=== PATIENT | female | born 2000 | race Caucasian/White ===

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

== ENCOUNTER 2019-02-17 23:39 | Emergency (ER) | payer OTHER, SELFPAY ==
[2019-02-18 01:06] LABS: Absolute Lymphocytes (CBC) 4.5 K/uL (0.7-4.9); Absolute Monocytes 0.7 K/uL (0.1-1.3); Absolute Neutrophil 7.5 K/uL (1.8-8.0); Basophils % 0.6 % (0-1.3); Eosinophils % 1.5 % (0-4.4); Hematocrit 45.8 % (36.0-45.0); Lymphocytes % 34.7 % (15.3-44.8); MPV 8.6 fL (7.6-11.3); Monocytes % 5.6 % (3.3-12.3); RBC Red Blood Cell Count 5.41 M/uL (3.86-4.86)
[2019-02-18 01:15] LABS: ALT/SGPT 23 U/L (12-78); AST/SGOT 13 U/L (15-37); Albumin 3.7 g/dL (3.4-5.0); Alkaline Phosphatase 92 U/L (45-117); BUN Blood Urea Nitrogen 9 mg/dL (7-18); Bicarbonate 25 mmol/L (21-32); Bilirubin Direct < 0.1 mg/dL (0-0.2); Bilirubin Total 0.4 mg/dL (0.2-1.0); Glucose Level 265 mg/dL (74-106); Lipase 89 U/L (73-393); Potassium 3.5 mmol/L (3.5-5.1); Protein, Total 7.8 g/dL (6.4-8.2); Sodium Level 136 mmol/L (136-145)
[2019-02-18 01:16] LABS: Urine Blood TRACE (NEG); Urine Glucose 2+ (NEG); Urine Protein 1+ (NEG); Urine Specific Gravity >1.030 (1.005-1.030)
--- NOTE | 2019-02-18 01:55 | ER ---
Nurse's Notes [facility] Name: Monique Mendez Age: 18 yrs Sex: Female : 2000 Arrival Date: 02/17/2019 Time: 23:44 Bed 16 Private MD: CHRISTINE GARCÍA Diagnosis: Weakness;Bipolar disorder;Type 1 diabetes mellitus;Nausea Presentation: 02/17 23:45 Presenting complaint: Patient states: I have been getting dizzy, feeling like I am jb4 going to pass out, having nausea, and a stabbing stomach pain for the past month. I have not had a period for 2 months. 23:45 Transition of care: patient was not received from another setting of care. Onset of jb4 symptoms was January 19, 2019. Risk Assessment: Do you want to hurt yourself or someone else? Patient reports no desire to harm self or others. Initial Sepsis Screen: Does the patient meet any 2 criteria? HR > 90 bpm. Yes Does the patient have a suspected source of infection? No. Patient's initial sepsis screen is negative. Care prior to arrival: None. 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 - Social history:: Smoking status: Patient uses tobacco products, smokes one pack cigarettes per day. Patient uses alcohol, but reports only rare drinking. - Ebola Screening: : No symptoms or risks identified at this time. - Family history:: not pertinent. Screenin/11 00:00 Abuse screen: Denies threats or abuse. Nutritional screening: No deficits noted. jb4 Tuberculosis screening: No symptoms or risk factors identified. Fall Risk None identified. Assessment: 00:00 General: Appears in no apparent distress. uncomfortable, Behavior is calm, cooperative, jb4 appropriate for age. Pain: Complains of pain in suprapubic area Pain does not radiate. Pain currently is 8 out of 10 on a pain scale. Quality of pain is described as stabbing. Neuro: Level of Consciousness is awake, alert, obeys commands, Oriented to person, place, time, situation. Cardiovascular: Patient's skin is warm and dry. Respiratory: Airway is patent Respiratory effort is even, unlabored, Respiratory pattern is regular, symmetrical. GI: Abdomen is non-distended, obese, Bowel sounds present X 4 quads. Abd is soft X 4 quads Abd is non tender in right upper quadrant, left upper quadrant and left lower quadrant Abdomen is tender to palpation in suprapubic area and right lower quadrant. : No signs and/or symptoms were reported regarding the genitourinary system. EENT: No signs and/or symptoms were reported regarding the EENT system. Derm: Skin is intact, Skin is pink, warm \T\ dry. Musculoskeletal: Circulation, motion, and sensation intact. 01:00 Reassessment: Patient appears in no apparent distress at this time. Patient and/or jb4 family updated on plan of care and expected duration. Pain level reassessed. Patient is alert, oriented x 3, equal unlabored respirations, skin warm/dry/pink. PT IV blew. Pt refused further IV attempts unless absolutely necessary. Refused fluids. 02:09 Reassessment: Patient appears in no apparent distress at this time. Patient and/or ed1 family updated on plan of care and expected duration. Pain level reassessed. Patient is alert, oriented x 3, equal unlabored respirations, skin warm/dry/pink. Vital Signs: 02/17 23:45 BP 142 / 102; Pulse 109; Resp 16; Temp 98.4(O); Pulse Ox 93% on R/A; Weight 113.4 kg jb4 (R); Height 5 ft. 4 in. (162.56 cm) (R); Pain 03/20; 02/18 01:05 BP 150 / 99; Pulse 91; Resp 16; Pulse Ox 98% on R/A; ag4 02:09 BP 127 / 75; Pulse 76; Resp 18; Temp 97.5(O); Pulse Ox 99% on R/A; Pain 6/10; ed1 02/17 23:45 Body Mass Index 42.91 (113.40 kg, 162.56 cm) jb4 ED Course: 02/17 23:44 Patient arrived in ED. am2 23:44 CHRISTINE GARCÍA is Private Physician. am2 23:45 Arm band placed on left wrist. jb4 02/18 00:00 Patient has correct armband on for positive identification. Placed in gown. Bed in low jb4 position. Call light in reach. Side rails up X 1. Pulse ox on. NIBP on. 00:07 Fermin Gunn, RN is Primary Nurse. jb4 00:09 Km Mcdonald MD is Attending Physician. [facility] 00:09 Triage completed. jb4 00:56 Inserted saline lock: 22 gauge in right antecubital area, using aseptic technique. jb4 Blood collected. Missed attempt(s): 20 gauge in right antecubital area. 00:56 Initial lab(s) drawn, by mo, sent to lab. jb4 01:12 IV discontinued, intact, bleeding controlled, No redness/swelling at site. jb4 01:24 Primary Nurse role handed off by Fermin Gunn, SLOAN ed1 01:24 Magaly Arnold, SLOAN is Primary Nurse. ed1 02:09 No provider procedures requiring assistance completed. ed1 Administered Medications: 01:06 Not Given (Patient Refused): NS 0.9% 1000 ml IV at 1 bolus Per protocol; 1000 mL bolus ed1 Point of Care Testing: Blood Glucose: 02/17 23:45 Blood Glucose: 230 mg/dL; jb4 Ranges: Outcome: 02/18 01:54 Discharge ordered by . [facility] 02:09 Discharged to home ambulatory. ed1 02:09 Condition: good 02:09 Discharge instructions given to patient, Instructed on discharge instructions, follow up and referral plans. medication usage, Demonstrated understanding of instructions, follow-up care, medications, Prescriptions given X 1. 02:11 Patient left the ED. ed1 Signatures: Km Mcdonald MD MD cha Riggs, Erika, RN RN ed1 Fermin Gunn RN RN jb4 Arelis Palafox 2 Meyer, Ed ag4
--- NOTE | 2019-02-18 01:55 | EDPHYS ---
Physician Documentation [facility] Name: Monique Mendez Age: 18 yrs Sex: Female : 2000 Arrival Date: 02/17/2019 Time: 23:44 Bed 16 Private MD: CHRISTINE GARCÍA ED Physician Km Mcdonald HPI: 02/18 00:41 This 18 yrs old Female presents to ER via Ambulatory with complaints of Near carol Syncope, Nausea, Abdominal Pain. 00:41 The patient has experienced near-syncope. Onset: The symptoms/episode began/occurred 2 carol day(s) ago. Duration: This was a single episode, that lasted 20 second(s). Context: the episode(s) was witnessed, by family. Associated injury: The patient did not suffer any apparent associated injury. Associated signs and symptoms: The patient has no apparent associated signs or symptoms. Current symptoms: Currently, the patient is not experiencing any symptoms. The patient has not experienced similar symptoms in the past. 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 - Social history:: Smoking status: Patient uses tobacco products, smokes one pack cigarettes per day. Patient uses alcohol, but reports only rare drinking. - Ebola Screening: : No symptoms or risks identified at this time. - Family history:: not pertinent. ROS: 02/18 00:41 Constitutional: Negative for fever, chills, and weight loss, Eyes: Negative for injury, carol pain, redness, and discharge, ENT: Negative for injury, pain, and discharge, Neck: Negative for injury, pain, and swelling, Cardiovascular: Negative for chest pain, palpitations, and edema, Respiratory: Negative for shortness of breath, cough, wheezing, and pleuritic chest pain, Back: Negative for injury and pain, : Negative for injury, bleeding, discharge, and swelling, MS/Extremity: Negative for injury and deformity, Skin: Negative for injury, rash, and discoloration, Neuro: Negative for headache, weakness, numbness, tingling, and seizure, Psych: Negative for depression, anxiety, suicide ideation, homicidal ideation, and hallucinations, Allergy/Immunology: Negative for hives, rash, and allergies, Endocrine: Negative for neck swelling, polydipsia, polyuria, polyphagia, and marked weight changes, Hematologic/Lymphatic: Negative for swollen nodes, abnormal bleeding, and unusual bruising. Abdomen/GI: Positive for abdominal pain, nausea. Exam: 00:41 Constitutional: This is a well developed, well nourished patient who is awake, alert, carol and in no acute distress. Head/Face: Normocephalic, atraumatic. Eyes: Pupils equal round and reactive to light, extra-ocular motions intact. Lids and lashes normal. Conjunctiva and sclera are non-icteric and not injected. Cornea within normal limits. Periorbital areas with no swelling, redness, or edema. ENT: Nares patent. No nasal discharge, no septal abnormalities noted. Tympanic membranes are normal and external auditory canals are clear. Oropharynx with no redness, swelling, or masses, exudates, or evidence of obstruction, uvula midline. Mucous membranes moist. Neck: Trachea midline, no thyromegaly or masses palpated, and no cervical lymphadenopathy. Supple, full range of motion without nuchal rigidity, or vertebral point tenderness. No Meningismus. Chest/axilla: Normal chest wall appearance and motion. Nontender with no deformity. No lesions are appreciated. Cardiovascular: Regular rate and rhythm with a normal S1 and S2. No gallops, murmurs, or rubs. Normal PMI, no JVD. No pulse deficits. Respiratory: Lungs have equal breath sounds bilaterally, clear to auscultation and percussion. No rales, rhonchi or wheezes noted. No increased work of breathing, no retractions or nasal flaring. Abdomen/GI: Soft, non-tender, with normal bowel sounds. No distension or tympany. No guarding or rebound. No evidence of tenderness throughout. Back: No spinal tenderness. No costovertebral tenderness. Full range of motion. Skin: Warm, dry with normal turgor. Normal color with no rashes, no lesions, and no evidence of cellulitis. MS/ Extremity: Pulses equal, no cyanosis. Neurovascular intact. Full, normal range of motion. Neuro: Awake and alert, GCS 15, oriented to person, place, time, and situation. Cranial nerves II-XII grossly intact. Motor strength 5/5 in all extremities. Sensory grossly intact. Cerebellar exam normal. Normal gait. Psych: Awake, alert, with orientation to person, place and time. Behavior, mood, and affect are within normal limits. 00:41 Musculoskeletal/extremity: DVT Exam: No signs of deep vein thrombosis. no pain, no swelling, no tenderness, negative Homans' sign noted on exam, no appreciated bluish discoloration, no erythema, no increased warmth. Vital Signs: 02/17 23:45 BP 142 / 102; Pulse 109; Resp 16; Temp 98.4(O); Pulse Ox 93% on R/A; Weight 113.4 kg [facility] (R); Height 5 ft. 4 in. (162.56 cm) (R); Pain 6/10; 02/18 01:05 BP 150 / 99; Pulse 91; Resp 16; Pulse Ox 98% on R/A; ag4 02:09 BP 127 / 75; Pulse 76; Resp 18; Temp 97.5(O); Pulse Ox 99% on R/A; Pain 6/10; ed1 02/17 23:45 Body Mass Index 42.91 (113.40 kg, 162.56 cm) [facility] MDM: 00:09 Patient medically screened. [facility] 00:44 Data reviewed: vital signs, nurses notes, lab test result(s), EKG. [facility] 02/18 00:18 Order name: Basic Metabolic Panel [facility] 02/18 00:18 Order name: CBC with Diff [facility] 02/18 00:18 Order name: Creatinine for Radiology; Complete Time: : [facility] 02/18 00:18 Order name: Hepatic Function; Complete Time: : [facility] 02/18 00:18 Order name: Lipase; Complete Time: [facility] 02/18 00:18 Order name: [place]; Complete Time: 01:53 4 02/18 00:18 Order name: IV Saline Lock; Complete Time: 00:52 [facility] 02/18 00:18 Order name: Labs collected and sent; Complete Time: 00:52 4 02/18 00:18 Order name: EKG; Complete Time: 00:20 [facility] 02/18 00:19 Order name: Basic Metabolic Panel; Complete Time: 01: EDAK 02/18 00:19 Order name: CBC with Automated Diff; Complete Time: : EDAK 02/18 01:13 Order name: Urine Dipstick--Ancillary (enter results); Complete Time: : cm6 02/18 01:13 Order name: Urine --Ancillary (enter results); Complete Time: [facility] 02/18 00:18 Order name: EKG - Nurse/Tech; Complete Time: 00:52 [facility] 02/18 00:41 Order name: Urine Dipstick-Ancillary (obtain specimen); Complete Time: 01: carol 02/18 00:41 Order name: Urine Test (obtain specimen); Complete Time: 01:04 [facility] Administered Medications: 01:06 Not Given (Patient Refused): NS 0.9% 1000 ml IV at 1 bolus Per protocol; 1000 mL bolus ed1 Point of Care Testing: Blood Glucose: 02/17 23:45 Blood Glucose: 230 mg/dL; jb4 Ranges: Critical Glucose Levels:Adult <50 mg/dl or >400 mg/dl <40 mg/dl or >180 mg/dl Disposition: 02/18/19 01:54 Discharged to Home. Impression: Weakness, Bipolar disorder, Type 1 diabetes mellitus, Nausea. - Condition is Stable. - Discharge Instructions: Type 1 Diabetes Mellitus, Diagnosis, Adult, Bipolar Disorder, Near-Syncope, Weakness, Near-Syncope, [id number]-[id number], Weakness, Ubyj-xv-Vvzc, Type 1 Diabetes Mellitus, Self Care, Adult, Type 1 Diabetes Mellitus, Diagnosis, Adult, Zice-oz-Trzj, Type 1 Diabetes Mellitus, Self Care, Adult, Vqkt-lo-Sakr. - Prescriptions for Zofran 4 mg Oral Tablet - take 1 tablet by ORAL route every 12 hours As needed; 20 tablet. - Medication Reconciliation Form, Thank You Letter, Antibiotic Education, Prescription Opioid Use form. - Follow up: Private Physician; When: 2 - 3 days; Reason: Recheck today's complaints, Continuance of care, Re-evaluation by your physician. - Problem is new. - Symptoms have improved. Signatures: Dispatcher [employer] EDKm Ko MD MD cha Riggs, Erika, RN RN ed1 Fermin Gunn RN RN jb4 Corrections: (The following items were deleted from the chart) 02/18 02:11 01:54 02/18/2019 01:54 Discharged to Home. Impression: Weakness; Bipolar disorder; Type ed1 1 diabetes mellitus; Nausea. Condition is Stable. Discharge Instructions: Type 1 Diabetes Mellitus, Diagnosis, Adult, Bipolar Disorder, Near-Syncope, Weakness, Near-Syncope, Fywn-xf-Olhs, Weakness, Tcru-rb-Zwyd, Type 1 Diabetes Mellitus, Self Care, Adult, Type 1 Diabetes Mellitus, Diagnosis, Adult, Xakq-wr-Tijr, Type 1 Diabetes Mellitus, Self Care, Adult, Ajss-oz-Dfxi. Prescriptions for Zofran 4 mg Oral Tablet - take 1 tablet by ORAL route every 12 hours As needed; 20 tablet. and Forms are Medication Reconciliation Form, Thank You Letter, Antibiotic Education, Prescription Opioid Use. Follow up: Private Physician; When: 2 - 3 days; Reason: Recheck today's complaints, Continuance of care, Re-evaluation by your physician. Problem is new. Symptoms have improved. carol
[2019-02-18 02:26] VITALS: BP 127/75; TEMP 97.5; O2SAT 99
--- NOTE | 2019-02-18 09:21 | EKG ---
Test Date: 2019-02-18 Test Time: 00:26:04 Layout Artist: [email or web address] MEASUREMENT RESULTS: Intervals: Rate: 96 WA: 148 QRSD: 88 QT: 370 QTc: 467 [place]: P: 37 WA: 148 QRS: 71 T: 20 INTERPRETIVE STATEMENTS: Normal sinus rhythm Normal ECG Compared to ECG 04/19/2018 14:42:52 Sinus tachycardia no longer present Electronically Signed On 02-18-19 09:20:48 CDT by Dylon Reyes
== END 2019-02-18 02:11 | disposition home or self-care (01) ==
LOC: ER 23:39
DX: R53.1 Weakness (principal); R11.0 Nausea; F31.9 Bipolar disorder, unspecified; E10.9 Type 1 diabetes mellitus without complications; F32.9 Major depressive disorder, single episode, unspecified; F17.210 Nicotine dependence, cigarettes, uncomplicated; Z79.4 Long term (current) use of insulin
CPT/HCPCS: 36415; 80048; 80076; 80178; 81003; 81025; 82962; 83690; 85025; 93005; 99284

== ENCOUNTER 2019-03-01 02:15 | Emergency (ER) | payer OTHER ==
[2019-03-01] MEDS ORDERED: LIDOCAINE 1% 20 ML MDV ONE (02:47)
--- NOTE | 2019-03-01 03:16 | ER ---
Nurse's Notes [facility] Name: Monique Mendez Age: 19 yrs Sex: Female : 2000 Arrival Date: 03/01/2019 Time: 02:20 Bed 17 Private MD: CHRISTINE GARCÍA Diagnosis: Cutaneous abscess of right hand-right middle finger;Type 1 diabetes mellitus-poorly controlled Presentation: 03/01 02:36 Presenting complaint: Patient states: right middle finger with swelling, redness and ak1 green discharge X1 week. Transition of care: patient was not received from another setting of care. Onset of symptoms is unknown. Risk Assessment: Do you want to hurt yourself or someone else? Patient reports no desire to harm self or others. Care prior to arrival: None. 02:36 Method Of Arrival: Ambulatory ak1 02:36 Acuity: ROXANNE 4 ak1 03:00 Initial Sepsis Screen: Does the patient meet any 2 criteria? No. Patient's initial tl2 sepsis screen is negative. Does the patient have a suspected source of infection? No. Patient's initial sepsis screen is negative. Triage Assessment: 02:38 General: Appears uncomfortable, Behavior is cooperative. Pain: Complains of pain in ak1 dorsal aspect of distal phalanx of right middle finger. 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 ak1 02:35 irregular ak1 Historical: - Allergies: 02:38 No Known Allergies; ak1 - Home Meds: 02:38 control pills [Active]; gabapentin Oral [Active]; Hydroxyzine Oral [Active]; ak1 Lantus 100 unit/mL Sub-Q soln [Active]; Latuda 120 mg Oral tab 1 tab once daily [Active]; lithium carbonate 300 mg Oral cap 1 cap nightly [Active]; Victoza 2-Collin subcutaneous [Active]; - PMHx: 02:38 Anxiety; Bipolar disorder; Diabetes - IDDM; Depression; multiple personality disorder; ak1 polycystic ovarian disease; Schizophrenia; Suicide Attempts; - PSHx: 02:38 Abcess removal; ak1 - Immunization history:: Adult Immunizations unknown, Last tetanus immunization: unknown. - Social history:: Smoking status: Patient uses tobacco products, smokes one pack cigarettes per day. - Ebola Screening: : No symptoms or risks identified at this time. - Family history:: not pertinent. Screenin:59 Abuse screen: Denies threats or abuse. Nutritional screening: No deficits noted. tl2 Tuberculosis screening: No symptoms or risk factors identified. Fall Risk None identified. Assessment: 02:36 General: Appears. tl2 02:40 General: Appears in no apparent distress. uncomfortable, Behavior is calm, cooperative, tl2 appropriate for age. Pain: Complains of pain in dorsal aspect of distal phalanx of right middle finger. Neuro: Level of Consciousness is awake, alert, obeys commands, Oriented to person, place, time, situation. Respiratory: Airway is patent Respiratory effort is even, unlabored, Respiratory pattern is regular, symmetrical. Derm: Skin is pink, warm \T\ dry. Abscess located on dorsal aspect of distal phalanx of right middle finger is on tip of right 3rd finger has purulent drainage, is red, is raised. 03:25 Reassessment: pt BGL >500, MD notified, new orders see MAR. Reassessment: Pt is tl2 refusing IV or blood draw. Explained to pt importance of receiving blood work and medication, pt continues to refuse and states she will go to her PCP. 04:03 Reassessment: Pt refused IV and blood draw. ea 04:52 Reassessment: Patient appears in no apparent distress at this time. pt verbalized tl2 understanding of risk of leaving AMA. Discussed prescription usage and wound care. Vital Signs: 02:35 BP 148 / 92; Pulse 97; Resp 18; Temp 97.8; Pulse Ox 99% on R/A; Weight 113.4 kg (R); ak1 Height 5 ft. 4 in. (162.56 cm) (R); Pain 10/10; 04:52 BP 139 / 90; Pulse 95; Resp 18; Pulse Ox 99% on R/A; tl2 02:35 Body Mass Index 42.91 (113.40 kg, 162.56 cm) ak1 ED Course: 02:20 Patient arrived in ED. es 02:21 CHRISTINE GARCÍA is Private Physician. es 02:35 Arm band placed on Patient placed in an exam room, on a stretcher, on pulse oximetry. ak1 02:37 Triage completed. ak1 02:45 Km Mcdonald MD is Attending Physician. carol 02:49 Jurado, Lynn, RN is Primary Nurse. tl2 03:00 Patient has correct armband on for positive identification. Bed in low position. Call tl2 light in reach. Side rails up X 1. 03:13 Supa Low MD is Referral Physician. [facility] 04:52 No provider procedures requiring assistance completed. Patient did not have IV access tl2 during this emergency room visit. Administered Medications: 03:31 Drug: Bactrim (160 mg-800 mg (DS) 1 tablet Route: PO; tl2 04:54 Follow up: Response: No adverse reaction tl2 03:31 Drug: Doxycycline 200 mg Route: PO; tl2 04:55 Follow up: Response: No adverse reaction tl2 03:31 Drug: [place] 10 mg-325 mg 1 tabs Route: PO; tl2 04:30 Follow up: Response: No adverse reaction tl2 03:33 Not Given (unavailable): Bactroban Ointment 2 % 1 application Topical once tl2 04:05 Drug: Insulin Regular Human 10 units {Co-Signature: sydney (Milagros Tovar RN).} Route: tl2 Sub-Q; Site: left lower abdomen; 04:54 Follow up: Response: No adverse reaction tl2 04:08 Not Given (Patient Refused): Insulin Regular Human 10 units IVP once tl2 04:08 Not Given (Patient Refused): NS 0.9% 1000 ml IV at 1 bolus Per protocol; 1000 mL bolus tl2 04:38 Not Given (unavailable): Bactroban Ointment 2 % 1 application Topical once tl2 Point of Care Testing: Blood Glucose: 03:33 Blood Glucose: High (>450 mg/dL); tl2 Ranges: Outcome: 03:16 Discharge ordered by . [facility] 04:52 AMA AMA form signed tl2 04:52 Condition: stable 04:52 Discharge instructions given to patient, Instructed on follow up and referral plans. medication usage, wound care, Prescriptions given X 4. 04:55 Patient left the ED. tl2 Signatures: Km Mcdonald MD MD cha Salyer, Edna es Krenek, Amber RN RN Lynn Espinal RN RN [email or web address] Milagros Tovar RN RN ea Elena Antunez RN ea
--- NOTE | 2019-03-01 03:16 | EDPHYS ---
Physician Documentation [facility] Name: Monique Mendez Age: 19 yrs Sex: Female : 2000 Arrival Date: 03/01/2019 Time: 02:20 Bed 17 Private MD: CHRISTINE GARCÍA ED Physician Km Mcdonald HPI: 03/01 03:08 This 19 yrs old Female presents to ER via Ambulatory with complaints of carol INFECTED FINGER. 03:08 The patient or guardian reports decreased range of motion, injury, pain, swelling, carol tenderness. The complaints affect the DIP of right middle finger. Context: The problem was sustained at an unknown location. Onset: The symptoms/episode began/occurred 2 day(s) ago. Modifying factors: The symptoms are alleviated by nothing, the symptoms are aggravated by movement, dependent position. Associated signs and symptoms: The patient has no apparent associated signs or symptoms. Severity of symptoms: At their worst the symptoms were moderate, in the emergency department the symptoms are unchanged. The patient has not experienced similar symptoms in the past. 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 ak1 02:35 irregular ak1 Historical: - Allergies: 02:38 No Known Allergies; ak1 - Home Meds: 02:38 control pills [Active]; gabapentin Oral [Active]; Hydroxyzine Oral [Active]; ak1 Lantus 100 unit/mL Sub-Q soln [Active]; Latuda 120 mg Oral tab 1 tab once daily [Active]; lithium carbonate 300 mg Oral cap 1 cap nightly [Active]; Victoza 2-Collin subcutaneous [Active]; - PMHx: 02:38 Anxiety; Bipolar disorder; Diabetes - IDDM; Depression; multiple personality disorder; ak1 polycystic ovarian disease; Schizophrenia; Suicide Attempts; - PSHx: 02:38 Abcess removal; ak1 - Immunization history:: Adult Immunizations unknown, Last tetanus immunization: unknown. - Social history:: Smoking status: Patient uses tobacco products, smokes one pack cigarettes per day. - Ebola Screening: : No symptoms or risks identified at this time. - Family history:: not pertinent. ROS: 03:08 Constitutional: Negative for fever, chills, and weight loss, Eyes: Negative for injury, carol pain, redness, and discharge, ENT: Negative for injury, pain, and discharge, Neck: Negative for injury, pain, and swelling, Cardiovascular: Negative for chest pain, palpitations, and edema, Respiratory: Negative for shortness of breath, cough, wheezing, and pleuritic chest pain, Abdomen/GI: Negative for abdominal pain, nausea, vomiting, diarrhea, and constipation, Back: Negative for injury and pain, : Negative for injury, bleeding, discharge, and swelling, Skin: Negative for injury, rash, and discoloration, Neuro: Negative for headache, weakness, numbness, tingling, and seizure, Psych: Negative for depression, anxiety, suicide ideation, homicidal ideation, and hallucinations, Allergy/Immunology: Negative for hives, rash, and allergies, Endocrine: Negative for neck swelling, polydipsia, polyuria, polyphagia, and marked weight changes, Hematologic/Lymphatic: Negative for swollen nodes, abnormal bleeding, and unusual bruising. 03:08 MS/extremity: Positive for decreased range of motion, pain, swelling, tenderness, of the right middle fingernail and dorsal aspect of distal phalanx of right middle finger. Exam: 03:08 Constitutional: This is a well developed, well nourished patient who is awake, alert, carol and in no acute distress. Head/Face: Normocephalic, atraumatic. Eyes: Pupils equal round and reactive to light, extra-ocular motions intact. Lids and lashes normal. Conjunctiva and sclera are non-icteric and not injected. Cornea within normal limits. Periorbital areas with no swelling, redness, or edema. ENT: Nares patent. No nasal discharge, no septal abnormalities noted. Tympanic membranes are normal and external auditory canals are clear. Oropharynx with no redness, swelling, or masses, exudates, or evidence of obstruction, uvula midline. Mucous membranes moist. Neck: Trachea midline, no thyromegaly or masses palpated, and no cervical lymphadenopathy. Supple, full range of motion without nuchal rigidity, or vertebral point tenderness. No Meningismus. Chest/axilla: Normal chest wall appearance and motion. Nontender with no deformity. No lesions are appreciated. Cardiovascular: Regular rate and rhythm with a normal S1 and S2. No gallops, murmurs, or rubs. Normal PMI, no JVD. No pulse deficits. Respiratory: Lungs have equal breath sounds bilaterally, clear to auscultation and percussion. No rales, rhonchi or wheezes noted. No increased work of breathing, no retractions or nasal flaring. Abdomen/GI: Soft, non-tender, with normal bowel sounds. No distension or tympany. No guarding or rebound. No evidence of tenderness throughout. Back: No spinal tenderness. No costovertebral tenderness. Full range of motion. Skin: Warm, dry with normal turgor. Normal color with no rashes, no lesions, and no evidence of cellulitis. Neuro: Awake and alert, GCS 15, oriented to person, place, time, and situation. Cranial nerves II-XII grossly intact. Motor strength 5/5 in all extremities. Sensory grossly intact. Cerebellar exam normal. Normal gait. 03:08 Musculoskeletal/extremity: ROM: limited active range of motion, limited passive range of motion, Pulses: noted to be 4+ in the bilateral radial, brachial, femoral, popliteal, posterior tibial and and dorsalis pedis arteries., Sensation intact. Severe pain noted. Compartment Syndrome exam of affected extremity: is normal. DVT Exam: negative Homans' sign noted on exam, no appreciated bluish discoloration, pain, swelling, tenderness, erythema, increased warmth, that is moderate, of the palmar aspect of distal phalanx of right middle finger and right middle fingernail. Vital Signs: 02:35 BP 148 / 92; Pulse 97; Resp 18; Temp 97.8; Pulse Ox 99% on R/A; Weight 113.4 kg (R); ak1 Height 5 ft. 4 in. (162.56 cm) (R); Pain 10/10; 04:52 BP 139 / 90; Pulse 95; Resp 18; Pulse Ox 99% on R/A; tl2 02:35 Body Mass Index 42.91 (113.40 kg, 162.56 cm) ak1 MDM: 02:45 Patient medically screened. [facility] 03:12 Data reviewed: vital signs, nurses notes, lab test result(s), urinalysis. [facility] 03/01 03:08 Order name: Urine Dipstick--Ancillary (enter results); Complete Time: 04:44 [facility] 03/01 03:08 Order name: Urine --Ancillary (enter results); Complete Time: 04:44 [facility] 03/01 03:07 Order name: Urine Dipstick-Ancillary (obtain specimen); Complete Time: 03:16 [facility] 03/01 03:07 Order name: Urine Test (obtain specimen); Complete Time: 03:16 [facility] 03/01 03:11 Order name: Blood Glucose Level; Complete Time: 03:31 [facility] 03/01 03:34 Order name: Wound Care; Complete Time: 03:58 [facility] 03/01 03:34 Order name: Wound dressing; Complete Time: 03:58 [facility] Administered Medications: 03:31 Drug: Bactrim (160 mg-800 mg (DS) 1 tablet Route: PO; tl2 04:54 Follow up: Response: No adverse reaction tl2 03:31 Drug: Doxycycline 200 mg Route: PO; tl2 04:55 Follow up: Response: No adverse reaction tl2 03:31 Drug: [place] 10 mg-325 mg 1 tabs Route: PO; tl2 04:30 Follow up: Response: No adverse reaction tl2 03:33 Not Given (unavailable): Bactroban Ointment 2 % 1 application Topical once tl2 04:05 Drug: Insulin Regular Human 10 units {Co-Signature: sydney (Milagros Tovar RN).} Route: tl2 Sub-Q; Site: left lower abdomen; 04:54 Follow up: Response: No adverse reaction tl2 04:08 Not Given (Patient Refused): Insulin Regular Human 10 units IVP once tl2 04:08 Not Given (Patient Refused): NS 0.9% 1000 ml IV at 1 bolus Per protocol; 1000 mL bolus tl2 04:38 Not Given (unavailable): Bactroban Ointment 2 % 1 application Topical once tl2 Point of Care Testing: Blood Glucose: 03:33 Blood Glucose: High (>450 mg/dL); tl2 Ranges: Critical Glucose Levels:Adult <50 mg/dl or >400 mg/dl <40 mg/dl or >180 mg/dl Disposition: 03/01/19 04:49 Patient has left against medical advice. Impression: Cutaneous abscess of right hand - right middle finger, Type 1 diabetes mellitus - poorly controlled. - Patients states they are going to Home. - Condition is Stable. - Discharge Instructions: Skin Abscess, Type 1 Diabetes Mellitus, Diagnosis, Adult, Incision and Drainage, Skin Abscess, [id number], Type 1 Diabetes Mellitus, Self Care, Adult, Type 1 Diabetes Mellitus, Diagnosis, Adult, [id number], Type 1 Diabetes Mellitus, Self Care, Adult, [id number]. - Prescriptions for Bactroban 2 % Topical Ointment - Apply to affected area 1 application by TOPICAL route every 12 hours; 15 gram. Doxycycline Hyclate 100 mg Oral Tablet - take 1 tablet by ORAL route every 12 hours; 20 tablet. Bactrim DS 800- 160 mg Oral Tablet - take 1 tablet by ORAL route every 12 hours for 10 days; 20 tablet. Follow up: Private Physician; When: Upon discharge from the Emergency Department; Reason: Recheck today's complaints, Continuance of care, Re-evaluation by your physician. - Problem is new. - Symptoms have improved. Signatures: Dispatcher [employer] EDMS Km Mcdonald MD MD cha Krenek, Amber RN RN Lynn Espinal RN RN tl2 Milagros Tovar RN, ea Corrections: (The following items were deleted from the chart) 03:35 03:16 03/01/2019 03:16 Discharged to Home. Impression: Cutaneous abscess of right hand carol - felon/ paronychia; Type 1 diabetes mellitus. Condition is Stable. Forms are Medication Reconciliation Form, Thank You Letter, Antibiotic Education, Prescription Opioid Use. Follow up: Private Physician; When: 2 - 3 days; Reason: Recheck today's complaints, Continuance of care, Re-evaluation by your physician. Follow up: Supa Low; When: 2 - 3 days; Reason: Recheck today's complaints, Continuance of care, Re-evaluation by your physician. Problem is new. Symptoms have improved. carol 03:58 03:33 IV Saline Lock ordered. tl2 tl2 04:47 03:35 03/01/2019 03:16 Discharged to Home. Impression: Cutaneous abscess of right hand carol - felon/ paronychia; Type 1 diabetes mellitus - poorly compliant. Condition is Stable. Discharge Instructions: Skin Abscess, Type 1 Diabetes Mellitus, Diagnosis, Adult, Incision and Drainage, Paronychia, Skin Abscess, [id number], Paronychia, [id number], Incision and Drainage, Care After, Type 1 Diabetes Mellitus, Self Care, Adult, Type 1 Diabetes Mellitus, Diagnosis, Adult, [id number], Type 1 Diabetes Mellitus, Self Care, Adult, [id number]. Prescriptions for Bactroban 2 % Topical Ointment - Apply to affected area 1 application by TOPICAL route every 12 hours; 15 gram, Tylenol-Codeine #3 300-30 mg Oral Tablet - take 2 tablet by ORAL route every 6 hours As needed; 30 tablet, Doxycycline Hyclate 100 mg Oral Tablet - take 1 tablet by ORAL route every 12 hours; 20 tablet, Bactrim DS 800-160 mg Oral Tablet - take 1 tablet by ORAL route every 12 hours for 10 days; 20 tablet. and Forms are Medication Reconciliation Form, Thank You Letter, Antibiotic Education, Prescription Opioid Use. Follow up: Private Physician; When: 2 - 3 days; Reason: Recheck today's complaints, Continuance of care, Re-evaluation by your physician. Follow up: Supa Low; When: 2 - 3 days; Reason: Recheck today's complaints, Continuance of care, Re-evaluation by your physician. Problem is new. Symptoms have improved. [facility] 04:55 04:49 03/01/2019 04:49 Patients has left against medical advice. Impression: Cutaneous tl2 abscess of right hand - right middle finger; Type 1 diabetes mellitus - poorly controlled. Patient states they are going to Home. Condition is Stable. Prescriptions for Bactroban 2 % Topical Ointment - Apply to affected area 1 application by TOPICAL route every 12 hours; 15 gram, Tylenol-Codeine #3 300-30 mg Oral Tablet - take 2 tablet by ORAL route every 6 hours As needed; 30 tablet, Doxycycline Hyclate 100 mg Oral Tablet - take 1 tablet by ORAL route every 12 hours; 20 tablet, Bactrim DS 800-160 mg Oral Tablet - take 1 tablet by ORAL route every 12 hours for 10 days; 20 tabletFollow up: Private Physician; When: Upon discharge from the Emergency Department; Reason: Recheck today's complaints, Continuance of care, Re-evaluation by your physician. Problem is new. Symptoms have improved. carol
[2019-03-01 03:20] LABS: Urine Blood 1+ (NEG); Urine Glucose 2+ (NEG); Urine Protein NEGATIVE (NEG)
[2019-03-01] MEDS ORDERED: HYDROCODONE/APAP 10/325 TAB ONE (03:38)
[2019-03-01] MEDS ORDERED: SMZ./TMP. 800/160 MG TABLET ONE (03:38)
[2019-03-01] MEDS ORDERED: DOXYCYCLINE 100 MG CAP PO ONE (03:38)
[2019-03-01] MEDS ORDERED: INSULIN -REGULAR HUMAN 50 UNIT/0.5 ML ML ONE (04:17)
[2019-03-01 06:04] VITALS: TEMP 97.8; O2SAT 99
[2019-03-01 06:05] VITALS: BP 139/90
== END 2019-03-01 04:55 | disposition left against medical advice (07) ==
LOC: ER 02:15
DX: L02.511 Cutaneous abscess of right hand (principal); E10.65 Type 1 diabetes mellitus with hyperglycemia; F17.210 Nicotine dependence, cigarettes, uncomplicated
CPT/HCPCS: 81003; 81025; 82962; 96372; 99283

== ENCOUNTER 2019-05-27 11:44 | Emergency (ER) | payer OTHER ==
[2019-05-27] MEDS ORDERED: NA CHLORIDE 0.9% 1,000 ML ONE (12:22)
[2019-05-27 13:03] LABS: Urine Blood NEGATIVE (NEG); Urine Glucose 2+ (NEG); Urine Protein NEGATIVE (NEG); Urine Specific Gravity 1.015 (1.005-1.030)
[2019-05-27 13:40] LABS: Absolute Lymphocytes (CBC) 2.5 K/uL (0.7-4.9); Basophils % 0.2 % (0-1.3); Hematocrit 45.3 % (36.0-45.0); Lymphocytes % 23.7 % (15.3-44.8); MPV 9.7 fL (7.6-11.3); RBC Red Blood Cell Count 5.36 M/uL (3.86-4.86)
[2019-05-27 13:59] LABS: ALT/SGPT 21 U/L (12-78); AST/SGOT 15 U/L (15-37); Albumin 3.7 g/dL (3.4-5.0); Alkaline Phosphatase 107 U/L (45-117); BUN Blood Urea Nitrogen 7 mg/dL (7-18); Bicarbonate 22 mmol/L (21-32); Bilirubin Direct < 0.1 mg/dL (0-0.2); Bilirubin Total 0.2 mg/dL (0.2-1.0); Lipase 109 U/L (73-393); Potassium 3.6 mmol/L (3.5-5.1); Protein, Total 7.7 g/dL (6.4-8.2); Sodium Level 136 mmol/L (136-145)
[2019-05-27 14:06] LABS: Glucose Level 433 mg/dL (74-106)
[2019-05-27] MEDS ORDERED: INSULIN -REGULAR HUMAN 50 UNIT/0.5 ML ML ONE (14:49)
--- NOTE | 2019-05-27 15:01 | ER ---
Nurse's Notes [facility] Name: Monique Mendez Age: 19 yrs Sex: Female : 2000 Arrival Date: 05/27/2019 Time: 11:47 Bed 8 Private MD: CHRISTINE GARCÍA Diagnosis: Diabetes mellitus due to underlying condition with hyperglycemia Presentation: 05/27 11:58 Presenting complaint: Patient states: "My blood sugar was over 500 this morning." ss Denies fever, cough. Pt reports nausea. Transition of care: patient was not received from another setting of care. Onset of symptoms is unknown. Risk Assessment: Do you want to hurt yourself or someone else? Patient reports no desire to harm self or others. Initial Sepsis Screen: Does the patient meet any 2 criteria? HR > 90 bpm. Does the patient have a suspected source of infection? No. Patient's initial sepsis screen is negative. Care prior to arrival: None. 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 ss Historical: - Allergies: 12:02 No Known Allergies; ss - Home Meds: 12:02 Lantus 100 unit/mL Sub-Q soln [Active]; Victoza [Active]; gabapentin 300 mg oral cap 1 ss cap twice a day [Active]; hydroxyzine HCl 25 mg Oral tab 1 tab 3 times per day [Active]; lithium carbonate 300 mg Oral cap 1 cap twice a day [Active]; quetiapine 100 mg oral tab 1 tab nightly [Active]; - PMHx: 12:02 Anxiety; Bipolar disorder; Depression; Diabetes - IDDM; Suicide Attempts; ss Schizophrenia; polycystic ovarian disease; multiple personality disorder; - PSHx: 12:02 I\\T\\D; ss - Immunization history:: Adult Immunizations up to date. - Social history:: Smoking status: Patient uses tobacco products, smokes one pack cigarettes per day. - Ebola Screening: : Patient denies exposure to infectious person Patient denies travel to an Ebola-affected area in the 21 days before illness onset. Screenin:55 Abuse screen: Denies threats or abuse. Denies injuries from another. Nutritional ph screening: No deficits noted. Tuberculosis screening: No symptoms or risk factors identified. Fall Risk None identified. Assessment: 12:30 General: Appears in no apparent distress. comfortable, obese, well groomed, Behavior is ph calm, cooperative, appropriate for age, Denies fever, feeling ill. Pain: Denies pain. Neuro: Level of Consciousness is awake, alert, obeys commands, Oriented to person, place, time, situation. Cardiovascular: Capillary refill < 3 seconds in bilateral fingers Patient's skin is warm and dry. Respiratory: Airway is patent Respiratory effort is even, unlabored, Respiratory pattern is regular, symmetrical, Denies cough, shortness of breath. GI: Reports nausea, Patient currently denies abdominal pain, diarrhea, vomiting. Derm: Skin is intact, is healthy with good turgor, Skin is pink, warm \\T\\ dry. Musculoskeletal: Circulation, motion, and sensation intact. Range of motion: intact in all extremities. 13:30 Reassessment: No changes from previously documented assessment. Patient and/or family ph updated on plan of care and expected duration. Pain level reassessed. Patient is alert, oriented x 3, equal unlabored respirations, skin warm/dry/pink. 14:58 Reassessment: Patient appears in no apparent distress at this time. Patient and/or ph family updated on plan of care and expected duration. Pain level reassessed. Patient is alert, oriented x 3, equal unlabored respirations, skin warm/dry/pink. Pt resting quietly, SO at bedside, VSS, will continue to ,onitor. Vital Signs: 12:02 BP 147 / 85; Pulse 96; Resp 16; Temp 98.4(TE); Pulse Ox 96% on R/A; Weight 108.86 kg; ss Height 5 ft. 4 in. (162.56 cm); Pain 0/10; 13:00 BP 134 / 74; Pulse 87; Resp 18; Pulse Ox 99% on R/A; ph 14:40 BP 126 / 77; Pulse 75; Resp 16; Pulse Ox 97% on R/A; rv 16:03 BP 124 / 76; Pulse 74; Resp 15; Temp 98; Pulse Ox 99% ; rv 12:02 Body Mass Index 41.20 (108.86 kg, 162.56 cm) ED Course: 11:47 Patient arrived in ED. mr 11:47 CHRISTINE GARCÍA is Private Physician. mr 11:51 Gracie Aguayo FNP-C is PHCP. snw 11:51 Mathew Barrera MD is Attending Physician. snw 11:59 Triage completed. ss 12:02 Arm band placed on right wrist. ss 12:13 Alina Shen, RN is Primary Nurse. ph 12:45 Initial lab(s) drawn, by nh, sent to lab. Inserted saline lock: 22 gauge in right ph antecubital area, using aseptic technique. Blood collected. 14:56 Patient has correct armband on for positive identification. Bed in low position. Call light in reach. Side rails up X 1. Pulse ox on. NIBP on. Door closed. Noise minimized. Warm blanket given. Head of bed elevated. 15:00 CHRISTINE GARCÍA is Referral Physician. snw 16:04 No provider procedures requiring assistance completed. IV discontinued, intact, rv bleeding controlled, No redness/swelling at site. Pressure dressing applied. Administered Medications: 12:45 Drug: NS 0.9% 1000 ml Route: IV; Rate: 1000 ml; Site: right antecubital; ph 16:03 Follow up: IV Status: Completed infusion; IV Intake: 1000ml rv 14:56 Drug: Insulin Regular Human 10 units {Co-Signature: rv (Jj Dominguez RN).} Route: IVP; Site: right antecubital; 16:03 Follow up: Response: Blood sugar is lowered rv Point of Care Testing: Blood Glucose: 12:12 Blood Glucose: 399 mg/dL; ss 15:40 Blood Glucose: 267 mg/dL; dh3 Ranges: Intake: 16:03 IV: 1000ml; Total: 1000ml. rv Outcome: 15:00 Discharge ordered by . snw 16:04 Discharged to home ambulatory, with family. rv 16:04 Condition: good 16:04 Discharge instructions given to patient, Instructed on discharge instructions, follow up and referral plans. Demonstrated understanding of instructions, follow-up care. 16:04 Patient left the ED. rv Signatures: Gracie Aguayo FNP-C FNP-Robbie Jessica LucasMelly, RN RN Alina Shen RN RN Yolie Gomez formerly [facility] Jj Dominguez RN RN rv Jj Dominguez RN rv
--- NOTE | 2019-05-27 15:02 | EDPHYS ---
Physician Documentation [facility] Name: Monique Mendez Age: 19 yrs Sex: Female : 2000 Arrival Date: 05/27/2019 Time: 11:47 Bed 8 Private MD: CHRISTINE GARCÍA ED Physician Mathew Barrera HPI: 05/27 12:22 This 19 yrs old Female presents to ER via Ambulatory with complaints of High snw Blood Sugar. 12:22 The patient or guardian reports hyperglycemia, that was potentially precipitated by no snw particular event. Onset: The symptoms/episode began/occurred at an unknown time. Associated signs and symptoms: Pertinent positives: nausea and fatigue. Current symptoms: In the emergency department the patient's symptoms are unchanged from the initial presentation. It is unknown whether or not the patient has had similar symptoms in the past. It is unknown whether or not the patient has recently seen a physician. Sees Dr. De Leon. 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 ss Historical: - Allergies: 12:02 No Known Allergies; ss - Home Meds: 12:02 Lantus 100 unit/mL Sub-Q soln [Active]; Victoza [Active]; gabapentin 300 mg oral cap 1 ss cap twice a day [Active]; hydroxyzine HCl 25 mg Oral tab 1 tab 3 times per day [Active]; lithium carbonate 300 mg Oral cap 1 cap twice a day [Active]; quetiapine 100 mg oral tab 1 tab nightly [Active]; - PMHx: 12:02 Anxiety; Bipolar disorder; Depression; Diabetes - IDDM; Suicide Attempts; ss Schizophrenia; polycystic ovarian disease; multiple personality disorder; - PSHx: 12:02 I\T\D; ss - Immunization history:: Adult Immunizations up to date. - Social history:: Smoking status: Patient uses tobacco products, smokes one pack cigarettes per day. - Ebola Screening: : Patient denies exposure to infectious person Patient denies travel to an Ebola-affected area in the 21 days before illness onset. ROS: 12:22 Constitutional: Negative for fever, chills, and weight loss, + high blood sugar Eyes: snw Negative for injury, pain, redness, and discharge, ENT: Negative for injury, pain, and discharge, Neck: Negative for injury, pain, and swelling, Cardiovascular: Negative for chest pain, palpitations, and edema, Respiratory: Negative for shortness of breath, cough, wheezing, and pleuritic chest pain. 12:22 Back: Negative for injury and pain, : Negative for injury, bleeding, discharge, and swelling, MS/Extremity: Negative for injury and deformity, Skin: Negative for injury, rash, and discoloration, Neuro: Negative for headache, weakness, numbness, tingling, and seizure, Psych: Negative for depression, anxiety, suicide ideation, homicidal ideation, and hallucinations. 12:22 Abdomen/GI: Positive for nausea. Exam: 12:20 Constitutional: This is a well developed, well nourished patient who is awake, alert, snw and in no acute distress. Head/Face: Normocephalic, atraumatic. Eyes: Pupils equal round and reactive to light, extra-ocular motions intact. Lids and lashes normal. Conjunctiva and sclera are non-icteric and not injected. Cornea within normal limits. Periorbital areas with no swelling, redness, or edema. ENT: Nares patent. No nasal discharge, no septal abnormalities noted. Tympanic membranes are normal and external auditory canals are clear. Oropharynx with no redness, swelling, or masses, exudates, or evidence of obstruction, uvula midline. Mucous membranes moist. Neck: Trachea midline, no thyromegaly or masses palpated, and no cervical lymphadenopathy. Supple, full range of motion without nuchal rigidity, or vertebral point tenderness. No Meningismus. Chest/axilla: Normal chest wall appearance and motion. Nontender with no deformity. No lesions are appreciated. Cardiovascular: Regular rate and rhythm with a normal S1 and S2. No gallops, murmurs, or rubs. Normal PMI, no JVD. No pulse deficits. Respiratory: Lungs have equal breath sounds bilaterally, clear to auscultation and percussion. No rales, rhonchi or wheezes noted. No increased work of breathing, no retractions or nasal flaring. 12:20 Back: No spinal tenderness. No costovertebral tenderness. Full range of motion. Skin: Warm, dry with normal turgor. Normal color with no rashes, no lesions, and no evidence of cellulitis. MS/ Extremity: Pulses equal, no cyanosis. Neurovascular intact. Full, normal range of motion. Neuro: Awake and alert, GCS 15, oriented to person, place, time, and situation. Cranial nerves II-XII grossly intact. Motor strength 5/5 in all extremities. Sensory grossly intact. Cerebellar exam normal. Normal gait. 12:20 Abdomen/GI: Inspection: obese Bowel sounds: diminished, Palpation: abdomen is soft and non-tender. 12:20 Psych: indifferent, unable to say when she checked blood sugar last before two days ago, unable to say if is possible or not. Vital Signs: 12:02 BP 147 / 85; Pulse 96; Resp 16; Temp 98.4(TE); Pulse Ox 96% on R/A; Weight 108.86 kg; ss Height 5 ft. 4 in. (162.56 cm); Pain 0/10; 13:00 BP 134 / 74; Pulse 87; Resp 18; Pulse Ox 99% on R/A; ph 14:40 BP 126 / 77; Pulse 75; Resp 16; Pulse Ox 97% on R/A; rv 16:03 BP 124 / 76; Pulse 74; Resp 15; Temp 98; Pulse Ox 99% ; rv 12:02 Body Mass Index 41.20 (108.86 kg, 162.56 cm) ss MDM: 12:07 Patient medically screened. snw 15:01 Data reviewed: vital signs, nurses notes. Data interpreted: Pulse oximetry: on room air snw is 97 %. Interpretation: normal. Counseling: I had a detailed discussion with the patient and/or guardian regarding: the historical points, exam findings, and any diagnostic results supporting the discharge/admit diagnosis, lab results, the need for outpatient follow up, to return to the emergency department if symptoms worsen or persist or if there are any questions or concerns that arise at home. Response to treatment: the patient's symptoms have mildly improved after treatment. 05/27 12:50 Order name: Urine Dipstick--Ancillary (enter results); Complete Time: 13:34 eb 05/27 12:50 Order name: Urine --Ancillary (enter results); Complete Time: 13:34 eb 05/27 13:19 Order name: Basic Metabolic Panel; Complete Time: 14:15 snw 05/27 13:19 Order name: CBC with Diff; Complete Time: 13:46 snw 05/27 13:19 Order name: Creatinine for Radiology; Complete Time: 14:00 snw 05/27 13:19 Order name: Hepatic Function; Complete Time: 14:15 snw 05/27 13:19 Order name: Lipase; Complete Time: 14:15 snw 05/27 13:19 Order name: Acetone, Serum; Complete Time: 14:15 snw 05/27 14:04 Order name: Hemoglobin A1c snw 05/27 14:11 Order name: Hemoglobin A1c; Complete Time: 15:01 EDNJ 05/27 15:53 Order name: Glucose, Ancillary Testing; Complete Time: 16:53 EDNJ 05/27 13:19 Order name: IV Saline Lock; Complete Time: 13:31 snw 05/27 13:19 Order name: Labs collected and sent; Complete Time: 13:31 snw Administered Medications: 12:45 Drug: NS 0.9% 1000 ml Route: IV; Rate: 1000 ml; Site: right antecubital; 16:03 Follow up: IV Status: Completed infusion; IV Intake: 1000ml rv 14:56 Drug: Insulin Regular Human 10 units {Co-Signature: rv (Jj Dominguez RN).} Route: ph IVP; Site: right antecubital; 16:03 Follow up: Response: Blood sugar is lowered rv Point of Care Testing: Blood Glucose: 12:12 Blood Glucose: 399 mg/dL; ss 15:40 Blood Glucose: 267 mg/dL; dh3 Ranges: Critical Glucose Levels:Adult <50 mg/dl or >400 mg/dl <40 mg/dl or >180 mg/dl Disposition: 05/27/19 15:00 Discharged to Home. Impression: Diabetes mellitus due to underlying condition with hyperglycemia. - Condition is Stable. - Discharge Instructions: Dehydration, Adult, Diabetes and Sick Day Management, Hyperglycemic Hyperosmolar State, Form - Daily Diabetes Record, Blood Glucose Monitoring, Adult, Rehydration, Adult. - Medication Reconciliation Form, Thank You Letter, Antibiotic Education, Prescription Opioid Use form. - Follow up: CHRISTINE GARCÍA; When: 1 - 2 days; Reason: Recheck today's complaints, Continuance of care, Re-evaluation by your physician. Follow up: Emergency Department; When: As needed; Reason: Worsening of condition. Signatures: Dispatcher [employer] EDGracie French, RONY CHIEF EXECUTIVE-[place] Melly Morillo RN RN Alina Shen RN RN ph Jj Dominguez RN RN rv Jj Dominguez RN rv Corrections: (The following items were deleted from the chart) 13:21 13:20 HEMOGLOBIN A1C+CHEM A1C.LAB.BRZ ordered. EDNJ EDMS 16:04 15:00 05/27/2019 15:00 Discharged to Home. Impression: Diabetes mellitus due to rv underlying condition with hyperglycemia. Condition is Stable. Discharge Instructions: Dehydration, Adult, Diabetes and Sick Day Management, Hyperglycemic Hyperosmolar State, Form - Daily Diabetes Record, Blood Glucose Monitoring, Adult, Rehydration, Adult. Forms are Medication Reconciliation Form, Thank You Letter, Antibiotic Education, Prescription Opioid Use. Follow up: CHRISTINE GARCÍA; When: 1 - 2 days; Reason: Recheck today's complaints, Continuance of care, Re-evaluation by your physician. Follow up: Emergency Department; When: As needed; Reason: Worsening of condition. snw
[2019-05-27 16:55] VITALS: BP 124/76; TEMP 98; O2SAT 99
== END 2019-05-27 16:04 | disposition home or self-care (01) ==
LOC: ER 11:44
DX: E11.65 Type 2 diabetes mellitus with hyperglycemia (principal); F41.8 Other specified anxiety disorders
CPT/HCPCS: 96361; 85025; 80048; 36415; 82010; 81025; 82962 ×2; 80076; 81003; 83036; 83690; 96374; 99284; J7030

== ENCOUNTER 2019-07-13 23:17 | Emergency (ER) | payer OTHER ==
[2019-07-14] MEDS ORDERED: PEN G BENZ LA 2.4 MU/4 ML SYRINGE IM ONE (02:15)
[2019-07-14 02:26] LABS: Urine Bacteria 20-50 /HPF (<20); Urine Culture Reflex Order REFLEXED; Urine RBC <5 /HPF (NONE SEEN)
[2019-07-14 02:26] LABS: Urine Blood NEGATIVE (NEG); Urine Glucose 2+ (NEG); Urine Protein NEGATIVE (NEG); Urine Specific Gravity 1.015 (1.005-1.030)
--- NOTE | 2019-07-14 02:34 | ER ---
Nurse's Notes [facility] Name: Monique Mendez Age: 19 yrs Sex: Female : 2000 Arrival Date: 07/13/2019 Time: 23:22 Bed 9 Private MD: CHRISTINE GARCÍA Diagnosis: Streptococcal pharyngitis;Urinary tract infection, site not specified;Malaise and fatigue Presentation: 07/14 00:32 Presenting complaint: Patient states: that she is just not feeling well, period is fc late, having nausea and has swollen lymph nodes to right neck. Denies any sore throat or ear pain. Transition of care: patient was not received from another setting of care. Onset of symptoms was July 08, 2019. Risk Assessment: Do you want to hurt yourself or someone else? Patient reports no desire to harm self or others. Initial Sepsis Screen: Does the patient meet any 2 criteria? HR > 90 bpm. Yes Does the patient have a suspected source of infection? No. Patient's initial sepsis screen is negative. Care prior to arrival: None. 00:32 Method Of Arrival: Ambulatory fc 00:32 Acuity: ROXANNE 3 fc Triage Assessment: 00:37 General: Appears comfortable, obese, Behavior is calm, cooperative, appropriate for age. Pain: Complains of pain in neck Pain currently is 7 out of 10 on a pain scale. Quality of pain is described as aching, throbbing, Pain began 1 week ago. EENT: Throat is reddened Cervical nodes enlarged on right Reports pain to swollen lymph nodes on right. Neuro: Level of Consciousness is awake, alert, obeys commands, Oriented to person, place, time, situation, Appropriate for age. Cardiovascular: No deficits noted. Respiratory: No deficits noted. GI: Abdomen is round Bowel sounds present X 4 quads. Abd is soft and non tender X 4 quads. Reports constipation, nausea. : No deficits noted. Derm: Skin is pink, warm \T\ dry. Musculoskeletal: Circulation, motion, and sensation intact. Capillary refill < 3 seconds, Range of motion: intact in all extremities. 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 fc Historical: - Allergies: 00:36 No Known Allergies; fc - Home Meds: 00:36 lithium carbonate 300 mg Oral cap 1 cap twice a day [Active]; gabapentin 100 mg oral fc cap 3 times per day [Active]; hydroxyzine HCl 25 mg oral tab 1 tab 3 times per day [Active]; quetiapine 100 mg Oral tab 1 tab nightly [Active]; Victoza 2-Collin subcutaneous once daily [Active]; Tresiba FlexTouch U-100 100 unit/mL (3 mL) subcutaneous inpn 14 unit daily [Active]; - PMHx: 00:36 Anxiety; Depression; Diabetes - IDDM; polycystic ovarian disease; Schizophrenia; fc multiple personality disorder; Suicide Attempts; Bipolar disorder; - PSHx: 00:37 abscess removal; fc - Immunization history:: Last tetanus immunization: up to date Flu vaccine is not up to date. - Social history:: Smoking status: Patient uses tobacco products, smokes one pack cigarettes per day. Patient uses alcohol, occasionally. street drugs, marijuana. - Ebola Screening: : Patient negative for fever greater than or equal to 101.5 degrees Fahrenheit, and additional compatible Ebola Virus Disease symptoms Patient denies exposure to infectious person Patient denies travel to an Ebola-affected area in the 21 days before illness onset. Screenin:57 Abuse screen: Denies threats or abuse. Denies injuries from another. Nutritional lp1 screening: No deficits noted. Tuberculosis screening: No symptoms or risk factors identified. Fall Risk None identified. Assessment: 01:15 General: Appears in no apparent distress. Behavior is appropriate for age. Pain: lp1 Complains of pain in neck Pain currently is 8 out of 10 on a pain scale. Quality of pain is described as tender. Neuro: No deficits noted. Cardiovascular: No deficits noted. Respiratory: Airway is patent Respiratory effort is even, unlabored, Breath sounds are clear bilaterally. GI: No deficits noted. : No deficits noted. EENT: No deficits noted. Derm: Skin is pink, warm \T\ dry. Musculoskeletal: No deficits noted. 02:05 Reassessment: Patient appears in no apparent distress at this time. Patient and/or rr5 family updated on plan of care and expected duration. Pain level reassessed. Patient is alert, oriented x 3, equal unlabored respirations, skin warm/dry/pink. 02:51 Reassessment: Patient appears in no apparent distress at this time. Patient is alert, rr5 oriented x 3, equal unlabored respirations, skin warm/dry/pink. discharge instruction given and explained without complaints made, verbalized understanding. Vital Signs: 00:37 BP 133 / 83; Pulse 105; Resp 18; Temp 98.2(O); Pulse Ox 96% on R/A; Weight 105.69 kg fc (R); Height 5 ft. 4 in. (162.56 cm) (R); Pain 7/10; 02:50 BP 136 / 89; Pulse 93; Resp 19; Temp 98.2; Pulse Ox 98% ; rr5 00:37 Body Mass Index 39.99 (105.69 kg, 162.56 cm) ED Course: 07/13 23:22 Patient arrived in ED. mr 23:23 RAQUEL CHRISTINE is Private Physician. mr 07/14 00:33 Triage completed. fc 00:37 Arm band placed on Patient placed in waiting room, Patient notified of wait time. fc 00:51 Tamara Jimenez, SLOAN is Primary Nurse. lp1 00:54 Gracie Aguayo FNP-C [facility]. snw 00:54 Bladimir Galicia MD is Attending Physician. snw 01:30 Initial lab(s) drawn, by mt, sent to lab. Strep swab sent to lab. lp1 01:56 Patient did not have IV access during this emergency room visit. lp1 01:58 Patient has correct armband on for positive identification. lp1 02:32 CHRISTINE GARCÍA is Referral Physician. snw 02:52 No provider procedures requiring assistance completed. rr5 Administered Medications: 02:28 Drug: Bicillin L-A 2.4 million units Route: IM; Site: right gluteus; rr5 02:55 Follow up: Response: No adverse reaction rr5 Point of Care Testing: Blood Glucose: 01:54 Blood Glucose: 283 mg/dL; lp1 Ranges: Outcome: 02:33 Discharge ordered by . snw 02:52 Discharged to home ambulatory, with family. rr5 02:52 Condition: stable 02:52 Discharge instructions given to patient, Instructed on discharge instructions, follow up and referral plans. medication usage, Demonstrated understanding of instructions, follow-up care, medications, Prescriptions given X 2. 02:56 Patient left the ED. rr5 Addendum: 07/19/2019 13:36 Addendum: Culture Results: Positive urine culture. Phone call Attempt #1 spoke with s s patient who reports she does not have any s/s of UTI at this time and plans to follow up with pcp in the near future. Signatures: Gracie Aguayo, HERLINDA-C FLIGHT TOWER DISPATCHER-[employer] Jessica Lucas mr Mitramary, Pat, RN RN fc [facility] Center[facility] RN RN ss Tamara Jimenez RN RN lp1 Chadd Stover RN RN rr5
--- NOTE | 2019-07-14 02:34 | EDPHYS ---
Physician Documentation [facility] Name: Monique Mendez Age: 19 yrs Sex: Female : 2000 Arrival Date: 07/13/2019 Time: 23:22 Bed 9 Private MD: CHRISTINE GARCÍA ED Physician Bladimir Galicia HPI: 07/14 01:26 This 19 yrs old Female presents to ER via Ambulatory with complaints of DONT snw FEEL GOOD,SWOLLEN LYMPH NODES,NAUSEA. 01:26 Pt states she just hasn't felt well x 2 weeks, fatigue, malaise, bodyaches, swollen snw right posterior lymph nodes, menses irregularity. Onset: The symptoms/episode began/occurred gradually, 2 week(s) ago, and became persistent. Severity of symptoms: At their worst the symptoms were moderate. It is unknown whether or not the patient has had similar symptoms in the past. It is unknown whether or not the patient has recently seen a physician. 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 fc Historical: - Allergies: 00:36 No Known Allergies; fc - Home Meds: 00:36 lithium carbonate 300 mg Oral cap 1 cap twice a day [Active]; gabapentin 100 mg oral fc cap 3 times per day [Active]; hydroxyzine HCl 25 mg oral tab 1 tab 3 times per day [Active]; quetiapine 100 mg Oral tab 1 tab nightly [Active]; Victoza 2-Collin subcutaneous once daily [Active]; Tresiba FlexTouch U-100 100 unit/mL (3 mL) subcutaneous inpn 14 unit daily [Active]; - PMHx: 00:36 Anxiety; Depression; Diabetes - IDDM; polycystic ovarian disease; Schizophrenia; fc multiple personality disorder; Suicide Attempts; Bipolar disorder; - PSHx: 00:37 abscess removal; fc - Immunization history:: Last tetanus immunization: up to date Flu vaccine is not up to date. - Social history:: Smoking status: Patient uses tobacco products, smokes one pack cigarettes per day. Patient uses alcohol, occasionally. street drugs, marijuana. - Ebola Screening: : Patient negative for fever greater than or equal to 101.5 degrees Fahrenheit, and additional compatible Ebola Virus Disease symptoms Patient denies exposure to infectious person Patient denies travel to an Ebola-affected area in the 21 days before illness onset. ROS: 01:02 Constitutional: Negative for fever, chills, and weight loss. snw 01:02 Eyes: Negative for injury, pain, redness, and discharge, ENT: Negative for injury, pain, and discharge, + tender lymph nodes Neck: Negative for injury, pain, and swelling, Cardiovascular: Negative for chest pain, palpitations, and edema, Respiratory: Negative for shortness of breath, cough, wheezing, and pleuritic chest pain, Abdomen/GI: Negative for abdominal pain, nausea, vomiting, diarrhea, and constipation, Back: Negative for injury and pain, : Negative for injury, bleeding, discharge, and swelling, + menses late MS/Extremity: Negative for injury and deformity, Skin: Negative for injury, rash, and discoloration, Neuro: Negative for headache, weakness, numbness, tingling, and seizure, Psych: Negative for depression, anxiety, suicide ideation, homicidal ideation, and hallucinations. 01:02 Constitutional: Positive for fatigue, malaise. Exam: 01:01 Constitutional: This is a well developed, well nourished patient who is awake, alert, snw and in no acute distress. Head/Face: Normocephalic, atraumatic. Eyes: Pupils equal round and reactive to light, extra-ocular motions intact. Lids and lashes normal. Conjunctiva and sclera are non-icteric and not injected. Cornea within normal limits. Periorbital areas with no swelling, redness, or edema. ENT: Nares patent. No nasal discharge, no septal abnormalities noted. Tympanic membranes are normal and external auditory canals are clear. Oropharynx with no redness, swelling, or masses, exudates, or evidence of obstruction, uvula midline. Mucous membranes moist. Neck: Trachea midline, no thyromegaly or masses palpated, and no cervical lymphadenopathy. Supple, full range of motion without nuchal rigidity, or vertebral point tenderness. No Meningismus. Chest/axilla: Normal chest wall appearance and motion. Nontender with no deformity. No lesions are appreciated. Cardiovascular: Regular rate and rhythm with a normal S1 and S2. No gallops, murmurs, or rubs. Normal PMI, no JVD. No pulse deficits. Respiratory: Lungs have equal breath sounds bilaterally, clear to auscultation and percussion. No rales, rhonchi or wheezes noted. No increased work of breathing, no retractions or nasal flaring. Back: No spinal tenderness. No costovertebral tenderness. Full range of motion. 01:01 ENT: Nares patent. No nasal discharge, no septal abnormalities noted. Tympanic membranes are normal and external auditory canals are clear. Oropharynx with no redness, swelling, or masses, exudates, or evidence of obstruction, uvula midline. Mucous membranes moist. tender right postauricular lymph nodes Skin: Warm, dry with normal turgor. Normal color with no rashes, no lesions, and no evidence of cellulitis. MS/ Extremity: Pulses equal, no cyanosis. Neurovascular intact. Full, normal range of motion. Neuro: Awake and alert, GCS 15, oriented to person, place, time, and situation. Cranial nerves II-XII grossly intact. Motor strength 5/5 in all extremities. Sensory grossly intact. Cerebellar exam normal. Normal gait. 01:01 Abdomen/GI: Inspection: obese Bowel sounds: normal, Palpation: abdomen is soft and non-tender. Vital Signs: 00:37 BP 133 / 83; Pulse 105; Resp 18; Temp 98.2(O); Pulse Ox 96% on R/A; Weight 105.69 kg fc (R); Height 5 ft. 4 in. (162.56 cm) (R); Pain 7/10; 02:50 BP 136 / 89; Pulse 93; Resp 19; Temp 98.2; Pulse Ox 98% ; rr5 00:37 Body Mass Index 39.99 (105.69 kg, 162.56 cm) MDM: 00:54 Patient medically screened. snw 02:34 Data reviewed: vital signs, nurses notes. Data interpreted: Pulse oximetry: on room air snw is 96 %. Interpretation: acceptable. Counseling: I had a detailed discussion with the patient and/or guardian regarding: the historical points, exam findings, and any diagnostic results supporting the discharge/admit diagnosis, the presence of at least one elevated blood pressure reading (>120/80) during this emergency department visit, lab results, the need for outpatient follow up, for definitive care, to return to the emergency department if symptoms worsen or persist or if there are any questions or concerns that arise at home. Special discussion: Based on the history and exam findings, there is no indication for further emergent testing or inpatient evaluation. I discussed with the patient/guardian the need to see the primary care provider for further evaluation of the symptoms. 07/13 23:42 Order name: Strep; Complete Time: 02:04 snw 07/14 00:53 Order name: Urine Microscopic Only; Complete Time: 02: snw 07/14 01:04 Order name: [place] Screen Profile snw 07/14 01:04 Order name: TSH; Complete Time: 02: snw 07/14 01:57 Order name: Urine Dipstick--Ancillary (enter results); Complete Time: 02: ar5 07/14 01:57 Order name: Urine --Ancillary (enter results); Complete Time: 02: ar5 07/14 00:53 Order name: Urine Test (obtain specimen); Complete Time: :42 snw 07/14 00:53 Order name: Urine Dipstick-Ancillary (obtain specimen); Complete Time: 01:42 snw 07/14 01:04 Order name: FSBS; Complete Time: 01:56 snw 07/14 02:27 Order name: Urine Culture EDMS Administered Medications: 02:28 Drug: Bicillin L-A 2.4 million units Route: IM; Site: right gluteus; rr5 02:55 Follow up: Response: No adverse reaction rr5 Point of Care Testing: Blood Glucose: 01:54 Blood Glucose: 283 mg/dL; lp1 Ranges: Critical Glucose Levels:Adult <50 mg/dl or >400 mg/dl <40 mg/dl or >180 mg/dl Disposition: 07/14/19 02:33 Discharged to Home. Impression: Streptococcal pharyngitis, Urinary tract infection, site not specified, Malaise and fatigue. - Condition is Stable. - Discharge Instructions: Strep Throat, Urinary Tract Infection, Adult, Fatigue, Rehydration, Adult. - Prescriptions for Macrobid 100 mg Oral Capsule - take 1 capsule by ORAL route every 12 hours for 10 days; 20 capsule. promethazine 25 mg Oral Tablet - take 1 tablet by ORAL route every 6 hours As needed; 20 tablet. - Medication Reconciliation Form, Thank You Letter, Antibiotic Education, Prescription Opioid Use form. - Follow up: CHRISTINE GARCÍA; When: 2 - 3 days; Reason: Recheck today's complaints, Continuance of care, Re-evaluation by your physician. Follow up: Emergency Department; When: As needed; Reason: Worsening of condition. Addendum: 07/19/2019 06:56 Co-signature as Attending Physician, Bladimir Galicia MD Available for consultation at p s1 all times . Signatures: Dispatcher [employer] EDMS Gracie Aguayo, RN INTAKE-C RN INTAKE-Csnw Pta Sampson RN RN Bladimir Galicia MD MD [facility] Chadd Stover RN RN rr5 Corrections: (The following items were deleted from the chart) 07/14 02:56 02:33 07/14/2019 02:33 Discharged to Home. Impression: Streptococcal pharyngitis; rr5 Urinary tract infection, site not specified; Malaise and fatigue. Condition is Stable. Forms are Medication Reconciliation Form, Thank You Letter, Antibiotic Education, Prescription Opioid Use. Follow up: CHRISTINE GARCÍA; When: 2 - 3 days; Reason: Recheck today's complaints, Continuance of care, Re-evaluation by your physician. Follow up: Emergency Department; When: As needed; Reason: Worsening of condition. snw
[2019-07-14 03:09] VITALS: TEMP 98.2
[2019-07-14 03:10] VITALS: BP 136/89; O2SAT 98
== END 2019-07-14 02:56 | disposition home or self-care (01) ==
LOC: ER 23:17
DX: J02.0 Streptococcal pharyngitis (principal); N39.0 Urinary tract infection, site not specified; R53.81 Other malaise; R53.83 Other fatigue; E11.9 Type 2 diabetes mellitus without complications; F41.8 Other specified anxiety disorders; F31.9 Bipolar disorder, unspecified; F20.9 Schizophrenia, unspecified; F44.81 Dissociative identity disorder; F17.210 Nicotine dependence, cigarettes, uncomplicated
CPT/HCPCS: 87088; 87086; 36415; 86308; 81025; 82962; 87081; 84443; 87077; 87186; 96372; 99283; J0561; 81003; 81015

== ENCOUNTER 2019-08-16 19:34 | Emergency (ER) | payer OTHER ==
[2019-08-16] MEDS ORDERED: NA CHLORIDE 0.9% 1,000 ML ONE (21:29)
[2019-08-16] MEDS ORDERED: ONDANSETRON 4 MG/2 ML VIAL ONE (21:29)
[2019-08-16 21:55] LABS: Absolute Lymphocytes (CBC) 4.1 K/uL (0.7-4.9); Basophils % 0.2 % (0-1.3); Hematocrit 46.6 % (36.0-45.0); Lymphocytes % 30.6 % (15.3-44.8); MPV 8.9 fL (7.6-11.3); RBC Red Blood Cell Count 5.41 M/uL (3.86-4.86)
[2019-08-16 22:00] LABS: Urine Bacteria <20 /HPF (<20); Urine Culture Reflex Order NOT NEEDED; Urine RBC <5 /HPF (NONE SEEN)
[2019-08-16 22:29] LABS: ALT/SGPT 19 U/L (12-78); AST/SGOT 9 U/L (15-37); Albumin 3.5 g/dL (3.4-5.0); Alkaline Phosphatase 87 U/L (45-117); BUN Blood Urea Nitrogen 12 mg/dL (7-18); Bicarbonate 26 mmol/L (21-32); Bilirubin Direct < 0.1 mg/dL (0-0.2); Bilirubin Total 0.2 mg/dL (0.2-1.0); Lipase 106 U/L (73-393); Protein, Total 7.4 g/dL (6.4-8.2); Sodium Level 134 mmol/L (136-145)
[2019-08-16 22:31] LABS: Urine Blood NEGATIVE (NEG); Urine Glucose 2+ (NEG); Urine Protein NEGATIVE (NEG)
[2019-08-16 22:31] LABS: Glucose Level 409 mg/dL (74-106)
[2019-08-16] MEDS ORDERED: INSULIN -REGULAR HUMAN 50 UNIT/0.5 ML ML ONE (22:58)
--- NOTE | 2019-08-16 23:43 | ER ---
Nurse's Notes [facility] Name: Monique Mendez Age: 19 yrs Sex: Female : 2000 Arrival Date: 08/16/2019 Time: 19:38 Bed 18 Private MD: Diagnosis: Upper abdominal pain, unspecified;Dehydration;Unspecified ovarian cysts;Diarrhea, unspecified Presentation: 08/16 19:42 Presenting complaint: Patient states: "For the past 2 weeks I've been really nauseous, aj1 puking, stomach pain, I feel like I'm going to pass out" Denies fever. Reports generalized abdominal pain. Transition of care: patient was not received from another setting of care. Onset of symptoms was 2018. Risk Assessment: Do you want to hurt yourself or someone else? Patient reports no desire to harm self or others. Initial Sepsis Screen: Does the patient meet any 2 criteria? No. Patient's initial sepsis screen is negative. Does the patient have a suspected source of infection? No. Patient's initial sepsis screen is negative. Care prior to arrival: None. 19:42 Method Of Arrival: Ambulatory aj1 19:42 Acuity: ROXANNE 3 aj1 Triage Assessment: 19:45 General: Appears in no apparent distress. uncomfortable, Behavior is calm, cooperative, aj1 appropriate for age. Pain: Complains of pain in abdomen diffusely Pain currently is 8 out of 10 on a pain scale. Neuro: Level of Consciousness is awake, alert, obeys commands. Cardiovascular: Patient's skin is warm and dry. Respiratory: Airway is patent Respiratory effort is even, unlabored, Respiratory pattern is regular, symmetrical. GI: Reports lower abdominal pain, upper abdominal pain. 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 aj1 Historical: - Allergies: 19:45 No Known Allergies; aj1 - Home Meds: 19:45 gabapentin 100 mg Oral cap 3 times per day [Active]; hydroxyzine HCl 50 mg oral tab 4 aj1 times per day [Active]; lithium carbonate 300 mg Oral cap 1 cap twice a day [Active]; quetiapine 300 mg oral tab once daily [Active]; Tresiba FlexTouch U-100 100 unit/mL (3 mL) subcutaneous inpn 14 unit daily [Active]; Victoza 2-Collin subcutaneous once daily [Active]; - PMHx: 19:45 Anxiety; Bipolar disorder; Depression; Diabetes - IDDM; multiple personality disorder; aj1 polycystic ovarian disease; Schizophrenia; Suicide Attempts; - Immunization history:: Flu vaccine is not up to date. - Social history:: Smoking status: Patient uses tobacco products, smokes one pack cigarettes per day. - Ebola Screening: : Patient denies travel to an Ebola-affected area in the 21 days before illness onset. - Family history:: not pertinent. - Hospitalizations: : No recent hospitalization is reported. Screenin:15 Abuse screen: Denies threats or abuse. Denies injuries from another. Nutritional wh screening: No deficits noted. Tuberculosis screening: No symptoms or risk factors identified. Fall Risk None identified. Assessment: 21:15 General: Appears in no apparent distress. Behavior is calm, cooperative, appropriate wh for age. Pain: Denies pain. Neuro: Level of Consciousness is awake, alert, obeys commands, Oriented to person, place, time, situation, Appropriate for age. Cardiovascular: Heart tones S1 S2. Respiratory: Airway is patent Respiratory effort is even, unlabored, Respiratory pattern is regular, symmetrical. GI: Abdomen is round non-distended, Bowel sounds present X 4 quads. Abd is soft and non tender X 4 quads. Reports nausea, vomiting. : No signs and/or symptoms were reported regarding the genitourinary system. EENT: No signs and/or symptoms were reported regarding the EENT system. Derm: Skin is intact, is healthy with good turgor, Skin is pink, warm \\T\\ dry. normal. Musculoskeletal: Circulation, motion, and sensation intact. 22:29 Reassessment: Patient appears in no apparent distress at this time. No changes from wh previously documented assessment. Patient and/or family updated on plan of care and expected duration. Pain level reassessed. Patient is alert, oriented x 3, equal unlabored respirations, skin warm/dry/pink. Patient states feeling better. Patient states symptoms have improved. 23:45 Reassessment: Patient appears in no apparent distress at this time. No changes from previously documented assessment. Patient and/or family updated on plan of care and expected duration. Pain level reassessed. Patient is alert, oriented x 3, equal unlabored respirations, skin warm/dry/pink. Patient denies pain at this time. Patient states feeling better. Patient states symptoms have improved. Vital Signs: 19:45 BP 111 / 92; Pulse 113; Resp 20; Temp 97.4; Pulse Ox 96% on R/A; Weight 105.23 kg (R); aj1 Height 5 ft. 4 in. (162.56 cm) (R); Pain 8/10; 21:30 BP 114 / 86; Pulse 94; Resp 18; Pulse Ox 99% on R/A; 23:01 BP 114 / 77; Pulse 95; Resp 18; Pulse Ox 97% on R/A; 08/17 00:00 BP 121 / 78; Pulse 93; Resp 18; Pulse Ox 97% on R/A; 08/16 19:45 Body Mass Index 39.82 (105.23 kg, 162.56 cm) [facility] ED Course: 08/16 19:38 Patient arrived in ED. cl3 19:44 Triage completed. [facility] 19:45 Arm band placed on Patient placed in waiting room, Patient notified of wait time. [facility] 20:50 Bonny Seymour is Primary Nurse. 20:51 Rory Oshea MD is Attending Physician. rn 21:15 Patient has correct armband on for positive identification. Bed in low position. Call light in reach. Side rails up X 1. Pulse ox on. NIBP on. 21:20 Inserted saline lock: 22 gauge in right antecubital area, using aseptic technique. Blood collected. 22:[address] va 22:30 Notified ED physician of a critical lab result(s). glucose of 409. 22:44 CT Abd/Pelvis - IV Contrast Only In Process Unspecified. EDMS 08/17 00:16 No provider procedures requiring assistance completed. IV discontinued, intact, bleeding controlled, No redness/swelling at site. Administered Medications: 08/16 21:30 Drug: Zofran 4 mg Route: IVP; Site: right antecubital; 08/17 00:17 Follow up: Response: No adverse reaction; Nausea is decreased 08/16 21:32 Drug: NS 0.9% 1000 ml Route: IV; Rate: 1000 ml; Site: right antecubital; 08/17 00:17 Follow up: Response: No adverse reaction; IV Status: Completed infusion 08/16 23:00 Drug: Insulin Regular Human 10 units {Co-Signature: [email or web address] (Fermin Gunn RN).} Route: Sub-Q; Site: right lower abdomen; 08/17 00:18 Follow up: Response: No adverse reaction; Blood sugar is lowered Outcome: 08/16 23:42 Discharge ordered by . rn 08/17 00:16 Discharged to home ambulatory, with family. Condition: stable Discharge instructions given to patient, family, Instructed on discharge instructions, follow up and referral plans. medication usage, POC Nausea and vomiting and abdominal pain Demonstrated understanding of instructions, follow-up care, medications, POC 00:18 Patient left the ED. Signatures: Dispatcher [employer] EDSabi Reynolds RN RN aj1 Pat Sampson RN RN fc Nieto, Roman, MD MD rn Jordan, Bonny Ingram Charde 3 Fermin Gunn RN [email or web address] Corrections: (The following items were deleted from the chart) 08/16 19:46 19:45 Arm band placed on Patient placed in an exam room, aj1 aj1
--- NOTE | 2019-08-16 23:43 | EDPHYS ---
Physician Documentation [facility] Name: Monique Mendez Age: 19 yrs Sex: Female : 2000 Arrival Date: 08/16/2019 Time: 19:38 Bed 18 Private MD: ED Physician Rory Oshea HPI: 08/16 21:20 This 19 yrs old Female presents to ER via Ambulatory with complaints of rn Abdominal Pain, Nausea/Vomiting. 21:20 The patient presents to the emergency department with nausea, vomiting, diarrhea. rn Onset: The symptoms/episode began/occurred 2 week(s) ago. Possible causes: unknown. The symptoms are aggravated by nothing. The symptoms are alleviated by nothing. Severity of symptoms: At their worst the symptoms were mild in the emergency department the symptoms are unchanged. The patient has not experienced similar symptoms in the past. The patient has not recently seen a physician. Reports 2 weeks of nausea, started with diarrhea but now taking diarrhea medication and has stopped, reports mild vague abd pain, unable to localize. No fever, no trauma. Denies . No vaginal discharge or bleeding. No blood in stool. Reports vomiting and feels generalized weakness and dehydrated. . 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 aj1 Historical: - Allergies: 19:45 No Known Allergies; aj1 - Home Meds: 19:45 gabapentin 100 mg Oral cap 3 times per day [Active]; hydroxyzine HCl 50 mg oral tab 4 aj1 times per day [Active]; lithium carbonate 300 mg Oral cap 1 cap twice a day [Active]; quetiapine 300 mg oral tab once daily [Active]; Tresiba FlexTouch U-100 100 unit/mL (3 mL) subcutaneous inpn 14 unit daily [Active]; Victoza 2-Collin subcutaneous once daily [Active]; - PMHx: 19:45 Anxiety; Bipolar disorder; Depression; Diabetes - IDDM; multiple personality disorder; aj1 polycystic ovarian disease; Schizophrenia; Suicide Attempts; - Immunization history:: Flu vaccine is not up to date. - Social history:: Smoking status: Patient uses tobacco products, smokes one pack cigarettes per day. - Ebola Screening: : Patient denies travel to an Ebola-affected area in the 21 days before illness onset. - Family history:: not pertinent. - Hospitalizations: : No recent hospitalization is reported. ROS: 21:20 Constitutional: Negative for fever, chills, and weight loss, Eyes: Negative for injury, rn pain, redness, and discharge, Neck: Negative for injury, pain, and swelling, Cardiovascular: Negative for chest pain, palpitations, and edema, Respiratory: Negative for shortness of breath, cough, wheezing, and pleuritic chest pain, Abdomen/GI: Negative for diarrhea, and constipation, MS/Extremity: Negative for injury and deformity, Skin: Negative for injury, rash, and discoloration, Neuro: Negative for headache, numbness, tingling, and seizure. Exam: 21:20 Constitutional: This is a well developed, well nourished patient who is awake, alert, rn and in no acute distress. Head/Face: Normocephalic, atraumatic. ENT: dry MM Cardiovascular: Tachycardic, regular, no mpulse deficit Respiratory: No increased work of breathing, no retractions or nasal flaring. Abdomen/GI: soft, non-tender, no focal guarding, no distension MS/ Extremity: Pulses equal, no cyanosis. Neurovascular intact. Full, normal range of motion. Equal circumference. Neuro: Awake and alert, GCS 15, oriented to person, place, time, and situation. Cranial nerves II-XII grossly intact. Motor strength 5/5 in all extremities. Sensory grossly intact. Cerebellar exam normal. Vital Signs: 19:45 BP 111 / 92; Pulse 113; Resp 20; Temp 97.4; Pulse Ox 96% on R/A; Weight 105.23 kg (R); aj1 Height 5 ft. 4 in. (162.56 cm) (R); Pain 8/10; 21:30 BP 114 / 86; Pulse 94; Resp 18; Pulse Ox 99% on R/A; wh 23:01 BP 114 / 77; Pulse 95; Resp 18; Pulse Ox 97% on R/A; wh 08/17 00:00 BP 121 / 78; Pulse 93; Resp 18; Pulse Ox 97% on R/A; wh 08/16 19:45 Body Mass Index 39.82 (105.23 kg, 162.56 cm) aj1 MDM: 08/16 20:51 Patient medically screened. rn 23:40 Differential diagnosis: Nonspecific abd pain, gastritis, cholecystitis, pancreatitis, rn viral gastroenteritis, gastroenteritis, ovarian cyst. Data reviewed: vital signs, nurses notes, lab test result(s), radiologic studies, CT scan, and as a result, I will discharge patient. Counseling: I had a detailed discussion with the patient and/or guardian regarding: the historical points, exam findings, and any diagnostic results supporting the discharge/admit diagnosis, lab results, radiology results, the need for outpatient follow up, to return to the emergency department if symptoms worsen or persist or if there are any questions or concerns that arise at home. Response to treatment: the patient's symptoms have mildly improved after treatment, and as a result, I will discharge patient. Special discussion: Based on the patient's Hx, exam, and Dx evaluation, there is no indication for emergent surgery or inpatient Tx. It is understood by the patient/guardian that if the Sx's persist or worsen they need to return immediately for re-evaluation. I discussed with the patient/guardian in detail that at this point there is no indication for admission to the hospital. It is understood, however, that if the symptoms persist or worsen the patient needs to return immediately for re-evaluation. ED course: Elevated glucose with dehydration, constipation, and ovarian cyst, no other acute findings, no longer nauseated, will dc home with prn zofran and pcp f/u. . 08/16 20:08 Order name: Urine Culture [facility] 08/16 20:08 Order name: Urine Microscopic Only; Complete Time: 22:04 w 08/16 20:59 Order name: Basic Metabolic Panel; Complete Time: 22:33 rn 08/16 20:59 Order name: CBC with Diff; Complete Time: 22:04 rn 08/16 20:59 Order name: Creatinine for Radiology; Complete Time: 22:04 rn 08/16 20:59 Order name: Hepatic Function; Complete Time: 22:33 rn 08/16 20:59 Order name: Lipase; Complete Time: 22:33 rn 08/16 22:04 Order name: CT Abd/Pelvis - IV Contrast Only 08/16 22:12 Order name: Urine Dipstick--Ancillary (enter results) 6 08/16 22:12 Order name: Urine --Ancillary (enter results); Complete Time: 22:33 cm6 08/16 22:13 Order name: Urine Dipstick-Ancillary; Complete Time: 22:33 EDMS 08/16 20:08 Order name: Urine Test (obtain specimen); Complete Time: 21:28 w 08/16 20:08 Order name: Urine Dipstick-Ancillary (obtain specimen); Complete Time: 21:28 snw 08/16 20:59 Order name: IV Saline Lock; Complete Time: 21:28 rn 08/16 20:59 Order name: Labs collected and sent; Complete Time: 21:28 rn Administered Medications: 21:30 Drug: Zofran 4 mg Route: IVP; Site: right antecubital; 08/17 00:17 Follow up: Response: No adverse reaction; Nausea is decreased 08/16 21:32 Drug: NS 0.9% 1000 ml Route: IV; Rate: 1000 ml; Site: right antecubital; 08/17 00:17 Follow up: Response: No adverse reaction; IV Status: Completed infusion 08/16 23:00 Drug: Insulin Regular Human 10 units {Co-Signature: jb4 (Fermin Gunn RN).} Route: Sub-Q; Site: right lower abdomen; 08/17 00:18 Follow up: Response: No adverse reaction; Blood sugar is lowered Disposition: 08/16/19 23:42 Discharged to Home. Impression: Upper abdominal pain, unspecified, Dehydration, Unspecified ovarian cysts, Diarrhea, unspecified. - Condition is Stable. - Discharge Instructions: Abdominal Pain, Adult, Dehydration, Adult, Diarrhea, Adult, Ovarian Cyst. - Prescriptions for Zofran ODT 4 mg Oral tablet,disintegrating - place 1 tablet by TRANSLINGUAL route every 8 hours As needed; 20 tablet. - Medication Reconciliation Form, Thank You Letter, Antibiotic Education, Prescription Opioid Use form. - Follow up: Private Physician; When: As needed; Reason: Recheck today's complaints, Re-evaluation by your physician. - Problem is new. - Symptoms have improved. Signatures: Dispatcher [employer] EDMS Sabi Lopez RN RN aj1 Gracie Aguayo, HERLINDA-Tree TRANSCRIPTION TYPIST-Cs[employer] Rory Oshea MD MD rn Habalo, Winsy Fermin Gunn RN jb4 Corrections: (The following items were deleted from the chart) 00:18 08/16 23:42 08/16/2019 23:42 Discharged to Home. Impression: Upper abdominal pain, wh unspecified; Dehydration; Unspecified ovarian cysts; Diarrhea, unspecified. Condition is Stable. Forms are Medication Reconciliation Form, Thank You Letter, Antibiotic Education, Prescription Opioid Use. Follow up: Private Physician; When: As needed; Reason: Recheck today's complaints, Re-evaluation by your physician. Problem is new. Symptoms have improved. rn
[2019-08-17 00:38] VITALS: O2SAT 97
[2019-08-17 00:39] VITALS: BP 121/78
[2019-08-17 00:49] VITALS: TEMP 98.3
--- NOTE | 2019-08-17 10:05 | RAD REPORT ---
EXAM DESCRIPTION: Abdominal pain with nausea and vomiting. TECHNIQUE: CT scan of the abdomen and pelvis was performed with intravenous contrast. 5 mm axial images were obtained along with coronal and sagittal reformatted images. DOSE OPTIMIZATION: This facility uses dose optimization techniques as appropriate to perform exams, including at least one of the following techniques: 1. Automated exposure control. 2. Adjustment of the mA and/or kV according to patient size (this includes techniques or standardized protocols for targeted exams where dose is matched to the indication/reason for exam, i.e. extremiti es or head). 3. Use of iterative reconstructive technique. INTRAVENOUS CONTRAST: Not documented. Please refer to medical record. COMPARISON: None. FINDINGS: Lung Bases: Normal. Liver: There is hepatomegaly with diffuse fatty liver infiltration. Spleen: Normal. Pancreas: Normal. Gallbladder: Normal. Adrenal Glands: Normal. Kidneys: Normal. Retroperitoneal Structures: Normal. Bowel Survey: There is increased stool within the ascending colon. The appendix is unremarkable. The distal ileum is unremarkable. Uterus and Adnexa: There is a small crenulated cyst in the left ovary measuring 1.8 x 1.2 cm. Urinary Bladder: Normal. Peritoneal Cavity: There is a very small amount of free fluid in the posterior pelvic cul-de-sac. Mesenteric Structures: Normal. Abdominal Wall: No hernia. Bony Structures: No suspicious lesions. IMPRESSION: 1. Increased stool within the ascending colon. 2. Small crenulated cyst left ovary. 3. Small amount of free fluid in the posterior pelvic cul-de-sac. 4. Hepatomegaly with diffuse fatty liver infiltration. Electronically signed by: Reuben Gipson MD 08/16/2019 10:51 PM UPSTAIRS MAID Due to temporary technical issues with the PACS/Fluency reporting system, reports are being signed by the in house radiologist as a courtesy to ensure prompt reporting. The interpreting radiologist is f ully responsible for the content of the report.
== END 2019-08-17 00:18 | disposition home or self-care (01) ==
LOC: ER 19:34
DX: E86.0 Dehydration (principal); N83.209 Unspecified ovarian cyst, unspecified side; R19.7 Diarrhea, unspecified; E11.9 Type 2 diabetes mellitus without complications; F31.9 Bipolar disorder, unspecified; F17.210 Nicotine dependence, cigarettes, uncomplicated
CPT/HCPCS: 96361; 87088; 85025; 87086; 80048; 36415; 81025; 82947; 80076; 83690; 74177; 96372; 96374; 99284; Q9967; J7030; J2405; 81003; 81015

== ENCOUNTER 2020-07-28 20:56 | Emergency (ER) | payer OTHER ==
--- OUTSIDE RECORDS SUMMARY | 2020-07-28 20:59 | XMS REPORT | Summary of Care ---
:2000 Author Organization [facility] [employer] Address [address] [place] [id number] Care Team Providers Name Role Phone Pcp, Patient Does Not Have A Primary Care Provider +[id number] 0-0000 Reason for Visit Reason Comments Rx Concern/Question Encounter Details Date Type Department Care Team Description 06/18/2020 Telephone [facility] Bandar Burton MD Rx Concern/Question Endocrinology, Clear [address] [place] [address] Floor [phone] [place] [address] 41 [phone] Allergies No Known Allergiesdocumented as of this encounter (statuses as of 06/19/2020) Medications Medication Sig Dispensed Refills Start End Status Date Date busPIRone (BUSPAR) 15 0 07/25/20 Active mg tablet 15 traZODONE 100 mg tablet Take 50 mg by 0 Active mouth at bedtime. ARIPiprazole (ABILIFY) Take 5 mg by 0 Active 5 mg tablet mouth daily. HYDROXYZINE PAMOATE Take by 0 Active ORAL mouth. lamoTRIgine 25 mg Take 25 mg by 0 Active tablet mouth daily. medroxyPROGESTERone inject 104 mg 0 Active (DEPO-SUBQ PROVERA 104) under the 104 mg/0.65 mL skin every 3 injection (three) months. ONETOUCH DELICA LANCETS 300 Each. 0 Active MISC pen needle, diabetic 31 200 Each 2 200 Each 2 06/14/20 Active gauge x 1/3" (two) times 20 NdleIndications: Type 2 daily. diabetes mellitus with hyperglycemia, with long-term current use of insulin blood sugar diagnostic 300 Strips 300 Strip 1 06/14/20 Active (ONETOUCH VERIO TEST before meals. 20 STRIPS) Use as stripIndications: Type directed 2 diabetes mellitus with hyperglycemia, with long-term current use of insulin metformin ER 500 mg 24 Take 2 180 tablet 1 06/14/20 Active hr tabletIndications: tablets by 20 Type 2 diabetes mouth at mellitus with bedtime. hyperglycemia, with long-term current use of insulin Insulin NPH-Regular inject 25 1 Box 1 06/19/20 Active Human Rec (NOVOLIN Units under 20 70-30 FLEXPEN U-100) the skin 2 100 unit/mL (70-30) (two) times injectionIndications: daily with Type 2 diabetes meals. mellitus with hyperglycemia, with long-term current use of insulin insulin lispro inject 20 1 Box 2 06/14/20 Disco ntinued protamine-insulin Units under 20 020 (Formulary lispro 100 unit/mL the skin 2 change) (50-50) (two) times injectionIndications: daily before Type 2 diabetes breakfast and mellitus with dinner. hyperglycemia, with long-term current use of insulin documented as of this encounter (statuses as of 06/19/2020) Active Problems Problem Noted Date Type 2 diabetes mellitus with hyperglycemia, with long -term current use of 06/14/2020 insulin Class 2 severe obesity due to excess calories with ser ious comorbidity and 06/14/2020 body mass index (BMI) of 38.0 to 38.9 in adult documented as of this encounter (statuses as of 06/19/2020) Social History Tobacco Use Types Packs/Day Years Used Date Never Smoker Alcohol Use Drinks/Week oz/Week Comments Not Asked 0 Standard drinks or equivalent 0.0 Sex Assigned at Date Recorded Not on file COVID-19 Exposure Response Date Recorded In the last month, have you been in contact with No / Unsure 06/14/2020 8:26 AM CDT someone who was confirmed or suspected to have Coronavirus / COVID-19? documented as of this encounter Last Filed Vital Signs Not on filedocumented in this encounter Miscellaneous Notes Telephone Encounter - Jessica Osorio RN - 06/18/2020 1:12 PM CDTHumalog 50/50 not covered. Insurance prefers Novolog. Okay to send Novolog 70/30? JULIEN: 06/14/20 (new patient) elephone Encounter - CanyonAngelia - 06/18/2020 8:14 AM CDTPt states that her pharmacy is unable to fill insulin lispro protamine-insulin lispro 100 unit/mL (50-50) injection. She's unsure if it's an insurance issue. Pls advise. [facility]/pharmacy #[id number] - [place], [place] - [facility] [place] [address] AT [place] [id number] documented in this encounter Plan of Treatment Date Type Specialty Care Team Description 08/16/2020 Office Visit Endocrinology Diabetes & Bandar Burton MD Metabolism [address] [place] [address] 77 [phone] Health Maintenance Due Date Last Done Comments HgA1C 02/19/2000 VARICELLA VACCINES (1 of 2 - 02/19/2000 2-dose childhood series) EYE EXAM 2009 LDL-C 2009 MENINGOCOCCAL B VACCINES (1 of 2 - 2009 Risk Bexsero 2-dose series) URINE MICROALBUMIN 2009 HPV VACCINES (1 - 2-dose series) 2010 WELL CARE VISIT: 12-21 YEARS 2011 (yearly) CHLAMYDIA SCREENING 2015 FOOT EXAM 2017 DTaP,Tdap,and Td Vaccines (1 - 2018 Tdap) CREATININE (SERUM) 04/18/2018 04/18/2017 PAP SMEAR 02/19/2020 INFLUENZA VACCINE (#1) 2020 Depression Screening 06/14/2021 06/14/2020 MENINGOCOCCAL VACCINE Aged Out No longer eligible based on patient's age to complete this topic PNEUMOCOCCAL 0-64 YEARS COMBINED Aged Out No longer eligible based on SERIES patient's age to complete this topic documented as of this encounter Results Not on filedocumented in this encounter Visit Diagnoses Diagnosis Type 2 diabetes mellitus with hyperglyce tasneem, with long-term current use of insulin - Primary documented in this encounter Insurance Payer Benefit Plan / Group Subscriber ID Effective Dates Phone Address Type [employer]IG[employer] CIGNA GENERIC [id number] 2020-Present HMO/PPO/POS documented as of this encounter
--- OUTSIDE RECORDS SUMMARY | 2020-07-28 20:59 | XMS REPORT | Continuity of Care Document ---
:2000 Author Organization [facility] t Address [address] [place] [address] Care Team Providers Name Role Phone Micheal BASILIO, A Attending Clinician Problems This patient has no known problems. Allergies, Adverse Reactions, Alerts This patient has no known allergies or adverse reactions. Medications This patient has no known medications. Procedures This patient has no known procedures. Encounters Start End Encounter Admission Attending Care Care Encounter Source Date/Time Date/Time Type Type Clinicians Facility Department ID 2020-06-18 2020-06-18 Telephone Micheal SAMANTA [id number] 00:00:00 00:00:00 [facility] [employer] [id number] Clear [id number] [place] [address] [phone] Medical [address] 2020-06-14 2020-06-14 Office Micheal [facility] [id number] 08:28:47 09:23:42 Visit Bandar [facility] [employer] [id number] Clear [id number] [place] [address] [phone] Medical [address] Results Test Description Test Time Test Comments Results Result Comments Source POC Glucose 2019-08-25 11:10:28 Test Item Value Reference Range Interpretation Comme nts Glucose POC (test code = 319 mg/dL 70-115 H Not anjum RN or MDIf you consider your Glucose POC) patient critica lly ill, the Samuel-Accu Chec k Infrom II meter should not be u sed for Glucose determination. Draw a venous Glucose and send to the main Lab for analysis. POC [id number] 06:09:00 Test Item Value Reference Range Interpretation Comments Glucose POC (test 232 mg/dL 70-115 H Notify RN or MDIf you code = Glucose POC) consider your patient critically ill, the Samuel-Accu Chec k Infrom II meter should not be used for Glucos e determination. Draw a venous Glucose and send to the main Lab for analysis. POC [id number] 19:18:31 Test Item Value Reference Range Interpretation Comments Glucose POC (test 320 mg/dL 70-115 H Notify RN or MDIf you code = Glucose POC) consider your patient critically ill, the Samuel-Accu Chec k Infrom II meter should not be used for Glucos e determination. Draw a venous Glucose and send to the main Lab for analysis. RPR [id number] 18:40:55 Test Item Value Reference Range Interpretation Comments RPR Qual (test code = RPR Qual) Non-Reactive Non-Reactive Reactive Control (test code = Reactive Reactive Control) Weak Reactive Control (test Weak Reactive code = Weak Reactive Control) Non-Reactive Control (test code Non-Reactive = Non-Reactive Control) Lot # (test code = Lot #) [id number] Expiration Dt (test code = 08-10-2020 N Expiration Dt) POC [id number] 15:20:26 Test Item Value Reference Range Interpretation Comments Glucose POC (test 240 mg/dL 70-115 H Notify RN or MDIf you code = Glucose POC) consider your patient critically ill, the Samuel-Accu Chec k Infrom II meter should not be used for Glucos e determination. Draw a venous Glucose and send to the main Lab for analysis. Thyroid Stimulating [id number] 11:14:05 Test Item Value Reference Range Interpretation Comments TSH (test code = TSH) 1.850 mIU/mL 0.270-4.200 [place] [id number] 11:08:52 Test Item Value Reference Range Interpretation Comments [place] Level (test code = 0.10 mmol/L 0.60-1.20 L [place] Level) Lipid [id number] 11:08:51 Test Item Value Reference Range Interpretation Comments Cholesterol Total 244 mg/dL 0-200 H RISK OF HE ART (test code = DISEASEPublishe d by Cholesterol Total) [employer] Kare[place] lyte Optimal Borderl ine Increased RiskC HOL <200 200-239 >2 40TRIG <150 150-199 >2 00HDL Male >60 <40H DL Female >60 <5 0LDL <100 130-159 >1 60LDL Near optimal is 100-129 Triglycerides (test 339 mg/dL 9-200 H code = Triglycerides) HDL (test code = HDL) 28 mg/dL 50-60 L LDL (test code = LDL) 148 mg/dL 0-130 H The eq uation being used in this calcula tion is LDL = (Chol - H DL) - (Trig / 5) VLDL (test code = 68 mg/dL 5-40 H The equati on being used VLDL) in this calcula tion is VLDL = Trig / 5 Chol/HDL (test code = 8.7 ratio 0.0-4.4 H Chol/HDL) LDL/HDL Ratio (test 5 N The equa tion being used code = LDL/HDL Ratio) in thi s calculation is LDL/HDL Ratio=L DL Calc/HDL Chol POC [id number] 10:58:53 Test Item Value Reference Range Interpretation Comments Glucose POC (test 335 mg/dL 70-115 H Notify RN or MDIf you code = Glucose POC) consider your patient critically ill, the Samuel-Accu Chec k Infrom II meter should not be used for Glucos e determination. Draw a venous Glucose and send to the main Lab for analysis. POC [id number] 06:47:23 Test Item Value Reference Range Interpretation Comments Glucose POC (test 192 mg/dL 70-115 H Notify RN or MDIf you code = Glucose POC) consider your patient critically ill, the Samuel-Accu Chec k Infrom II meter should not be used for Glucos e determination. Draw a venous Glucose and send to the main Lab for analysis. POC [id number] 02:48:53 Test Item Value Reference Range Interpretation Comments Glucose POC (test 331 mg/dL 70-115 H If you con recycle worker your code = Glucose POC) patient critically ill, the Samuel-Accu Check Infrom II meter should not be used for Glucose determination. Draw a venous Glucose and send to the main Lab for analysis. POC [id number] 23:39:23 Test Item Value Reference Range Interpretation Comments Glucose POC (test 287 mg/dL 70-115 H If you con recycle worker your code = Glucose POC) patient critically ill, the Samuel-Accu Check Infrom II meter should not be used for Glucose determination. Draw a venous Glucose and send to the main Lab for analysis. Comprehensive Metabolic [id number] 23:38:05 Test Item Value Reference Range Interpretation Comments Sodium Level (test code = Sodium 139.0 mmol/L 135.0-145.0 Level) Potassium Level (test code = 4.4 mmol/L 3.5-5.1 Potassium Level) Chloride Level (test code = 99 mmol/L 98-105 Chloride Level) CO2 (test code = CO2) 18 mmol/L 22-29 L Anion Gap (test code = Anion 22 mmol/L 7-16 H Gap) BUN (test code = BUN) 8.40 mg/dL 6.00-20.00 Creatinine Level (test code = 0.80 mg/dL 0.50-0.90 Creatinine Level) BUN/Creat Ratio (test code = 10 N BUN/Creat Ratio) Glucose Level (test code = 378 mg/dL 70-115 H Glucose Level) Calcium Level (test code = 9.9 mg/dL 8.3-10.5 Calcium Level) Alk Phos (test code = Alk Phos) 84 U/L 35-104 Bilirubin Total (test code = 0.2 mg/dL 0.1-0.9 Bilirubin Total) Albumin Level (test code = 4.3 g/dL 3.5-5.2 Albumin Level) Protein Total (test code = 7.1 g/dL 6.4-8.3 Protein Total) ALT (test code = ALT) 11 U/L 1-33 AST (test code = AST) 10 U/L 1-32 Globulin (test code = Globulin) 2.8 g/dL 2.9-3.1 L A/G Ratio (test code = A/G 1.5 ratio N Ratio) Comprehensive Metabolic [id number] 23:38:05 Test Item Value Reference Range Interpretation Comments Sodium Level (test 139.0 mmol/L 135.0-145.0 code = Sodium Level) Potassium Level 4.4 mmol/L 3.5-5.1 (test code = Potassium Level) Chloride Level (test 99 mmol/L 98-105 code = Chloride Level) CO2 (test code = 18 mmol/L 22-29 L CO2) Anion Gap (test code 22 mmol/L 7-16 H = Anion Gap) BUN (test code = 8.40 mg/dL 6.00-20.00 BUN) Creatinine Level 0.80 mg/dL 0.50-0.90 (test code = Creatinine Level) BUN/Creat Ratio 10 N (test code = BUN/Creat Ratio) Glucose Level (test 378 mg/dL 70-115 H code = Glucose Level) Calcium Level (test 9.9 mg/dL 8.3-10.5 code = Calcium Level) Alk Phos (test code 84 U/L 35-104 = Alk Phos) Bilirubin Total 0.2 mg/dL 0.1-0.9 (test code = Bilirubin Total) Albumin Level (test 4.3 g/dL 3.5-5.2 code = Albumin Level) Protein Total (test 7.1 g/dL 6.4-8.3 code = Protein Total) ALT (test code = 11 U/L 1-33 ALT) AST (test code = 10 U/L 1-32 AST) Globulin (test code 2.8 g/dL 2.9-3.1 L = Globulin) A/G Ratio (test code 1.5 ratio N = A/G Ratio) eGFR AA (test code = >60 N eGFR (e stimated eGFR AA) mL/min/1.73 m2 Glomerular Filtration Rate ) is an estimated va lue, calculated from the patient's serum creatinine usin g the MDRD equation. It is NOT the patient 's actual GFR. The eGFR provides a more clinically usef ul measure of kidn ey disease than se rum creatinine alone.This calculation clover es sex and race in to account, if the information is provided. If th e race is not provided, and t he patient is -Alexia n, multiply by 1.2 12. If sex is not provided, and t he patient is fema le, multiply by 0.7 42. Results for pat ients <18 years of ag e have not been validated by th e MDRD study and should be interpreted wit h caution. eGFR R esult Interpretation: eGFR > or = 60 is in the Normal RangeeGF R < 60 may mean kid maile diseaseeGFR < 1 5 may mean kidney failure Rang es recommended by the National Kidney Foundation, http://nkdep.ni h.gov Alcohol [id number] 23:38:05 Test Item Value Reference Range Interpretation Comments Ethanol Level (test <0.00 g/dL 0.00-0.01 Intoxica [place] 0.080 g/dL code = Ethanol or more Level) Ethanol Inst (test <0 N code = Ethanol Inst) Comprehensive Metabolic [id number] 23:38:05 Test Item Value Reference Range Interpretation Comments Sodium Level (test 139.0 mmol/L 135.0-145.0 code = Sodium Level) Potassium Level 4.4 mmol/L 3.5-5.1 (test code = Potassium Level) Chloride Level (test 99 mmol/L 98-105 code = Chloride Level) CO2 (test code = 18 mmol/L 22-29 L CO2) Anion Gap (test code 22 mmol/L 7-16 H = Anion Gap) BUN (test code = 8.40 mg/dL 6.00-20.00 BUN) Creatinine Level 0.80 mg/dL 0.50-0.90 (test code = Creatinine Level) BUN/Creat Ratio 10 N (test code = BUN/Creat Ratio) Glucose Level (test 378 mg/dL 70-115 H code = Glucose Level) Calcium Level (test 9.9 mg/dL 8.3-10.5 code = Calcium Level) Alk Phos (test code 84 U/L 35-104 = Alk Phos) Bilirubin Total 0.2 mg/dL 0.1-0.9 (test code = Bilirubin Total) Albumin Level (test 4.3 g/dL 3.5-5.2 code = Albumin Level) Protein Total (test 7.1 g/dL 6.4-8.3 code = Protein Total) ALT (test code = 11 U/L 1-33 ALT) AST (test code = 10 U/L 1-32 AST) Globulin (test code 2.8 g/dL 2.9-3.1 L = Globulin) A/G Ratio (test code 1.5 ratio N = A/G Ratio) eGFR AA (test code = >60 N eGFR (e stimated eGFR AA) mL/min/1.73 m2 Glomerular Filtration Rate ) is an estimated va lue, calculated from the patient's serum creatinine usin g the MDRD equation. It is NOT the patient 's actual GFR. The eGFR provides a more clinically usef ul measure of kidn ey disease than se rum creatinine alone.This calculation clover es sex and race in to account, if the information is provided. If th e race is not provided, and t he patient is -Alexia n, multiply by 1.2 12. If sex is not provided, and t he patient is fema le, multiply by 0.7 42. Results for pat ients <18 years of ag e have not been validated by [facility] MDRD study and should be interpreted wit h caution. eGFR R esult Interpretation: eGFR > or = 60 is in the Normal RangeeGF R < 60 may mean kid maile diseaseeGFR < 1 5 may mean kidney failure Rang es recommended by the National Kidney Foundation, http://nkdep.ni h.gov eGFR Non-AA (test >60.00 N eGFR (blanca mated code = eGFR Non-AA) mL/min/1.73 m2 Glomer ular Filtration Rate ) is an estimated va lue, calculated from the patient's serum creatinine usin g the MDRD equation. It is NOT the patient 's actual GFR. The eGFR provides a more clinically usef ul measure of kidn ey disease than se rum creatinine alone.This calculation clover es sex and race in to account, if the information is provided. If th e race is not provided, and t he patient is -Alexia n, multiply by 1.2 12. If sex is not provided, and t he patient is fema le, multiply by 0.7 42. Results for pat ients <18 years of ag e have not been validated by [facility] MDRD study and should be interpreted wit h caution. eGFR R esult Interpretation: eGFR > or = 60 is in the Normal RangeeGF R < 60 may mean kid maile diseaseeGFR < 1 5 may mean kidney failure Rang es recommended by the National Kidney Foundation, http://nkdep.ni h.gov Urinalysis [id number] 22:19:51 Test Item Value Reference Range Interpretation Comments UA WBC (test code = UA WBC) 0-5 0-5 UA RBC (test code = UA RBC) 0-5 0-5 UA Bacteria (test code = UA None Seen Bacteria) UA Squam Epithelial (test code = UA 11-19 A Squam Epithelial) Urinalysis with Microscopic if [id number] 22:08:25 Test Item Value Reference Range Interpretation Comments UA Color (test code = UA STRAW Yellow Color) UA Appear (test code = CLEAR Clear UA Appear) UA pH (test code = UA 5 N pH) UA Spec Grav (test code 1.035 1.001-1.035 = UA Spec Grav) UA Glucose (test code = 1000 mg/dL Negative A UA Glucose) UA Ketones (test code = 15 mg/dL Negative A UA Ketones) UA Blood (test code = UA NEG Negative Blood) UA Protein (test code = NEG Negative UA Protein) UA Bili (test code = UA NEG Negative Bili) UA Urobilinogen (test 0.2 mg/dL N code = UA Urobilinogen) UA Nitrite (test code = NEG Negative UA Nitrite) UA Leuk Est (test code = NEG Negative UA Leuk Est) UA Micro Ind? (test code Indicated Not Indicated A Re sult created by = UA Micro Ind?) rule [id number] _[id number] Urine Drug [id number] 21:54:51 Test Item Value Reference Range Interpretation Comments Amphetamine Screen Ur Negative Negative (test code = Amphetamine Screen Ur) Barbiturate Screen Ur Negative Negative (test code = Barbiturate Screen Ur) Benzodiazepines Ur (test POSITIVE Negative A code = Benzodiazepines Ur) Cocaine Screen Ur (test Negative Negative code = Cocaine Screen Ur) U Methadone Scr (test Negative Negative code = U Methadone Scr) Opiate Screen Ur (test Negative Negative code = Opiate Screen Ur) U PCP Scrn (test code = Negative Negative U PCP Scrn) Cannabinoid Screen Ur POSITIVE Negative A (test code = Cannabinoid Screen Ur) U TCA (test code = U POSITIVE Negative A The res ults of all TCA) drug screen quiana ts are only preliminar y. Clinical consideration a nd professional ju dgment should be appli ed to any drug of abu se test result, particularly wh en preliminary pos itive results are obt ained. Please order a separate confir matory test if desired . HCG Qualitative [id number] 21:53:40 Test Item Value Reference Range Interpretation Comments hCG Ur (test code = Negative If the r esult is hCG Ur) "Negative" in p atients suspected to be , recom mend retest with a s ample obtained 48 to 72 hours later, or by ordering a quantitative as say. If the result i s "Borderline" te sting should be repea louis in 48 to 72 hours. Lot # (test code = [id number] N Lot #) Expiration Dt (test 2020-10-10 N code = Expiration Dt) Neg Control (test Negative code = Neg Control) Pos Control (test Positive code = Pos Control) Internal QC (test Acceptable code = Internal QC) Automated [id number] 21:37:20 Test Item Value Reference Range Interpretation Comments Neutro Auto (test code = Neutro 68.2 % 36.0-70.0 Auto) Lymph Auto (test code = Lymph Auto) 25.3 % 12.0-44.0 Morrow Auto (test code = Morrow Auto) 5.2 % 0.0-11.0 Eos, Auto (test code = Eos, Auto) 0.8 % 0.0-7.0 Basophil Auto (test code = Basophil 0.2 % 0.0-2.0 Auto) Neutro Absolute (test code = Neutro 10.0 x10 1.6-7.4 H Absolute) Lymph Absolute (test code = Lymph 3.70 x10 .50-4.60 Absolute) Morrow Absolute (test code = Morrow .76 x10 .00-1.20 Absolute) Eos Absolute (test code = Eos 0.12 x10 0.00-0.74 Absolute) Baso Absolute (test code = Baso 0.03 x10 0.00-0.21 Absolute) IG [id number] 21:37:20 Test Item Value Reference Range Interpretation Comments IG (test code = IG) 0.3 % 0.0-5.0 IG Abs (test code = IG Abs) 0 x10 N Complete Blood Count with [id number] 21:37:19 Test Item Value Reference Range Interpretation Comments WBC (test code = WBC) 14.6 x10 4.4-10.5 H RBC (test code = RBC) 5.10 x10 3.75-5.20 Hgb (test code = Hgb) 14.8 g/dL 12.2-14.8 Hct (test code = Hct) 42.7 % 36.5-44.4 MCV (test code = MCV) 83.70 fL 80.00-100.00 MCHC (test code = 34.70 g/dL 32.00-37.50 MCHC) RDW CV (test code = 11.8 % 11.5-14.5 RDW CV) MCH (test code = MCH) 29.0 pg 27.0-32.5 Platelets (test code = 397.0 x10 140.0-440.0 Platelets) MPV (test code = MPV) 9.9 fL N Slide Review (test Auto Auto Result cr eated by code = Slide Review) GL_SJM_ SLIDE_REV_AUTO nRBC (test code = 0 N nRBC) NRBC Abs (test code = 0.00 x10 N NRBC Abs) IPF (test code = IPF) 0 % N
--- OUTSIDE RECORDS SUMMARY | 2020-07-28 20:59 | XMS REPORT | Summary of Care ---
:2000 Author Organization [facility] Address [address] [place] [address] Care Team Providers Name Role Phone Pcp, Patient Does Not Have A Primary Care Provider +[id number] 0-0000 Reason for Visit Reason Comments New Patient pt confirm all meds and phar tremayne, pt is with mom Diabetes Mellitus II pt been diagnosed for about 3 years, pt normaly checks blood sugars 3 times aday (given a new meter), pt blood sugars ranges from 202 - 428, pt is fasti ng, pt stated A1C 12.1 in hospital., FBS 376 Encounter Details Date Type Department Care Team Description 06/14/2020 Office Visit [facility] Micheal Portillo A, Type 2 di abetes mellitus with hyperglycemia, with long-term current use of insulin (Primary Dx); Endocrinology, Josemanuel BASILIO Class 2 severe obesity due to excess damien ories with serious comorbidity and body mass index (BMI) of 38.0 to 38[address] [place] [address] [place], [place] [phone] [phone] Allergies No Known Allergiesdocumented as of this encounter (statuses as of 06/14/2020) Medications Medication Sig Dispensed Refills Start End Status Date Date busPIRone (BUSPAR) 15 0 15/20 Active mg tablet 15 traZODONE 100 mg [...] DELICA LANCETS 300 Each. 0 Active MISC insulin lispro inject 20 1 Box 2 06/14/20 Activ e protamine-insulin Units under 20 lispro 100 unit/mL the skin 2 (50-50) (two) times injectionIndications: daily before Type 2 diabetes breakfast and mellitus with dinner. hyperglycemia, with long-term current use of insulin pen needle, diabetic 31 200 Each 2 [...] hyperglycemia, with long-term current use of insulin cloniDINE (CATAPRES) 0 07/17/20 Discontinued 0.1 mg tablet 15 020 (Disco ntinued by another clinician) lithium 600 mg capsule 0 07/15/20 Discontinued 15 020 (Discontin ued by another clinician) VYFEMLA, 28, 0.4-35 0 07/15/20 Discontinued mg-mcg per tablet 15 020 (D iscontinued by another clinician) lurasidone (LATUDA) 120 Take 1 tablet 0 Discontinued mg Tab by mouth 020 (Discontin ued daily. by another clinician) acetaminophen-codeine Take 1 tablet 20 tablet 0 04/18/20 09/0 4/2 Discontinued 300-30 mg tablet by mouth 17 020 (Di scontinued every 6 (six) by ano ther hours as clinician) needed for Pain (scale 4-6) for up to 20 doses. insulin degludec inject 14 0 Dis continued (TRESIBA FLEXTOUCH Units under 020 (Alternate U-100 SC) the skin. therapy) ONETOUCH VERIO TEST 300 Strips 0 Discontinued STRIPS strip before meals. 020 (Re order) Use as directed documented as of this encounter (statuses as of 06/14/2020) Active Problems Problem Noted Date Type 2 diabetes mellitus with hyperglycemia, with long -term current use of 06/14/2020 insulin Class 2 severe obesity due to excess calories with ser ious comorbidity and 06/14/2020 body mass index (BMI) of 38.0 to 38.9 in adult documented as of this encounter (statuses as of 06/14/2020) Social History Tobacco Use Types Packs/Day Years [...] of this encounter Last Filed Vital Signs Vital Sign Reading Time Taken Comments Blood Pressure 105/79 06/14/2020 8:46 AM CDT Pulse 84 06/14/2020 8:45 AM CDT Temperature - - Respiratory Rate - - Oxygen Saturation 93% 06/14/2020 8:45 AM CDT Inhaled Oxygen Concentration - - Weight 101.2 kg (223 lb) 06/14/2020 8:45 AM CDT Height 162.6 cm (5' 4") 06/14/2020 8:45 AM CDT Body Mass Index 38.28 06/14/2020 8:45 AM CDT documented in this encounter Progress Notes Bandar Burton MD - 06/14/2020 8:30 AM CDT Cc: Chief Complaint Patient presents with New Patient pt confirm all meds and pharmacy, pt is with mom Diabetes Mellitus II pt been diagnosed for about 3 years, pt normaly checks blood sugars 3 times aday (given a new meter), pt blood sugars ranges from 202 - 428, pt is fasting, pt stated A1C 12.1 in hospital., FBS 376 Monique Mendez is a 20 year old female. HPI Patient is obese not hypertensive, has diabetes running high glucose. Patient known for depression was recently hospitalized her medications were changed taken off lithium. Allergies Monique has No Known Allergies. Medications Outpatient Medications Prior to Visit Medication Sig Dispense Refill ARIPiprazole (ABILIFY) 5 mg tablet Take 5 mg by mouth daily. HYDROXYZINE PAMOATE ORAL Take by mouth. lamoTRIgine 25 mg tablet Take 25 mg by mouth daily. medroxyPROGESTERone (DEPO-SUBQ PROVERA 104) 104 mg/0.65 mL injection inject 104 mg under the skin every 3 (three) months. ONETOUCH DELICA LANCETS MISC 300 Each. busPIRone (BUSPAR) 15 mg tablet insulin degludec (TRESIBA FLEXTOUCH U-100 SC) inject 14 Units under the skin. ONETOUCH VERIO TEST STRIPS strip 300 Strips before meals. Use as directed traZODONE 100 mg tablet Take 50 mg by mouth at bedtime. acetaminophen-codeine 300-30 mg tablet Take 1 tablet by mouth every 6 (six) hours as needed for Pain (scale 4-6) for up to 20 doses. 20 tablet 0 lurasidone (LATUDA) 120 mg Tab Take 1 tablet by mouth daily. cloniDINE (CATAPRES) 0.1 mg tablet lithium 600 mg capsule VYFEMLA, 28, 0.4-35 mg-mcg per tablet No facility-administered medications prior to visit. Histories Past Medical History: Diagnosis Date Anxiety Bipolar 1 disorder Depression Diabetes mellitus Polycystic ovarian syndrome Thyroid disease History reviewed. No pertinent surgical history. Social History Socioeconomic History Marital status: Single Spouse name: Not on file Number of children: Not on file Years of education: Not on file Highest education level: Not on file Occupational History Not on file Social Needs Financial resource strain: Not on file Food insecurity Worry: Not on file Inability: Not on file Transportation needs Medical: Not on file Non-medical: Not on file Tobacco Use Smoking status: Never Smoker Substance and Sexual Activity Alcohol use: Not on file Drug use: Not on file Sexual activity: Not on file Lifestyle Physical activity Days per week: Not on file Minutes per session: Not on file Stress: Not on file Relationships Social connections Talks on phone: Not on file Gets together: Not on file Attends spiritism service: Not on file Active member of club or organization: Not on file Attends meetings of clubs or organizations: Not on file Relationship status: Not on file Intimate partner violence Fear of current or ex partner: Not on file Emotionally abused: Not on file Physically abused: Not on file Forced sexual activity: Not on file Other Topics Concern Not on file Social History Narrative Not on file Family History Problem Relation Age of Onset Hypertension Mother Heart Mother Thyroid Mother Depression Mother Anxiety Mother Diabetes Father High cholesterol Father Hypertension Father Gout Father Cancer Maternal Grandmother Cancer Paternal Grandfather Review of Systems Constitutional: Positive for weight gain. HENT: Negative. Eyes: Negative. Respiratory: Negative. Cardiovascular: Negative. Gastrointestinal: Negative. Genitourinary: Positive for menstrual problem. Musculoskeletal: Negative. Skin: Negative. Neurological: Negative. Psychiatric/Behavioral: Positive for dysphoric mood and sleep disturbance. Endocrine: Endocrine negativePositive for weight gain. Vital Signs BP 105/79 (BP Location: Left arm) | Pulse 84 | Ht 5' 4" (1.626 m) | Wt 223 lb (101.2 kg) | SpO2 93% | BMI 38.28 kg/m Physical Exam Constitutional: Appearance: She is well-developed. Eyes: General: No scleral icterus. Left eye: No discharge. Conjunctiva/sclera: Conjunctivae normal. Pupils: Pupils are equal, round, and reactive to light. Neck: Musculoskeletal: Normal range of motion and neck supple. Thyroid: No thyromegaly. Vascular: No JVD. Trachea: No tracheal deviation. Cardiovascular: Rate and Rhythm: Normal rate and regular rhythm. Heart sounds: Normal heart sounds. No murmur. No friction rub. No gallop. Pulmonary: Effort: Pulmonary effort is normal. No respiratory distress. Breath sounds: Normal breath sounds. No wheezing or rales. Chest: Chest wall: No tenderness. Abdominal: General: Bowel sounds are normal. There is no distension. Palpations: Abdomen is soft. There is no mass. Tenderness: There is no abdominal tenderness. There is no guarding or rebound. Hernia: No hernia is present. Musculoskeletal: Normal range of motion. General: No tenderness or deformity. Lymphadenopathy: Cervical: No cervical adenopathy. Skin: General: Skin is warm and dry. Capillary Refill: Capillary refill takes less than 2 seconds. Coloration: Skin is not pale. Findings: No erythema or rash. Neurological: Mental Status: She is alert and oriented to person, place, and time. Cranial Nerves: No cranial nerve deficit. Sensory: No sensory deficit. Motor: No abnormal muscle tone. Coordination: Coordination normal. Deep Tendon Reflexes: Reflexes normal. Psychiatric: Behavior: Behavior normal. Thought Content: Thought content normal. Judgment: Judgment normal. Assessment/Plan Monique was seen today for new patient and diabetes mellitus ii. Diagnoses and all orders for this visit: Type 2 diabetes mellitus with hyperglycemia, with long-term current use of insulin - insulin lispro protamine-insulin lispro 100 unit/mL (50-50) injection; inject 20 Units under the skin 2 (two) times daily before breakfast and dinner. - pen needle, diabetic 31 gauge x 1/3" Ndle; 200 Each 2 (two) times daily. - blood sugar diagnostic (Spine WaveUCH VERIO TEST STRIPS) strip; 300 Strips before meals. Use as directed - metformin ER 500 mg 24 hr tablet; Take 2 tablets by mouth at bedtime. - GLYCOSYLATED HEMOGLOBIN (A1C); Future - LIPID PANEL (93971)(TOTAL CHOLESTEROL, TRIGLYCERIDES, HDL); Future Class 2 severe obesity due to excess calories with serious comorbidity and body mass index (BMI) of 38.0 to 38.9 in adult - CORTISOL AM; Future - THYROID STIMULATING HORMONE; Future - FREE T4; Future - PROLACTIN; Future - COMP. METABOLIC PANEL (52970); Future Retry metformin, GLP1 next documented in this encounter Plan of Treatment Date Type Specialty Care Team Description 08/16/2020 Office Visit Endocrinology Diabetes & Bandar Burton MD Metabolism [address] [place] [address] 77 [phone] Name Type Priority Associated Diagnoses Order S chedule GLYCOSYLATED HEMOGLOBIN LAB Routine Type 2 diabetes E xpected: 07/14/2020, (A1C) mellitus with Expires: 06/14 hyperglycemia, with long-term current use of insulin CORTISOL AM LAB Routine Class 2 severe obesity Expec louis: 06/14/2020, due to excess calories Expir es: 06/14/2021 with serious comorbidity and body mass index (BMI) of 38.0 to 38.9 in adult THYROID STIMULATING LAB Routine Class 2 severe obesit y Expected: 06/14/2020, HORMONE due to excess calories Expir es: 06/14/2021 with serious comorbidity and body mass index (BMI) of 38.0 to 38.9 in adult FREE T4 LAB Routine Class 2 severe obesity 1 Occ urrences starting due to excess calories 06/14 until with serious 06/14/2021 comorbidity and body mass index (BMI) of 38.0 to 38.9 in adult PROLACTIN LAB Routine Class 2 severe obesity Expec louis: 06/14/2020, due to excess calories Expir es: 06/14/2021 with serious comorbidity and body mass index (BMI) of 38.0 to 38.9 in adult COMP. METABOLIC PANEL LAB Routine Class 2 severe obes ity Expected: 06/14/2020, (67994) due to excess calories Expir es: 06/14/2021 with serious comorbidity and body mass index (BMI) of 38.0 to 38.9 in adult LIPID PANEL (79714)(TOTAL LAB Routine Type 2 diabetes Expected: 07/14/2020, CHOLESTEROL, mellitus with Expires: 06/14 TRIGLYCERIDES, HDL) hyperglycemia, with long-term current use of insulin Health Maintenance Due Date Last Done Comments [...] long-term current use of insulin - Primary Class 2 severe obesity due to excess damien ories with serious comorbidity and body mass index (BMI) of 38.0 to 38.9 in adult documented in this encounter documented as of this encounter
--- OUTSIDE RECORDS SUMMARY | 2020-07-28 20:59 | XMS REPORT | Summary of Care ---
:2000 Author Organization [facility] Address [address] [place] [address] Care Team Providers Name Role Phone Pcp, Patient Does Not Have A Primary Care Provider +[id number] 0-0000 Encounter Details Date Type Department Care Team Description 06/14/2020 Orders Only [facility] Doctor Unassigned, No [address] [facility] [place] [address] [address] [place] [address] Allergies No Known Allergiesdocumented as of this encounter (statuses as of 06/14/2020) Medications Medication Sig Dispensed Refills Start Date End Date Status busPIRone (BUSPAR) 15 0 07/25/2015 Active mg tablet cloniDINE (CATAPRES) 0 07/17/2015 Active 0.1 mg tablet lithium 600 mg capsule 0 07/15/2015 Active VYFEMLA, 28, 0.4-35 0 07/15/2015 Active mg-mcg per tablet traZODONE 100 mg Take 100 mg by 0 Active tablet mouth at bedtime. lurasidone (LATUDA) Take 1 tablet by 0 Active 120 mg Tab mouth daily. acetaminophen-codeine Take 1 tablet by 20 tablet 0 04/18/2017 Active 300-30 mg tablet mouth every 6 (six) hours as needed for Pain (scale 4-6) for up to 20 doses. documented as of this encounter (statuses as of 06/14/2020) Active Problems Problem Noted Date Right hand pain 08/02/2015 documented as of this encounter (statuses as [...] Signs Not on filedocumented in this encounter Plan of Treatment Date Type Specialty Care Team Description 06/14/2020 Office Visit Endocrinology Diabetes & Bandar Burton MD Metabolism [address] [facility] [address] [place] [address] 8 [phone] Health Maintenance Due Date Last Done Comments VARICELLA VACCINES (1 of 2 - 2-dose 02/19/2000 childhood series) MENINGOCOCCAL B VACCINES (1 of 2 - 2009 Risk Bexsero 2-dose series) HPV VACCINES (1 - 2-dose series) 2010 Depression Screening 2011 WELL CARE VISIT: 12-21 YEARS 2011 (yearly) CHLAMYDIA SCREENING 2015 DTaP,Tdap,and Td Vaccines (1 - 2018 Tdap) PAP SMEAR 02/19/2020 INFLUENZA VACCINE (#1) 2020 MENINGOCOCCAL VACCINE Aged Out No longer eligible based on patient's age to complete this topic PNEUMOCOCCAL 0-64 YEARS COMBINED Aged Out No longer eligible based on SERIES patient's age to complete this topic documented as of this encounter Procedures Procedure Name Priority Date/Time Associated Diagnosis Comme nts CONSENT/REFUSAL FOR Routine 06/14/2020 8:28 AM DIAGNOSIS AND TREATMENT CDT ASSIGNMENT OF BENEFITS Routine 06/14/2020 8:28 AM CDT documented in this encounter Results Not on filedocumented in this encounter Insurance Payer Benefit Plan / Group Subscriber ID Effective Dates Phone Address Type [employer]IG[employer] CIGNA GENERIC [id number] 2020-Present HMO/PPO/POS documented as of this encounter
--- OUTSIDE RECORDS SUMMARY | 2020-07-28 20:59 | XMS REPORT | Summary of Care ---
:2000 Author Organization [facility] Address [address] [place] [address] Care Team Providers Name Role Phone Pcp, [...] Department Care Team Description 06/14/[address] Office [address] [facility] Micheal Portillo A, Type 2 di abetes mellitus with hyperglycemia, with long-term current use of insulin (Primary Dx); Endocrinology, Josemanuel BASILIO Class 2 severe obesity due to excess damien ories with serious comorbidity and body mass index (BMI) of 38.0 to 38.[address] [place] [address] [place], [place] [phone] [address] [phone] Allergies No Known Allergiesdocumented as of this [...] file Gets together: Not on file Attends protestant service: Not on file Active member of [...] (two) times daily. - blood sugar diagnostic (Wi3UCH VERIO TEST STRIPS) strip; 300 Strips before meals. Use as directed - metformin ER 500 mg 24 hr tablet; Take 2 tablets by mouth at bedtime. - GLYCOSYLATED HEMOGLOBIN (A1C); Future - LIPID PANEL (42551)(TOTAL CHOLESTEROL, TRIGLYCERIDES, HDL); Future Class 2 severe obesity due to excess calories with serious comorbidity and body mass index (BMI) of 38.0 to 38.9 in adult - CORTISOL AM; Future - THYROID STIMULATING HORMONE; Future - FREE T4; Future - PROLACTIN; Future - COMP. METABOLIC PANEL (40810); Future Retry metformin, GLP1 next documented in this encounter Plan of Treatment Date Type Specialty Care Team Description 08/16/2020 Office Visit Endocrinology Diabetes & Bandar Burton MD Metabolism [address] [place] [address] 77 8 [phone] Name Type Priority Associated Diagnoses Order S [...] Class 2 severe obes ity Expected: 06/14/2020, (24585) due to excess calories Expir es: 06/14/2021 with serious comorbidity and body mass index (BMI) of 38.0 to 38.9 in adult LIPID PANEL (77931)(TOTAL LAB Routine Type 2 diabetes Expected: 07/14/2020, [...]
[2020-07-28] MEDS ORDERED: ONDANSETRON 4 MG/2 ML VIAL ONE (21:55)
[2020-07-28 21:59] LABS: Absolute Lymphocytes (CBC) 4.9 K/uL (0.7-4.9); Hematocrit 44.5 % (36.0-45.0); Lymphocytes % 41.5 % (15.3-44.8); MPV 8.3 fL (7.6-11.3)
[2020-07-28 22:19] LABS: ALT/SGPT 17 U/L (12-78); AST/SGOT 5 U/L (15-37); Albumin 3.6 g/dL (3.4-5.0); Alkaline Phosphatase 70 U/L (45-117); BUN Blood Urea Nitrogen 10 mg/dL (7-18); Bicarbonate 22 mmol/L (21-32); Bilirubin Direct < 0.1 mg/dL (0-0.2); Bilirubin Total 0.2 mg/dL (0.2-1.0); Glucose Level 180 mg/dL (74-106); Lipase 134 U/L (73-393); Potassium 3.5 mmol/L (3.5-5.1); Protein, Total 7.4 g/dL (6.4-8.2); Sodium Level 141 mmol/L (136-145)
[2020-07-28] MEDS ORDERED: DICYCLOMINE HCL 10 MG CAP ONE (23:19)
--- NOTE | 2020-07-28 23:29 | ER ---
[facility] Age: 20 yrs Sex: Female : 2000 Arrival Date: 07/28/2020 Time: 21:06 Bed 8 Private MD: Diagnosis: Nausea and vomiting Presentation: 07/28 21:07 Chief complaint: Patient states: "I have been having really bad nausea, stomach pain jd3 and weakness for about a week now.". Coronavirus screen: nausea, Client presents with at least one sign or symptom that may indicate coronavirus-19. Standard/surgical mask placed on the client. Provider contacted for isolation considerations. Ebola Screen: Patient negative for fever greater than or equal to 101.5 degrees Fahrenheit, and additional compatible Ebola Virus Disease symptoms. Initial Sepsis Screen: Does the patient meet any 2 criteria? No. Patient's initial sepsis screen is negative. Does the patient have a suspected source of infection? No. Patient's initial sepsis screen is negative. Risk Assessment: Do you want to hurt yourself or someone else? Patient reports no desire to harm self or others. Onset of symptoms was July 21, 2020. 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 - Social history:: Smoking status: Patient reports the use of cigarette tobacco products, smokes one pack cigarettes per day. Screenin:39 Abuse screen: Denies threats or abuse. Nutritional screening: No deficits noted. ea Tuberculosis screening: No symptoms or risk factors identified. Fall Risk No IV (0 pts). Assessment: 21:39 General: Appears uncomfortable, Behavior is appropriate for age. Pain: Complains of ea pain in abdomen. Neuro: Level of Consciousness is awake, alert, obeys commands, Oriented to person, place, time, situation. Cardiovascular: Patient's skin is warm and dry. Respiratory: Airway is patent Respiratory effort is even, unlabored, Respiratory pattern is regular, symmetrical. GI: Abdomen is non-distended, Reports nausea, vomiting. Derm: Skin is pink, warm \\T\\ dry. Vital Signs: 21:11 BP 118 / 82; Pulse 94; Resp 17 S; Temp 97.3(TE); Pulse Ox 94% on R/A; Weight 99.79 kg jd3 (R); Height 5 ft. 4 in. (162.56 cm) (R); Pain 8/10; 22:38 BP 124 / 73; Pulse 65; Resp 16; Pulse Ox 95% on R/A; ea 21:11 Body Mass Index 37.76 (99.79 kg, 162.56 cm) jd3 ED Course: 21:06 Patient arrived in ED. mr 21:08 Triage completed. jd3 21:14 Arm band placed on. jd3 21:20 Jared Abernathy MD is Attending Physician. tw4 21:36 Jj Dominguez, SLOAN is Primary Nurse. rv 21:39 Patient has correct armband on for positive identification. Bed in low position. Call ea light in reach. Side rails up X 1. 21:50 Inserted saline lock: 20 gauge in right antecubital area, using aseptic technique. ea Blood collected. 21:59 Milagros Tovar, RN is Primary Nurse. ea 23:48 No provider procedures requiring assistance completed. IV discontinued, intact, ll2 bleeding controlled, No redness/swelling at site. Pressure dressing applied. Administered Medications: 21:54 Drug: Zofran (Ondansetron) 4 mg Route: IVP; Site: right antecubital; ea 22:45 Follow up: Response: No adverse reaction ea 23:08 Drug: Bentyl 20 mg Route: PO; rv Outcome: 23:28 Discharge ordered by . tw4 23:48 Discharged to home ambulatory. ll2 23:48 Condition: stable 23:48 Discharge instructions given to patient, Instructed on discharge instructions, follow up and referral plans. medication usage, Demonstrated understanding of instructions, follow-up care, medications, Prescriptions given X 1. 23:48 Patient left the ED. ll2 Signatures: Jessica Lucas mr LaMilagros, RN RN Ian Duenas RN RN jd3 Jared Abernathy MD MD tw4 Jj Dominguez RN RN rv [place], Lacie, RN RN ll2 Corrections: (The following items were deleted from the chart) 21:14 21:11 Pulse 94bpm; Resp 17bpm; Spontaneous; Pulse Ox 94% RA; Temp 97.3F Temporal; 99.79 jd3 kg Reported; Height 5 ft. 4 in. Reported; BMI: 37.7; Pain 8/10; jd3
--- NOTE | 2020-07-28 23:29 | EDPHYS ---
Physician Documentation [facility] Name: Monique Mendez Age: 20 yrs Sex: Female : 2000 Arrival Date: 07/28/2020 Time: 21:06 Bed 8 Private MD: ED Physician Jared Abernathy HPI: 07/29 06:58 This 20 yrs old Female presents to ER via Ambulatory with complaints of tw4 Nausea, Weakness. 06:58 The patient presents to the emergency department with nausea, vomiting. Onset: The tw4 symptoms/episode began/occurred today. Possible causes: unknown. The symptoms are aggravated by nothing. The symptoms are alleviated by. Associated signs and symptoms: The patient has no apparent associated signs or symptoms. The patient has not experienced similar symptoms in the past. 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 - Social history:: Smoking status: Patient reports the use of cigarette tobacco products, smokes one pack cigarettes per day. ROS: 07/29 06:58 Constitutional: Negative for fever, chills, and weight loss, Eyes: Negative for injury, tw4 pain, redness, and discharge, Cardiovascular: Negative for chest pain, palpitations, and edema, Respiratory: Negative for shortness of breath, cough, wheezing, and pleuritic chest pain, Back: Negative for injury and pain, MS/Extremity: Negative for injury and deformity, Skin: Negative for injury, rash, and discoloration, Neuro: Negative for headache, weakness, numbness, tingling, and seizure. Abdomen/GI: Positive for nausea and vomiting, nausea, vomiting, and diarrhea, nausea, vomiting, Negative for abdominal pain, constipation, abdominal cramps, abdominal distension, anorexia, black/tarry stool, rectal pain, rectal bleeding, bowel incontinence. Exam: 06:58 Constitutional: This is a well developed, well nourished patient who is awake, alert, tw4 and in no acute distress. Head/Face: Normocephalic, atraumatic. Chest/axilla: Normal chest wall appearance and motion. Nontender with no deformity. No lesions are appreciated. Cardiovascular: Regular rate and rhythm with a normal S1 and S2. No gallops, murmurs, or rubs. Normal PMI, no JVD. No pulse deficits. Respiratory: Lungs have equal breath sounds bilaterally, clear to auscultation and percussion. No rales, rhonchi or wheezes noted. No increased work of breathing, no retractions or nasal flaring. 06:58 MS/ Extremity: Pulses equal, no cyanosis. Neurovascular intact. Full, normal range of motion. Neuro: Awake and alert, GCS 15, oriented to person, place, time, and situation. Cranial nerves II-XII grossly intact. Motor strength 5/5 in all extremities. Sensory grossly intact. Cerebellar exam normal. Normal gait. 06:58 Abdomen/GI: Inspection: abdomen appears normal, Bowel sounds: normal, Palpation: abdomen is soft and non-tender, soft. Vital Signs: 07/28 21:11 BP 118 / 82; Pulse 94; Resp 17 S; Temp 97.3(TE); Pulse Ox 94% on R/A; Weight 99.79 kg jd3 (R); Height 5 ft. 4 in. (162.56 cm) (R); Pain 8/10; 22:38 BP 124 / 73; Pulse 65; Resp 16; Pulse Ox 95% on R/A; ea 21:11 Body Mass Index 37.76 (99.79 kg, 162.56 cm) jd3 MDM: 21:21 Patient medically screened. tw4 07/29 06:58 Differential diagnosis: Nonspecific abd pain, gastritis, pancreatitis, appendicitis. tw4 Data reviewed: vital signs, nurses notes. Data interpreted: Pulse oximetry: Interpretation: normal. Counseling: I had a detailed discussion with the patient and/or guardian regarding: the historical points, exam findings, and any diagnostic results supporting the discharge/admit diagnosis, lab results. Special discussion: I discussed with the patient/guardian in detail that at this point there is no indication for admission to the hospital. It is understood, however, that if the symptoms persist or worsen the patient needs to return immediately for re-evaluation. 07/28 21:36 Order name: Basic Metabolic Panel [facility] 07/28 21:36 Order name: CBC with Diff [facility] 07/28 21:36 Order name: Hepatic Function [facility] 07/28 21:36 Order name: Lipase [facility] 07/28 21:37 Order name: Basic Metabolic Panel; Complete Time: 22:52 EDMS 07/28 22:52 Interpretation: Normal except: CL 110; GLUC 180; GFR 75. tw 07/28 21:37 Order name: CBC with Automated Diff; Complete Time: 22:52 EDMS 07/28 22:52 Interpretation: Normal except: WBC 11.9; RBC 5.30; HGB 15.2. [facility] 07/28 21:36 Order name: IV Saline Lock; Complete Time: 21:56 [facility] 07/28 21:36 Order name: Labs collected and sent; Complete Time: 21:56 [facility] 07/28 21:37 Order name: Liver (Hepatic) Function; Complete Time: 22:52 EDMS 07/28 22:52 Interpretation: Normal except: AST 5; GLOB 3.8; A/G 0.9. [facility] 07/28 21:37 Order name: Lipase; Complete Time: 22:52 EDMS 07/28 22:52 Interpretation: Within normal limits: LIP 134. [facility] 07/28 22:52 Order name: Urine Dipstick--Ancillary (enter results) [facility] 07/28 22:52 Order name: Urine --Ancillary (enter results) [facility] 07/28 21:36 Order name: Urine Dipstick-Ancillary (obtain specimen); Complete Time: 22:44 [facility] 07/28 21:36 Order name: Urine Test (obtain specimen); Complete Time: 22:44 tw4 Administered Medications: 07/28 21:54 Drug: Zofran (Ondansetron) 4 mg Route: IVP; Site: right antecubital; ea 22:45 Follow up: Response: No adverse reaction ea 23:08 Drug: Bentyl 20 mg Route: PO; rv Disposition: 07/28/20 23:28 Discharged to Home. Impression: Nausea and vomiting. - Condition is Stable. - Discharge Instructions: Nausea and Vomiting, Adult. - Prescriptions for Zofran 4 mg Oral Tablet - take 1 tablet by ORAL route every 12 hours As needed; 20 tablet. - Medication Reconciliation Form, Thank You Letter, Antibiotic Education, Prescription Opioid Use form. - Follow up: Private Physician; When: Upon discharge from the Emergency Department; Reason: Recheck today's complaints, Continuance of care, Re-evaluation by your physician. - Problem is new. - Symptoms have improved. Signatures: Dispatcher [employer] EDMS Milagros Tovar RN RN Ian Duenas RN RN jJared Atkins MD MD tw4 Jj Dominguez, RN RN rv Bailey Wagner RN RN ll2 Corrections: (The following items were deleted from the chart) 23:48 23:28 07/28/2020 23:28 Discharged to Home. Impression: Nausea and vomiting. Condition ll2 is Stable. Forms are Medication Reconciliation Form, Thank You Letter, Antibiotic Education, Prescription Opioid Use. Follow up: Private Physician; When: Upon discharge from the Emergency Department; Reason: Recheck today's complaints, Continuance of care, Re-evaluation by your physician. Problem is new. Symptoms have improved. tw4
[2020-07-29 00:44] VITALS: TEMP 97.3
[2020-07-29 00:53] VITALS: BP 124/73; O2SAT 95
[2020-07-29 01:10] LABS: Urine Blood NEGATIVE (NEG); Urine Glucose NEGATIVE (NEG); Urine Protein TRACE (NEG); Urine Specific Gravity >1.030 (1.005-1.030)
== END 2020-07-28 23:48 | disposition home or self-care (01) ==
LOC: ER 20:56
DX: R11.2 Nausea with vomiting, unspecified (principal)
CPT/HCPCS: 85025; 80048; 36415; 81025; 80076; 81003; 83690; 96374; 99284; J2405

== ENCOUNTER 2020-10-26 15:13 | Emergency (ER) | payer SELFPAY ==
--- OUTSIDE RECORDS SUMMARY | 2020-10-26 15:15 | XMS REPORT | Continuity of Care Document ---
:2000 Author Organization [facility] t Address [address] [place] [address] Care Team Providers Name Role Phone Micheal BASILIO, Emelia Attending Clinician Problems This patient has no known problems. Allergies, Adverse Reactions, Alerts This patient has no known allergies or adverse reactions. Medications This patient has no known medications. Procedures This patient has no known procedures. Encounters Start End Encounter Admission Attending Care Care Encounter Source Date/Time Date/Time Type Type Clinicians Facility Department ID 2020-08-16 2020-08-16 Office Micheal [facility] [id number] 09:01:09 10:03:16 Visit [facility] [id number] Clear [id number] [place] [id number] [facility] [address] Results Test Description Test Time Test Comments Results Result Comments Source POC Glucose 2019-08-25 11:10:28 Test Item Value Reference Range Interpretation Comme nts Glucose POC (test code = 319 mg/dL 70-115 H Not anujm RN or MDIf you consider your Glucose POC) patient critica lly ill, the Samuel-Accu Chec k Infrom II meter should not be u sed for Glucose determination. Draw a venous Glucose and send to the main Lab for analysis. POC [id number] 06:09:00 Test Item Value Reference Range Interpretation Comments Glucose POC (test 232 mg/dL 70-115 H Notify RN or MDIf you code = Glucose POC) consider your patient critically ill, the Samuel-Accu Chec k Infrom II meter should not be used for Glucos e determination. Draw a venous Glucose and send to the main Lab for analysis. POC [id number] 19:18:31 Test Item Value Reference Range Interpretation Comments Glucose POC (test 320 mg/dL 70-115 H Notify RN or MDIf you code = Glucose POC) consider your patient critically ill, the Samuel-Accu Chec k Infrom II meter should not be used for Glucos e determination. Draw a venous Glucose and send to the main Lab for analysis. RPR [id number] 18:40:55 Test Item Value Reference Range Interpretation Comments RPR Qual (test code = RPR Qual) Non-Reactive Non-Reactive Reactive Control (test code = Reactive Reactive Control) Weak Reactive Control (test Weak Reactive code = Weak Reactive Control) Non-Reactive Control (test code Non-Reactive = Non-Reactive Control) Lot # (test code = Lot #) [id number] Expiration Dt (test code = 08-10-2020 N Expiration Dt) POC [id number] 15:20:26 Test Item Value Reference Range Interpretation Comments Glucose POC (test 240 mg/dL 70-115 H Notify RN or MDIf you code = Glucose POC) consider your patient critically ill, the Samuel-Accu Chec k Infrom II meter should not be used for Glucos e determination. Draw a venous Glucose and send to the main Lab for analysis. Thyroid Stimulating [id number] 11:14:05 Test Item Value Reference Range Interpretation Comments TSH (test code = TSH) 1.850 mIU/mL 0.270-4.200 [place] [id number] 11:08:52 Test Item Value Reference Range Interpretation Comments [place] Level (test code = 0.10 mmol/L 0.60-1.20 L [place] Level) Lipid [id number] 11:08:51 Test Item Value Reference Range Interpretation Comments Cholesterol Total 244 mg/dL 0-200 H RISK OF HE ART (test code = DISEASEPublishe d by Cholesterol Total) [place] [employer] Karely lyte Optimal Borderl ine [...] is LDL/HDL Ratio=L DL Calc/HDL Chol POC [id number] 10:58:53 Test Item Value Reference Range Interpretation Comments Glucose POC (test 335 mg/dL 70-115 H Notify RN or MDIf you code = Glucose POC) consider your patient critically ill, the Samuel-Accu Chec k Infrom II meter should not be used for Glucos e determination. Draw a venous Glucose and send to the main Lab for analysis. POC [id number] 06:47:23 Test Item Value Reference Range Interpretation Comments Glucose POC (test 192 mg/dL 70-115 H Notify RN or MDIf you code = Glucose POC) consider your patient critically ill, the Samuel-Accu Chec k Infrom II meter should not be used for Glucos e determination. Draw a venous Glucose and send to the main Lab for analysis. POC [id number] 02:48:53 Test Item Value Reference Range Interpretation Comments Glucose POC (test 331 mg/dL 70-115 H If you con director [employer] your code = Glucose POC) patient critically ill, the Samuel-Accu Check Infrom II meter should not be used for Glucose determination. Draw a venous Glucose and send to the main Lab for analysis. POC [id number] 23:39:23 Test Item Value Reference Range Interpretation Comments Glucose POC (test 287 mg/dL 70-115 H If you con director sanitation bureau your code = Glucose POC) patient critically ill, the Samuel-Accu Check Infrom II meter should not be used for Glucose determination. Draw a venous Glucose and send to the main Lab for analysis. Comprehensive Metabolic [id number] 23:38:05 Test Item Value Reference Range Interpretation [...] A/G 1.5 ratio N Ratio) Comprehensive Metabolic [id number] 23:38:05 Test Item Value Reference Range Interpretation [...] the National Kidney Foundation, http://nkdep.ni h.gov Alcohol [id number] 23:38:05 Test Item Value Reference Range Interpretation Comments Ethanol Level (test <0.00 g/dL 0.00-0.01 Intoxica [place]is 0.080 g/dL code = Ethanol or more Level) Ethanol Inst (test <0 N code = Ethanol Inst) Comprehensive Metabolic [id number] 23:38:05 Test Item Value Reference Range Interpretation [...] ag e have not been validated by [facility] MDRD study and should be interpreted wit [...] account, if the information is provided. If e race is not provided, and t he patient is -Alexia n, multiply by 1.2 12. If sex is not provided, and t he patient is fema le, multiply by 0.7 42. Results for pat ients <18 years of ag e have not been validated by [facility] MDRD study and should be interpreted wit h caution. eGFR R esult Interpretation: eGFR > or = 60 is in the Normal RangeeGF R < 60 may mean kid maile diseaseeGFR < 1 5 may mean kidney failure Rang es recommended by the National Kidney Foundation, http://nkdep.ni h.gov Urinalysis [id number] 22:19:51 Test Item Value Reference Range Interpretation Comments UA WBC (test code = UA WBC) 0-5 0-5 UA RBC (test code = UA RBC) 0-5 0-5 UA Bacteria (test code = UA None Seen Bacteria) UA Squam Epithelial (test code = UA 11-19 A Squam Epithelial) Urinalysis with Microscopic if [id number] 22:08:25 Test Item Value Reference Range Interpretation [...] Micro Ind?) rule [id number] _IND Urine Drug [id number] 21:54:51 Test Item Value Reference Range Interpretation [...] matory test if desired . HCG Qualitative [id number] 21:53:40 Test Item Value Reference Range Interpretation [...] 72 hours. Lot # (test code = [id number] N Lot #) Expiration Dt (test 2020-10-10 N code = Expiration Dt) Neg Control (test Negative code = Neg Control) Pos Control (test Positive code = Pos Control) Internal QC (test Acceptable code = Internal QC) Automated [id number] 21:37:20 Test Item Value Reference Range Interpretation Comments Neutro Auto (test code = Neutro 68.2 % 36.0-70.0 Auto) Lymph Auto (test code = Lymph Auto) 25.3 % 12.0-44.0 Yuba Auto (test code = Yuba Auto) 5.2 % 0.0-11.0 Eos, Auto (test code = Eos, Auto) 0.8 % 0.0-7.0 Basophil Auto (test code = Basophil 0.2 % 0.0-2.0 Auto) Neutro Absolute (test code = Neutro 10.0 x10 1.6-7.4 H Absolute) Lymph Absolute (test code = Lymph 3.70 x10 .50-4.60 Absolute) Yuba Absolute (test code = Yuba .76 x10 .00-1.20 Absolute) Eos Absolute (test code = Eos 0.12 x10 0.00-0.74 Absolute) Baso Absolute (test code = Baso 0.03 x10 0.00-0.21 Absolute) IG [id number] 21:37:20 Test Item Value Reference Range Interpretation Comments IG (test code = IG) 0.3 % 0.0-5.0 IG Abs (test code = IG Abs) 0 x10 N Complete Blood Count with [id number] 21:37:19 Test Item Value Reference Range Interpretation [...]
--- OUTSIDE RECORDS SUMMARY | 2020-10-26 15:15 | XMS REPORT | Summary of Care ---
:2000 Author Organization [facility] Address [address] [place] [address] Care Team Providers Name Role Phone Pcp, Patient Does Not Have A Primary Care Provider +[id number] 0-0000 Reason for Referral (BOGDAN) Status Reason Specialty Diagnoses / Referred By Referred To Procedures Contact Contact New Request Dietary and Diagnoses Type 2 diabetes mellitus with hyperglycemia, with long-term current use of insulin Bandar Burton Nutritional Service Procedures CONSULT/REFERRAL NUTRITION MD Emelia [address] [place] [id number] Reason for Visit Reason Comments Follow-up pt confirm all meds and phar tremayne Diabetes Mellitus II Encounter Details Date Type Department Care Team Description 08/16/2020 Office Visit [facility] Bandar Burton Type 2 di abetes mellitus with hyperglycemia, with long-term current use of insulin (Primary Dx); Endocrinology, Josemanuel BASILIO Class 2 severe obesity due to excess damien ories with serious comorbidity and body mass index (BMI) of 38.0 to [address], [address] [place] [address] [place], [place] [phone] Allergies No Known Allergiesdocumented as of this encounter (statuses as of 08/16/2020) Medications Medication Sig Dispensed Refills Start End Status Date Date busPIRone (BUSPAR) 15 10 mg. 0 Active mg tablet 5 ARIPiprazole (ABILIFY) Take 5 mg by 0 Active 5 mg tablet mouth daily. HYDROXYZINE PAMOATE Take by 0 Active ORAL mouth. lamoTRIgine 25 mg Take 25 mg 0 A ctive tablet by mouth daily. medroxyPROGESTERone inject 104 0 Active (DEPO-SUBQ PROVERA 104) mg under the 104 mg/0.65 mL skin every 3 injection (three) months. ONETOUCH DELICA LANCETS 300 Each. 0 Active MISC EASY COMFORT PEN 200 Each. 0 Act shankar NEEDLES 32 gauge x Use as " Ndle directed liraglutide (VICTOZA inject 1.8 3 Syringe 4 Active 2-ANASTASIA) 0.6 mg/0.1 mL mg under the 0 (18 mg/3 mL) injection skin daily. metformin ER 500 mg 24 Take 2 180 tablet 1 Active hr tablet tablets by 0 mouth at bedtime. pen needle, diabetic 31 200 Each 2 200 Each 2 Active gauge x 1/3" Ndle (two) times 0 daily. blood sugar diagnostic 300 Strips 300 Strip 1 Active (ONETOUCH VERIO TEST before 0 STRIPS) strip meals. Use as directed Insulin NPH-Regular inject 10 1 Box 1 Active Human Rec (NOVOLIN Units under 0 70-30 FLEXPEN U-100) the skin 100 unit/mL (70-30) before injectionIndications: evening Type 2 diabetes meal. mellitus with hyperglycemia, with long-term current use of insulin traZODONE 100 mg tablet Take 50 mg 0 08/16 Discontinued by mouth at 020 (Discont inued bedtime. by another clinician) pen needle, diabetic 31 200 Each 2 200 Each 2 08/16 Discontinued gauge x 1/3" (two) times 0 020 (Reor fito) NdleIndications: Type 2 daily. diabetes mellitus with hyperglycemia, with long-term current use of insulin blood sugar diagnostic 300 Strips 300 Strip 1 Discontinued (ONETOUCH VERIO TEST before 0 020 (Reorder) STRIPS) meals. Use stripIndications: Type as directed 2 diabetes mellitus with hyperglycemia, with long-term current use of insulin metformin ER 500 mg 24 Take 2 180 tablet 1 Discontinued hr tabletIndications: tablets by 0 020 (Reorder) Type 2 diabetes mouth at mellitus with bedtime. hyperglycemia, with long-term current use of insulin Insulin NPH-Regular inject 25 1 Box 1 Discontinued Human Rec (NOVOLIN Units under 0 020 (Alternate 70-30 FLEXPEN U-100) the skin 2 therapy) 100 unit/mL (70-30) (two) times injectionIndications: daily with Type 2 diabetes meals. mellitus with hyperglycemia, with long-term current use of insulin documented as of this encounter (statuses as of 08/16/2020) Active Problems Problem Noted Date Type 2 diabetes mellitus with hyperglycemia, with long -term current use of 06/14/2020 insulin Class 2 severe obesity due to excess calories with ser ious comorbidity and 06/14/2020 body mass index (BMI) of 38.0 to 38.9 in adult documented as of this encounter (statuses as of 08/16/2020) Social History Tobacco Use Types Packs/Day Years Used Date Current Every Day Smoker Smokeless Tobacco: Never Used Alcohol Use Drinks/Week oz/Week Comments Not Currently 0 Standard drinks or equivalent 0.0 Sex Assigned at Date Recorded Not on file COVID-19 Exposure Response Date Recorded In the last month, have you been in contact with No / Unsure 08/16/2020 8:58 AM RN SPINE someone who was confirmed or suspected to have Coronavirus / COVID-19? documented as of this encounter Last Filed Vital Signs Vital Sign Reading Time Taken Comments Blood Pressure 114/79 08/16/2020 9:14 AM RN SPINE Pulse 83 08/16/2020 9:14 AM RN SPINE Temperature 37.2 C (98.9 F) 08/16/2020 9:14 AM RN SPINE Respiratory Rate - - Oxygen Saturation 95% 08/16/2020 9:14 AM RN SPINE Inhaled Oxygen Concentration - - Weight 100.2 kg (221 lb) 08/16/2020 9:14 AM RN SPINE Height 162.6 cm (5' 4") 08/16/2020 9:14 AM RN SPINE Body Mass Index 37.93 08/16/2020 9:14 AM RN SPINE documented in this encounter Progress Notes Bandar Burton MD - 08/16/2020 9:30 AM CST Cc: Chief Complaint Patient presents with Follow-up pt confirm all meds and pharmacy Diabetes Mellitus II Monique Mendez is a 20 year old female. HPI Diabetes with obesity known with depression on medications. She start watching her carbohydrates glucose are getting better. Patient has needle phobia. Medications Outpatient Medications Prior to Visit Medication Sig Dispense Refill EASY COMFORT PEN NEEDLES 32 gauge x 5/32" Ndle 200 Each. Use as directed ARIPiprazole (ABILIFY) 5 mg tablet Take 5 mg by mouth daily. HYDROXYZINE PAMOATE ORAL Take by mouth. lamoTRIgine 25 mg tablet Take 25 mg by mouth daily. medroxyPROGESTERone (DEPO-SUBQ PROVERA 104) 104 mg/0.65 mL injection inject 104 mg under the skin every 3 (three) months. ONETOUCH DELICA LANCETS MISC 300 Each. Insulin NPH-Regular Human Rec (NOVOLIN 70-30 FLEXPEN U-100) 100 unit/mL (70- 30) injection [id number] Units under the skin 2 (two) times daily with meals. 1 Box 1 blood sugar diagnostic (ONETOUCH VERIO TEST STRIPS) strip 300 Strips before meals. Use as directed 300 Strip 1 metformin ER 500 mg 24 hr tablet Take 2 tablets by mouth at bedtime. 180 tablet 1 pen needle, diabetic 31 gauge x 1/3" Ndle 200 Each 2 (two) times daily. 200 Each 2 traZODONE 100 mg tablet Take 50 mg by mouth at bedtime. busPIRone (BUSPAR) 15 mg tablet 10 mg. No facility-administered medications prior to visit. Review of Systems Constitutional: Positive for weight gain. HENT: Negative. Respiratory: Negative. Cardiovascular: Negative. Gastrointestinal: Negative. Musculoskeletal: Negative. Neurological: Negative. Psychiatric/Behavioral: Negative. Endocrine: Endocrine negativePositive for weight gain. Vital Signs BP 114/79 (BP Location: Right arm, Patient Position: Sitting, BP CUFF SIZE: Adult Large) | Pulse 83 | Temp 37.2 C (98.9 F) | Ht 5' 4" (1.626 m) | Wt 221 lb (100.2 kg) | SpO2 95% | BMI 37.93 kg/m Physical Exam Constitutional: Appearance: She is [...] normal. Assessment/Plan Monique was seen today for follow-up and diabetes mellitus ii. Diagnoses and all orders for this visit: Type 2 diabetes mellitus with hyperglycemia, with long-term current use of insulin - Insulin NPH-Regular Human Rec (NOVOLIN 70-30 FLEXPEN U-100) 100 unit/mL (70-30) injection; inject 10 Units under the skin before evening meal. - CONSULT/REFERRAL NUTRITION - GLYCOSYLATED HEMOGLOBIN (A1C); Future - COMP. METABOLIC PANEL (13665); Future Class 2 severe obesity due to excess calories with serious comorbidity and body mass index (BMI) of 38.0 to 38.9 in adult - THYROID STIMULATING HORMONE; Future - CORTISOL AM; Future Other orders - liraglutide (VICTOZA 2-ANASTASIA) 0.6 mg/0.1 mL (18 mg/3 mL) injection; inject 1.8 mg under the skindaily. - metformin ER 500 mg 24 hr tablet; Take 2 tablets by mouth at bedtime. - pen needle, diabetic 31 gauge x 1/3" Ndle; 200 Each 2 (two) times daily. - blood sugar diagnostic (ONETOUCH VERIO TEST STRIPS) strip; 300 Strips before meals. Use as directed Started on GLP1. documented in this encounter Plan of Treatment Date Type Specialty Care Team Description 12/13/2020 Office Visit Endocrinology Diabetes & Bandar Burton MD Metabolism [address] [facility], [address] [place], [place] [address] [phone] Name Type Priority Associated Diagnoses Order S chedule THYROID STIMULATING LAB Routine Class 2 severe obesit y Expected: 11/16/2020, HORMONE due to excess calories Expir es: 08/16/2021 with serious comorbidity and body mass index (BMI) of 38.0 to 38.9 in adult GLYCOSYLATED HEMOGLOBIN LAB Routine Type 2 diabetes m jeanneitus Expected: 11/16/2020, (A1C) with hyperglycemia, with Exp ires: 08/16/2021 long-term current use of insulin COMP. METABOLIC PANEL LAB Routine Type 2 diabetes aamir litus Expected: 11/16/2020, (99580) with hyperglycemia, with Exp ires: 08/16/2021 long-term current use of insulin CORTISOL AM LAB Routine Class 2 severe obesity Expec louis: 11/16/2020, due to excess calories Expir es: 08/16/2021 with serious comorbidity and body mass index (BMI) of 38.0 to 38.9 in adult Health Maintenance Due Date Last Done Comments HgA1C 02/19/2000 VARICELLA VACCINES (1 of 2 - 02/19/2000 2-dose childhood series) PNEUMOCOCCAL 0-64 YEARS COMBINED 2005 SERIES (1 of 1 - PPSV23) EYE EXAM 2009 LDL-C 2009 MENINGOCOCCAL B [...] on patient's age to complete this topic documented as of this encounter Results Not on filedocumented in this encounter Visit Diagnoses Diagnosis Type 2 diabetes mellitus with hyperglyce tasneem, with long-term current use of insulin - Primary Class 2 severe obesity due to excess damien ories with serious comorbidity and body mass index (BMI) of 38.0 to 38.9 in adult documented in this encounter (Home) [place] [address] documented as of this encounter
--- OUTSIDE RECORDS SUMMARY | 2020-10-26 15:16 | XMS REPORT | Summary of Care ---
:2000 Author Organization [facility] Address [address] [place] [address] Care Team Providers Name Role Phone Pcp, Patient Does Not Have A Primary Care Provider +1-000-00 0-0000 Reason for Referral (BOGDAN) Status Reason Specialty Diagnoses / Referred By Referred To Procedures Contact Contact New Request Dietary and Diagnoses Type 2 diabetes mellitus with hyperglycemia, with long-term current use of insulin Bandar Burton Nutritional Service Procedures CONSULT/REFERRAL NUTRITION MD Emelia [address] [place] [address] Reason for Visit Reason Comments Follow-up pt confirm all meds and phar tremayne Diabetes Mellitus II Encounter Details Date Type Department Care Team Description 08/16/2020 Office Visit [facility] Bandar Burton Type 2 di abetes mellitus with hyperglycemia, with long-term current use of insulin (Primary Dx); Endocrinology, Josemanuel BASILIO Class 2 severe obesity due to excess damien ories with serious comorbidity and body mass index (BMI) of 38.0 to [address], [address] [place] [address] [place], [place] [phone] Allergies No Known Allergiesdocumented as of this [...] with No / Unsure 08/16/2020 8:58 AM MEDICAL STAFF MANAGER someone who was confirmed or suspected to have Coronavirus / COVID-19? documented as of this encounter Last Filed Vital Signs Vital Sign Reading Time Taken Comments Blood Pressure 114/79 08/16/2020 9:14 AM MEDICAL STAFF MANAGER Pulse 83 08/16/2020 9:14 AM MEDICAL STAFF MANAGER Temperature 37.2 C (98.9 F) 08/16/2020 9:14 AM MEDICAL STAFF MANAGER Respiratory Rate - - Oxygen Saturation 95% 08/16/2020 9:14 AM MEDICAL STAFF MANAGER Inhaled Oxygen Concentration - - Weight 100.2 kg (221 lb) 08/16/2020 9:14 AM MEDICAL STAFF MANAGER Height 162.6 cm (5' 4") 08/16/2020 9:14 AM MEDICAL STAFF MANAGER Body Mass Index 37.93 08/16/2020 9:14 AM MEDICAL STAFF MANAGER documented in this encounter Progress Notes Bandar [...] FLEXPEN U-100) 100 unit/mL (70- 30) injection [id number] Units under the skin 2 (two) times [...] HEMOGLOBIN (A1C); Future - COMP. METABOLIC PANEL (20672); Future Class 2 severe obesity due to [...] Diabetes & Bandar Burton MD Metabolism [address] [facility], [address] [place], [place] [address] [phone] Name Type Priority Associated Diagnoses Order S [...] Type 2 diabetes aamir litus Expected: 11/16/2020, (57073) with hyperglycemia, with Exp ires: 08/16/2021 long-term [...] in adult documented in this encounter (Home) [place] [address] documented as of this encounter
--- NOTE | 2020-10-26 18:13 | ER ---
Nurse's Notes [facility] Name: Monique Mendez Age: 20 yrs Sex: Female : 2000 Arrival Date: 10/26/2020 Time: 15:15 Bed Waiting Private MD: Diagnosis: Presentation: 10/26 15:20 Chief complaint: Patient states: 1. Cough, congestion, fatigue, weakness, sore throat ll1 for 1 week. 2. Reports vaginal bleeding for 4 days. Burning to vaginal area when urinating. On Depo shot, usually doesn't have periods. Would like to be checked for STD's. Coronavirus screen: Client denies travel out of the [place] in the last 14 days. congestion, cough unrelated to allergies, fatigue, Client presents with at least one sign or symptom that may indicate coronavirus-19. Standard/surgical mask placed on the client. Ebola Screen: Patient denies travel to an Ebola-affected area in the 21 days before illness onset. No acute neurological deficit is noted. Initial Sepsis Screen: Does the patient meet any 2 criteria? HR > 90 bpm. No. Patient's initial sepsis screen is negative. Does the patient have a suspected source of infection? Yes: Productive cough/pneumonia. Risk Assessment: Do you want to hurt yourself or someone else? Patient reports no desire to harm self or others. Onset of symptoms was October 19, 2020. 15:20 Method Of Arrival: Ambulatory [facility] 15:20 Acuity: ROXANNE 3 ll1 Triage Assessment: 15:24 The onset of the patients symptoms was more than six hours ago. The onset of the 1 patients symptoms was October 26, 2020 at 15:25. General: Appears in no apparent distress. Behavior is calm, cooperative, appropriate for age. Pain: Complains of pain in head/body aches Quality of pain is described as aching. Neuro: Level of Consciousness is awake, alert, obeys commands, Oriented to person, place, time, situation, Appropriate for age Greenhouse Staff are equal bilaterally Moves all extremities. Full function Gait is steady, Speech is normal, Reports headache. Cardiovascular: No deficits noted. Respiratory: Reports cough that is Airway is patent Trachea midline Respiratory effort is even, unlabored, Respiratory pattern is regular, symmetrical, the patient has mild shortness of breath. : Reports vaginal bleeding that is brown, moderate flow. Musculoskeletal: Circulation, motion, and sensation intact. Capillary refill < 3 seconds, Range of motion: intact in all extremities, Reports pain in body aches. Stroke Activation: Symptom onset > 6 hours Physician: Stroke Attending; Name: ; Notified At: ; Arrived At: Physician: Chief Stroke Resident; Name: ; Notified At: ; Arrived At: Physician: Stroke Resident; Name: ; Notified At: ; Arrived At: Physician: ED Attending; Name: ; Notified At: ; Arrived At: Physician: ED Resident; Name: ; Notified At: ; Arrived At: Historical: - Allergies: 15:23 No Known Allergies; ll1 - PMHx: 15:23 Anxiety; Bipolar disorder; Depression; Diabetes - IDDM; multiple personality disorder; ll1 polycystic ovarian disease; Schizophrenia; Suicide Attempts; - PSHx: 15:23 abcess removed; ll1 - Immunization history:: Flu vaccine is not up to date. - Social history:: Smoking status: Patient reports the use of cigarette tobacco products, smokes one pack cigarettes per day. Vital Signs: 15:20 BP 150 / 87; Pulse 100; Resp 17; Temp 98.3; Pulse Ox 98% ; Weight 104.33 kg; Height 5 ll1 ft. 3 in. (160.02 cm); Pain 5/10; 15:20 Body Mass Index 40.74 (104.33 kg, 160.02 cm) ll1 ED Course: 15:15 Patient arrived in ED. rg4 15:20 Arm band placed on. ll1 15:23 Triage completed. ll1 Administered Medications: No medications were administered Outcome: 18:12 Patient left the ED. 1 Signatures: Debbie Parkinson rg4 Coty Fields, RN RN ll1
[2020-10-26 18:30] VITALS: BP 150/87; TEMP 98.3; O2SAT 98
== END 2020-10-26 18:12 | disposition left against medical advice (07) ==
LOC: ER 15:13
DX: Z53.21 Procedure and treatment not carried out due to patient leaving prior to being seen by health care provider (principal)
CPT/HCPCS: 99281

== ENCOUNTER 2020-10-27 19:25 | Emergency (ER) | payer OTHER ==
--- OUTSIDE RECORDS SUMMARY | 2020-10-27 19:27 | XMS REPORT | Continuity of Care Document ---
:2000 Author Organization [facility] t Address [address] [place] [address] Care Team Providers Name Role Phone Micheal [...] Facility Department ID 2020-08-16 2020-08-16 Office Micheal [facility] [id number] 09:01:09 10:03:16 Visit [facility] [id number] [place] [id number] [place] [phone] Medical [address] Results Test Description [...] to the main Lab for analysis. POC [id number] 06:09:00 Test Item Value Reference Range Interpretation Comments Glucose POC (test 232 mg/dL 70-115 H Notify RN or MDIf you code = Glucose POC) consider your patient critically ill, the Samuel-Accu Chec k Infrom II meter should not be used for Glucos e determination. Draw a venous Glucose and send to the main Lab for analysis. POC [id number] 19:18:31 Test Item Value Reference Range Interpretation Comments Glucose POC (test 320 mg/dL 70-115 H Notify RN or MDIf you code = Glucose POC) consider your patient critically ill, the Samuel-Accu Chec k Infrom II meter should not be used for Glucos e determination. Draw a venous Glucose and send to the main Lab for analysis. RPR [id number] 18:40:55 Test Item Value Reference Range Interpretation Comments RPR Qual (test code = RPR Qual) Non-Reactive Non-Reactive Reactive Control (test code = Reactive Reactive Control) Weak Reactive Control (test Weak Reactive code = Weak Reactive Control) Non-Reactive Control (test code Non-Reactive = Non-Reactive Control) Lot # (test code = Lot #) [id number] Expiration Dt (test code = 08-10-2020 N Expiration Dt) POC [id number] 15:20:26 Test Item Value Reference Range Interpretation Comments Glucose POC (test 240 mg/dL 70-115 H Notify RN or MDIf you code = Glucose POC) consider your patient critically ill, the Samuel-Accu Chec k Infrom II meter should not be used for Glucos e determination. Draw a venous Glucose and send to the main Lab for analysis. Thyroid Stimulating [id number] 11:14:05 Test Item Value Reference Range Interpretation Comments TSH (test code = TSH) 1.850 mIU/mL 0.270-4.200 [place] [id number] 11:08:52 Test Item Value Reference Range Interpretation Comments [place] Level (test code = 0.10 mmol/L 0.60-1.20 L [place] Level) Lipid [id number] 11:08:51 Test Item Value Reference Range Interpretation Comments Cholesterol Total 244 mg/dL 0-200 H RISK OF HE ART (test code = DISEASEPublishe d by Cholesterol Total) Canadian Heart Association Karely lyte Optimal Borderl ine [...] is LDL/HDL Ratio=L DL Calc/HDL Chol POC [id number] 10:58:53 Test Item Value Reference Range Interpretation Comments Glucose POC (test 335 mg/dL 70-115 H Notify RN or MDIf you code = Glucose POC) consider your patient critically ill, the Samuel-Accu Chec k Infrom II meter should not be used for Glucos e determination. Draw a venous Glucose and send to the main Lab for analysis. POC [id number] 06:47:23 Test Item Value Reference Range Interpretation Comments Glucose POC (test 192 mg/dL 70-115 H Notify RN or MDIf you code = Glucose POC) consider your patient critically ill, the Samuel-Accu Chec k Infrom II meter should not be used for Glucos e determination. Draw a venous Glucose and send to the main Lab for analysis. POC [id number] 02:48:53 Test Item Value Reference Range Interpretation Comments Glucose POC (test 331 mg/dL 70-115 H If you con wheel press clerk your code = Glucose POC) patient critically ill, the Samuel-Accu Check Infrom II meter should not be used for Glucose determination. Draw a venous Glucose and send to the main Lab for analysis. POC [id number] 23:39:23 Test Item Value Reference Range Interpretation Comments Glucose POC (test 287 mg/dL 70-115 H If you con wheel press clerk your code = Glucose POC) patient critically ill, the Samuel-Accu Check Infrom II meter should not be used for Glucose determination. Draw a venous Glucose and send to the main Lab for analysis. Comprehensive Metabolic [id number] 23:38:05 Test Item Value Reference Range Interpretation [...] A/G 1.5 ratio N Ratio) Comprehensive Metabolic [id number] 23:38:05 Test Item Value Reference Range Interpretation [...] not provided, and t he patient is -Alexai n, multiply by 1.2 12. If sex [...] the National Kidney Foundation, http://nkdep.ni h.gov Alcohol [id number] 23:38:05 Test Item Value Reference Range Interpretation Comments Ethanol Level (test <0.00 g/dL 0.00-0.01 Intoxica louis 0.080 g/dL code = Ethanol or more Level) Ethanol Inst (test <0 N code = Ethanol Inst) Comprehensive Metabolic [id number] 23:38:05 Test Item Value Reference Range Interpretation [...] ag e have not been validated by [facility] MDRD study and should be interpreted [...] ag e have not been validated by [facility] MDRD study and should be interpreted wit h caution. eGFR R esult Interpretation: eGFR > or = 60 is in the Normal RangeeGF R < 60 may mean kid maile diseaseeGFR < 1 5 may mean kidney failure Rang es recommended by the National Kidney Foundation, http://nkdep.ni h.gov Urinalysis [id number] 22:19:51 Test Item Value Reference Range Interpretation Comments UA WBC (test code = UA WBC) 0-5 0-5 UA RBC (test code = UA RBC) 0-5 0-5 UA Bacteria (test code = UA None Seen Bacteria) UA Squam Epithelial (test code = UA 11-19 A Squam Epithelial) Urinalysis with Microscopic if [id number] 22:08:25 Test Item Value Reference Range Interpretation [...] Micro Ind?) rule [id number] _IND Urine Drug [id number] 21:54:51 Test Item Value Reference Range Interpretation [...] matory test if desired . HCG Qualitative [id number] 21:53:40 Test Item Value Reference Range Interpretation [...] 72 hours. Lot # (test code = [id number] N Lot #) Expiration Dt (test 2020-10-10 N code = Expiration Dt) Neg Control (test Negative code = Neg Control) Pos Control (test Positive code = Pos Control) Internal QC (test Acceptable code = Internal QC) Automated [id number] 21:37:20 Test Item Value Reference Range Interpretation Comments Neutro Auto (test code = Neutro 68.2 % 36.0-70.0 Auto) Lymph Auto (test code = Lymph Auto) 25.3 % 12.0-44.0 [place] Auto (test code = [place] Auto) 5.2 % 0.0-11.0 Eos, Auto (test code = Eos, Auto) 0.8 % 0.0-7.0 Basophil Auto (test code = Basophil 0.2 % 0.0-2.0 Auto) Neutro Absolute (test code = Neutro 10.0 x10 1.6-7.4 H Absolute) Lymph Absolute (test code = Lymph 3.70 x10 .50-4.60 Absolute) [place] Absolute (test code = [place] .76 x10 .00-1.20 Absolute) Eos Absolute (test code = Eos 0.12 x10 0.00-0.74 Absolute) Baso Absolute (test code = Baso 0.03 x10 0.00-0.21 Absolute) IG [id number] 21:37:20 Test Item Value Reference Range Interpretation Comments IG (test code = IG) 0.3 % 0.0-5.0 IG Abs (test code = IG Abs) 0 x10 N Complete Blood Count with [id number] 21:37:19 Test Item Value Reference Range Interpretation [...]
[2020-10-27 20:45] LABS: Urine Blood 2+ (NEG); Urine Glucose NEGATIVE (NEG); Urine Protein NEGATIVE (NEG)
[2020-10-27 21:30] LABS: SARS-COV-2 RT PCR NEGATIVE (NEGATIVE)
[2020-10-27 22:22] LABS: Absolute Lymphocytes (CBC) 3.7 K/uL (0.7-4.9); Basophils % 0.4 % (0-1.3); Hematocrit 42.7 % (36.0-45.0); Lymphocytes % 26.7 % (15.3-44.8); MPV 8.2 fL (7.6-11.3)
[2020-10-27 22:33] LABS: BUN Blood Urea Nitrogen 9 mg/dL (7-18); Bicarbonate 25 mmol/L (21-32); Glucose Level 191 mg/dL (74-106); Potassium 3.7 mmol/L (3.5-5.1); Sodium Level 141 mmol/L (136-145)
[2020-10-27 22:46] LABS: Urine Bacteria <20 /HPF (<20)
--- NOTE | 2020-10-27 22:48 | ER ---
Nurse's Notes [facility] Name: Monique Mendez Age: 20 yrs Sex: Female : 2000 Arrival Date: 10/27/2020 Time: 19:27 Bed 14 Private MD: Diagnosis: Bronchitis, not specified as acute or chronic Presentation: 10/27 19:36 Coronavirus screen: Client denies travel out of the [place] in the last 14 days. cough ll1 unrelated to allergies, fatigue, fever, headache, sore throat, Client presents with at least one sign or symptom that may indicate coronavirus-19. Standard/surgical mask placed on the client. Ebola Screen: Patient denies travel to an Ebola-affected area in the 21 days before illness onset. Initial Sepsis Screen: Does the patient meet any 2 criteria? HR > 90 bpm. No. Patient's initial sepsis screen is negative. Does the patient have a suspected source of infection? Yes: Other: sore throat/cough. Risk Assessment: Do you want to hurt yourself or someone else? Patient reports no desire to harm self or others. Onset of symptoms was October 20, 2020. 19:36 Method Of Arrival: Ambulatory ll1 19:36 Acuity: ROXANNE 3 ll1 19:38 Chief complaint: Patient states: Sore throat, cough, IRBY, fatigue for 1 week. Reports ll1 vaginal bleeding and discomfort for 1 week. On depo, shouldn't be . Wants to be checked for STD's. Historical: - Allergies: 19:36 No Known Allergies; ll1 - PMHx: 19:36 Depression; Suicide Attempts; Schizophrenia; multiple personality disorder; Diabetes - ll1 IDDM; Bipolar disorder; Anxiety; polycystic ovarian disease; - PSHx: 19:36 abcess removed; ll1 - Immunization history:: Flu vaccine is not up to date. - Social history:: Smoking status: Patient reports the use of cigarette tobacco products, smokes one pack cigarettes per day. Screenin:55 Abuse screen: Denies threats or abuse. Nutritional screening: No deficits noted. vg1 Tuberculosis screening: No symptoms or risk factors identified. Fall Risk None identified. Assessment: 19:50 General: Appears in no apparent distress. comfortable, Behavior is calm, cooperative. vg1 Pain: Complains of pain in left side of throat and vagina. Pain currently is 8 out of 10 on a pain scale. Pain began about a week ago. Neuro: Level of Consciousness is awake, alert, obeys commands, Oriented to person, place, time, situation. Cardiovascular: Patient's skin is warm and dry. Respiratory: Reports shortness of breath at rest on exertion cough that is productive, Airway is patent Respiratory effort is even, unlabored, Respiratory pattern is regular, symmetrical, Breath sounds with wheezes bilaterally. GI: No signs and/or symptoms were reported involving the gastrointestinal system. : No signs and/or symptoms were reported regarding the genitourinary system. : Reports vaginal bleeding that is inconsistent. Is currently on the Depo shot and has not had a period in 7 months. States while urinating, has a burning sensation in the vaginal area. EENT: Throat is reddened. Derm: Skin is intact, is healthy with good turgor. Musculoskeletal: Circulation, motion, and sensation intact. 22:00 Reassessment: Patient appears in no apparent distress at this time. Patient and/or vg1 family updated on plan of care and expected duration. Pain level reassessed. Patient is alert, oriented x 3, equal unlabored respirations, skin warm/dry/pink. Vital Signs: 19:36 BP 136 / 95; Pulse 103; Resp 17; Temp 98.6; Pulse Ox 96% ; Weight 104.33 kg; Height 5 ll1 ft. 3 in. (160.02 cm); Pain 8/10; 19:55 BP 131 / 74; Pulse 106; Resp 16; Pulse Ox 97% on R/A; vg1 20:00 BP 121 / 83; Pulse 102; Resp 16; Pulse Ox 98% on R/A; vg1 21:30 BP 121 / 83; Pulse 97; Resp 14; Pulse Ox 100% on R/A; vg1 22:30 BP 122 / 87; Pulse 100; Resp 16; Pulse Ox 100% on R/A; vg1 19:36 Body Mass Index 40.74 (104.33 kg, 160.02 cm) ll1 ED Course: 19:27 Patient arrived in ED. cf2 19:31 [facility] Rose [facility]-C [facility]. kb 19:31 Riley Power MD is Attending Physician. kb 19:36 Arm band placed on Patient placed in an exam room, on a stretcher. ll1 19:38 Triage completed. ll1 19:39 Felicia Parkinson, RN is Primary Nurse. vg1 19:56 Patient has correct armband on for positive identification. Bed in low position. Call vg1 light in reach. 21:55 Missed attempt(s): 22 gauge in right antecubital area. vg1 22:06 Initial lab(s) drawn, by me, sent to lab. Inserted saline lock: 20 gauge in left jp3 antecubital area, using aseptic technique. Blood collected. Administered Medications: 22:54 Drug: predniSONE 40 mg Route: PO; vg1 22:54 Follow up: Response: Medication administered at discharge. vg1 Outcome: 22:47 Discharge ordered by MD. kb 22:55 Patient left the ED. mw2 Signatures: Ruma Rose, AMBULETTE DRIVER-C AMBULETTE DRIVER-Kermit Titus mw2 Calderon Valdez jp3 Monica Mena cf2 Felicia Parkinson, RN RN 1 Coty Fields RN RN 1
--- NOTE | 2020-10-27 22:48 | EDPHYS ---
Physician Documentation [facility] Name: Monique Mendez Age: 20 yrs Sex: Female : 2000 Arrival Date: 10/27/2020 Time: 19:27 Bed 14 Private MD: ED Physician Riley Power HPI: 10/27 22:28 This 20 yrs old Female presents to ER via Ambulatory with complaints of Sore kb Throat, Cough, Vaginal Pain. 22:27 Pt reports sore throat, cough, fatigue, fever, chills, malaise, headache, dysuria and kb vaginal bleeding for a week. 22:28 The patient presents with sore throat. The patient describes throat pain as constant. kb Onset: The symptoms/episode began/occurred 1 week(s) ago. Severity of symptoms: At their worst the symptoms were moderate, in the emergency department the symptoms are unchanged. Modifying factors: The symptoms are alleviated by nothing, the symptoms are aggravated by swallowing, Patient's oral intake status: good Denies contact with similarly ill indivduals. Associated signs and symptoms: Pertinent positives: chills, cough, fever, flu-like symptoms, Sore throat. The patient has not experienced similar symptoms in the past. The patient has not recently seen a physician. Historical: - Allergies: 19:36 No Known Allergies; ll1 - PMHx: 19:36 Depression; Suicide Attempts; Schizophrenia; multiple personality disorder; Diabetes - ll1 IDDM; Bipolar disorder; Anxiety; polycystic ovarian disease; - PSHx: 19:36 abcess removed; ll1 - Immunization history:: Flu vaccine is not up to date. - Social history:: Smoking status: Patient reports the use of cigarette tobacco products, smokes one pack cigarettes per day. ROS: 22:28 Neck: Negative for injury, pain, and swelling, Cardiovascular: Negative for chest pain, kb palpitations, and edema, Abdomen/GI: Negative for abdominal pain, nausea, vomiting, diarrhea, and constipation, Back: Negative for injury and pain, MS/Extremity: Negative for injury and deformity, Skin: Negative for injury, rash, and discoloration. 22:28 Constitutional: Positive for chills, fatigue, fever, malaise. 22:28 ENT: Positive for sore throat. 22:28 Respiratory: Positive for cough, Negative for dyspnea on exertion, hemoptysis, orthopnea, pleurisy, shortness of breath, sputum production, wheezing. 22:28 : Positive for burning with urination, vaginal bleeding. 22:28 Neuro: Positive for headache. Exam: 22:28 Constitutional: This is a well developed, well nourished patient who is awake, alert, kb and in no acute distress. Head/Face: Normocephalic, atraumatic. ENT: Nares patent. No nasal discharge, no septal abnormalities noted. Tympanic membranes are normal and external auditory canals are clear. Oropharynx with no redness, swelling, or masses, exudates, or evidence of obstruction, uvula midline. Mucous membranes moist. Chest/axilla: Normal chest wall appearance and motion. Nontender with no deformity. No lesions are appreciated. Cardiovascular: Regular rate and rhythm with a normal S1 and S2. No gallops, murmurs, or rubs. Normal PMI, no JVD. No pulse deficits. Respiratory: Lungs have equal breath sounds bilaterally, clear to auscultation and percussion. No rales, rhonchi or wheezes noted. No increased work of breathing, no retractions or nasal flaring. Abdomen/GI: Soft, non-tender, with normal bowel sounds. No distension or tympany. No guarding or rebound. No evidence of tenderness throughout. Skin: Warm, dry with normal turgor. Normal color with no rashes, no lesions, and no evidence of cellulitis. MS/ Extremity: Pulses equal, no cyanosis. Neurovascular intact. Full, normal range of motion. Neuro: Awake and alert, GCS 15, oriented to person, place, time, and situation. Cranial nerves II-XII grossly intact. Motor strength 5/5 in all extremities. Sensory grossly intact. Cerebellar exam normal. Normal gait. Vital Signs: 19:36 BP 136 / 95; Pulse 103; Resp 17; Temp 98.6; Pulse Ox 96% ; Weight 104.33 kg; Height 5 ll1 ft. 3 in. (160.02 cm); Pain 8/10; 19:55 BP 131 / 74; Pulse 106; Resp 16; Pulse Ox 97% on R/A; vg1 20:00 BP 121 / 83; Pulse 102; Resp 16; Pulse Ox 98% on R/A; vg1 21:30 BP 121 / 83; Pulse 97; Resp 14; Pulse Ox 100% on R/A; vg1 22:30 BP 122 / 87; Pulse 100; Resp 16; Pulse Ox 100% on R/A; vg1 19:36 Body Mass Index 40.74 (104.33 kg, 160.02 cm) ll1 MDM: 19:46 Patient medically screened. kb 22:23 Data reviewed: vital signs, nurses notes. Data interpreted: Pulse oximetry: on room air kb is 100 %. Interpretation: normal. 22:44 Counseling: I had a detailed discussion with the patient and/or guardian regarding: the kb historical points, exam findings, and any diagnostic results supporting the discharge/admit diagnosis, lab results, the need for outpatient follow up, a family practitioner, to return to the emergency department if symptoms worsen or persist or if there are any questions or concerns that arise at home. 10/27 20:19 Order name: Strep; Complete Time: 21:06 kb 10/27 20:36 Order name: Urine Dipstick--Ancillary (enter results); Complete Time: 20:45 mw2 10/27 20:36 Order name: Urine --Ancillary (enter results); Complete Time: 20:45 mw2 10/27 20:46 Order name: Urine Microscopic Only; Complete Time: 22:46 kb 10/27 20:19 Order name: Urine Dipstick-Ancillary (obtain specimen); Complete Time: 20:36 kb 10/27 21:01 Order name: Throat Culture [facility] 10/27 21:30 Order name: COVID-19/FLU A+B; Complete Time: 21:32 [facility] 10/27 21:33 Order name: IV Start; Complete Time: 22:07 kb 10/27 21:33 Order name: CBC with Diff; Complete Time: 22:29 kb 10/27 21:33 Order name: Basic Metabolic Panel; Complete Time: 22:34 kb 10/27 21:33 Order name: [place] Screen Profile; Complete Time: 22:44 kb Administered Medications: 22:54 Drug: predniSONE 40 mg Route: PO; vg1 22:54 Follow up: Response: Medication administered at discharge. vg1 Disposition: 10/28 20:07 Co-signature as Attending Physician, Riley Power MD. ma2 Disposition: 10/27/20 22:47 Discharged to Home. Impression: Bronchitis, not specified as acute or chronic. - Condition is Stable. - Discharge Instructions: Acute Bronchitis, Iatp-xx-Wpxc, Viral Respiratory Infection, Eudw-Cf-Tbps. - Prescriptions for Prednisone 20 mg Oral Tablet - take 1 tablet by ORAL route once daily for 5 days; 5 tablet. - Medication Reconciliation Form, Thank You Letter, Antibiotic Education, Prescription Opioid Use form. - Follow up: Emergency Department; When: As needed; Reason: Worsening of condition. Follow up: Private Physician; When: 2 - 3 days; Reason: Recheck today's complaints, Continuance of care, Re-evaluation by your physician. Signatures: Dispatcher [employer] EDMS Ruma Rose, EMPLOYER RELATIONS REPRESENTATIVE-C EMPLOYER RELATIONS REPRESENTATIVE-Ckb Riley Power MD MD ma2 Kermit Syed 2 Felicia Parkinson, RN RN vg1 Coty Fields RN RN ll1 Corrections: (The following items were deleted from the chart) 10/27 20:35 20:19 Influenza Screen (A \T\ B)+BA.LAB.BRZ ordered. EDMS EDMS 20:35 20:19 CORONAVIRUS+MR.LAB.BRZ ordered. EDMS EDMS 22:28 22:27 Pt reports sore throat, cough, fatigue, fever, chills, malaise, dysuria and kb vaginal bleeding for a week. kb 22:55 22:47 10/27/2020 22:47 Discharged to Home. Impression: Bronchitis, not specified as mw2 acute or chronic. Condition is Stable. Forms are Medication Reconciliation Form, Thank You Letter, Antibiotic Education, Prescription Opioid Use. Follow up: Emergency Department; When: As needed; Reason: Worsening of condition. Follow up: Private Physician; When: 2 - 3 days; Reason: Recheck today's complaints, Continuance of care, Re-evaluation by your physician. kb
[2020-10-27] MEDS ORDERED: predniSONE 20 MG TAB ONE (23:03)
[2020-10-27 23:18] VITALS: TEMP 98.6
[2020-10-27 23:22] VITALS: O2SAT 100
[2020-10-27 23:24] VITALS: BP 122/87
== END 2020-10-27 22:55 | disposition home or self-care (01) ==
LOC: ER 19:25
DX: J40 Bronchitis, not specified as acute or chronic (principal); Z20.822 Contact with and (suspected) exposure to COVID-19; F20.9 Schizophrenia, unspecified; F17.210 Nicotine dependence, cigarettes, uncomplicated
CPT/HCPCS: 87070; 85025; 80048; 36415; 86308; 81025; 87081; 0240U; 99284; J7512; 81003; 81015

== ENCOUNTER 2021-04-19 18:51 | Emergency (ER) | payer OTHER ==
--- OUTSIDE RECORDS SUMMARY | 2021-04-19 19:20 | XMS REPORT | Continuity of Care Document ---
:2000 Author Organization [facility] t Address [address] [place] [address] Care Team Providers Name Role Phone Micheal BASILIO, A Attending Clinician Problems This patient has no known problems. Allergies, Adverse Reactions, Alerts This patient has no known allergies or adverse reactions. Medications This patient has no known medications. Procedures This patient has no known procedures. Encounters Start End Encounter Admission Attending Care Care Encounter Source Date/Time Date/Time Type Type Clinicians Facility Department ID 2021-04-08 2021-04-08 Office SAMANTA Burton [id number] 11:35:21 12:05:21 Visit [facility] [id number] Clear [id number] [place] [id number] [facility] [address] Results Test Description [...] to the main Lab for analysis. POC [id number] 06:09:00 Test Item Value Reference Range Interpretation Comments Glucose POC (test 232 mg/dL 70-115 H Notify RN or MDIf you code = Glucose POC) consider your patient critically ill, the Samuel-Accu Chec k Infrom II meter should not be used for Glucos e determination. Draw a venous Glucose and send to the main Lab for analysis. POC [id number] 19:18:31 Test Item Value Reference Range Interpretation Comments Glucose POC (test 320 mg/dL 70-115 H Notify RN or MDIf you code = Glucose POC) consider your patient critically ill, the Samuel-Accu Chec k Infrom II meter should not be used for Glucos e determination. Draw a venous Glucose and send to the main Lab for analysis. RPR [id number] 18:40:55 Test Item Value Reference Range Interpretation Comments RPR Qual (test code = RPR Qual) Non-Reactive Non-Reactive Reactive Control (test code = Reactive Reactive Control) Weak Reactive Control (test Weak Reactive code = Weak Reactive Control) Non-Reactive Control (test code Non-Reactive = Non-Reactive Control) Lot # (test code = Lot #) [id number] Expiration Dt (test code = 08-10-2020 N Expiration Dt) POC [id number] 15:20:26 Test Item Value Reference Range Interpretation Comments Glucose POC (test 240 mg/dL 70-115 H Notify RN or MDIf you code = Glucose POC) consider your patient critically ill, the Samuel-Accu Chec k Infrom II meter should not be used for Glucos e determination. Draw a venous Glucose and send to the main Lab for analysis. Thyroid Stimulating [id number] 11:14:05 Test Item Value Reference Range Interpretation Comments TSH (test code = TSH) 1.850 mIU/mL 0.270-4.200 [place] [id number] 11:08:52 Test Item Value Reference Range Interpretation Comments [place] Level (test code = 0.10 mmol/L 0.60-1.20 L [place] Level) Lipid [id number] 11:08:51 Test Item Value Reference Range Interpretation Comments Cholesterol Total 244 mg/dL 0-200 H RISK OF HE ART (test code = DISEASEPublishe d by Cholesterol Total) [employer] Karely lyte Optimal Borderl ine [...] is LDL/HDL Ratio=L DL Calc/HDL Chol POC [id number] 10:58:53 Test Item Value Reference Range Interpretation Comments Glucose POC (test 335 mg/dL 70-115 H Notify RN or MDIf you code = Glucose POC) consider your patient critically ill, the Samuel-Accu Chec k Infrom II meter should not be used for Glucos e determination. Draw a venous Glucose and send to the main Lab for analysis. POC [id number] 06:47:23 Test Item Value Reference Range Interpretation Comments Glucose POC (test 192 mg/dL 70-115 H Notify RN or MDIf you code = Glucose POC) consider your patient critically ill, the Samuel-Accu Chec k Infrom II meter should not be used for Glucos e determination. Draw a venous Glucose and send to the main Lab for analysis. POC [id number] 02:48:53 Test Item Value Reference Range Interpretation Comments Glucose POC (test 331 mg/dL 70-115 H If you con certified surgical assistant your code = Glucose POC) patient critically ill, the Samuel-Accu Check Infrom II meter should not be used for Glucose determination. Draw a venous Glucose and send to the main Lab for analysis. POC [id number] 23:39:23 Test Item Value Reference Range Interpretation Comments Glucose POC (test 287 mg/dL 70-115 H If you con certified surgical assistant your code = Glucose POC) patient critically ill, the Samuel-Accu Check Infrom II meter should not be used for Glucose determination. Draw a venous Glucose and send to the main Lab for analysis. Comprehensive Metabolic [id number] 23:38:05 Test Item Value Reference Range Interpretation [...] A/G 1.5 ratio N Ratio) Comprehensive Metabolic [id number] 23:38:05 Test Item Value Reference Range Interpretation [...] the National Kidney Foundation, http://nkdep.ni h.gov Alcohol [id number] 23:38:05 Test Item Value Reference Range Interpretation Comments Ethanol Level (test <0.00 g/dL 0.00-0.01 Intoxica louis 0.080 g/dL code = Ethanol or more Level) Ethanol Inst (test <0 N code = Ethanol Inst) Comprehensive Metabolic [id number] 23:38:05 Test Item Value Reference Range Interpretation [...] ag e have not been validated by [facility] MDRD study and should be interpreted [...] ag e have not been validated by [facility] MDRD study and should be interpreted wit h caution. eGFR R esult Interpretation: eGFR > or = 60 is in the Normal RangeeGF R < 60 may mean kid maile diseaseeGFR < 1 5 may mean kidney failure Rang es recommended by the National Kidney Foundation, http://nkdep.ni h.gov Urinalysis [id number] 22:19:51 Test Item Value Reference Range Interpretation Comments UA WBC (test code = UA WBC) 0-5 0-5 UA RBC (test code = UA RBC) 0-5 0-5 UA Bacteria (test code = UA None Seen Bacteria) UA Squam Epithelial (test code = UA 11-19 A Squam Epithelial) Urinalysis with Microscopic if [id number] 22:08:25 Test Item Value Reference Range Interpretation [...] Micro Ind?) rule GL_SJM_UA_MICRO _IND Urine Drug [id number] 21:54:51 Test Item Value Reference Range Interpretation [...] matory test if desired . HCG Qualitative [id number] 21:53:40 Test Item Value Reference Range Interpretation [...] 72 hours. Lot # (test code = [id number] N Lot #) Expiration Dt (test 2020-10-10 N code = Expiration Dt) Neg Control (test Negative code = Neg Control) Pos Control (test Positive code = Pos Control) Internal QC (test Acceptable code = Internal QC) Automated [id number] 21:37:20 Test Item Value Reference Range Interpretation Comments Neutro Auto (test code = Neutro 68.2 % 36.0-70.0 Auto) Lymph Auto (test code = Lymph Auto) 25.3 % 12.0-44.0 Baca Auto (test code = Baca Auto) 5.2 % 0.0-11.0 Eos, Auto (test code = Eos, Auto) 0.8 % 0.0-7.0 Basophil Auto (test code = Basophil 0.2 % 0.0-2.0 Auto) Neutro Absolute (test code = Neutro 10.0 x10 1.6-7.4 H Absolute) Lymph Absolute (test code = Lymph 3.70 x10 .50-4.60 Absolute) Baca Absolute (test code = Baca .76 x10 .00-1.20 Absolute) Eos Absolute (test code = Eos 0.12 x10 0.00-0.74 Absolute) Baso Absolute (test code = Baso 0.03 x10 0.00-0.21 Absolute) IG [id number] 21:37:20 Test Item Value Reference Range Interpretation Comments IG (test code = IG) 0.3 % 0.0-5.0 IG Abs (test code = IG Abs) 0 x10 N Complete Blood Count with [id number] 21:37:19 Test Item Value Reference Range Interpretation [...]
[2021-04-19 19:53] LABS: Urine Blood Trace-lysed (Negative); Urine Glucose 2+ (Negative); Urine Protein Negative (Negative); Urine pH 5.5 (5.0-7.0)
[2021-04-19] MEDS ORDERED: MORPHINE 4 MG/ML SYR ONE (21:11)
[2021-04-19] MEDS ORDERED: ONDANSETRON 4 MG/2 ML VIAL ONE (21:11)
[2021-04-19] MEDS ORDERED: NA CHLORIDE 0.9% 1,000 ML ONE (21:11)
[2021-04-19 21:22] LABS: Absolute Lymphocytes (CBC) 5.1 K/uL (0.7-4.9); Basophils % 0.6 % (0-1.3); Hematocrit 45.6 % (36.0-45.0); Lymphocytes % 34.6 % (15.3-44.8); MPV 8.5 fL (7.6-11.3); RBC Red Blood Cell Count 5.29 M/uL (3.86-4.86)
[2021-04-19 21:35] LABS: ALT/SGPT 22 U/L (12-78); AST/SGOT 10 U/L (15-37); Albumin 3.5 g/dL (3.4-5.0); Alkaline Phosphatase 82 U/L (45-117); BUN Blood Urea Nitrogen 15 mg/dL (7-18); Bicarbonate 25 mmol/L (21-32); Bilirubin Direct < 0.1 mg/dL (0-0.2); Bilirubin Total 0.1 mg/dL (0.2-1.0); Glucose Level 130 mg/dL (74-106); Lipase 136 U/L (73-393); Potassium 3.9 mmol/L (3.5-5.1); Protein, Total 7.2 g/dL (6.4-8.2); Sodium Level 140 mmol/L (136-145)
--- NOTE | 2021-04-19 22:05 | RAD REPORT ---
EXAM DESCRIPTION: CT - Abdomen Pelvis W Contrast - 04/19/2021 9:31 pm CLINICAL HISTORY: FLANK PAIN COMPARISON: Abdomen Pelvis W Contrast dated 08/16/2019 TECHNIQUE: Biphasic, helical CT imaging of the abdomen and pelvis was performed following 100 ml non -ionic IV contrast. No oral contrast administered. All CT scans are performed using dose optimization technique as appropriate and may include automated exposure control or mA/KV adjustment according to patient size. FINDINGS: No suspicious findings in the lung bases. The liver, spleen, and pancreas show no suspicious findings. Gallbladder and biliary tree are also wi thout suspicious finding. Symmetric renal function is seen with no hydronephrosis or suspicious renal mass. No pyelonephritis o r acute parenchymal process. Mostly contracted urinary bladder shows no gross abnormality. No adrenal abnormalities. Uterus and ovaries show no suspicious findings. No dilated bowel loops or bowel wall thickening. No free air, free fluid or inflammatory stranding. No hernia, mass or bulky lymphadenopathy. No acute bone finding. Treating disc material was evident at L4-5 and L5-S1. Central canal assessment is limited on CT imaging. IMPRESSION: Contrast enhanced CT abdomen and pelvis showing no acute or emergent finding. L4-5 and L5-S1 protruding disc material. Central canal detail is inherently limited. The patient has low back pain symptoms, follow-up outpatient MR imaging could be obtained as warranted.
[2021-04-19 22:18] LABS: Urine Bacteria <20 /HPF (<20); Urine RBC <5 /HPF (NONE SEEN)
--- NOTE | 2021-04-19 22:40 | ER ---
Nurse's Notes [facility] Name: Monique Mendez Age: 21 yrs Sex: Female : 2000 Arrival Date: 04/19/2021 Time: 18:54 Bed 24 Private MD: Diagnosis: UTI/ Urinary tract infection, site not specified Presentation: 04/19 19:28 Chief complaint: Patient states: low back pain radiating to the front, crampy pain x 1 ca1 week. Burning with urination, urinary urgency and frequency. Coronavirus screen: Client denies travel out of the [place] in the last 14 days. At this time, the client does not indicate any symptoms associated with coronavirus-19. Ebola Screen: Patient negative for fever greater than or equal to 101.5 degrees Fahrenheit, and additional compatible Ebola Virus Disease symptoms Patient denies exposure to infectious person. Patient denies travel to an Ebola-affected area in the 21 days before illness onset. No symptoms or risks identified at this time. Initial Sepsis Screen: Does the patient meet any 2 criteria? No. Patient's initial sepsis screen is negative. Does the patient have a suspected source of infection? No. Patient's initial sepsis screen is negative. Risk Assessment: Do you want to hurt yourself or someone else? Patient reports no desire to harm self or others. Onset of symptoms was April 19, 2021. 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 Flu vaccine is not up to date. - Social history:: Smoking status: Patient reports the use of cigarette tobacco products, smokes one pack cigarettes per day. Screenin:19 Abuse screen: Denies threats or abuse. Nutritional screening: No deficits noted. bb Tuberculosis screening: No symptoms or risk factors identified. Fall Risk None identified. Assessment: 20:19 General: Appears in no apparent distress. uncomfortable, obese, Behavior is calm, bb cooperative. Pain: Complains of pain in right lower quadrant and left lower quadrant. Neuro: Level of Consciousness is awake, alert, obeys commands, Oriented to person, place, time, situation. Cardiovascular: Capillary refill < 3 seconds Patient's skin is warm and dry. Respiratory: Airway is patent Respiratory effort is even, unlabored, Respiratory pattern is regular. GI: Abdomen is obese, Bowel sounds present X 4 quads. Abd is soft X 4 quads Abdomen is tender to palpation in right lower quadrant and left lower quadrant Reports vomiting. Derm: Skin is pink, warm \T\ dry. Musculoskeletal: Circulation, motion, and sensation intact. 21:00 Pain: Pain currently is 9 out of 10 on a pain scale. Neuro: Level of Consciousness is lp1 awake, alert, obeys commands. Respiratory: Respiratory effort is even, unlabored. GI: Abdomen is obese, Abdomen is tender to palpation in suprapubic area, right lower quadrant and left lower quadrant. : Reports pain in suprapubic area. Derm: Skin is pink, warm \T\ dry. 22:21 Reassessment: Patient appears in no apparent distress at this time. Patient is alert, lp1 oriented x 3, equal unlabored respirations, skin warm/dry/pink. Patient states feeling better. Vital Signs: 19:28 BP 129 / 96; Pulse 99; Resp 18 S; Temp 97.8; Pulse Ox 99% on R/A; Weight 102.06 kg (R); ca1 Height 5 ft. 3 in. (160.02 cm) (R); Pain 9/10; 22:21 BP 124 / 77; Pulse 74; Resp 18; Pulse Ox 94% on R/A; lp1 22:56 BP 122 / 65; Pulse 65; Resp 16; Pulse Ox 94% on R/A; lp1 19:28 Body Mass Index 39.86 (102.06 kg, 160.02 cm) ca1 ED Course: 18:54 Patient arrived in ED. bp1 19:30 Triage completed. ca1 19:30 Arm band placed on right wrist. ca1 20:17 Leonarda Monroe, RN is Primary Nurse. bb 20:19 Patient has correct armband on for positive identification. Bed in low position. Call bb light in reach. Side rails up X 1. 20:29 Merlin Vega NP is PHCP. pm1 20:29 Joseph Guzman MD is Attending Physician. pm1 21:00 Missed attempt(s): 20 gauge in right antecubital area. Inserted saline lock: 20 gauge lp1 in left antecubital area, using aseptic technique. Blood collected. 21:31 CT Abd/Pelvis - IV Contrast Only In Process Unspecified. EDMS 22:13 No provider procedures requiring assistance completed. lp1 23:12 IV discontinued, No redness/swelling at site. Pressure dressing applied. lp1 Administered Medications: 21:12 Drug: morphine 4 mg Route: IVP; Site: left antecubital; lp1 22:21 Follow up: Response: Pain is decreased lp1 21:12 Drug: Zofran (Ondansetron) 4 mg Route: IVP; Site: left antecubital; lp1 22:21 Follow up: Response: No adverse reaction lp1 21:12 Drug: NS 0.9% 1000 ml Route: IV; Rate: 1000 ml; Site: left antecubital; lp1 23:12 Follow up: IV Status: Completed infusion; IV Intake: 1000ml lp1 22:58 Drug: Rocephin (cefTRIAXone) 1 grams Route: IV; Rate: calculated rate; Site: left lp1 antecubital; 23:12 Follow up: IV Status: Completed infusion; IV Intake: 10ml lp1 Intake: 23:12 IV: 1000ml; Total: 1000ml. lp1 23:12 IV: 10ml; Total: 1010ml. lp1 Outcome: 22:39 Discharge ordered by . pm1 23:12 Discharged to home ambulatory. lp1 23:12 Condition: good 23:12 Discharge instructions given to patient, Instructed on discharge instructions, follow up and referral plans. medication usage, Demonstrated understanding of instructions, follow-up care, medications, Prescriptions given X 2. 23:13 Patient left the ED. lp1 Signatures: Dispatcher [employer] EDMS Leonarda Monroe, SLOAN RN bb Tamara Jimenez RN RN lp1 Merlin Vega NP PIGS FEET CLEANER pm1 Emilie Saeed, RN RN ca1 Yuliana, Raegan bp1
--- NOTE | 2021-04-19 22:40 | EDPHYS ---
Physician Documentation [facility] Name: Monique Mendez Age: 21 yrs Sex: Female : 2000 Arrival Date: 04/19/2021 Time: 18:54 Bed 24 Private MD: ED Physician Joseph Guzman HPI: 04/19 20:38 This 21 yrs old Female presents to ER via Ambulatory with complaints of Back pm1 Pain, Urinary Incontinence. 20:38 The patient presents with pain that is acute, with no known mechanism of injury. The pm1 symptoms are located in the low back. Onset: The symptoms/episode began/occurred 1 week(s) ago. The pain does not radiate. Associated signs and symptoms: Pertinent positives: burning with urination and frequency. The problem was sustained from unknown cause. Modifying factors: The patient symptoms are alleviated by nothing, the patient symptoms are aggravated by nothing. Severity of symptoms: in the emergency department the symptoms are unchanged. The patient has been recently seen by a physician: the patient's primary care provider, with similar presenting complaints, and apparently given a diagnosis of muscle strain and given a prescription for muscle relaxer. Patient was not given any abx by PCP. 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 Flu vaccine is not up to date. - Social history:: Smoking status: Patient reports the use of cigarette tobacco products, smokes one pack cigarettes per day. ROS: 20:38 Constitutional: Negative for fever, chills, and weight loss. pm1 20:38 Cardiovascular: Negative for chest pain, palpitations, and edema, Respiratory: Negative for shortness of breath, cough, wheezing, and pleuritic chest pain. 20:38 Abdomen/GI: Negative for abdominal pain, nausea, vomiting, diarrhea, and constipation. pm1 20:38 MS/Extremity: Negative for injury and deformity, Skin: Negative for injury, rash, and discoloration. 20:38 Neuro: Negative for headache, weakness, numbness, tingling, and seizure. 20:38 Back: Positive for flank pain, bilaterally. 20:38 : Positive for urinary frequency, small amounts, burning with urination. 20:38 All other systems are negative. Exam: 20:38 Constitutional: This is a well developed, well nourished patient who is awake, alert, pm1 and in no acute distress. Head/Face: Normocephalic, atraumatic. 20:38 Skin: Warm, dry with normal turgor. Normal color with no rashes, no lesions, and no evidence of cellulitis. MS/ Extremity: Pulses equal, no cyanosis. Neurovascular intact. Full, normal range of motion. 20:38 Eyes: Exam is negative for acute changes, Periorbital structures: appear normal, Extraocular movements: no acute changes. 20:38 ENT: Exam is negative for acute changes, Mouth: Lips: normal, Oral mucosa: normal, pink and intact, moist. 20:38 Chest/axilla: Exam negative for 20:38 Cardiovascular: Exam negative for acute changes, Rate: normal, Rhythm: regular, Pulses: no pulse deficits are appreciated. 20:38 Respiratory: Exam negative for acute changes, respiratory distress, shortness of breath. 20:38 Abdomen/GI: Inspection: obese Palpation: abdomen is soft and non-tender, in all quadrants. 20:38 Back: pain, that is mild, of the left low back and right low back. 20:38 Neuro: Exam negative for acute changes, Orientation: is normal, Mentation: is normal, Motor: is normal, moves all fours. Vital Signs: 19:28 BP 129 / 96; Pulse 99; Resp 18 S; Temp 97.8; Pulse Ox 99% on R/A; Weight 102.06 kg (R); ca1 Height 5 ft. 3 in. (160.02 cm) (R); Pain 9/10; 22:21 BP 124 / 77; Pulse 74; Resp 18; Pulse Ox 94% on R/A; lp1 22:56 BP 122 / 65; Pulse 65; Resp 16; Pulse Ox 94% on R/A; lp1 19:28 Body Mass Index 39.86 (102.06 kg, 160.02 cm) ca1 MDM: 20:42 Patient medically screened. pm1 22:38 Data reviewed: vital signs. Data interpreted: Pulse oximetry: on room air is 99 %. pm1 Interpretation: normal. Counseling: I had a detailed discussion with the patient and/or guardian regarding: the historical points, exam findings, and any diagnostic results supporting the discharge/admit diagnosis, lab results, radiology results, the need for outpatient follow up, to return to the emergency department if symptoms worsen or persist or if there are any questions or concerns that arise at home. 04/19 19:52 Order name: Urine Dipstick-Ancillary; Complete Time: 20:30 EDMS 04/19 19:56 Order name: Urine --Ancillary (enter results); Complete Time: 20:30 tt3 04/19 20:30 Order name: Urine Microscopic Only; Complete Time: 22:40 pm1 04/19 20:38 Order name: Basic Metabolic Panel; Complete Time: 21:42 pm1 04/19 20:38 Order name: CBC with Diff; Complete Time: 21:42 pm1 04/19 20:38 Order name: Hepatic Function; Complete Time: 21:42 pm1 04/19 20:38 Order name: Lipase; Complete Time: 21:42 pm1 04/19 20:38 Order name: IV Saline Lock; Complete Time: 21:12 pm1 04/19 20:38 Order name: Labs collected and sent; Complete Time: 21:12 pm1 04/19 20:38 Order name: CT Abd/Pelvis - IV Contrast Only; Complete Time: 22:17 pm1 Administered Medications: 21:12 Drug: morphine 4 mg Route: IVP; Site: left antecubital; lp1 22:21 Follow up: Response: Pain is decreased lp1 21:12 Drug: Zofran (Ondansetron) 4 mg Route: IVP; Site: left antecubital; lp1 22:21 Follow up: Response: No adverse reaction lp1 21:12 Drug: NS 0.9% 1000 ml Route: IV; Rate: 1000 ml; Site: left antecubital; lp1 23:12 Follow up: IV Status: Completed infusion; IV Intake: 1000ml lp1 22:58 Drug: Rocephin (cefTRIAXone) 1 grams Route: IV; Rate: calculated rate; Site: left lp1 antecubital; 23:12 Follow up: IV Status: Completed infusion; IV Intake: 10ml lp1 Disposition: 04/20 07:27 Co-signature as Attending Physician, Joseph Guzman MD. mh7 Disposition Summary: 04/19/21 22:39 Discharge Ordered Location: Home pm1 Problem: new pm1 Symptoms: have improved pm1 Condition: Stable pm1 Diagnosis - UTI/ Urinary tract infection, site not specified pm1 Followup: pm1 - With: Emergency Department - When: As needed - Reason: Worsening of condition Followup: pm1 - With: Private Physician - When: 2 - 3 days - Reason: Recheck today's complaints, Continuance of care, Re-evaluation by your physician Discharge Instructions: - Discharge Summary Sheet pm1 - Urinary Tract Infection, Adult pm1 Forms: - Medication Reconciliation Form pm1 - Thank You Letter pm1 - Antibiotic Education pm1 - Prescription Opioid Use pm1 Prescriptions: - Bactrim DS 800-160 mg Oral Tablet - take 1 tablet by ORAL route every 12 hours for 10 days; 20 tablet; Refills: 0, pm1 Product Selection Permitted - Pyridium 200 mg Oral Tablet - take 1 tablet by ORAL route every 8 hours for 3 days; 9 tablet; Refills: 0, pm1 Product Selection Permitted Signatures: Dispatcher [employer] Tamara Durham RN RN 1 Merlin Vega NP TRIP MOTOR OPERATOR pm1 Emilie Saeed RN RN ca1 Joseph Guzman MD MD mh7
[2021-04-19] MEDS ORDERED: CEFTRIAXONE/SWI 1gm 1 GM/10 ML SYR ONE (23:19)
[2021-04-19 23:21] VITALS: TEMP 97.8
[2021-04-19 23:22] VITALS: O2SAT 94
[2021-04-19 23:23] VITALS: BP 122/65
== END 2021-04-19 23:13 | disposition home or self-care (01) ==
LOC: ER 18:51
DX: N39.0 Urinary tract infection, site not specified (principal); F20.9 Schizophrenia, unspecified; E11.9 Type 2 diabetes mellitus without complications; F17.210 Nicotine dependence, cigarettes, uncomplicated
CPT/HCPCS: 96361; 85025; 80048; 36415; 81025; 82565; 80076; 83690; 74177; 96375; 96374; 99284; Q9967; J0696; J7030; J2405; 81003; 81015

== ENCOUNTER 2021-05-18 08:52 | Emergency (ER) | payer OTHER ==
--- OUTSIDE RECORDS SUMMARY | 2021-05-18 08:57 | XMS REPORT | Continuity of Care Document ---
:[address] [facility] t Address [address] [place] [address] Care Team Providers Name Role Phone Micheal BASILIO, A Attending Clinician Problems This patient has no known problems. Allergies, Adverse Reactions, Alerts This patient has no known allergies or adverse reactions. Medications This patient has no known medications. Procedures This patient has no known procedures. Encounters Start End Encounter Admission Attending Care Care Encounter Source Date/Time Date/Time Type Type Clinicians Facility Department ID 2021-04-18 2021-04-18 Telephone SAMANTA Burton [id number] 00:00:00 00:00:00 Bandar Kapoor [facility] [id number] Clear [id number] [place] [id number] [facility] [address] 2021-04-08 2021-04-08 Office SAMANTA Burton [id number] 08 11:35:21 12:05:21 Visit Bandar Kapoor [facility] [id number] Clear [id number] [place] [id number] [facility] [address] Results Test Description [...] to the main Lab for analysis. POC [id number] 06:09:00 Test Item Value Reference Range Interpretation Comments Glucose POC (test 232 mg/dL 70-115 H Notify RN or MDIf you code = Glucose POC) consider your patient critically ill, the Samuel-Accu Chec k Infrom II meter should not be used for Glucos e determination. Draw a venous Glucose and send to the main Lab for analysis. POC [id number] 19:18:31 Test Item Value Reference Range Interpretation Comments Glucose POC (test 320 mg/dL 70-115 H Notify RN or MDIf you code = Glucose POC) consider your patient critically ill, the Samuel-Accu Chec k Infrom II meter should not be used for Glucos e determination. Draw a venous Glucose and send to the main Lab for analysis. RPR [id number] 18:40:55 Test Item Value Reference Range Interpretation Comments RPR Qual (test code = RPR Qual) Non-Reactive Non-Reactive Reactive Control (test code = Reactive Reactive Control) Weak Reactive Control (test Weak Reactive code = Weak Reactive Control) Non-Reactive Control (test code Non-Reactive = Non-Reactive Control) Lot # (test code = Lot #) [id number] Expiration Dt (test code = 08-10-2020 N Expiration Dt) POC [id number] 15:20:26 Test Item Value Reference Range Interpretation Comments Glucose POC (test 240 mg/dL 70-115 H Notify RN or MDIf you code = Glucose POC) consider your patient critically ill, the Samuel-Accu Chec k Infrom II meter should not be used for Glucos e determination. Draw a venous Glucose and send to the main Lab for analysis. Thyroid Stimulating [id number] 11:14:05 Test Item Value Reference Range Interpretation Comments TSH (test code = TSH) 1.850 mIU/mL 0.270-4.200 Kerrick [id number] 11:08:52 Test Item Value Reference Range Interpretation Comments Kerrick Level (test code = 0.10 mmol/L 0.60-1.20 L Kerrick Level) Lipid [id number] 11:08:51 Test Item Value Reference Range Interpretation Comments Cholesterol Total 244 mg/dL 0-200 H RISK OF HE ART (test code = DISEASEPublishe d by Cholesterol Total) [place] [employer] Karely lyte Optimal Borderl ine [...] is LDL/HDL Ratio=L DL Calc/HDL Chol POC [id number] 10:58:53 Test Item Value Reference Range Interpretation Comments Glucose POC (test 335 mg/dL 70-115 H Notify RN or MDIf you code = Glucose POC) consider your patient critically ill, the Samuel-Accu Chec k Infrom II meter should not be used for Glucos e determination. Draw a venous Glucose and send to the main Lab for analysis. POC [id number] 06:47:23 Test Item Value Reference Range Interpretation Comments Glucose POC (test 192 mg/dL 70-115 H Notify RN or MDIf you code = Glucose POC) consider your patient critically ill, the Samuel-Accu Chec k Infrom II meter should not be used for Glucos e determination. Draw a venous Glucose and send to the main Lab for analysis. POC [id number] 02:48:53 Test Item Value Reference Range Interpretation Comments Glucose POC (test 331 mg/dL 70-115 H If you con investor relations analyst your code = Glucose POC) patient critically ill, the Samuel-Accu Check Infrom II meter should not be used for Glucose determination. Draw a venous Glucose and send to the main Lab for analysis. POC [id number] 23:39:23 Test Item Value Reference Range Interpretation Comments Glucose POC (test 287 mg/dL 70-115 H If you con investor relations analyst your code = Glucose POC) patient critically ill, the Samuel-Accu Check Infrom II meter should not be used for Glucose determination. Draw a venous Glucose and send to the main Lab for analysis. Comprehensive Metabolic [id number] 23:38:05 Test Item Value Reference Range Interpretation [...] A/G 1.5 ratio N Ratio) Comprehensive Metabolic [id number] 23:38:05 Test Item Value Reference Range Interpretation [...] the National Kidney Foundation, http://nkdep.ni h.gov Alcohol [id number] 23:38:05 Test Item Value Reference Range Interpretation Comments Ethanol Level (test <0.00 g/dL 0.00-0.01 Intoxica louis 0.080 g/dL code = Ethanol or more Level) Ethanol Inst (test <0 N code = Ethanol Inst) Comprehensive Metabolic [id number] 23:38:05 Test Item Value Reference Range Interpretation [...] ag e have not been validated by [facility] MDRD study and should be interpreted wit [...] ag e have not been validated by [facility] MDRD study and should be interpreted wit h caution. eGFR R esult Interpretation: eGFR > or = 60 is in the Normal RangeeGF R < 60 may mean kid maile diseaseeGFR < 1 5 may mean kidney failure Rang es recommended by the National Kidney Foundation, http://nkdep.ni h.gov Urinalysis [id number] 22:19:51 Test Item Value Reference Range Interpretation Comments UA WBC (test code = UA WBC) 0-5 0-5 UA RBC (test code = UA RBC) 0-5 0-5 UA Bacteria (test code = UA None Seen Bacteria) UA Squam Epithelial (test code = UA 11-19 A Squam Epithelial) Urinalysis with Microscopic if [id number] 22:08:25 Test Item Value Reference Range Interpretation [...] Micro Ind?) rule [id number] _IND Urine Drug [id number] 21:54:51 Test Item Value Reference Range Interpretation [...] matory test if desired . HCG Qualitative [id number] 21:53:40 Test Item Value Reference Range Interpretation [...] 72 hours. Lot # (test code = [id number] N Lot #) Expiration Dt (test 2020-10-10 N code = Expiration Dt) Neg Control (test Negative code = Neg Control) Pos Control (test Positive code = Pos Control) Internal QC (test Acceptable code = Internal QC) Automated [id number] 21:37:20 Test Item Value Reference Range Interpretation Comments Neutro Auto (test code = Neutro 68.2 % 36.0-70.0 Auto) Lymph Auto (test code = Lymph Auto) 25.3 % 12.0-44.0 [place] Auto (test code = [place] Auto) 5.2 % 0.0-11.0 Eos, Auto (test code = Eos, Auto) 0.8 % 0.0-7.0 Basophil Auto (test code = Basophil 0.2 % 0.0-2.0 Auto) Neutro Absolute (test code = Neutro 10.0 x10 1.6-7.4 H Absolute) Lymph Absolute (test code = Lymph 3.70 x10 .50-4.60 Absolute) [place] Absolute (test code = [place] .76 x10 .00-1.20 Absolute) Eos Absolute (test code = Eos 0.12 x10 0.00-0.74 Absolute) Baso Absolute (test code = Baso 0.03 x10 0.00-0.21 Absolute) IG [id number] 21:37:20 Test Item Value Reference Range Interpretation Comments IG (test code = IG) 0.3 % 0.0-5.0 IG Abs (test code = IG Abs) 0 x10 N Complete Blood Count with [id number] 21:37:19 Test Item Value Reference Range Interpretation [...]
[2021-05-18 09:33] LABS: Urine Blood 3+ (Negative); Urine Glucose 3+ (Negative); Urine Protein Negative (Negative); Urine Specific Gravity 1.025 (1.005-1.030); Urine pH 5.5 (5.0-7.0)
--- NOTE | 2021-05-18 09:46 | EDPHYS ---
Physician Documentation [facility] Name: Monique Mendez Age: 21 yrs Sex: Female : 2000 Arrival Date: 05/18/2021 Time: 08:54 Bed 13 Private MD: ED Physician Km Mcdonald HPI: 05/18 10:05 This 21 yrs old Female presents to ER via Ambulatory with complaints of kb Vaginal Pain. 10:05 The patient presents with a possible exposure to a sexually transmitted disease, kb herpes. Onset: The symptoms/episode began/occurred 4 day(s) ago. Modifying factors: The symptoms are alleviated by nothing, the symptoms are aggravated by pressure, urinating. Associated signs and symptoms: The patient has no apparent associated signs or symptoms. Severity of symptoms: At their worst the symptoms were moderate, in the emergency department the symptoms are unchanged. The patient has not experienced similar symptoms in the past. The patient has not recently seen a physician. Pt reports rash to vaginal area that is painful to touch. . Historical: - Allergies: 09:27 No Known Allergies; iw - PMHx: 09:27 Anxiety; Bipolar disorder; Depression; Diabetes - IDDM; multiple personality disorder; iw polycystic ovarian disease; Schizophrenia; Suicide Attempts; - Social history:: Smoking status: . ROS: 10:02 Constitutional: Negative for fever, chills, and weight loss. kb 10:02 : Positive for painful rash to vaginal area. 10:02 All other systems are negative. Exam: 10:03 Constitutional: This is a well developed, well nourished patient who is awake, alert, kb and in no acute distress. Head/Face: Normocephalic, atraumatic. ENT: Moist Mucous membranes Cardiovascular: Regular rate and rhythm with a normal S1 and S2. No gallops, murmurs, or rubs. No pulse deficits. Respiratory: Respirations even and unlabored. No increased work of breathing, no retractions or nasal flaring. Abdomen/GI: Soft, non-tender. No distention MS/ Extremity: Pulses equal, no cyanosis. Neurovascular intact. Full, normal range of motion. Neuro: Awake and alert, GCS 15, oriented to person, place, time, and situation. Moves all extremities. Normal gait. Psych: Awake, alert, with orientation to person, place and time. Behavior, mood, and affect are within normal limits. 10:03 Skin: rash a moderate rash is noted, rash can be described as ulcerative, on the right labia minora and left labia minora. 10:05 : Pelvic Exam: External exam: reveals ulcerations on external genitalia. kb Vital Signs: 09:26 BP 128 / 100; Pulse 105; Resp 16; Temp 96.5; Pulse Ox 98% on R/A; Weight 104.33 kg; iw Height 5 ft. 4 in. (162.56 cm); 09:26 Body Mass Index 39.48 (104.33 kg, 162.56 cm) iw MDM: 09:29 Patient medically screened. kb 09:45 Data reviewed: vital signs, nurses notes. Data interpreted: Pulse oximetry: on room air kb is 98 %. Interpretation: normal. Counseling: I had a detailed discussion with the patient and/or guardian regarding: the historical points, exam findings, and any diagnostic results supporting the discharge/admit diagnosis, the need for outpatient follow up, an OB/Gyne specialist, to return to the emergency department if symptoms worsen or persist or if there are any questions or concerns that arise at home. 05/18 09:33 Order name: Urine Dipstick-Ancillary EDMS 05/18 09:33 Order name: Urine --Ancillary (enter results) eb 05/18 09:34 Order name: Urine --Ancillary; Complete Time: 10:01 EDMS Administered Medications: 10:13 Drug: valACYclovir 1000 mg Route: PO; iw Disposition: 05/19 07:40 Co-signature as Attending Physician, Km Mcdonald MD I agree with the assessment and carol plan of care. Disposition Summary: 05/18/21 09:46 Discharge Ordered Location: Home kb Condition: Stable kb Diagnosis - Herpesviral vulvovaginitis kb Followup: kb - With: Emergency Department - When: As needed - Reason: Worsening of condition Followup: kb - With: Private Physician - When: 2 - 3 days - Reason: Recheck today's complaints, Continuance of care, Re-evaluation by your physician Discharge Instructions: - Discharge Summary Sheet kb - Genital Herpes kb Forms: - Medication Reconciliation Form kb - Thank You Letter kb - Antibiotic Education kb - Prescription Opioid Use kb Prescriptions: - Valtrex 1 gram Oral tablet - take 1 tablet by ORAL route every 12 hours; 20 tablet; Refills: 0, Product kb Selection Permitted Signatures: Dispatcher [employer] Ruma Montenegro, LAUNDRY FOLDER-C LAUNDRY FOLDER-Km Btuts MD MD cha Williams, Irene, SLOAN RN iw
--- NOTE | 2021-05-18 09:46 | ER ---
Nurse's Notes [facility] Name: Monique Mendez Age: 21 yrs Sex: Female : 2000 Arrival Date: 05/18/2021 Time: 08:54 Bed 13 Private MD: Diagnosis: Herpesviral vulvovaginitis Presentation: 05/18 09:26 Chief complaint: Patient states: vaginal pain X 4 days, there is a rash and tenderness. iw Coronavirus screen: At this time, the client does not indicate any symptoms associated with coronavirus-19. Ebola Screen: Patient negative for fever greater than or equal to 101.5 degrees Fahrenheit, and additional compatible Ebola Virus Disease symptoms Patient denies exposure to infectious person. Patient denies travel to an Ebola-affected area in the 21 days before illness onset. No symptoms or risks identified at this time. Initial Sepsis Screen: Does the patient meet any 2 criteria? No. Patient's initial sepsis screen is negative. Does the patient have a suspected source of infection? No. Patient's initial sepsis screen is negative. Risk Assessment: Do you want to hurt yourself or someone else? Patient reports no desire to harm self or others. 09:26 Method Of Arrival: Ambulatory iw 09:26 Acuity: ROXANNE 4 iw 09:34 Onset of symptoms was May 14, 2021. iw Triage Assessment: 09:30 General: Appears in no apparent distress. uncomfortable, Behavior is cooperative, bp appropriate for age, anxious. Pain: Complains of pain in pelvis. EENT: No deficits noted. Neuro: No deficits noted. Cardiovascular: No deficits noted. Respiratory: No deficits noted. GI: No signs and/or symptoms were reported involving the gastrointestinal system. : Reports vaginal itching, VAGINAL RASH. Derm: No deficits noted. Musculoskeletal: No deficits noted. Historical: - Allergies: 09:27 No Known Allergies; iw - PMHx: 09:27 Anxiety; Bipolar disorder; Depression; Diabetes - IDDM; multiple personality disorder; iw polycystic ovarian disease; Schizophrenia; Suicide Attempts; - Social history:: Smoking status: . Screenin:37 Abuse screen: Denies threats or abuse. Denies injuries from another. Nutritional iw screening: No deficits noted. Tuberculosis screening: No symptoms or risk factors identified. 09:45 Fall Risk None identified. bp Assessment: 09:36 General: Appears in no apparent distress. Behavior is calm, cooperative. Pain:. Neuro: iw Level of Consciousness is awake, alert, obeys commands, Oriented to person, place, time, situation, Moves all extremities. Weakness. Vital Signs: 09:26 BP 128 / 100; Pulse 105; Resp 16; Temp 96.5; Pulse Ox 98% on R/A; Weight 104.33 kg; iw Height 5 ft. 4 in. (162.56 cm); 09:26 Body Mass Index 39.48 (104.33 kg, 162.56 cm) iw ED Course: 08:54 Patient arrived in ED. as 09:12 Ruma Rose F[facility]-C is [facility]. kb 09:12 Km Mcdonald MD is Attending Physician. kb 09:27 Triage completed. iw 09:28 Ami Jacobs, RN is Primary Nurse. iw 09:34 Arm band placed on. iw 09:45 Patient has correct armband on for positive identification. Bed in low position. Call bp light in reach. Side rails up X2. Administered Medications: 10:13 Drug: valACYclovir 1000 mg Route: PO; iw Outcome: 09:46 Discharge ordered by . kb 10:13 Patient left the ED. iw Signatures: Ruma Rose FNP-C FNP-Alejandrina Gómez as Ami Jacobs, RN RN iw Milton Casanova RN RN bp
[2021-05-18 10:00] LABS: Urine Specific Gravity/Preg 1.025 (1.005-1.030)
[2021-05-18 10:19] VITALS: BP 128/100; TEMP 96.5; O2SAT 98
[2021-05-18] MEDS ORDERED: VALACYCLOVIR 500 MG TAB ONE (10:32)
== END 2021-05-18 10:13 | disposition home or self-care (01) ==
LOC: ER 08:52
DX: A60.04 Herpesviral vulvovaginitis (principal)
CPT/HCPCS: 81003; 81025; 99282

== ENCOUNTER 2021-12-28 08:35 | Emergency (ER) | payer OTHER ==
--- OUTSIDE RECORDS SUMMARY | 2021-12-28 08:38 | XMS REPORT | Continuity of Care Document ---
:2000 Author Organization [facility] t Address [address] [place] [address] Care Team Providers Name Role Phone JOSHUA, E Primary Care Physician Unavailable MICHEAL, Emelia Attending Clinician Unavailable Emelia Burton MD Attending Clinician Payers Payer Name Policy Type Policy Number Effective Date Expiration Date S mary [facility] STAR [id number] 2021 00:00:00 Problems Condition Condition Condition Status Onset Resolution Last Treating Co mments Source Name Details Category Date Date Treatment Clinician Date Class 2 Class 2 Disease Active Univers obesity obesity 6-29 ity of without without 00:00: [place] serious serious 00 Medical comorbidit comorbidit Br anch y with y with body mass body mass index index (BMI) of (BMI) of 38.0 to 38.0 to 38.9 in 38.9 in adult, adult, unspecifie unspecifie d obesity d obesity type type Type 2 Type 2 Disease Active Univers diabetes diabetes 3-05 ity of mellitus mellitus 00:00: [place] without without 00 Medical complicati complicati Br anch on, with on, with long-term long-term current current use of use of insulin insulin Allergies, Adverse Reactions, Alerts Allergy Allergy Status Severity Reaction(s) Onset Inactive Treating Comm ents Source Name Type Date Date Clinician NO KNOWN Drug Active Univers ALLERGIE Class ity of S [facility] Social History Social Habit Start Date Stop Date Quantity Comments Source Alcohol intake 2021-04-08 2021-04-08 0 /d [facility] 00:00:00 00:00:00 Medical Branch Tobacco use and 2020-08-16 2020-08-16 Never used [facility] exposure 00:00:00 00:00:00 Medical Branch Sex Ass[birth year] At [birth year] [facility] 00:00:00 00:00:00 Medical Branch Smoking Status Start Date Stop Date Source Current every day smoker 2020-08-16 00:00:00 [facility] [place] [facility] Medications Ordered Filled Start Stop Current Ordering Indication Dosage Frequency Signature Comments Components Source Medication Medication Date Date Medication? Clinician (SIG) Name Name KALANI 2020-10- No 300{eac 300 Each. Univers DELICA -03 11-03 h} ity of LANCETS 07:59: 00:00 [place] MISC 46 :00 Medical Branch blood sugar 2020-10 Yes Use to Univ ers diagnostic 03 check ity of (ACCU-CHEK 00:00: blood [place] GUIDE TEST 00 sugar Medical STRIPS) three Branch strip times daily Lancets 2020-10 Yes Use to Univers (ACCU-CHEK 03 check ity of FASTCLIX 00:00: blood [place] LANCET 00 sugar Medical DRUM) Misc three Branch times daily. Blood-Gluco 2020-10 Yes Use to [facility] ers se Meter -03 check ity of (ACCU-CHEK 00:00: blood [place] GUIDE 00 sugar Medical GLUCOSE three Branch METER) Misc times daily. ONETOUCH 2020-10 Yes 300{eac 300 Each. U nivers DELICA 0-29 h} ity of LANCETS 10:10: [place] [facility] Medical Branch blood sugar 2020-10 Yes [id number] 300{str 300 Strips Univers diagnostic 0-29 ip} before ity of (ONETOUCH 00:00: [place] VERIO TEST 00 as Medical STRIPS) directed Branch strip empaglifloz 2020-10 Yes [id number] 1{tbl} Take 1 Univers in-metformi 0-29 tablet by ity of n (SYNJARDY 00:00: mouth 2 D[place] as XR) 00 (two) Medical 12.5-1,000 times Branch mg TBph daily with meals. glipiZIDE 2020-10 Yes [id number] 5mg Take 1 U nivers XL 5 mg 24 0-29 tablet by ity of hr tablet 00:00: mouth [place] 00 daily with Medical breakfast. Branch dulaglutide 2020-10 Yes [id number] 1.5mg inject 1.5 Univers (TRULICITY) 0-29 mg under ity of 1.5 mg/0.5 00:00: the skin D[place] as mL PnIj 00 weekly. Medical Branch empaglifloz 2020-10 Yes [id number] 1{tbl} Take 1 Univers in-metformi 0-29 tablet by ity of n (SYNJARDY 00:00: mouth 2 Dandre as XR) 00 (two) Medical 12.5-1,000 times Branch mg TBph daily with meals. glipiZIDE 2020-10 Yes [id number] 5mg Take 1 U nivers XL 5 mg 24 0-29 tablet by ity of hr tablet 00:00: mouth [place] 00 daily with Medical breakfast. Branch dulaglutide 2020-10 Yes [id number] 1.5mg inject 1.5 Univers (TRULICITY) 0-29 mg under ity of 1.5 mg/0.5 00:00: the skin Dandre as mL PnIj 00 weekly. Medical Branch blood sugar 2020-10- No [id number] 300{str 300 Strips Univers diagnostic 0-08-13 ip} before ity of (ONETOUCH 00:00: 00:00 meals. [place] VERIO TEST 00 :00 as Medical STRIPS) directed Branch strip GLIPIZIDE 2020-10- No [id number] TAKE 1 Univers XL 10 mg 24 0-25 10-29 TABLET BY it y of hr tablet 00:00: 00:00 MOUTH [place] 00 :00 EVERY DAY Medical WITH Branch BREAKFAST HYDROXYZINE Yes Take by Un cesar PAMOATE 6-29 mouth. ity of ORAL 11:53: [place] 39 Medical Branch HYDROXYZINE 0 Yes Take by Un cesar PAMOATE 6-29 mouth. ity of ORAL 11:53: [place] 39 Medical Branch Lancing 0 Yes [id number] Use as Uni vers Device with 6-29 directed ity of Lancets 00:00: [place] (ONE TOUCH 00 [facility] Kit Branch Lancing Yes [id number] Use as Uni vers Device with 6-29 directed ity of Lancets 00:00: [place] (ONE TOUCH 00 Medical DELICA) Kit Branch blood sugar 2020- No [id number] 300{str 300 Strips Univers diagnostic 04-08 ip} before ity of (ONETOUCH 00:00: 00:00 meals. Use [place] VERIO TEST 00 :00 as Medical STRIPS) directed Branch strip empaglifloz 2020- No [id number] 1{tbl} Take 1 Univers in-metformi 04-08 tablet by it y of n (SYNJARDY 00:00: 00:00 mouth 2 [place] XR) 00 :00 (two) Medical 12.5-1,000 times Branch mg TBph daily with meals. zolpidem 10 Yes Univer s mg tablet 6-24 ity of 00:00: [place] [facility] zolpidem 10 Yes Univer s mg tablet 6-24 ity of 00:00: [place] [facility] mirtazapine 2020- No Unive rs 7.5 mg 04-03 ity of tablet 00:00: 00:00 [place] 00 :00 Medical Branch venlafaxine Yes 300mg 300 mg. Un cesar XR 150 mg 6-20 ity of 24 hr 00:00: [place] capsule Medical Branch venlafaxine Yes 300mg 300 mg. Un cesar XR 150 mg 6-20 ity of 24 hr 00:00: capsule Medical Branch venlafaxine Yes Univer s XR 37.5 mg 6-11 ity of 24 hr 00:00: [place] capsule Medical Branch ALPRAZolam Yes Univers 0.5 mg 6-11 ity of tablet 00:00: [place] [facility] venlafaxine Yes Univer s XR 37.5 mg 6-11 ity of 24 hr 00:00: capsule [facility] Branch ALPRAZolam 0 Yes Univers 0.5 mg 6-11 ity of tablet 00:00: [place] [facility] ARIPiprazol 2019- Yes 5mg Take 5 mg U nivers e (ABILIFY) 1-06 by mouth ity of 5 mg tablet 09:14: [place]. [place] lamoTRIgine 2019-10 Yes 25mg Take 25 mg Univers 25 mg 1-06 by mouth ity of tablet 09:14: daily. [address] ARIPiprazol 2019-10 Yes 5mg Take 5 mg U nivers e (ABILIFY) 1-06 by mouth ity of 5 mg tablet 09:14: daily. [address] lamoTRIgine 2019-10 Yes 25mg Take 25 mg Univers 25 mg 1-06 by mouth ity of tablet 09:14: daily. [address] Vital Signs Vital Name Observation Time Observation Value Comments Source Systolic blood 2021-08-08 15:10:00 107 mm[Hg] [facility] Diastolic blood 2021-08-08 15:10:00 76 mm[Hg] [facility] Heart rate 2021-08-08 15:10:00 95 /min [facility] Respiratory rate 2021-08-08 15:10:00 16 /min [facility] Body height 2021-08-08 15:10:00 160 cm [facility] Body weight 2021-08-08 15:10:00 95.312 kg [facility] BMI 2021-08-08 15:10:00 37.22 kg/m2 [facility] Oxygen saturation in 2021-08-08 15:10:00 92 /min [facility] Arterial blood by [facility] Pulse oximetry Branch Procedures Procedure Date / Time Performing Clinician Source Performed CORTISOL AM 2021-08-08 15:52:00 Bandar Burton [facility] THYROID STIMULATING 2021-08-08 15:52:00 Bandar Burton [facility] HORMONE [facility] COMP. METABOLIC PANEL 2021-08-08 15:52:00 Bandar Burton [facility] ([id number]) [facility] GLYCOSYLATED HEMOGLOBIN 2021-08-08 15:52:00 Bandar Burton [facility] (A1C) [facility] Encounters Start End Encounter Admission Attending Care Care Encounter Source Date/Time Date/Time Type Type Clinicians Facility Department ID 2022-06-19 2022-06-19 [id number] Univers 10:00:00 10:00:00 BANDAR [id number] ity o farhad [facility] 2021-12-12 2021-12-12 Outpatient [facility] [id number] Univers 10:30:00 10:30:00 BANDAR chen o [facility] 2021-08-12 2021-08-[address] [facility] [id number] Univers 00:00:00 00:00:00 Bandar Kapoor HEALTH [id number] ity of [place] [id number] [place] - [id number] [address] 2021-08-08 2021-08-[address] [facility] [id number] Univers 09:49:20 10:19:20 Visit Bandar Kapoor HEALTH [id number] ity of [id number] [place] [id number] [address] 2021-08-08 2021-08-08 [facility] [id number] Univers 10:00:00 10:00:00 BANDAR chen o [facility] 2021-04-18 2021-04-[address] [facility] [id number] 00:00:00 00:00:00 Bandar Kapoor Health [id number] Clear [id number] [place] [id number] Medical [facility] Office Building 2021-04-08 2021-04-[address] [facility] [id number] 11:35:21 12:05:21 Visit Bandar Kapoor Health [id number] Clear [id number] [place] [id number] Medical [facility] Office Building Results Test Description Test Time [...] to the main Lab for analysis. POC [id number] 06:09:00 Test Item Value Reference Range Interpretation Comments Glucose POC (test 232 mg/dL 70-115 H Notify RN or MDIf you code = Glucose POC) consider your patient critically ill, the Samuel-Accu Chec k Infrom II meter should not be used for Glucos e determination. Draw a venous Glucose and send to the main Lab for analysis. POC [id number] 19:18:31 Test Item Value Reference Range Interpretation Comments Glucose POC (test 320 mg/dL 70-115 H Notify RN or MDIf you code = Glucose POC) consider your patient critically ill, the Samuel-Accu Chec k Infrom II meter should not be used for Glucos e determination. Draw a venous Glucose and send to the main Lab for analysis. RPR [id number] 18:40:55 Test Item Value Reference Range Interpretation Comments RPR Qual (test code = RPR Qual) Non-Reactive Non-Reactive Reactive Control (test code = Reactive Reactive Control) Weak Reactive Control (test Weak Reactive code = Weak Reactive Control) Non-Reactive Control (test code Non-Reactive = Non-Reactive Control) Lot # (test code = Lot #) [id number] Expiration Dt (test code = 08-10-2020 N Expiration Dt) POC [id number] 15:20:26 Test Item Value Reference Range Interpretation Comments Glucose POC (test 240 mg/dL 70-115 H Notify RN or MDIf you code = Glucose POC) consider your patient critically ill, the Samuel-Accu Chec k Infrom II meter should not be used for Glucos e determination. Draw a venous Glucose and send to the main Lab for analysis. Thyroid Stimulating [id number] 11:14:05 Test Item Value Reference Range Interpretation Comments TSH (test code = TSH) 1.850 mIU/mL 0.270-4.200 [place] [id number] 11:08:52 Test Item Value Reference Range Interpretation Comments [place] Level (test code = 0.10 mmol/L 0.60-1.20 L [place] Level) Lipid [id number] 11:08:51 Test Item Value Reference Range Interpretation Comments Cholesterol Total 244 mg/dL 0-200 H RISK OF HE ART (test code = DISEASEPublishe d by Cholesterol Total) [place] [employer] Karely lyte Optimal Borderl ine [...] is LDL/HDL Ratio=L DL Calc/HDL Chol POC [id number] 10:58:53 Test Item Value Reference Range Interpretation Comments Glucose POC (test 335 mg/dL 70-115 H Notify RN or MDIf you code = Glucose POC) consider your patient critically ill, the Samuel-Accu Chec k Infrom II meter should not be used for Glucos e determination. Draw a venous Glucose and send to the main Lab for analysis. POC [id number] 06:47:23 Test Item Value Reference Range Interpretation Comments Glucose POC (test 192 mg/dL 70-115 H Notify RN or MDIf you code = Glucose POC) consider your patient critically ill, the Samuel-Accu Chec k Infrom II meter should not be used for Glucos e determination. Draw a venous Glucose and send to the main Lab for analysis. POC [id number] 02:48:53 Test Item Value Reference Range Interpretation Comments Glucose POC (test 331 mg/dL 70-115 H If you con instructional media services technician your code = Glucose POC) patient critically ill, the Samuel-Accu Check Infrom II meter should not be used for Glucose determination. Draw a venous Glucose and send to the main Lab for analysis. POC [id number] 23:39:23 Test Item Value Reference Range Interpretation Comments Glucose POC (test 287 mg/dL 70-115 H If you con instructional media services technician your code = Glucose POC) patient critically ill, the Samuel-Accu Check Infrom II meter should not be used for Glucose determination. Draw a venous Glucose and send to the main Lab for analysis. Comprehensive Metabolic [id number] 23:38:05 Test Item Value Reference Range Interpretation [...] A/G 1.5 ratio N Ratio) Comprehensive Metabolic [id number] 23:38:05 Test Item Value Reference Range Interpretation [...] the National Kidney Foundation, http://nkdep.ni h.gov Alcohol [id number] 23:38:05 Test Item Value Reference Range Interpretation Comments Ethanol Level (test <0.00 g/dL 0.00-0.01 Intoxica louis 0.080 g/dL code = Ethanol or more Level) Ethanol Inst (test <0 N code = Ethanol Inst) Comprehensive Metabolic [id number] 23:38:05 Test Item Value Reference Range Interpretation [...] ag e have not been validated by [facility] MDRD study and should be [...] ag e have not been validated by [facility] MDRD study and should be interpreted wit h caution. eGFR R esult Interpretation: eGFR > or = 60 is in the Normal RangeeGF R < 60 may mean kid maile diseaseeGFR < 1 5 may mean kidney failure Rang es recommended by the National Kidney Foundation, http://nkdep.ni h.gov Urinalysis [id number] 22:19:51 Test Item Value Reference Range Interpretation Comments UA WBC (test code = UA WBC) 0-5 0-5 UA RBC (test code = UA RBC) 0-5 0-5 UA Bacteria (test code = UA None Seen Bacteria) UA Squam Epithelial (test code = UA 11-19 A Squam Epithelial) Urinalysis with Microscopic if [id number] 22:08:25 Test Item Value Reference Range Interpretation [...] Micro Ind?) rule [id number] _IND Urine Drug [id number] 21:54:51 Test Item Value Reference Range Interpretation [...] matory test if desired . HCG Qualitative [id number] 21:53:40 Test Item Value Reference Range Interpretation [...] 72 hours. Lot # (test code = [id number] N Lot #) Expiration Dt (test 2020-10-10 N code = Expiration Dt) Neg Control (test Negative code = Neg Control) Pos Control (test Positive code = Pos Control) Internal QC (test Acceptable code = Internal QC) Automated [id number] 21:37:20 Test Item Value Reference Range Interpretation Comments Neutro Auto (test code = Neutro 68.2 % 36.0-70.0 Auto) Lymph Auto (test code = Lymph Auto) 25.3 % 12.0-44.0 [place] Auto (test code = [place] Auto) 5.2 % 0.0-11.0 Eos, Auto (test code = Eos, Auto) 0.8 % 0.0-7.0 Basophil Auto (test code = Basophil 0.2 % 0.0-2.0 Auto) Neutro Absolute (test code = Neutro 10.0 x10 1.6-7.4 H Absolute) Lymph Absolute (test code = Lymph 3.70 x10 .50-4.60 Absolute) [place]bon Absolute (test code = [place] .76 x10 .00-1.20 Absolute) Eos Absolute (test code = Eos 0.12 x10 0.00-0.74 Absolute) Baso Absolute (test code = Baso 0.03 x10 0.00-0.21 Absolute) IG [id number] 21:37:20 Test Item Value Reference Range Interpretation Comments IG (test code = IG) 0.3 % 0.0-5.0 IG Abs (test code = IG Abs) 0 x10 N Complete Blood Count with [id number] 21:37:19 Test Item Value Reference Range Interpretation [...]
--- NOTE | 2021-12-28 08:58 | ER ---
Nurse's Notes [facility] Name: Monique Mendez Age: 21 yrs Sex: Female : 2000 Arrival Date: 12/28/2021 Time: 08:39 Bed Waiting Private MD: Diagnosis: Displaced fracture of fifth metatarsal bone, left foot Presentation: 12/28 08:55 Chief complaint: Patient states: Slide off the top of her car and landed on her left ww foot and heard a pop. She admits to having a lot of pain to the left foot. Injury happened 2 days ago. Coronavirus screen: Vaccine status: Patient reports being unvaccinated. Client denies travel out of the [place] in the last 14 days. Ebola Screen: Patient denies travel to an Ebola-affected area in the 21 days before illness onset. Initial Sepsis Screen: Does the patient meet any 2 criteria? No. Patient's initial sepsis screen is negative. Does the patient have a suspected source of infection? No. Patient's initial sepsis screen is negative. Risk Assessment: Do you want to hurt yourself or someone else? Patient reports no desire to harm self or others. Onset of symptoms was December 26, 2021. 08:55 Method Of Arrival: Wheelchair 08:55 Acuity: ROXANNE 4 Triage Assessment: 08:57 General: Appears unkempt, Behavior is calm, cooperative. Pain: Complains of pain in left foot. EENT: No signs and/or symptoms were reported regarding the EENT system. Neuro: Level of Consciousness is awake, alert, obeys commands, Oriented to person, place, time, situation, Gait is steady, Speech is normal. Cardiovascular: Patient's skin is warm and dry. Respiratory: Airway is patent Respiratory effort is even, unlabored, Respiratory pattern is regular, symmetrical. GI: No signs and/or symptoms were reported involving the gastrointestinal system. : No signs and/or symptoms were reported regarding the genitourinary system. Derm: Skin is intact. Musculoskeletal: Swelling present in left foot Reports pain in left foot. Injury Description: Bruise. 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 - Social history:: Smoking status: Patient reports the use of cigarette tobacco products, smokes one pack cigarettes per day. Screenin:01 Abuse screen: Denies threats or abuse. Denies injuries from another. Nutritional ww screening: No deficits noted. Tuberculosis screening: No symptoms or risk factors identified. Fall Risk Fall in past 12 months (25 points). No secondary diagnosis (0 pts). No IV (0 pts). Ambulatory Aid- None/Bed Rest/Nurse Assist (0 pts). Gait- Normal/Bed Rest/Wheelchair (0 pts) Mental Status- Oriented to own ability (0 pts). Total Lam Fall Scale indicates No Risk (0-24 pts). Assessment: 09:22 Reassessment: No changes from previously documented assessment. Patient and/or family ll1 updated on plan of care and expected duration. Pain level reassessed. Patient is alert, oriented x 3, equal unlabored respirations, skin warm/dry/pink. Derm:. Derm: Bruising that is dark purple. Musculoskeletal: Circulation, motion, and sensation intact. Capillary refill < 3 seconds, Tenderness present in left foot. Vital Signs: 08:55 BP 123 / 76; Pulse 96; Resp 18; Temp 98.2; Pulse Ox 96% ; Weight 102.06 kg; Height 5 ww ft. 4 in. (162.56 cm); Pain 9/10; 09:11 BP 130 / 54; Pulse 94; Resp 18; Pulse Ox 98% ; mb7 08:55 Body Mass Index 38.62 (102.06 kg, 162.56 cm) ww ED Course: 08:39 Patient arrived in ED. as 08:40 Ruma Rose FNP-C is [facility]. kb 08:40 Theron Liriano MD is Attending Physician. kb 08:57 Triage completed. ww 08:57 Arm band placed on left wrist. ww 08:58 Milton Holland DPM is Referral Physician. kb 09:02 Foot Left 3 View XRAY In Process Unspecified. EDMS 09:12 Ortho shoe applied to right foot. mb7 09:22 No provider procedures requiring assistance completed. Patient did not have IV access ll1 during this emergency room visit. 09:23 Patient has correct armband on for positive identification. Bed in low position. Call ll1 light in reach. Cardiac monitoring not applicable on this patient. Administered Medications: 09:14 Drug: [place] (HYDROcodone-acetaminophen) 5 mg-325 mg 1 tabs Route: PO; 1 09:23 Follow up: Response: No adverse reaction ll1 Outcome: 08:58 Discharge ordered by . mandi 09:19 Patient left the ED. 1 09:22 Discharged to home ambulatory. 1 09:22 Condition: stable 09:22 Discharge instructions given to patient, Instructed on discharge instructions, follow up and referral plans. medication usage, Demonstrated understanding of instructions, follow-up care, medications, Prescriptions given X 1. Signatures: Dispatcher [employer] EDVT Ruma Rose, BRINE SUPERVISOR-C BRINE SUPERVISOR-Alejandrina Gómez Lynsay, RN RN 1 Jessica Buchanan mb7 Rosaline Wyatt, RN RN ww
--- NOTE | 2021-12-28 08:58 | EDPHYS ---
Physician Documentation [facility] Name: Monique Mendez Age: 21 yrs Sex: Female : 2000 Arrival Date: 12/28/2021 Time: 08:39 Bed Waiting Private MD: ED Physician Theron Liriano HPI: 12/28 08:55 This 21 yrs old Female presents to ER via Unassigned with complaints of Foot Injury. kb 08:55 The patient presents with an injury, pain, swelling, tenderness. The complaints affect kb the left foot. Context: The problem was sustained outdoors, resulted from twisted foot when sliding off [place] of car 2 days ago, the patient can fully bear weight, the patient is able to ambulate. Onset: The symptoms/episode began/occurred 2 day(s) ago. Modifying factors: The symptoms are alleviated by nothing, the symptoms are aggravated by weight bearing, movement. Associated signs and symptoms: Pertinent positives: swelling, Pertinent negatives: calf tenderness, fever, nausea, numbness, rash, tingling, vomiting, warmth, weakness. Severity of symptoms: At their worst the symptoms were moderate, in the emergency department the symptoms are unchanged. The patient has not experienced similar symptoms in the past. The patient has not recently seen a physician. 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 - Social history:: Smoking status: Patient reports the use of cigarette tobacco products, smokes one pack cigarettes per day. ROS: 08:55 Constitutional: Negative for fever, chills, and weight loss. kb 08:55 MS/extremity: Positive for ecchymosis, pain, swelling, tenderness, of the dorsum of left foot. 08:55 All other systems are negative. Exam: 08:54 Constitutional: This is a well developed, well nourished patient who is awake, alert, kb and in no acute distress. Head/Face: Normocephalic, atraumatic. ENT: Moist Mucous membranes Respiratory: Respirations even and unlabored. No increased work of breathing. Talking in full sentences Neuro: Awake and alert, GCS 15, oriented to person, place, time, and situation. Moves all extremities. Normal gait. Psych: Awake, alert, with orientation to person, place and time. Behavior, mood, and affect are within normal limits. 08:54 Musculoskeletal/extremity: Extremities: grossly normal except: noted in the dorsum of left foot: ecchymosis, pain, swelling, tenderness, ROM: intact in all extremities, Circulation is intact in all extremities. Sensation intact. Weight bearing: able to fully bear weight. 08:54 Skin: Appearance: normal except for affected area, ecchymosis, noted on the, dorsum of left foot. Vital Signs: 08:55 BP 123 / 76; Pulse 96; Resp 18; Temp 98.2; Pulse Ox 96% ; Weight 102.06 kg; Height 5 ww ft. 4 in. (162.56 cm); Pain 9/10; 09:11 BP 130 / 54; Pulse 94; Resp 18; Pulse Ox 98% ; mb7 08:55 Body Mass Index 38.62 (102.06 kg, 162.56 cm) ww MDM: 08:42 Patient medically screened. kb 08:54 Data reviewed: vital signs, nurses notes. Data interpreted: Pulse oximetry: on room air kb is 100 %. Interpretation: normal. 08:57 Counseling: I had a detailed discussion with the patient and/or guardian regarding: the kb historical points, exam findings, and any diagnostic results supporting the discharge/admit diagnosis, radiology results, the need for outpatient follow up, a orthopedic surgeon, to return to the emergency department if symptoms worsen or persist or if there are any questions or concerns that arise at home. 12/28 08:42 Order name: Foot Left 3 View XRAY kb 12/28 08:57 Order name: Post-op Orthopedic Shoe; Complete Time: 09:12 kb Administered Medications: 09:14 Drug: [place] (HYDROcodone-acetaminophen) 5 mg-325 mg 1 tabs Route: PO; ll1 09:23 Follow up: Response: No adverse reaction ll1 Disposition: 09:33 Co-signature as Attending Physician, Theron Liriano MD I agree with the assessment and kdr plan of care. Disposition Summary: 12/28/21 08:58 Discharge Ordered Location: Home Condition: Stable kb Diagnosis - Displaced fracture of fifth metatarsal bone, left foot kb Followup: kb - With: Emergency Department - When: As needed - Reason: Worsening of condition Followup: kb - With: Milton Holland, DPM - When: 2 - 3 days - Reason: Recheck today's complaints Discharge Instructions: - Discharge Summary Sheet kb - Metatarsal Fracture kb Forms: - Medication Reconciliation Form kb - Thank You Letter kb - Antibiotic Education kb - Prescription Opioid Use kb - Work release form sp - Family Work Release sp Prescriptions: - Diclofenac Sodium 75 mg Oral tablet,delayed release (DR/EC) - take 1 tablet by ORAL route 2 times per day As needed; 30 tablet; Refills: 0, kb Product Selection Permitted Signatures: Dispatcher [employer] EDMS Ruma Rose, RONY PATE-Theron Fields MD MD [facility] Ctoy Fields RN RN 1 Rosaline Wyatt RN RN ww Corrections: (The following items were deleted from the chart) 08:57 08:57 Counseling: I had a detailed discussion with the patient and/or guardian kb regarding: the historical points, exam findings, and any diagnostic results supporting the discharge/admit diagnosis, radiology results, the need for outpatient follow up, a family practitioner, to return to the emergency department if symptoms worsen or persist or if there are any questions or concerns that arise at home, kb
[2021-12-28] MEDS ORDERED: HYDROCODONE/APAP 5/325 MG TAB ONE (09:16)
--- NOTE | 2021-12-28 09:27 | RAD REPORT ---
EXAM DESCRIPTION: RAD - Foot Left 3 View - 12/28/2021 9:01 am CLINICAL HISTORY: PAIN COMPARISON: LEFT FOOT W COMPARISON dated 02/24/2010 FINDINGS: Oblique fracture is present through the distal shaft fifth metatarsal. Small fracture frag ments are seen along the course of the main fracture plane. No significant angulation deformity is se en. There is approximately 7 mm of medial displacement of the distal fracture fragment relative to th e main shaft. No other fracture change seen. No acute bone finding. No foreign body. IMPRESSION: Left fifth metatarsal fracture as detailed.
[2021-12-28 09:30] VITALS: TEMP 98.2
[2021-12-28 09:31] VITALS: BP 130/54; O2SAT 98
== END 2021-12-28 09:19 | disposition home or self-care (01) ==
LOC: ER 08:35
DX: S92.352A Displaced fracture of fifth metatarsal bone, left foot, initial encounter for closed fracture (principal); W17.89XA Other fall from one level to another, initial encounter; Y93.89 Activity, other specified; Y92.9 Unspecified place or not applicable; F41.9 Anxiety disorder, unspecified; E11.9 Type 2 diabetes mellitus without complications; F17.210 Nicotine dependence, cigarettes, uncomplicated
CPT/HCPCS: 99284

== ENCOUNTER 2022-10-05 15:57 | Emergency (ER) | payer OTHER ==
--- OUTSIDE RECORDS SUMMARY | 2022-10-05 16:20 | XMS REPORT | Continuity of Care Document ---
:2000 Author Organization [facility] t Address [address] [place] [address] Care Team Providers Name Role Phone LEWIS JUANIS Soriano Primary Care Physician Unavailable JL BOLTON Attending Clinician Unavailable LIBORIO OLIVEIRA Attending Clinician Unavailable PARISA RUBIO Attending Clinician Unavailable PARISA RUBIO Attending Clinician Unavailable ALEXEY GUZMÁN Attending Clinician Unavailable Alexey Guzmán MD Attending Clinician Doctor Unassigned, [place] Attending Clinician Unavailable Rosalba Licea Attending Clinician 2, [facility] Attending Clinician Unavailable Lab, Ang - Db Attending Clinician Unavailable ROSALBA PARHAM Attending Clinician Unavailable Jeri De Leon MD Attending Clinician Jl Bolton MD Attending Clinician THERON PETERSON Attending Clinician Unavailable Theron Peterson MD Attending Clinician JERI DE LEON Attending Clinician Unavailable Pob, [facility] Main Attending Clinician Unavailable Only, Ad[facility] Test Attending Clinician Unavailable Bandar Burton MD Attending Clinician LULU ANAND Attending Clinician Unavailable Lulu Cooley Attending Clinician BANDAR BURTON Attending Clinician Unavailable Chase Dill DO Attending Clinician JL BOLTON Admitting Clinician Unavailable Jl Bolton MD Admitting Clinician Payers Payer Name Policy Type Policy Number Effective Date Expiration Date Kathe [employer] [id number] 2020 00:00:00 [facility] [id number] 2022 00:00:00 PLUS Problems Condition Condition Condition Status Onset Resolution Last Treating Co mments Source Name Details Category Date Date Treatment Clinician Date High-risk High-risk Disease Active 2021-10 Uni vers 11-02 ity of in first in first 00:00: [place] trimester trimester 00 [facility] Branch Anxiety Anxiety Disease Active 2021-10 Univers disorder, disorder, 10-19 [place]spec[place] 00 [facility] [place] Other Other Disease Active 2021-10 Univers depression depression 10-19 it y of 00:00: [place] 00 Medical Branch Bipolar Bipolar Disease Active 2021-10 Univers disorder disorder 10-19 ity of without without 00:00: [place] psychotic psychotic 00 [facility] features features Branch Displaced Displaced Disease Active Overview: Univers fracture fracture 05-01 [place] ity of of fifth of fifth 00:00: g of this [place] as metatarsal metatarsal 00 note Me dical bone, left bone, left might be Branch foot, foot, different initial initial from the encounter encounter original. for closed for closed Added fracture fracture automatic ally from request for surgery [id number] Obesity, Obesity, Disease Active Unive rs Class III, Class III, 6-29 it y of BMI BMI 00:00: [place] 40-49.9 40-49.9 00 Medical (morbid (morbid Branch obesity) obesity) Class 2 Class 2 Disease Active Univers [...] Date Date Clinician NO KNOWN Drug Active [facility] ALLERGIE Class ity of S [facility] Social History Social Habit Start Date Stop Date Quantity Comments Source ASSERTION 2022-07-21 [facility] 00:00:00 [facility] History of Passive smoker [facility] tobacco use [facility] Exposure to 2022-09-06 2022-09-16 Not sure [facility] SARS-CoV-2 00:00:00 10:41:00 [facility] (event) [place] Alcohol intake 2022-09-16 2022-09-16 0 /d [facility] 00:00:00 00:00:00 [facility] Tobacco use and 2022-08-19 2022-08-19 Smokeless tobacco Un iversity of exposure 00:00:00 00:00:00 non-user [facility] Sex [facility]igned At 2000 [facility] Smoking Status Start Date Stop Date Source Ex-smoker 2022-08-19 00:00:00 2022-08-19 [facility]:00[facility] [facility] Smokes tobacco daily 2022-04-27 00:00:00 [facility] Medications Ordered Filled Start Stop Current Ordering Indication Dosage Frequency Signature Comments Components Source Medication Medication Date Date Medication? Clinician (SIG) Name Name lamoTRIgine 2021-10 Yes 400mg Take 400 U nivers 200 mg 1-23 mg by ity of tablet 11:24: mouth in [place] the Medical morning. Branch valGANciclo 2021-10 Yes 450mg Take 450 U nivers vir 450 mg 1-23 mg by ity of tablet 11:24: mouth in [place] 02 the Medical morning. Branch hydrOXYzine 2021-10 Yes 25mg Take 25 mg Univers 25 mg 1-23 by mouth ity of tablet 11:24: every 6 [place] [address] (six) Medical hours. Branch lamoTRIgine 2021-10 Yes 400mg Take 400 U nivers 200 mg 1-23 mg by ity of tablet 11:24: mouth in [place] 02 the Medical morning. Branch valGANciclo 2021-10 Yes 450mg Take 450 U nivers vir 450 mg 1-23 mg by ity of tablet 11:24: mouth in [place] 02 the Medical morning. Branch hydrOXYzine 2021-10 Yes 25mg Take 25 mg Univers 25 mg 1-23 by mouth ity of tablet 11:24: every 6 [place] [address] (six) Medical hours. Branch lamoTRIgine 2021-10 Yes 400mg Take 400 U nivers 200 mg 1-23 mg by ity of tablet 11:24: mouth in [place] 02 the Medical morning. Branch valGANciclo 2021-10 Yes 450mg Take 450 U nivers vir 450 mg 1-23 mg by ity of tablet 11:24: mouth in [place] [address] the Medical morning. Branch hydrOXYzine 2021-10 Yes 25mg Take 25 mg Univers 25 mg 1-23 by mouth ity of tablet 11:24: every 6 [place] [address] (six) Medical hours. Branch lamoTRIgine 2021-10 Yes 400mg Take 400 U nivers 200 mg 1-23 mg by ity of tablet 11:24: mouth in [place] the Medical morning. Branch valGANciclo 2021-10 Yes 450mg Take 450 U nivers vir 450 mg 1-23 mg by ity of tablet 11:24: mouth in [place] 02 the Medical morning. Branch hydrOXYzine 2021-10 Yes 25mg Take 25 mg Univers 25 mg 1-23 by mouth ity of tablet 11:24: every 6 [place] [address] (six) Medical hours. Branch lamoTRIgine 2021-10 Yes 400mg Take 400 U nivers 200 mg 1-23 mg by ity of tablet 11:24: mouth in [place] the Medical morning. Branch valGANciclo 2021-10 Yes 450mg Take 450 U nivers vir 450 mg 1-23 mg by ity of tablet 11:24: mouth in [place] 02 the Medical morning. Branch hydrOXYzine 2021-10 Yes 25mg Take 25 mg Univers 25 mg 1-23 by mouth ity of tablet 11:24: every 6 [place] [address] (six) Medical hours. Branch PNV 2021-10 Yes [id number] Take 1 Univers 102-iron-fo 1-23 TAB-CAP/M2 it y of late-dha 00:00: by mouth [place] (VITAFOL FE 00 daily. Medica l PLUS) 90 mg Branch iron- 1 mg-200 mg Cap PNV 2021-10 Yes [id number] Take 1 Univers 102-iron-fo -23 TAB-CAP/M2 it y of 00:00: by mouth [place] (VITAFOL FE 00 daily. Medica l PLUS) 90 mg Branch iron- 1 mg-200 mg Cap PNV 2021-10 Yes [id number] Take 1 Univers 102-iron-fo -23 TAB-CAP/M2 it y of 00:00: by mouth [place] (VITAFOL FE 00 daily. Medica l PLUS) 90 mg Branch iron- 1 mg-200 mg Cap cephALEXin 2021-10- Yes [id number] 500mg Take 1 Univers 500 mg 11-02 capsule by ity of capsule 00:00: 05:59 mouth 4 [place] 00 :00 (four) Medical times Branch daily for 10 days. cephALEXin 2021-10- Yes [id number] 500mg Take 1 Univers 500 mg 11-02 capsule by ity of capsule 00:00: 05:59 mouth 4 [place] 00 :00 (four) Medical times Branch daily for 10 days. insulin 2021-10 Yes [id number] Inject 6 U nivers lispro 1-15 units with ity of (HUMALOG 00:00: breakfast, [place] as KWIKPEN 00 8 units Medical INSULIN) with lunch Branc h 100 unit/mL ,8 units pen with injector dinner and 4 units with snacks, Max daily dose 36 units Insulin 2021-10 Yes [id number] 10U inject 10 Univers [place] 1-15 Units ity of ([place] skin in Medical U-100 the Branch INSULN) 100 morning. unit/mL (3 mL) injection insulin 2021-10 Yes [id number] Inject 6 U nivers lispro 1-15 units with ity of (HUMALOG 00:00: breakfast, [place] as KWIKPEN 00 8 units Medical INSULIN) with lunch Branc h 100 unit/mL ,8 units pen with injector dinner and 4 units with snacks, Max daily dose 36 units Insulin 2021-10 Yes [id number] 10U inject 10 Univers [place] 1-15 Units ity of (LEVEMIR 00:00: [place] skin in Medical U-100 the Branch INSU) 100 morning. unit/mL (3 mL) injection Insulin 2021-10 Yes [id number] Use 5 Univ ers [place], 1-15 times ity of Disposable, 00:00: daily with [place] (BD INSULIN 00 insulin. Medi damien PEN NEEDLE Dx E11.65 Bran ch UF) 31 gauge x 5/16" Ndle insulin 2021-10 Yes [id number] Inject 6 U nivers lispro 1-15 units with ity of (HUMALOG 00:00: breakfast, [place] as KWIKPEN 00 8 units Medical INSULIN) with lunch Branc h 100 unit/mL ,8 units pen with injector dinner and 4 units with snacks, Max daily dose 36 units Insulin 2021-10 Yes [id number] 10U inject 10 Univers [place] 1-15 Units ity of ([place]EM[place]:00: [place] skin [place] [facility] the [place] INSU) 100 morning. unit/mL (3 mL) injection Insulin 2021-10 Yes [id number] Use 5 Univ ers [place], 1-15 times ity of Disposable, 00:00: daily with [place] (BD INSULIN 00 insulin. Medi damien PEN NEEDLE Dx E11.65 Bran ch UF) 31 gauge x 5/16" Ndle insulin 2021-10 Yes [id number] Inject 6 U nivers lispro 1-15 units with ity of (HUMALOG 00:00: breakfast, [place] as KWIKPEN 00 8 units Medical INSULIN) with lunch Branc h 100 unit/mL ,8 units pen with injector dinner and 4 units with snacks, Max daily dose 36 units Insulin 2021-10 Yes [id number] 10U inject 10 Univers [place] 1-15 Units ity of ([place] 00:[place]: [place] skin [place] [facility] the Branch INSU) 100 morning. unit/mL (3 mL) injection Insulin 2021-10 Yes [id number] Use 5 Univ ers [place], 1-15 times ity of Disposable, 00:00: daily with [place] (BD INSULIN 00 insulin. Medi damien PEN NEEDLE Dx E11.65 Bran ch UF) 31 gauge x 5/16" Ndle insulin 2021-10 Yes [id number] Inject 6 U nivers lispro 1-15 units with ity of (HUMALOG 00:00: breakfast, [place] as KWIKPEN 00 8 units Medical INSULIN) with lunch Branc h 100 unit/mL ,8 units pen with injector dinner and 4 units with snacks, Max daily dose 36 units Insulin 2021-10 Yes [id number] 10U inject 10 Univers [place] 1-15 Units ity of ([place]EM[place] 00:00: [place] skin in Medical U-100 the Branch INSU) 100 morning. unit/mL (3 mL) injection Insulin 2021-10 Yes [id number] Use 5 Univ ers [place], 1-15 times ity of Disposable, 00:00: daily with [place] (BD INSULIN 00 insulin. Medi damien PEN NEEDLE Dx E11.65 Bran [facility]) 31 gauge x 5/16" Ndle insulin 2021-10 Yes [id number] Inject 6 U nivers lispro 1-15 units with ity of (HUMALOG 00:00: breakfast, [place] as KWIKPEN 00 8 units Medical INSULIN) with lunch Branc h 100 unit/mL ,8 units pen with injector dinner and 4 units with snacks, Max daily dose 36 units Insulin 2021-10 Yes [id number] 10U inject 10 Univers [place] 1-15 Units ity of (LEVEMIR 00:00: [place] skin in Medical [facility] the [place] INSU) 100 morning. unit/mL (3 mL) injection Insulin 2021-10 Yes [id number] Use 5 Univ ers [place], 1-15 times ity of Disposable, 00:00: daily with [place] (BD INSULIN 00 insulin. Medi damien PEN NEEDLE Dx E11.65 Bran UF) 31 gauge x 5/16" Ndle insulin 2021-10 Yes [id number] Inject 6 U nivers lispro 1-15 units with ity of (HUMALOG 00:00: breakfast, [place] as KWIKPEN 00 8 units Medical INSULIN) with lunch Branc h 100 unit/mL ,8 units pen with injector dinner and 4 units with snacks, Max daily dose 36 units Insulin 2021-10 Yes [id number] 10U inject 10 Univers [place] 1-15 Units ity of (LEVEM[place] 00:00[place] skin in Medical U-100 the Branch INSU) 100 morning. unit/mL (3 mL) injection Insulin 2021-10 Yes [id number] Use 5 Univ ers [place], 1-15 times ity of Disposable, 00:00: daily with [place] (BD INSULIN 00 insulin. Medi damien PEN NEEDLE Dx E11.65 Bran ch UF) 31 gauge x 5/16" Ndle insulin 2021-10 Yes [id number] Inject 6 U nivers lispro 1-15 units with ity of (HUMALOG 00:00: breakfast, [place] as KWIKPEN 00 8 units Medical INSULIN) with lunch Branc h 100 unit/mL ,8 units pen with injector dinner and 4 units with snacks, Max daily dose 36 units Insulin 2021-10 Yes [id number] 10U inject 10 Univers [place] 1-15 Units ity of (LEVEMIR 00:[place] skin [place] [facility] the [place] INSU) 100 morning. unit/mL (3 mL) injection Insulin 2021-10 Yes [id number] Use 5 Univ ers [place], 1-15 times ity of Disposable, 00:00: daily with [place] (BD INSULIN 00 insulin. Medi damien PEN NEEDLE Dx E11.65 Bran ch UF) 31 gauge x 5/16" Ndle insulin 2021-10 Yes [id number] Inject 6 U nivers lispro 1-15 units with ity of (HUMALOG 00:00: breakfast, [place] as KWIKPEN 00 8 units Medical INSULIN) with lunch Branc h 100 unit/mL ,8 units pen with injector dinner and 4 units with snacks, Max daily dose 36 units Insulin 2021-10 Yes [id number] 10U inject 10 Univers [place] 1-15 Units ity of (LEVEMIR 00:00[place] skin [place] [facility] the Branch INSU) 100 morning. unit/mL (3 mL) injection Insulin 2021-10 Yes [id number] Use 5 Univ ers [place], 1-15 times ity of Disposable, 00:00: daily with [place] (BD INSULIN 00 insulin. Medi damien PEN NEEDLE Dx E11.65 Bran ch UF) 31 gauge x 5/16" Ndle insulin 2021-10 Yes [id number] Inject 6 U nivers lispro 1-15 units with ity of (HUMALOG 00:00: breakfast, [place] as KWIKPEN 00 8 units Medical INSULIN) with lunch Branc h 100 unit/mL ,8 units pen with injector dinner and 4 units with snacks, Max daily dose 36 units Insulin 2021-10 Yes [id number] 10U inject 10 Univers [place] 1-15 Units ity of ([place]EM[place] 00:[place] skin in Medical U-100 the Branch INSU) 100 morning. unit/mL (3 mL) injection Insulin 2021-10 Yes [id number] Use 5 Univ ers [place], 1-15 times ity of Disposable, 00:00: daily with [place] (BD INSULIN 00 insulin. Medi damien PEN NEEDLE Dx E11.65 Bran ch UF) 31 gauge x 5/16" Ndle insulin 2021-10 Yes [id number] Inject 6 U nivers lispro 1-15 units with ity of (HUMALOG 00:00: breakfast, [place] as KWIKPEN 00 8 units Medical INSULIN) with lunch Branc h 100 unit/mL ,8 units pen with injector dinner and 4 units with snacks, Max daily dose 36 units Insulin 2021-10 Yes [id number] 10U inject 10 Univers [place] 1-15 Units ity of (LEVEMIR 00:00: [place] skin in [facility] the [place] INSU) 100 morning. unit/mL (3 mL) injection Insulin 2021-10 Yes [id number] Use 5 Univ ers [place], 1-15 times ity of Disposable, 00:00: daily with [place] (BD INSULIN 00 insulin. Medi damien PEN NEEDLE Dx E11.65 Bran ch UF) 31 gauge x 5/16" Ndle insulin 2021-10 Yes [id number] Inject 6 U nivers lispro 1-15 units with ity of (HUMALOG 00:00: breakfast, [place] as KWIKPEN 00 8 units Medical INSULIN) with lunch Branc h 100 unit/mL ,8 units pen with injector dinner and 4 units with snacks, Max daily dose 36 units Insulin 2021-10 Yes [id number] 10U inject 10 Univers [place] 1-15 Units ity of (LEVEMIR 00:00: [place] skin in Medical U-100 the Branch INSULN) 100 morning. unit/mL (3 mL) injection Insulin 2021-10 Yes [id number] Use 5 Univ ers [place], 1-15 times ity of Disposable, 00:00: daily with [place] (BD INSULIN 00 insulin. Medi damien PEN NEEDLE Dx E11.65 Bran ch UF) 31 gauge x 5/16" Ndle insulin 2021-10 Yes [id number] Inject 6 U nivers lispro 1-15 units with ity of (HUMALOG 00:00: breakfast, [place] as KWIKPEN 00 8 units Medical INSULIN) with lunch Branc h 100 unit/mL ,8 units pen with injector dinner and 4 units with snacks, Max daily dose 36 units Insulin 2021-10 Yes [id number] 10U inject 10 Univers [place] 1-15 Units ity of (LEVEMIR 00:00: [place] skin in Medical U-100 the Branch INSULN) 100 morning. unit/mL (3 mL) injection Insulin 2021-10 Yes [id number] Use 5 Univ ers [place], 1-15 times ity of Disposable, 00:00: daily with [place] (BD INSULIN 00 insulin. Medi damien PEN NEEDLE Dx E11.65 Bran ch UF) 31 gauge x 5/16" Ndle ARIPiprazol 2021-10- No 20mg Take 20 mg Univers e 20 mg 10-21 by mouth ity of tbsp 15:20: 00:00 daily. 11 : [facility] ARIPiprazol 2021-10- No 20mg Take 20 mg Univers e 20 mg 10-21 by mouth ity of tbsp 15:20: 00:00 daily. [place] : [facility] ARIPiprazol 2021-10- No 20mg Take 20 mg Univers e 20 mg 10-21 by mouth ity of tbsp 15:20: 00:00 daily. [place] : [facility] ARIPiprazol 2021-10- No 20mg Take 20 mg Univers e 20 mg 10-21 by mouth ity of tbsp 15:20: 00:00 daily. : [facility] Branch lamoTRIgine 2022-1 Yes 400mg Take 400 U nivers 200 mg 1-11 mg by ity of tablet 15:20: mouth in [place] 00 the Medical morning. Branch lamoTRIgine 2021-1 Yes 400mg Take 400 U nivers 200 mg 1-11 mg by ity of tablet 15:20: mouth in [place] 00 the Medical morning. Branch lamoTRIgine 2021-1 Yes 400mg Take 400 U nivers 200 mg 1-11 mg by ity of tablet 15:20: mouth in [place] 00 the Medical morning. Branch lamoTRIgine 2021-1 Yes 400mg Take 400 U nivers 200 mg 1-11 mg by ity of tablet 15:20: mouth in [place] 00 the Medical morning. Branch lamoTRIgine 2021-1 Yes 400mg Take 400 U nivers 200 mg 1-11 mg by ity of tablet 15:20: mouth in [place] 00 the Medical morning. Branch lamoTRIgine 2021-1 Yes 400mg Take 400 U nivers 200 mg 1-11 mg by ity of tablet 15:20: mouth in [place] 00 the Medical morning. Branch lamoTRIgine 2021-1 Yes 400mg Take 400 U nivers 200 mg 1-11 mg by ity of tablet 15:20: mouth in [place] 00 the Medical morning. Branch lamoTRIgine 2021-1 Yes 400mg Take 400 U nivers 200 mg 1-11 mg by ity of tablet 15:20: mouth in [place] 00 the Medical morning. Branch lamoTRIgine 2021-1 Yes 400mg Take 400 U nivers 200 mg 1-11 mg by ity of tablet 15:20: mouth in [place] 00 the Medical morning. Branch lamoTRIgine 2-1 Yes 400mg Take 400 U nivers 200 mg 1-11 mg by ity of tablet 15:20: mouth in [place] 00 the Medical morning. Branch lamoTRIgine 2-1 Yes 400mg Take 400 U nivers 200 mg 1-11 mg by ity of tablet 15:20: mouth in [place] 00 the Medical morning. Branch lamoTRIgine 2-1 Yes 400mg Take 400 U nivers 200 mg 1-11 mg by ity of tablet 15:20: mouth in [place] 00 the Medical morning. Branch lamoTRIgine 2-1 Yes 400mg Take 400 U nivers 200 mg 1-11 mg by ity of tablet 15:20: mouth in [place] 00 the Medical morning. Branch lamoTRIgine 2021- Yes 400mg Take 400 U nivers 200 mg 1-11 mg by ity of tablet 15:20: mouth in [place] 00 the Medical morning. Branch lamoTRIgine 2021- Yes 400mg Take 400 U nivers 200 mg 1-11 mg by ity of tablet 15:20: mouth in [place] 00 the Medical morning. Branch lamoTRIgine 2021- Yes 400mg Take 400 U nivers 200 mg 1-11 mg by ity of tablet 15:20: mouth in [place] 00 the Medical morning. Branch lamoTRIgine 2021- Yes 400mg Take 400 U nivers 200 mg 1-11 mg by ity of tablet 15:20: mouth in [place] 00 the Medical morning. Branch valGANciclo 2021- Yes 450mg Take 450 U nivers vir 450 mg 1-11 mg by ity of tablet 15:18: mouth in [place] [address] the Medical morning. Branch valGANciclo 2021- Yes 450mg Take 450 U nivers vir 450 mg 1-11 mg by ity of tablet 15:18: mouth in [place] [address] the Medical morning. Branch valGANciclo 2021- Yes 450mg Take 450 U nivers vir 450 mg 1-11 mg by ity of tablet 15:18: mouth in [place] [address] the Medical morning. Branch valGANciclo 2021- Yes 450mg Take 450 U nivers vir 450 mg 1-11 mg by ity of tablet 15:18: mouth in [place] [address] the Medical morning. Branch valGANciclo 2021- Yes 450mg Take 450 U nivers vir 450 mg 1-11 mg by ity of tablet 15:18: mouth in [place] [address] the Medical morning. Branch valGANciclo 2021- Yes 450mg Take 450 U nivers vir 450 mg 1-11 mg by ity of tablet 15:18: mouth in [place] [address] the Medical morning. Branch valGANciclo 2021- Yes 450mg Take 450 U nivers vir 450 mg 1-11 mg by ity of tablet 15:18: mouth in [place] [address] the Medical morning. Branch valGANciclo 2021- Yes 450mg Take 450 U nivers vir 450 mg 1-11 mg by ity of tablet 15:18: mouth in [place] [address] the Medical morning. Branch valGANciclo 2021-10 Yes 450mg Take 450 U nivers vir 450 mg 1-11 mg by ity of tablet 15:18: mouth in [place] [address] the Medical morning. Branch valGANciclo 2021-10 Yes 450mg Take 450 U nivers vir 450 mg 1-11 mg by ity of tablet 15:18: mouth in [place] [address] the Medical morning. Branch valGANciclo 2021-10 Yes 450mg Take 450 U nivers vir 450 mg 1-11 mg by ity of tablet 15:18: mouth in [place] [address] the Medical morning. Branch valGANciclo 2021-10 Yes 450mg Take 450 U nivers vir 450 mg 1-11 mg by ity of tablet 15:18: mouth in [place] [address] the Medical morning. Branch valGANciclo 2021-10 Yes 450mg Take 450 U nivers vir 450 mg 1-11 mg by ity of tablet 15:18: mouth in [place] [address] the Medical morning. Branch valGANciclo 2021-10 Yes 450mg Take 450 U nivers vir 450 mg 1-11 mg by ity of tablet 15:18: mouth in [place] [address] the Medical morning. Branch valGANciclo 2021-10 Yes 450mg Take 450 U nivers vir 450 mg 1-11 mg by ity of tablet 15:18: mouth in [place] [address] the Medical morning. Branch valGANciclo 2021-10 Yes 450mg Take 450 U nivers vir 450 mg 1-11 mg by ity of tablet 15:18: mouth in [place] [address] the Medical morning. Branch valGANciclo 2021-10 Yes 450mg Take 450 U nivers vir 450 mg 1-11 mg by ity of tablet 15:18: mouth in [place] [address] the Medical morning. Branch lithium 2021-10- No 300mg Take 300 Univ ers carbonate 1-11 11-11 mg by ity of 300 mg 15:18: 00:00 mouth [place] tablet 16 :00 every Medical evening. Branch lithium 2021-10- No 300mg Take 300 Univ ers carbonate 1-11 11-11 mg by ity of 300 mg 15:18: 00:00 mouth [place] tablet 16 :00 every Medical evening. Branch lithium 2021-10- No 300mg Take 300 Univ ers carbonate 1-11 11-11 mg by ity of 300 mg 15:18: 00:00 mouth [place] tablet 16 :00 every Medical evening. [place] lithium 2021-10- No 300mg Take 300 Univ ers carbonate 1-11 11-11 mg by ity of 300 mg 15:18: 00:00 mouth [place] tablet 16 :00 every Medical evening. Branch hydrOXYzine 2021-10 Yes 25mg Take 25 mg Univers 25 mg 1-11 by mouth ity of tablet 15:17: every 6 [place] 02 (six) Medical hours. Branch hydrOXYzine 2021-10 Yes 25mg Take 25 mg Univers 25 mg 1-11 by mouth ity of tablet 15:17: every 6 [place] 02 (six) Medical hours. Branch hydrOXYzine 2021-10 Yes 25mg Take 25 mg Univers 25 mg 1-11 by mouth ity of tablet 15:17: every 6 [place] 02 (six) Medical hours. Branch hydrOXYzine 2021-10 Yes 25mg Take 25 mg Univers 25 mg 1-11 by mouth ity of tablet 15:17: every 6 [place] 02 (six) Medical hours. Branch hydrOXYzine 2021-10 Yes 25mg Take 25 mg Univers 25 mg 1-11 by mouth ity of tablet 15:17: every 6 [place] 02 (six) Medical hours. Branch hydrOXYzine 2021-10 Yes 25mg Take 25 mg Univers 25 mg 1-11 by mouth ity of tablet 15:17: every 6 [place] 02 (six) Medical hours. Branch hydrOXYzine 2021-10 Yes 25mg Take 25 mg Univers 25 mg 1-11 by mouth ity of tablet 15:17: every 6 [place] 02 (six) Medical hours. Branch hydrOXYzine 2021-10 Yes 25mg Take 25 mg Univers 25 mg 1-11 by mouth ity of tablet 15:17: every 6 [place] 02 (six) Medical hours. Branch hydrOXYzine 2021-10 Yes 25mg Take 25 mg Univers 25 mg 1-11 by mouth ity of tablet 15:17: every 6 [place] 02 (six) Medical hours. Branch hydrOXYzine 2021-10 Yes 25mg Take 25 mg Univers 25 mg 1-11 by mouth ity of tablet 15:17: every 6 [place] 02 (six) Medical hours. Branch hydrOXYzine 2021-10 Yes 25mg Take 25 mg Univers 25 mg 1-11 by mouth ity of tablet 15:17: every 6 [place] 02 (six) Medical hours. Branch hydrOXYzine 2021-10 Yes 25mg Take 25 mg Univers 25 mg 1-11 by mouth ity of tablet 15:17: every 6 [place] 02 (six) Medical hours. Branch hydrOXYzine 2021-10 Yes 25mg Take 25 mg Univers 25 mg 1-11 by mouth ity of tablet 15:17: every 6 [place] 02 (six) Medical hours. Branch hydrOXYzine 2021-10 Yes 25mg Take 25 mg Univers 25 mg 1-11 by mouth ity of tablet 15:17: every 6 [place] 02 (six) Medical hours. Branch hydrOXYzine 2021-10 Yes 25mg Take 25 mg Univers 25 mg 1-11 by mouth ity of tablet 15:17: every 6 [place] 02 (six) Medical hours. Branch hydrOXYzine 2021-10 Yes 25mg Take 25 mg [facility] 25 mg 1-11 by mouth ity of tablet 15:17: every 6 [place] 02 (six) Medical hours. Branch hydrOXYzine 2021-10 Yes 25mg Take 25 mg [facility] 25 mg 1-11 by mouth ity of tablet 15:17: every 6 [place] 02 (six) Medical hours. Branch ARIPiprazol 2021-10 Yes 20mg Take 20 mg [facility] e 20 mg 1-09 by mouth ity of tbsp 14:39: daily. [place] [address] Medical Branch lamoTRIgine 2021-10 Yes 400mg Take 400 U nivers 200 mg 1-09 mg by ity of tablet 14:39: mouth in [place] [address] the Medical morning. Branch lithium 2021-10 Yes 300mg Take 300 Unive rs carbonate 1-09 mg by ity of 300 mg 14:39: mouth [place] tablet 59 every Medical evening. Branch valGANciclo 2021-10 Yes 450mg Take 450 U nivers vir 450 mg 1-09 mg by ity of tablet 14:39: mouth in [place] [address] the Medical morning. Branch hydrOXYzine 2021-10 Yes 25mg Take 25 mg [facility] 25 mg 1-09 by mouth ity of tablet 14:39: every 6 [place] [address] (six) Medical hours. Branch ARIPiprazol 2021-10 Yes 20mg Take 20 mg [facility] e 20 mg 1-09 by mouth ity of tbsp 14:39: daily. [place] [address] Medical Branch lamoTRIgine 2022-1 Yes 400mg Take 400 U nivers 200 mg 1-09 mg by ity of tablet 14:39: mouth in [place] [address] the Medical morning. Branch lithium 2021-10 Yes 300mg Take 300 Unive rs carbonate 1-09 mg by ity of 300 mg 14:39: mouth [place] tablet 59 every Medical evening. Branch valGANciclo 2021-10 Yes 450mg Take 450 U nivers vir 450 mg 1-09 mg by ity of tablet 14:39: mouth in [place] [address] the Medical morning. Branch hydrOXYzine 2021-10 Yes 25mg Take 25 mg [facility] 25 mg 1-09 by mouth ity of tablet 14:39: every 6 [place] [address] (six) Medical hours. Branch ARIPiprazol 2021-10 Yes 20mg Take 20 mg [facility] e 20 mg 1-09 by mouth ity of tbsp 14:39: daily. [place] [address] Medical Branch lamoTRIgine 2021-10 Yes 400mg Take 400 U nivers 200 mg 1-09 mg by ity of tablet 14:39: mouth in [place] [address] the Medical morning. Branch lithium 2021-10 Yes 300mg Take 300 Unive rs carbonate 1-09 mg by ity of 300 mg 14:39: mouth [place] tablet 59 every Medical evening. Branch valGANciclo 2021-10 Yes 450mg Take 450 U nivers vir 450 mg 1-09 mg by ity of tablet 14:39: mouth in [place] [address] the Medical morning. Branch hydrOXYzine 2021-10 Yes 25mg Take 25 mg [facility] 25 mg 1-09 by mouth ity of tablet 14:39: every 6 [place] [address] (six) Medical hours. Branch pyridoxine, 2021-10 Yes [id number] 25mg Take 1 [facility] VITAMIN 1-09 tablet by ity of B-6, 00:00: mouth [place] (VITAMIN 00 every 6 Medical B-6) 25 mg (six) Branch tablet hours as needed for Nausea and Vomiting (N/V). doxylamine 2021-10 Yes [id number] 25mg Take 1 U nivers (UNISOM, 1-09 tablet by ity of DOXYLAMINE, 00:00: mouth [place] 25 mg 00 bedtime as Medica l tablet needed for Branch Nausea and Vomiting (N/V). pyridoxine, 2021-10 Yes [id number] 25mg Take 1 [facility] VITAMIN 1-09 tablet by ity of B-6, 00:00: mouth [place] (VITAMIN 00 every 6 Medical B-6) 25 mg (six) Branch tablet hours as needed for Nausea and Vomiting (N/V). doxylamine 2021-10 Yes [id number] 25mg Take 1 U nivers (UNISOM, 1-09 tablet by ity of DOXYLAMINE, 00:00: mouth [place] ) 25 mg 00 bedtime as Medica l tablet needed for Branch Nausea and Vomiting (N/V). pyridoxine, 2021-10 Yes [id number] 25mg Take 1 [facility] VITAMIN 1-09 tablet by ity of B-6, 00:00: mouth [place] (VITAMIN 00 every 6 Medical B-6) 25 mg (six) Branch tablet hours as needed for Nausea and Vomiting (N/V). doxylamine 2021-10 Yes [id number] 25mg Take 1 [facility] n[facility] (UNISOM, 1-09 tablet by ity of DOXYLAMINE, 00:00: mouth [place] ) 25 mg 00 bedtime as Medica l tablet needed for Branch Nausea and Vomiting (N/V). pyridoxine, 2021-10 Yes [id number] 25mg Take 1 [facility] VITAMIN 1-09 tablet by ity of B-6, 00:00: mouth [place] (VITAMIN 00 every 6 Medical B-6) 25 mg (six) Branch tablet hours as needed for Nausea and Vomiting (N/V). doxylamine 2021-10 Yes [id number] 25mg Take 1 [facility] (UNISOM, 1-09 tablet by ity of DOXYLAMINE, 00:00: mouth [place] ) 25 mg 00 bedtime as Medica l tablet needed for Branch Nausea and Vomiting (N/V). pyridoxine, 2021-10 Yes [id number] 25mg Take 1 [facility] VITAMIN 1-09 tablet by ity of B-6, 00:00: mouth [place] (VITAMIN 00 every 6 Medical B-6) 25 mg (six) Branch tablet hours as needed for Nausea and Vomiting (N/V). doxylamine 2021-10 Yes [id number] 25mg Take 1 [facility] (UNISOM, 1-09 tablet by ity of DOXYLAMINE, 00:00: mouth [place] ) 25 mg 00 bedtime as Medica l tablet needed for Branch Nausea and Vomiting (N/V). pyridoxine, 2021-10 Yes [id number] 25mg Take 1 [facility] VITAMIN 1-09 tablet by ity of B-6, 00:00: mouth [place] (VITAMIN 00 every 6 Medical B-6) 25 mg (six) Branch tablet hours as needed for Nausea and Vomiting (N/V). doxylamine 2021-10 Yes [id number] 25mg Take 1 [facility] n[facility] (UNISOM, 1-09 tablet by ity of DOXYLAMINE, 00:00: mouth [place] ) 25 mg 00 bedtime as Medica l tablet needed for Branch Nausea and Vomiting (N/V). pyridoxine, 2021-10 Yes [id number] 25mg Take 1 [facility] VITAMIN 1-09 tablet by ity of B-6, 00:00: mouth [place] (VITAMIN 00 every 6 Medical B-6) 25 mg (six) Branch tablet hours as needed for Nausea and Vomiting (N/V). doxylamine 2021-10 Yes [id number] 25mg Take 1 [facility] (UNISOM, 1-09 tablet by ity of DOXYLAMINE, 00:00: mouth [place] ) 25 mg 00 bedtime as Medica l tablet needed for Branch Nausea and Vomiting (N/V). pyridoxine, 2021-10 Yes [id number] 25mg Take 1 [facility] VITAMIN 1-09 tablet by ity of B-6, 00:00: mouth [place] (VITAMIN 00 every 6 Medical B-6) 25 mg (six) Branch tablet hours as needed for Nausea and Vomiting (N/V). doxylamine 2021-10 Yes [id number] 25mg Take 1 [facility] (UNISOM, 1-09 tablet by ity of DOXYLAMINE, 00:00: mouth [place] ) 25 mg 00 bedtime as Medica l tablet needed for Branch Nausea and Vomiting (N/V). pyridoxine, 2021-10 Yes [id number] 25mg Take 1 [facility] VITAMIN 1-09 tablet by ity of B-6, 00:00: mouth [place] (VITAMIN 00 every 6 Medical B-6) 25 mg (six) Branch tablet hours as needed for Nausea and Vomiting (N/V). doxylamine 2021-10 Yes [id number] 25mg Take 1 [facility] (UNISOM, 1-09 tablet by ity of DOXYLAMINE, 00:00: mouth [place] ) 25 mg 00 bedtime as Medica l tablet needed for Branch Nausea and Vomiting (N/V). pyridoxine, 2021-10 Yes [id number] 25mg Take 1 [facility] VITAMIN 1-09 tablet by ity of B-6, 00:00: mouth [place] (VITAMIN 00 every 6 Medical B-6) 25 mg (six) Branch tablet hours as needed for Nausea and Vomiting (N/V). doxylamine 2021-10 Yes [id number] 25mg Take 1 [facility] (UNISOM, 1-09 tablet by ity of DOXYLAMINE, 00:00: mouth [place] ) 25 mg 00 bedtime as Medica l tablet needed for Branch Nausea and Vomiting (N/V). pyridoxine, 2021-10 Yes [id number] 25mg Take 1 [facility] VITAMIN 1-09 tablet by ity of B-6, 00:00: mouth [place] (VITAMIN 00 every 6 Medical B-6) 25 mg (six) Branch tablet hours as needed for Nausea and Vomiting (N/V). doxylamine 2021-10 Yes [id number] 25mg Take 1 [facility] (UNISOM, 1-09 tablet by ity of DOXYLAMINE, 00:00: mouth [place] ) 25 mg 00 bedtime as Medica l tablet needed for Branch Nausea and Vomiting (N/V). pyridoxine, 2021-10 Yes [id number] 25mg Take 1 [facility] VITAMIN 1-09 tablet by ity of B-6, 00:00: mouth [place] (VITAMIN 00 every 6 Medical B-6) 25 mg (six) Branch tablet hours as needed for Nausea and Vomiting (N/V). doxylamine 2021-10 Yes [id number] 25mg Take 1 [facility] (UNISOM, 1-09 tablet by ity of DOXYLAMINE, 00:00: mouth [place] ) 25 mg 00 bedtime as Medica l tablet needed for Branch Nausea and Vomiting (N/V). pyridoxine, 2021-10 Yes [id number] 25mg Take 1 [facility] VITAMIN 1-09 tablet by ity of B-6, 00:00: mouth [place] (VITAMIN 00 every 6 Medical B-6) 25 mg (six) Branch tablet hours as needed for Nausea and Vomiting (N/V). doxylamine 2021-10 Yes [id number] 25mg Take 1 [facility] (UNISOM, 1-09 tablet by ity of DOXYLAMINE, 00:00: mouth [place] ) 25 mg 00 bedtime as Medica l tablet needed for Branch Nausea and Vomiting (N/V). pyridoxine, 2021-10 Yes [id number] 25mg Take 1 [facility] VITAMIN 1-09 tablet by ity of B-6, 00:00: mouth [place] (VITAMIN 00 every 6 Medical B-6) 25 mg (six) Branch tablet hours as needed for Nausea and Vomiting (N/V). doxylamine 2021-10 Yes [id number] 25mg Take 1 [facility] (UNISOM, 1-09 tablet by ity of DOXYLAMINE, 00:00: mouth [place] ) 25 mg 00 bedtime as Medica l tablet needed for Branch Nausea and Vomiting (N/V). pyridoxine, 2021-10 Yes [id number] 25mg Take 1 [facility] VITAMIN 1-09 tablet by ity of B-6, 00:00: mouth [place] (VITAMIN 00 every 6 Medical B-6) 25 mg (six) Branch tablet hours as needed for Nausea and Vomiting (N/V). doxylamine 2021-10 Yes [id number] 25mg Take 1 [facility] n[facility] (UNISOM, 1-09 tablet by ity of DOXYLAMINE, 00:00: mouth [place] ) 25 mg 00 bedtime as Medica l tablet needed for Branch Nausea and Vomiting (N/V). pyridoxine, 2021-10 Yes [id number] 25mg Take 1 [facility] VITAMIN 1-09 tablet by ity of B-6, 00:00: mouth [place] (VITAMIN 00 every 6 Medical B-6) 25 mg (six) Branch tablet hours as needed for Nausea and Vomiting (N/V). doxylamine 2021-10 Yes [id number] 25mg Take 1 [facility] (UNISOM, 1-09 tablet by ity of DOXYLAMINE, 00:00: mouth [place] ) 25 mg 00 bedtime as Medica l tablet needed for Branch Nausea and Vomiting (N/V). pyridoxine, 2021-10 Yes [id number] 25mg Take 1 [facility] VITAMIN 1-09 tablet by ity of B-6, 00:00: mouth [place] (VITAMIN 00 every 6 Medical B-6) 25 mg (six) Branch tablet hours as needed for Nausea and Vomiting (N/V). doxylamine 2021-10 Yes [id number] 25mg Take 1 [facility] (UNISOM, 1-09 tablet by ity of DOXYLAMINE, 00:00: mouth [place] ) 25 mg 00 bedtime as Medica l tablet needed for Branch Nausea and Vomiting (N/V). pyridoxine, 2021-10 Yes [id number] 25mg Take 1 [facility] VITAMIN 1-09 tablet by ity of B-6, 00:00: mouth [place] (VITAMIN 00 every 6 Medical B-6) 25 mg (six) Branch tablet hours as needed for Nausea and Vomiting (N/V). doxylamine 2021-10 Yes [id number] 25mg Take 1 [facility] (UNISOM, 1-09 tablet by ity of DOXYLAMINE, 00:00: mouth [place] ) 25 mg 00 bedtime as Medica l tablet needed for Branch Nausea and Vomiting (N/V). pyridoxine, 2021-10 Yes [id number] 25mg Take 1 [facility] VITAMIN 1-09 tablet by ity of B-6, 00:00: mouth [place] (VITAMIN 00 every 6 Medical B-6) 25 mg (six) Branch tablet hours as needed for Nausea and Vomiting (N/V). doxylamine 2021-10 Yes [id number] 25mg Take 1 U n[facility] (UNISOM, 1-09 tablet by ity of DOXYLAMINE, 00:00: mouth [place] ) 25 mg 00 bedtime as Medica l tablet needed for Branch Nausea and Vomiting (N/V). pyridoxine, 2021-10 Yes [id number] 25mg Take 1 [facility] VITAMIN 1-09 tablet by ity of B-6, 00:00: mouth [place] (VITAMIN 00 every 6 Medical B-6) 25 mg (six) Branch tablet hours as needed for Nausea and Vomiting (N/V). doxylamine 2021-10 Yes [id number] 25mg Take 1 U n[facility] (UNISOM, 1-09 tablet by ity of DOXYLAMINE, 00:00: mouth [place] ) 25 mg 00 bedtime as Medica l tablet needed for Branch Nausea and Vomiting (N/V). pyridoxine, 2021-10 Yes [id number] 25mg Take 1 [facility] VITAMIN 1-09 tablet by ity of B-6, 00:00: mouth [place] (VITAMIN 00 every 6 Medical B-6) 25 mg (six) Branch tablet hours as needed for Nausea and Vomiting (N/V). doxylamine 2021-10 Yes [id number] 25mg Take 1 U n[facility] (UNISOM, 1-09 tablet by ity of DOXYLAMINE, 00:00: mouth [place] ) 25 mg 00 bedtime as Medica l tablet needed for Branch Nausea and Vomiting (N/V). pyridoxine, 2021-10 Yes [id number] 25mg Take 1 [facility] VITAMIN 1-09 tablet by ity of B-6, 00:00: mouth [place] (VITAMIN 00 every 6 Medical B-6) 25 mg (six) Branch tablet hours as needed for Nausea and Vomiting (N/V). doxylamine 2021-10 Yes [id number] 25mg Take 1 U n[facility] (UNISOM, 1-09 tablet by ity of DOXYLAMINE, 00:00: mouth [place] ) 25 mg 00 bedtime as Medica l tablet needed for Branch Nausea and Vomiting (N/V). pyridoxine, 2021-10 Yes [id number] 25mg Take 1 [facility] VITAMIN 1-09 tablet by ity of B-6, 00:00: mouth [place] (VITAMIN 00 every 6 Medical B-6) 25 mg (six) Branch tablet hours as needed for Nausea and Vomiting (N/V). doxylamine 2021-10 Yes [id number] 25mg Take 1 U nivers (UNISOM, 1-09 tablet by ity of DOXYLAMINE, 00:00: mouth [place] ) 25 mg 00 bedtime as Medica l tablet needed for Branch Nausea and Vomiting (N/V). pyridoxine, 2021-10 Yes [id number] 25mg Take 1 [facility] VITAMIN 1-09 tablet by ity of B-6, 00:00: mouth [place] (VITAMIN 00 every 6 Medical B-6) 25 mg (six) Branch tablet hours as needed for Nausea and Vomiting (N/V). doxylamine 2021-10 Yes [id number] 25mg Take 1 U nivers (UNISOM, 1-09 tablet by ity of DOXYLAMINE, 00:00: mouth [place] ) 25 mg 00 bedtime as Medica l tablet needed for Branch Nausea and Vomiting (N/V). pyridoxine, 2021-10 Yes [id number] 25mg Take 1 [facility] VITAMIN 1-09 tablet by ity of B-6, 00:00: mouth [place] (VITAMIN 00 every 6 Medical B-6) 25 mg (six) Branch tablet hours as needed for Nausea and Vomiting (N/V). doxylamine 2021-10 Yes [id number] 25mg Take 1 U nivers (UNISOM, 1-09 tablet by ity of DOXYLAMINE, 00:00: mouth [place] ) 25 mg 00 bedtime as Medica l tablet needed for Branch Nausea and Vomiting (N/V). blood sugar Yes [id number] Use to [facility] diagnostic 06-29 check ity of (ACCU-CHEK 00:00: blood [place] GUIDE TEST 00 sugar Medical STRIPS) three Branch strip times daily blood sugar 0 Yes [id number] Use to [facility] diagnostic 06-29 check ity of (ACCU-CHEK 00:00: blood [place] GUIDE TEST 00 sugar Medical STRIPS) three Branch strip times daily blood sugar 0 Yes [id number] Use to [facility] diagnostic 06-29 check ity of (ACCU-CHEK 00:00: blood [place] GUIDE TEST 00 sugar Medical STRIPS) three Branch strip times daily blood sugar 2021-0 Yes [id number] Use to [facility] diagnostic 06-29 check ity of (ACCU-CHEK 00:00: blood [place] GUIDE TEST 00 sugar Medical STRIPS) three Branch strip times daily blood sugar 2021-0 Yes [id number] Use to [facility] diagnostic 06-29 check ity of (ACCU-CHEK 00:00: blood [place] GUIDE TEST 00 sugar Medical STRIPS) three Branch strip times daily blood sugar 2021-0 Yes [id number] Use to [facility] diagnostic 06-29 check ity of (ACCU-CHEK 00:00: blood [place] GUIDE TEST 00 sugar Medical STRIPS) three Branch strip times daily blood sugar 2021-0 Yes [id number] Use to [facility] diagnostic 9-19 check ity of (ACCU-CHEK 00:00: blood [place] GUIDE TEST 00 sugar Medical STRIPS) three Branch strip times daily blood sugar 2021-0 Yes [id number] Use to [facility] diagnostic 9-19 check ity of (ACCU-CHEK 00:00: blood [place] GUIDE TEST 00 sugar Medical STRIPS) three Branch strip times daily blood sugar 0 Yes [id number] Use to [facility] diagnostic 9-19 check ity of (ACCU-CHEK 00:00: blood [place] GUIDE TEST 00 sugar Medical STRIPS) three Branch strip times daily blood sugar 0 Yes [id number] Use to [facility] diagnostic 9-19 check ity of (ACCU-CHEK 00:00: blood [place] GUIDE TEST 00 sugar Medical STRIPS) three Branch strip times daily blood sugar 0 Yes [id number] Use to [facility] diagnostic 919 check ity of (ACCU-CHEK 00:00: blood [place] GUIDE TEST 00 sugar Medical STRIPS) three Branch strip times daily blood sugar 0 Yes [id number] Use to [facility] diagnostic 9-19 check ity of (ACCU-CHEK 00:00: blood [place] GUIDE TEST 00 sugar Medical STRIPS) three Branch strip times daily blood sugar 2021-0 Yes [id number] Use to [facility] diagnostic 9-19 check ity of (ACCU-CHEK 00:00: blood [place] GUIDE TEST 00 sugar Medical STRIPS) three Branch strip times daily blood sugar 2021-0 Yes [id number] Use to [facility] diagnostic 9-19 check ity of (ACCU-CHEK 00:00: blood [place] GUIDE TEST 00 sugar Medical STRIPS) three Branch strip times daily blood sugar 2021-0 Yes [id number] Use to [facility] diagnostic 9-19 check ity of (ACCU-CHEK 00:00: blood [place] GUIDE TEST 00 sugar Medical STRIPS) three Branch strip times daily blood sugar 2021-0 Yes [id number] Use to [facility] diagnostic 9-19 check ity of (ACCU-CHEK 00:00: blood [place] GUIDE TEST 00 sugar Medical STRIPS) three Branch strip times daily blood sugar 2021-0 Yes [id number] Use to [facility] diagnostic 9-19 check ity of (ACCU-CHEK 00:00: blood [place] GUIDE TEST 00 sugar Medical STRIPS) three Branch strip times daily blood sugar 2022-0 Yes [id number] Use to [facility] diagnostic 06-29 check ity of (ACCU-CHEK 00:00: blood [place] GUIDE TEST 00 sugar Medical STRIPS) three Branch strip times daily blood sugar Yes [id number] Use to [facility] diagnostic 06-29 check ity of (ACCU-CHEK 00:00: blood [place] GUIDE TEST 00 sugar Medical STRIPS) three Branch strip times daily blood sugar Yes [id number] Use to [facility] diagnostic 06-29 check ity of (ACCU-CHEK 00:00: blood [place] GUIDE TEST 00 sugar Medical STRIPS) three Branch strip times daily blood sugar Yes [id number] Use to [facility] diagnostic 06-29 check ity of (ACCU-CHEK 00:00: blood [place] GUIDE TEST 00 sugar Medical STRIPS) three Branch strip times daily blood sugar Yes [id number] Use to [facility] diagnostic 06-29 check ity of (ACCU-CHEK 00:00: blood [place] GUIDE TEST 00 sugar Medical STRIPS) three Branch strip times daily blood sugar Yes [id number] Use to [facility] diagnostic 06-29 check ity of (ACCU-CHEK 00:00: blood [place] GUIDE TEST 00 sugar Medical STRIPS) three Branch strip times daily blood sugar Yes [id number] Use to [facility] diagnostic 06-29 check ity of (ACCU-CHEK 00:00: blood [place] GUIDE TEST 00 sugar Medical STRIPS) three Branch strip times daily blood sugar Yes [id number] Use to [facility] diagnostic 06-29 check ity of (ACCU-CHEK 00:00: blood [place] GUIDE TEST 00 sugar Medical STRIPS) three Branch strip times daily blood sugar Yes [id number] Use to [facility] diagnostic 06-29 check ity of (ACCU-CHEK 00:00: blood [place] GUIDE TEST 00 sugar Medical STRIPS) three Branch strip times daily blood sugar Yes [id number] Use to [facility] diagnostic 06-29 check ity of (ACCU-CHEK 00:00: blood [place] GUIDE TEST 00 sugar Medical STRIPS) three Branch strip times daily lithium Yes 300mg Take 300 Unive rs carbonate 8-26 mg by ity of 300 mg 16:57: mouth [place] tablet 53 every Medical evening. Branch lithium 0 Yes 300mg Take 300 Unive rs carbonate 8-26 mg by ity of 300 mg 16:57: mouth [place] tablet 53 every Medical evening. Branch lithium 2021-0 Yes 300mg Take 300 Unive rs carbonate 8-26 mg by ity of 300 mg 16:57: mouth [place] tablet 53 every Medical evening. Branch lithium 0 Yes 300mg Take 300 Unive rs carbonate 8-26 mg by ity of 300 mg 16:57: mouth [place] tablet 53 every Medical evening. [place] ARIPiprazol 0 Yes 20mg Take 20 mg [facility] e 20 mg 8-26 by mouth ity of tbsp 16:57: daily. [address] ARIPiprazol 0 Yes 20mg Take 20 mg [facility] e 20 mg 8-26 by mouth ity of tbsp 16:57: daily. [address] ARIPiprazol 0 Yes 20mg Take 20 mg [facility] e 20 mg 8-26 by mouth ity of tbsp 16:57: daily. [address] ARIPiprazol 0 Yes 20mg Take 20 mg [facility] e 20 mg 8-26 by mouth ity of tbsp 16:57: daily. [address] HYDROXYZINE 2021-0 2021- No Take by Un [facility] PAMOATE 8-26 08-26 mouth. ity of ORAL 16:56: 00:00 [place] 59 :00 [facility] HYDROXYZINE 2021-0 2021- No Take by Un cesar PAMOATE 8-26 08-26 mouth. ity of ORAL 16:56: 00:00 [place] 59 :00 [facility] lamoTRIgine 2021-0 Yes 400mg Take 400 U nivers 200 mg 8-26 mg by ity of tablet 16:56: mouth in [place] [address] the Medical morning. Branch lamoTRIgine 2021-0 Yes 400mg Take 400 U nivers 200 mg 8-26 mg by ity of tablet 16:56: mouth in [place] [address] the Medical morning. Branch lamoTRIgine 2021-0 Yes 400mg Take 400 U nivers 200 mg 8-26 mg by ity of tablet 16:56: mouth in [place] [address] the Medical morning. Branch lamoTRIgine 2021-0 Yes 400mg Take 400 U nivers 200 mg 8-26 mg by ity of tablet 16:56: mouth in [place] 52 the Medical morning. Branch valGANciclo 2-0 Yes 450mg Take 450 U nivers vir 8-26 mg by ity of (VALCYTE) 16:55: mouth [place] mg 53 the Medical tablet morning. Branch valGANciclo 2021-0 Yes 450mg Take 450 U [facility]ivers vir 8-26 mg by ity of (VALCYTE) 16:55: mouth [place] mg 53 the Medical tablet morning. Branch valGANciclo 2-0 Yes 450mg Take 450 U [facility] vir 8-26 mg by ity of (VALCYTE) 16:55: mouth [place] mg 53 the Medical tablet morning. Branch valGANciclo 2021-0 Yes 450mg Take 450 U nivers vir 8-26 mg by ity of (VALCYTE) 16:55: mouth [place] mg 53 the Medical tablet morning. Branch metformin 2021-0 Yes [id number] 1000mg Take 2 [facility] ER 500 mg 8-26 tablets by ity of 24 hr 00:00: mouth 2 [place] tablet 00 (two) Medical times Branch daily before breakfast and dinner. glipiZIDE 2021-0 Yes [id number] 5mg Take 1 U nivers XL 5 mg 24 8-26 tablet by ity of hr tablet 00:00: mouth [place] 00 daily with Medical breakfast. Branch semaglutide 2021-0 Yes [id number] .5mg inject 0.5 [facility] (OZEMPIC) 8-26 mg under ity of 0.25 mg or 00:00: the skin [place] as 0.5 mg(2 00 weekly. Medical mg/1.5 mL) Takes on PnIj Wednesday metformin 2021-0 Yes [id number] 1000mg Take 2 [facility] ER 500 mg 8-26 tablets by ity of 24 hr 00:00: mouth 2 [place] tablet 00 (two) Medical times Branch daily before breakfast and dinner. glipiZIDE 2021-0 Yes [id number] 5mg Take 1 U nivers XL 5 mg 24 8-26 tablet by ity of hr tablet 00:00: mouth [place] 00 daily with Medical breakfast. Branch semaglutide 2021-0 Yes [id number] .5mg inject 0.5 [facility] (OZEMPIC) 8-26 mg under ity of 0.25 mg or 00:00: the [place] 0.5 mg(2 00 weekly. Medical mg/1.5 mL) Takes on Branc h PnIj Wednesday metformin 2021-0 Yes [id number] 1000mg Take 2 [facility] ER 500 mg 8-26 tablets by ity of 24 hr 00:00: mouth 2 [place] tablet 00 (two) Medical times Branch daily before breakfast and dinner. glipiZIDE 2021-0 Yes [id number] 5mg Take 1 U nivers XL 5 mg 24 8-26 tablet by ity of hr tablet 00:00: mouth [place] 00 daily with Medical breakfast. Branch semaglutide 2021-0 Yes [id number] .5mg inject 0.5 [facility] (OZEMPIC) 8-26 mg under ity of 0.25 mg or 00:00: the [place] 0.5 mg(2 00 weekly. Medical mg/1.5 mL) Takes on Branc h PnIj Wednesday metformin 2021-0 Yes [id number] 1000mg Take 2 [facility] ER 500 mg 8-26 tablets by ity of 24 hr 00:00: mouth 2 [place] tablet 00 (two) Medical times Branch daily before breakfast and dinner. glipiZIDE 2021-0 Yes [id number] 5mg Take 1 U nivers XL 5 mg 24 8-26 tablet by ity of hr tablet 00:00: mouth [place] 00 daily with Medical breakfast. Branch semaglutide 2021-0 Yes [id number] .5mg inject 0.5 [facility] (OZEMPIC) 8-26 mg under ity of 0.25 mg or 00:00: the [place] 0.5 mg(2 00 weekly. Medical mg/1.5 mL) Takes on Branc h PnIj Wednesday metformin 2021-0 Yes [id number] 1000mg Take 2 [facility] ER 500 mg 8-26 tablets by ity of 24 hr 00:00: mouth 2 [place] tablet 00 (two) Medical times Branch daily before breakfast and dinner. glipiZIDE 2021-0 Yes [id number] 5mg Take 1 U nivers XL 5 mg 24 8-26 tablet by ity of hr tablet 00:00: mouth [place] 00 daily with Medical breakfast. Branch semaglutide 2021-0 Yes [id number] .5mg inject 0.5 [facility] (OZEMPIC) 8-26 mg under ity of 0.25 mg or 00:00: the [place] 0.5 mg(2 00 weekly. Medical mg/1.5 mL) Takes on Branc h PnIj Wednesday metformin 2021-0 Yes [id number] 1000mg Take 2 [facility] ER 500 mg 8-26 tablets by ity of 24 hr 00:00: mouth 2 [place] tablet 00 (two) Medical times Branch daily before breakfast and dinner. glipiZIDE 2021-0 Yes [id number] 5mg Take 1 U nivers XL 5 mg 24 8-26 tablet by ity of hr tablet 00:00: mouth [place] 00 daily with Medical breakfast. Branch semaglutide Yes [id number] .5mg inject 0.5 [facility] (OZEMPIC) 8-26 mg under ity of 0.25 mg or 00:00: the skin [place] 0.5 mg(2 00 weekly. Medical mg/1.5 mL) Takes on Bran h PnIj Wednesday metformin 2021-0 Yes [id number] 1000mg Take 2 [facility] ER 500 mg 8-26 tablets by ity of 24 hr 00:00: mouth 2 [place] tablet 00 (two) Medical times Branch daily before breakfast and dinner. glipiZIDE 2021-0 Yes [id number] 5mg Take 1 U nivers XL 5 mg 24 8-26 tablet by ity of hr tablet 00:00: mouth [place] 00 daily with Medical breakfast. Branch semaglutide 0 Yes [id number] .5mg inject 0.5 [facility] (OZEMPIC) 8-26 mg under ity of 0.25 mg or 00:00: the skin [place] 0.5 mg(2 00 weekly. Medical mg/1.5 mL) Takes on Branc h PnIj Wednesday metformin 2021-0 Yes [id number] 1000mg Take 2 [facility] ER 500 mg 8-26 tablets by ity of 24 hr 00:00: mouth 2 [place] tablet 00 (two) Medical times Branch daily before breakfast and dinner. metformin 2021-0 Yes [id number] 1000mg Take 2 [facility] ER 500 mg 8-26 tablets by ity of 24 hr 00:00: mouth 2 [place] tablet 00 (two) Medical times Branch daily before breakfast and dinner. metformin 2021-0 Yes [id number] 1000mg Take 2 [facility] 500 mg 8-26 tablets by ity of 24 hr 00:00: mouth 2 [place] tablet 00 (two) Medical times Branch daily before breakfast and dinner. metformin 2021-0 Yes [id number] 1000mg Take 2 [facility] 500 mg 8-26 tablets by ity of 24 hr 00:00: mouth 2 [place] tablet 00 (two) Medical times Branch daily before breakfast and dinner. metformin 2021-0 Yes [id number] 1000mg Take 2 [facility] 500 mg 8-26 tablets by ity of 24 hr 00:00: mouth 2 [place] tablet 00 (two) Medical times Branch daily before breakfast and dinner. metformin 2021-0 Yes [id number] 1000mg Take 2 [facility] 500 mg 8-26 tablets by ity of 24 hr 00:00: mouth 2 [place] tablet 00 (two) Medical times Branch daily before breakfast and dinner. metformin 2021-0 Yes [id number] 1000mg Take 2 [facility] 500 mg 8-26 tablets by ity of 24 hr 00:00: mouth 2 [place] tablet 00 (two) Medical times Branch daily before breakfast and dinner. metformin 2021-0 Yes [id number] 1000mg Take 2 [facility] 500 mg 8-26 tablets by ity of 24 hr 00:00: mouth 2 [place] tablet 00 (two) Medical times Branch daily before breakfast and dinner. metformin 2021-0 Yes [id number] 1000mg Take 2 [facility] 500 mg 8-26 tablets by ity of 24 hr 00:00: mouth 2 [place] tablet 00 (two) Medical times Branch daily before breakfast and dinner. metformin 2021-0 Yes [id number] 1000mg Take 2 [facility] 500 mg 8-26 tablets by ity of 24 hr 00:00: mouth 2 [place] tablet 00 (two) Medical times Branch daily before breakfast and dinner. metformin 2021-0 Yes [id number] 1000mg Take 2 [facility] 500 mg 8-26 tablets by ity of 24 hr 00:00: mouth 2 [place] tablet 00 (two) Medical times Branch daily before breakfast and dinner. metformin 2021-0 Yes [id number] 1000mg Take 2 [facility] 500 mg 8-26 tablets by ity of 24 hr 00:00: mouth 2 [place] tablet 00 (two) Medical times Branch daily before breakfast and dinner. metformin 2-0 Yes [id number] 1000mg Take 2 [facility] 500 mg 8-26 tablets by ity of 24 hr 00:00: mouth 2 [place] tablet 00 (two) Medical times Branch daily before breakfast and dinner. metformin 2021-0 Yes [id number] 1000mg Take 2 [facility] 500 mg 8-26 tablets by ity of 24 hr 00:00: mouth 2 [place] tablet 00 (two) Medical times Branch daily before breakfast and dinner. metformin 2021-0 Yes [id number] 1000mg Take 2 [facility] 500 mg 8-26 tablets by ity of 24 hr 00:00: mouth 2 [place] tablet 00 (two) Medical times Branch daily before breakfast and dinner. metformin 2021-0 Yes [id number] 1000mg Take 2 [facility] 500 mg 8-26 tablets by ity of 24 hr 00:00: mouth 2 [place] tablet 00 (two) Medical times Branch daily before breakfast and dinner. metformin 2021-0 Yes [id number] 1000mg Take 2 [facility] 500 mg 8-26 tablets by ity of 24 hr 00:00: mouth 2 [place] tablet 00 (two) Medical times Branch daily before breakfast and dinner. metformin 2021-0 Yes [id number] 1000mg Take 2 [facility] 500 mg 8-26 tablets by ity of 24 hr 00:00: mouth 2 [place] tablet 00 (two) Medical times Branch daily before breakfast and dinner. metformin 2021-0 Yes [id number] 1000mg Take 2 [facility] 500 mg 8-26 tablets by ity of 24 hr 00:00: mouth 2 [place] tablet 00 (two) Medical times Branch daily before breakfast and dinner. metformin 2021-0 Yes [id number] 1000mg Take 2 [facility] 500 mg 8-26 tablets by ity of 24 hr 00:00: mouth 2 [place] tablet 00 (two) Medical times Branch daily before breakfast and dinner. metformin 2021-0 Yes [id number] 1000mg Take 2 [facility] 500 mg 8-26 tablets by ity of 24 hr 00:00: mouth 2 [place] tablet 00 (two) Medical times Branch daily before breakfast and dinner. metformin 2021-0 Yes [id number] 1000mg Take 2 [facility] ER 500 mg 8-26 tablets by ity of 24 hr 00:00: mouth 2 [place] tablet 00 (two) Medical times Branch daily before breakfast and dinner. glipiZIDE 2021- No [id number] 5mg Take 1 [facility] XL 5 mg 24 06-05-11 tablet by ity of hr tablet 00:00: 00:00 mouth [place] 00 :00 daily with Medical breakfast. Branch semaglutide 2021- No [id number] .[id number] inject 0.5 [facility] (OZEMPIC) 8- 11-11 mg under ity o f 0.25 mg or 00:00: 00:00 the skin [place] 0.5 mg(2 00 :00 weekly. Medical mg/1.5 mL) Takes on Branc h PnIj Wednesday glipiZIDE 2021- No [id number] 5mg Take 1 [facility] XL 5 mg 24 06-05- tablet by ity of hr tablet 00:00: 00:00 mouth [place] 00 :00 daily with Medical breakfast. Branch semaglutide No [id number] .5mg inject 0.5 [facility] (OZEMPIC) 06-05 11-11 mg under ity o f 0.25 mg or 00:00: 00:00 the skin [place] 0.5 mg(2 00 :00 weekly. Medical mg/1.5 mL) Takes on Bran h PnIj Wednesday glipiZIDE 2021- No [id number] 5mg Take 1 [facility] XL 5 mg 24 06-05- tablet by ity of hr tablet 00:00: 00:00 mouth [place] 00 :00 daily with Medical breakfast. Branch semaglutide No [id number] .5mg inject 0.5 [facility] (OZEMPIC) - 11-11 mg under ity o f 0.25 mg or 00:00: 00:00 the skin [place] 0.5 mg(2 00 :00 weekly. Medical mg/1.5 mL) Takes on Branc h PnIj Wednesday glipiZIDE 2021- No [id number] 5mg Take 1 [facility] XL 5 mg 24 06-05-11 tablet by ity of hr tablet 00:00: 00:00 mouth [place] 00 :00 daily with Medical breakfast. Branch semaglutide 2021- No [id number] .[id number] inject 0.5 [facility] (OZEMPIC) 8-26 11-11 mg under ity o f 0.25 mg or 00:00: 00:00 the skin [place] 0.5 mg(2 00 :00 weekly. Medical mg/1.5 mL) Takes on Wednesday ARIPiprazol 2021-0 Yes 20mg Take 20 mg [facility] e 20 mg 7-25 by mouth ity of tbsp 14:09: daily. [address] HYDROXYZINE 0 Yes Take by Uni vers PAMOATE 7-25 mouth. ity of ORAL 14:09: [place] [address] Medical Branch lamoTRIgine 2021-0 Yes 400mg Take 400 U nivers 200 mg 7-25 mg by ity of tablet 14:09: mouth in [place] [address] the Medical morning. Branch lithium 2021-0 Yes 300mg Take 300 Unive rs carbonate 7-25 mg by ity of 300 mg 14:09: mouth [place] tablet 54 every Medical evening. Branch valGANciclo 2021-0 Yes 450mg Take 450 U nivers vir 7-25 mg by ity of (VALCYTE) 14:09: mouth in [facility] 450 mg 54 the Medical tablet morning. Branch ARIPiprazol 2021-0 Yes 20mg Take 20 mg [facility] e 20 mg 7-25 by mouth ity of tbsp 14:09: daily. [address] HYDROXYZINE 0 Yes Take by Uni vers PAMOATE 7-25 mouth. ity of ORAL 14:09: [place] [address] Medical Branch lamoTRIgine 2021-0 Yes 400mg Take 400 U nivers 200 mg 7-25 mg by ity of tablet 14:09: mouth in [place] [address] the Medical morning. Branch lithium 2021-0 Yes 300mg Take 300 Unive rs carbonate 7-25 mg by ity of 300 mg 14:09: mouth [place] tablet 54 every Medical evening. Branch valGANciclo 2021-0 Yes 450mg Take 450 U nivers vir 7-25 mg by ity of (VALCYTE) 14:09: mouth in [facility] 450 mg 54 the Medical tablet morning. Branch doxepin 150 2021-0 Yes 150mg Take 150 U nivers mg capsule 7-19 mg by ity of 00:00: mouth in [place] [address] the Medical morning. Branch doxepin 150 2021-0 Yes 150mg Take 150 U nivers mg capsule 7-19 mg by ity of 00:00: mouth in [place] 00 the Medical morning. Branch doxepin 150 2-0 Yes 150mg Take 150 U nivers mg capsule 7-19 mg by ity of 00:00: mouth in [place] 00 the Medical morning. Branch doxepin 150 2-0 Yes 150mg Take 150 U nivers mg capsule 7-19 mg by ity of 00:00: mouth in [place] 00 the Medical morning. Branch doxepin 150 2-0 Yes 150mg Take 150 U nivers mg capsule 7-19 mg by ity of 00:00: mouth in [place] 00 the Medical morning. Branch doxepin 150 2-0 Yes 150mg Take 150 U nivers mg capsule 7-19 mg by ity of 00:00: mouth in [place] 00 the Medical morning. Branch doxepin 150 2-0 Yes 150mg Take 150 U nivers mg capsule 7-19 mg by ity of 00:00: mouth in [place] 00 the Medical morning. Branch doxepin 150 2-0 Yes 150mg Take 150 U nivers mg capsule 7-19 mg by ity of 00:00: mouth in [place] 00 the Medical morning. Branch doxepin 150 2-0 Yes 150mg Take 150 U nivers mg capsule 7-19 mg by ity of 00:00: mouth in [place] 00 the Medical morning. Branch doxepin 150 2-0 2- No 150mg Take 150 [facility] mg capsule 7-19 11-11 mg by ity of 00:00: 00:00 mouth in [place] 00 :00 the Medical morning. Branch doxepin 150 2-0 2- No 150mg Take 150 [facility] mg capsule 7-19 11-11 mg by ity of 00:00: 00:00 mouth in [place] 00 :00 the Medical morning. Branch doxepin 150 2-0 2- No 150mg Take 150 [facility] mg capsule 7-19 11-11 mg by ity of 00:00: 00:00 mouth in [place] 00 :00 the Medical morning. Branch doxepin 150 2-0 2- No 150mg Take 150 [facility] mg capsule 7-19 11-11 mg by ity of 00:00: 00:00 mouth in [place] 00 :00 the Medical morning. Branch lithium 2022-0 Yes 600mg Take 600 Unive rs carbonate 7-16 mg by ity of 300 mg 00:00: mouth [place] tablet 00 every Medical morning. Branch QUEtiapine 2022-0 Yes 200mg Take 200 Un cesar 200 mg 7-16 mg by ity of tablet 00:00: mouth in [place] 00 the Medical morning. Branch lithium 2022-0 Yes 600mg Take 600 Unive rs carbonate 7-16 mg by ity of 300 mg 00:00: mouth [place] tablet 00 every Medical morning. Branch QUEtiapine 2022-0 Yes 200mg Take 200 Un cesar 200 mg 7-16 mg by ity of tablet 00:00: mouth in [place] 00 the Medical morning. Branch lithium 2022-0 Yes 600mg Take 600 Unive rs carbonate 7-16 mg by ity of 300 mg 00:00: mouth [place] tablet 00 every Medical morning. Branch QUEtiapine 2022-0 Yes 200mg Take 200 Un cesar 200 mg 7-16 mg by ity of tablet 00:00: mouth in [place] 00 the Medical morning. Branch lithium 2022-0 Yes 600mg Take 600 Unive rs carbonate 7-16 mg by ity of 300 mg 00:00: mouth [place] tablet 00 every Medical morning. Branch QUEtiapine 2022-0 Yes 200mg Take 200 Un cesar 200 mg 7-16 mg by ity of tablet 00:00: mouth in [place] 00 the Medical morning. Branch lithium 2022-0 Yes 600mg Take 600 Unive rs carbonate 7-16 mg by ity of 300 mg 00:00: mouth [place] tablet 00 every Medical morning. Branch QUEtiapine 2022-0 Yes 200mg Take 200 Un cesar 200 mg 7-16 mg by ity of tablet 00:00: mouth in [place] 00 the Medical morning. Branch lithium 2022-0 Yes 600mg Take 600 Unive rs carbonate 7-16 mg by ity of 300 mg 00:00: mouth [place] tablet 00 every Medical morning. Branch QUEtiapine 2022-0 Yes 200mg Take 200 Un cesar 200 mg 7-16 mg by ity of tablet 00:00: mouth in [place] 00 the Medical morning. Branch lithium 2022-0 Yes 600mg Take 600 Unive rs carbonate 7-16 mg by ity of 300 mg 00:00: mouth [place] tablet 00 every Medical morning. Branch QUEtiapine 2022-0 Yes 200mg Take 200 Un [place] 200 mg 7-16 mg by ity of tablet 00:00: mouth in [place] 00 the Medical morning. Branch lithium 2022-0 Yes 600mg Take 600 Unive rs carbonate 7-16 mg by ity of 300 mg 00:00: mouth [place] tablet 00 every Medical morning. Branch QUEtiapine 2022-0 Yes 200mg Take 200 Un [place] 200 mg 7-16 mg by ity of tablet 00:00: mouth in [place] 00 the Medical morning. Branch lithium 2022-0 Yes 600mg Take 600 Unive rs carbonate 7-16 mg by ity of 300 mg 00:00: mouth [place] tablet 00 every Medical morning. Branch QUEtiapine 2022-0 Yes 200mg Take 200 Un [place] 200 mg 7-16 mg by ity of tablet 00:00: mouth in [place] 00 the Medical morning. Branch lithium 2022-0 2022- No 600mg Take 600 Univ ers carbonate 7-16 11-11 mg by ity of 300 mg 00:00: 00:00 mouth [place] tablet 00 :00 every Medical morning. Branch QUEtiapine 2022-0 2022- No 200mg Take 200 U nivers 200 mg 7-16 11-11 mg by ity of tablet 00:00: 00:00 mouth in [place] 00 :00 the Medical morning. Branch lithium 2022-0 2022- No 600mg Take 600 Univ ers carbonate 7-16 11-11 mg by ity of 300 mg 00:00: 00:00 mouth [place] tablet 00 :00 every Medical morning. Branch QUEtiapine 2022-0 2022- No 200mg Take 200 U nivers 200 mg 7-16 11-11 mg by ity of tablet 00:00: 00:00 mouth in [place] 00 :00 the Medical morning. Branch lithium 2022-0 2022- No 600mg Take 600 Univ ers carbonate 7-16 11-11 mg by ity of 300 mg 00:00: 00:00 mouth [place] tablet 00 :00 every Medical morning. Branch QUEtiapine 2022-0 2022- No 200mg Take 200 U nivers 200 mg 7-16 11-11 mg by ity of tablet 00:00: 00:00 mouth in [place] 00 :00 the Medical morning. Branch lithium 2022-0 2022- No 600mg Take 600 Univ ers carbonate 7-16 11-11 mg by ity of 300 mg 00:00: 00:00 mouth [place] tablet 00 :00 every Medical morning. Branch QUEtiapine 2022-0 2022- No 200mg Take 200 U nivers 200 mg 7-16 11-11 mg by ity of tablet 00:00: 00:00 mouth in [place] 00 :00 the Medical morning. Branch omeprazole 2022-0 Yes 40mg Take 40 mg U nivers 40 mg 7-13 by mouth ity of capsule 00:00: in the [place] 00 morning. Medical Branch omeprazole 2022-0 Yes 40mg Take 40 mg U nivers 40 mg 7-13 by mouth ity of capsule 00:00: in the [place] 00 morning. Medical Branch omeprazole 2022-0 Yes 40mg Take 40 mg U nivers 40 mg 7-13 by mouth ity of capsule 00:00: in the [place] 00 morning. Medical Branch omeprazole 2022-0 Yes 40mg Take 40 mg U nivers 40 mg 7-13 by mouth ity of capsule 00:00: in the [place] 00 morning. Medical Branch omeprazole 2022-0 Yes 40mg Take 40 mg U nivers 40 mg 7-13 by mouth ity of capsule 00:00: in the [place] 00 morning. Medical Branch omeprazole 2022-0 Yes 40mg Take 40 mg U nivers 40 mg 7-13 by mouth ity of capsule 00:00: in the [place] 00 morning. Medical Branch omeprazole 2022-0 Yes 40mg Take 40 mg U nivers 40 mg 7-13 by mouth ity of capsule 00:00: in the [place] 00 morning. Medical Branch omeprazole 2022-0 Yes 40mg Take 40 mg U nivers 40 mg 7-13 by mouth ity of capsule 00:00: in the [place] 00 morning. Medical Branch omeprazole 2022-0 Yes 40mg Take 40 mg U nivers 40 mg 7-13 by mouth ity of capsule 00:00: in the [place] 00 morning. Medical Branch omeprazole 2022-0 Yes 40mg Take 40 mg U nivers 40 mg 7-13 by mouth ity of capsule 00:00: in the [place] 00 morning. Medical Branch omeprazole 2022-0 Yes 40mg Take 40 mg U nivers 40 mg 7-13 by mouth ity of capsule 00:00: in the [place] 00 morning. Medical Branch omeprazole 2022-0 Yes 40mg Take 40 mg U nivers 40 mg 7-13 by mouth ity of capsule 00:00: in the [place] 00 morning. Medical Branch omeprazole 2022-0 Yes 40mg Take 40 mg U nivers 40 mg 7-13 by mouth ity of capsule 00:00: in the [place] 00 morning. Medical Branch omeprazole 2022-0 Yes 40mg Take 40 mg U nivers 40 mg 7-13 by mouth ity of capsule 00:00: in the [place] morning. Medical Branch omeprazole 2022-0 Yes 40mg Take 40 mg U nivers 40 mg 7-13 by mouth ity of capsule 00:00: in the [place] morning. Medical Branch omeprazole 2022-0 Yes 40mg Take 40 mg U nivers 40 mg 7-13 by mouth ity of capsule 00:00: in the [place] morning. Medical Branch omeprazole 2022-0 Yes 40mg Take 40 mg U nivers 40 mg 7-13 by mouth ity of capsule 00:00: in the [place] morning. Medical Branch omeprazole 2022-0 Yes 40mg Take 40 mg U nivers 40 mg 7-13 by mouth ity of capsule 00:00: in the [place] morning. Medical Branch omeprazole 2022-0 Yes 40mg Take 40 mg U nivers 40 mg 7-13 by mouth ity of capsule 00:00: in the [place] morning. Medical Branch omeprazole 2022-0 Yes 40mg Take 40 mg U nivers 40 mg 7-13 by mouth ity of capsule 00:00: in the [place] 00 morning. Medical Branch omeprazole 2022-0 Yes 40mg Take 40 mg U nivers 40 mg 7-13 by mouth ity of capsule 00:00: in the [place] morning. Medical Branch omeprazole 2022-0 Yes 40mg Take 40 mg U nivers 40 mg 7-13 by mouth ity of capsule 00:00: in the [place] 00 morning. Medical Branch omeprazole 2022-0 Yes 40mg Take 40 mg U nivers 40 mg 7-13 by mouth ity of capsule 00:00: in the [place] 00 morning. Medical Branch omeprazole 2022-0 Yes 40mg Take 40 mg U nivers 40 mg 7-13 by mouth ity of capsule 00:00: in the [place] 00 morning. Medical Branch omeprazole 2022-0 Yes 40mg Take 40 mg U nivers 40 mg 7-13 by mouth ity of capsule 00:00: in the [place] morning. Medical Branch omeprazole 2022-0 Yes 40mg Take 40 mg U nivers 40 mg 7-13 by mouth ity of capsule 00:00: in the [place] morning. Medical Branch omeprazole 2022-0 Yes 40mg Take 40 mg U nivers 40 mg 7-13 by mouth ity of capsule 00:00: in the [place] morning. Medical Branch omeprazole 2022-0 Yes 40mg Take 40 mg U nivers 40 mg 7-13 by mouth ity of capsule 00:00: in the [place] morning. Medical Branch omeprazole 2022-0 Yes 40mg Take 40 mg U nivers 40 mg 7-13 by mouth ity of capsule 00:00: in the [place] morning. Medical Branch omeprazole 2022-0 Yes 40mg Take 40 mg U nivers 40 mg 7-13 by mouth ity of capsule 00:00: in the [place] morning. Medical Branch omeprazole 2022-0 Yes 40mg Take 40 mg U nivers 40 mg 7-13 by mouth ity of capsule 00:00: in the [place] morning. Medical Branch metformin 2022-0 Yes 1000mg Take 2 [facility] ers ER 500 mg 6-08 tablets by ity of 24 hr 00:00: mouth 2 [place] tablet 00 (two) Medical times Branch daily before breakfast and dinner. metformin 2022-0 Yes 1000mg Take 2 [facility] ers ER 500 mg 6-08 tablets by ity of 24 hr 00:00: mouth 2 [place] tablet 00 (two) Medical times Branch daily before breakfast and dinner. metformin 2022-0 2022- No 1000mg Take 2 [facility] vers ER 500 mg 6-08 08-26 tablets by ity of 24 hr 00:00: 00:00 mouth 2 [place] tablet 00 :00 (two) Medical times Branch daily before breakfast and dinner. metformin 2022-0 2022- No 1000mg Take 2 [facility] vers ER 500 mg 6-08 08-26 tablets by ity of 24 hr 00:00: 00:00 mouth 2 [place] tablet 00 :00 (two) Medical times Branch daily before breakfast and dinner. semaglutide 2022-0 Yes [id number] .25mg inject [facility] (OZEMPIC) 6-01 0.25 mg ity of 0.25 mg or 00:00: under the [place] 0.5 mg( [facility] mg/1.5 mL) weekly. Branch PnIj glipiZIDE Yes [id number] 5mg Take 1 U nivers XL 5 mg 24 03-11 tablet by ity of hr tablet 00:00: mouth [place] 00 daily with Medical breakfast. Branch semaglutide Yes [id number] .25mg inject [facility] (OZEMPIC) 03-11 0.25 mg ity of 0.25 mg or 00:00: under the [place] 0.5 mg(2 00 skin Medical mg/1.5 mL) weekly. Branch PnIj glipiZIDE Yes [id number] 5mg Take 1 U nivers XL 5 mg 24 03-11 tablet by ity of hr tablet 00:00: mouth [place] 00 daily with Medical breakfast. Branch semaglutide 2021- No [id number] .25mg inject [facility] (OZEMPIC) 03-11 0.25 mg ity of 0.25 mg or 00:00: 00:00 under the [place] 0.5 mg(2 00 :00 skin Medical mg/1.5 mL) weekly. Branch PnIj glipiZIDE 2021- No [id number] 5mg Take 1 [facility] XL 5 mg 24 03-11 tablet by ity of hr tablet 00:00: 00:00 mouth [place] 00 :00 daily with Medical breakfast. Branch semaglutide 2021- No [id number] .25mg inject [facility] (OZEMPIC) 03-11 0.25 mg ity of 0.25 mg or 00:00: 00:00 under the [place] 0.5 mg(2 00 :00 skin Medical mg/1.5 mL) weekly. Branch PnIj glipiZIDE 2021- No [id number] 5mg Take 1 [facility] XL 5 mg 24 03-11 tablet by ity of hr tablet 00:00: 00:00 mouth [place] 00 :00 daily with Medical breakfast. Branch blood sugar Yes [id number] Use to [facility] diagnostic 3-04 check ity of (ACCU-CHEK 00:00: blood [place] GUIDE TEST 00 sugar Medical STRIPS) three Branch strip times daily [place] 2022-0 Yes [id number] Use as [facility] vers Device with 3-04 directed ity of Lancets 00:00: [place] (ONE TOUCH 00 Medical DELICA) Kit Branch Lancets Yes [id number] Use to Uni vers (ACCU-CHEK 3-04 check ity of FASTCLIX 00:00: blood [place] LANCET 00 sugar Medical DRUM) Misc three Branch times daily. blood sugar Yes [id number] Use to [facility] diagnostic 3-04 check ity of (ACCU-CHEK 00:00: blood [place] GUIDE TEST 00 sugar Medical STRIPS) three Branch strip times daily [place] Yes [id number] Use as [facility] vers Device with 3-04 directed ity of Lancets 00:00: [place] (ONE TOUCH 00 Medical DELICA) Kit Branch Lancets Yes [id number] Use to Uni vers (ACCU-CHEK 3-04 check ity of FASTCLIX 00:00: blood [place] LANCET 00 sugar Medical DRUM) Misc three Branch times daily. [place] Yes [id number] Use as [facility] vers Device with 3-04 directed ity of Lancets 00:00: [place] (ONE TOUCH 00 Medical DELICA) Kit Branch Lancets Yes [id number] Use to Uni vers (ACCU-CHEK 3-04 check ity of FASTCLIX 00:00: blood [place] LANCET 00 sugar Medical DRUM) Misc three Branch times daily. [place] Yes [id number] Use as [facility] vers Device with 3-04 directed ity of Lancets 00:00: [place] (ONE TOUCH 00 Medical DELICA) Kit Branch Lancets Yes [id number] Use to [facility] vers (ACCU-CHEK 3-04 check ity of FASTCLIX 00:00: blood [place] LANCET 00 sugar Medical DRUM) Misc three Branch times daily. [place] Yes [id number] Use as [facility] vers Device with 3-04 directed ity of Lancets 00:00: [place] (ONE TOUCH 00 Medical DELICA) Kit Branch Lancets Yes [id number] Use to [facility] vers (ACCU-CHEK 3-04 check ity of FASTCLIX 00:00: blood [place] LANCET 00 sugar Medical DRUM) Misc three Branch times daily. [place] Yes [id number] Use as [facility] vers Device with 3-04 directed ity of Lancets 00:00: [place] (ONE TOUCH 00 Medical DELICA) Kit Branch Lancets Yes [id number] Use to [facility] vers (ACCU-CHEK 3-04 check ity of FASTCLIX 00:00: blood [place] LANCET 00 sugar Medical DRUM) Misc three Branch times daily. [place] Yes [id number] Use as [facility] vers Device with 3-04 directed ity of Lancets 00:00: [place] (ONE TOUCH 00 Medical DELICA) Kit Branch Lancets Yes [id number] Use to Uni vers (ACCU-CHEK 3-04 check ity of FASTCLIX 00:00: blood [place] LANCET 00 sugar Medical DRUM) Misc three Branch times daily. [place] Yes [id number] Use as Uni vers Device with 3-04 directed ity of Lancets 00:00: [place] (ONE TOUCH 00 Medical DELICA) Kit Branch Lancets Yes [id number] Use to Uni vers (ACCU-CHEK 3-04 check ity of FASTCLIX 00:00: blood [place] LANCET 00 sugar Medical DRUM) Misc three Branch times daily. [place] Yes [id number] Use as Uni vers Device with 3-04 directed ity of Lancets 00:00: [place] (ONE TOUCH 00 Medical DELICA) Kit Branch Lancets Yes [id number] Use to Uni vers (ACCU-CHEK 3-04 check ity of FASTCLIX 00:00: blood [place] LANCET 00 sugar Medical DRUM) Misc three Branch times daily. Lancets Yes [id number] Use to Uni vers (ACCU-CHEK 3-04 check ity of FASTCLIX 00:00: blood [place] LANCET 00 sugar Medical DRUM) Misc three Branch times daily. Lancets Yes [id number] Use to Uni vers (ACCU-CHEK 3-04 check ity of FASTCLIX 00:00: blood [place] LANCET 00 sugar Medical DRUM) Misc three Branch times daily. Lancets 0 Yes [id number] Use to Uni vers (ACCU-CHEK 3-04 check ity of FASTCLIX 00:00: blood [place] LANCET 00 sugar Medical DRUM) Misc three Branch times daily. Lancets 2021-0 Yes [id number] Use to Uni vers (ACCU-CHEK 3-04 check ity of FASTCLIX 00:00: blood [place] LANCET 00 sugar Medical DRUM) Misc three Branch times daily. Lancets 2021-0 Yes [id number] Use to Uni vers (ACCU-CHEK 3-04 check ity of FASTCLIX 00:00: blood [place] LANCET 00 sugar Medical DRUM) Misc three Branch times daily. Lancets 2021-0 Yes [id number] Use to Uni vers (ACCU-CHEK 3-04 check ity of FASTCLIX 00:00: blood [place] LANCET 00 sugar Medical DRUM) Misc three Branch times daily. Lancets 2021-0 Yes [id number] Use to Uni vers (ACCU-CHEK 3-04 check ity of FASTCLIX 00:00: blood [place] LANCET 00 sugar Medical DRUM) Misc three Branch times daily. Lancets 0 Yes [id number] Use to Uni vers (ACCU-CHEK 3-04 check ity of FASTCLIX 00:00: blood [place] LANCET 00 sugar Medical DRUM) Misc three Branch times daily. Lancets 2021-0 Yes [id number] Use to Uni vers (ACCU-CHEK 3-04 check ity of FASTCLIX 00:00: blood [place] LANCET 00 sugar Medical DRUM) Misc three Branch times daily. Lancets 2021-0 Yes [id number] Use to Uni vers (ACCU-CHEK 3-04 check ity of FASTCLIX 00:00: blood [place] LANCET 00 sugar Medical DRUM) Misc three Branch times daily. Lancets 2021-0 Yes [id number] Use to Uni vers (ACCU-CHEK 3-04 check ity of FASTCLIX 00:00: blood [place] LANCET 00 sugar Medical DRUM) Misc three Branch times daily. Lancets 2021-0 Yes [id number] Use to Uni vers (ACCU-CHEK 3-04 check ity of FASTCLIX 00:00: blood [place] LANCET 00 sugar Medical DRUM) Misc three Branch times daily. Lancets 2021-0 Yes [id number] Use to Uni vers (ACCU-CHEK 3-04 check ity of FASTCLIX 00:00: blood [place] LANCET 00 sugar Medical DRUM) Misc three Branch times daily. Lancets 2021-0 Yes [id number] Use to Uni vers (ACCU-CHEK 3-04 check ity of FASTCLIX 00:00: blood [place] LANCET 00 sugar Medical DRUM) Misc three Branch times daily. Lancets 2021-0 Yes [id number] Use to Uni vers (ACCU-CHEK 3-04 check ity of FASTCLIX 00:00: blood [place] LANCET 00 sugar Medical DRUM) Misc three Branch times daily. Lancets 2021-0 Yes [id number] Use to Uni vers (ACCU-CHEK 3-04 check ity of FASTCLIX 00:00: blood [place] LANCET 00 sugar Medical DRUM) Misc three Branch times daily. Lancets 2021-0 Yes [id number] Use to Uni vers (ACCU-CHEK 3-04 check ity of FASTCLIX 00:00: blood [place] LANCET 00 sugar Medical DRUM) Misc three Branch times daily. Lancets 0 Yes [id number] Use to Uni vers (ACCU-CHEK 3-04 check ity of FASTCLIX 00:00: blood [place] LANCET 00 sugar Medical DRUM) Misc three Branch times daily. Lancets 2021-0 Yes [id number] Use to Uni vers (ACCU-CHEK 3-04 check ity of FASTCLIX 00:00: blood [place] LANCET 00 sugar Medical DRUM) Misc three Branch times daily. Lancets 2021-0 Yes [id number] Use to Uni vers (ACCU-CHEK 3-04 check ity of FASTCLIX 00:00: blood [place] LANCET 00 sugar Medical DRUM) Misc three Branch times daily. Lancets 2021-0 Yes [id number] Use to Uni vers (ACCU-CHEK 3-04 check ity of FASTCLIX 00:00: blood [place] LANCET 00 sugar Medical DRUM) Misc three Branch times daily. Lancets 2021-0 Yes [id number] Use to Uni vers (ACCU-CHEK 3-04 check ity of FASTCLIX 00:00: blood [place] LANCET 00 sugar Medical DRUM) Misc three Branch times daily. Lancing 2021- No [id number] Use as Un cesar Device with 12-12 directed ity of Lancets 00:00: 00:00 [place] (ONE TOUCH 00 :00 Medical DELICA) Kit Branch Lancing 2021- No [id number] Use as Un cesar Device with 12-12 directed ity of Lancets 00:00: 00:00 [place] (ONE TOUCH 00 :00 Medical DELICA) Kit Branch Lancing 2021- No [id number] Use as Un cesar Device with 12-12 directed ity of Lancets 00:00: 00:00 [place] (ONE TOUCH 00 :00 Medical DELICA) Kit Branch Lancing 2021- No [id number] Use as Un cesar Device with 12-12 directed ity of Lancets 00:00: 00:00 [place] (ONE TOUCH 00 :00 Medical DELICA) Kit Branch blood sugar 2021- No [id number] Use to [facility] diagnostic 12-12 check ity of (ACCU-CHEK 00:00: 00:00 blood [place] GUIDE TEST 00 :00 sugar Medical STRIPS) three Branch strip times daily blood sugar 2021- No [id number] Use to [facility] diagnostic 12-12 check ity of (ACCU-CHEK 00:00: 00:00 blood [place] GUIDE TEST 00 :00 sugar Medical STRIPS) three Branch strip times daily blood sugar 2021- No [id number] Use to [facility] diagnostic 12-12 check ity of (ACCU-CHEK 00:00: 00:00 blood [place] GUIDE TEST 00 :00 sugar Medical STRIPS) three Branch strip times daily Blood-Gluco 2020-10 Yes Use to Univ ers se Meter 1-03 check ity of (ACCU-CHEK 00:00: blood [place] GUIDE 00 sugar Medical GLUCOSE three Branch METER) Misc times daily. Blood-Gluco 2020-10 Yes Use to Univ ers se Meter 1-03 check ity of (ACCU-CHEK 00:00: blood [place] GUIDE 00 sugar Medical GLUCOSE three Branch METER) Misc times daily. Blood-Gluco 2020-10 Yes Use to Univ ers se Meter 1-03 check ity of (ACCU-CHEK 00:00: blood [place] GUIDE 00 sugar Medical GLUCOSE three Branch METER) Misc times daily. Blood-Gluco 2020-10 Yes Use to Univ ers se Meter 1-03 check ity of (ACCU-CHEK 00:00: blood [place] GUIDE 00 sugar Medical GLUCOSE three Branch METER) Misc times daily. Blood-Gluco 2020-10 Yes Use to Univ ers se Meter 1-03 check ity of (ACCU-CHEK 00:00: blood [place] GUIDE 00 sugar Medical GLUCOSE three Branch METER) Misc times daily. Blood-Gluco 2020-10 Yes Use to Univ ers se Meter 1-03 check ity of (ACCU-CHEK 00:00: blood [place] GUIDE 00 sugar Medical GLUCOSE three Branch METER) Misc times daily. Blood-Gluco 2020-10 Yes Use to Univ ers se Meter 1-03 check ity of (ACCU-CHEK 00:00: blood [place] GUIDE 00 sugar Medical GLUCOSE three Branch METER) Misc times daily. Blood-Gluco 2020-10 Yes Use to Univ ers se Meter 1-03 check ity of (ACCU-CHEK 00:00: blood [place] GUIDE 00 sugar Medical GLUCOSE three Branch METER) Misc times daily. Blood-Gluco 2020-10 Yes Use to Univ ers se Meter 1-03 check ity of (ACCU-CHEK 00:00: blood [place] GUIDE 00 sugar Medical GLUCOSE three Branch METER) Misc times daily. Blood-Gluco 2020-10 Yes Use to Univ ers se Meter 1-03 check ity of (ACCU-CHEK 00:00: blood [place] GUIDE 00 sugar Medical GLUCOSE three Branch METER) Misc times daily. Blood-Gluco 2020-10 Yes Use to Univ ers se Meter 1-03 check ity of (ACCU-CHEK 00:00: blood [place] GUIDE 00 sugar Medical GLUCOSE three Branch METER) Misc times daily. Blood-Gluco 2020-10 Yes Use to Univ ers se Meter 1-03 check ity of (ACCU-CHEK 00:00: blood [place] GUIDE 00 sugar Medical GLUCOSE three Branch METER) Misc times daily. Blood-Gluco 2020-10 Yes Use to Univ ers se Meter 1-03 check ity of (ACCU-CHEK 00:00: blood [place] GUIDE 00 sugar Medical GLUCOSE three Branch METER) Misc times daily. Blood-Gluco 2020-10 Yes Use to Univ ers se Meter 1-03 check ity of (ACCU-CHEK 00:00: blood [place] GUIDE 00 sugar Medical GLUCOSE three Branch METER) Misc times daily. Blood-Gluco 2020-10 Yes Use to Univ ers se Meter 1-03 check ity of (ACCU-CHEK 00:00: blood [place] GUIDE 00 sugar Medical GLUCOSE three Branch METER) Misc times daily. Blood-Gluco 2020-10 Yes Use to Univ ers se Meter 1-03 check ity of (ACCU-CHEK 00:00: blood [place] GUIDE 00 sugar Medical GLUCOSE three Branch METER) Misc times daily. Blood-Gluco 2020-10 Yes Use to Univ ers se Meter 1-03 check ity of (ACCU-CHEK 00:00: blood [place] GUIDE 00 sugar Medical GLUCOSE three Branch METER) Misc times daily. Blood-Gluco 2020-10 Yes Use to Univ ers se Meter 1-03 check ity of (ACCU-CHEK 00:00: blood [place] GUIDE 00 sugar Medical GLUCOSE three Branch METER) Misc times daily. Blood-Gluco 2020-10 Yes Use to Univ ers se Meter 1-03 check ity of (ACCU-CHEK 00:00: blood [place] GUIDE 00 sugar Medical GLUCOSE three Branch METER) Misc times daily. Blood-Gluco 2020-10 Yes Use to Univ ers se Meter 1-03 check ity of (ACCU-CHEK 00:00: blood [place] GUIDE 00 sugar Medical GLUCOSE three Branch METER) Misc times daily. Blood-Gluco 2020-10 Yes Use to Univ ers se Meter 1-03 check ity of (ACCU-CHEK 00:00: blood [place] GUIDE 00 sugar Medical GLUCOSE three Branch METER) Misc times daily. Blood-Gluco 2020-10 Yes Use to Univ ers se Meter 1-03 check ity of (ACCU-CHEK 00:00: blood [place] GUIDE 00 sugar Medical GLUCOSE three Branch METER) Misc times daily. Blood-Gluco 2020-10 Yes Use to Univ ers se Meter 1-03 check ity of (ACCU-CHEK 00:00: blood [place] GUIDE 00 sugar Medical GLUCOSE three Branch METER) Misc times daily. Blood-Gluco 2020-10 Yes Use to Univ ers se Meter 1-03 check ity of (ACCU-CHEK 00:00: blood [place] GUIDE 00 sugar Medical GLUCOSE three Branch METER) Misc times daily. Blood-Gluco 2020-10 Yes Use to Univ ers se Meter 1-03 check ity of (ACCU-CHEK 00:00: blood [place] GUIDE 00 sugar Medical GLUCOSE three Branch METER) Misc times daily. Blood-Gluco 2020-10 Yes Use to Univ ers se Meter 1-03 check ity of (ACCU-CHEK 00:00: blood [place] GUIDE 00 sugar Medical GLUCOSE three Branch METER) Misc times daily. Blood-Gluco 2020-10 Yes Use to Univ ers se Meter 1-03 check ity of (ACCU-CHEK 00:00: blood [place] GUIDE 00 sugar Medical GLUCOSE three Branch METER) Misc times daily. Blood-Gluco 2020-10 Yes Use to Univ ers se Meter 1-03 check ity of (ACCU-CHEK 00:00: blood [place] GUIDE 00 sugar Medical GLUCOSE three Branch METER) Misc times daily. Blood-Gluco 2020-10 Yes Use to Univ ers se Meter 1-03 check ity of (ACCU-CHEK 00:00: blood [place] GUIDE 00 sugar Medical GLUCOSE three Branch METER) Misc times daily. Blood-Gluco 2020-10 Yes Use to Univ ers se Meter 1-03 check ity of (ACCU-CHEK 00:00: blood [place] GUIDE 00 sugar Medical GLUCOSE three Branch METER) Misc times daily. Blood-Gluco 2020-10 Yes Use to Univ ers se Meter 1-03 check ity of (ACCU-CHEK 00:00: blood [place] GUIDE 00 sugar Medical GLUCOSE three Branch METER) Misc times daily. zolpidem 10 Yes Univer s mg tablet 6-24 ity of 00:00: [place] 00 Medical Branch zolpidem 10 Yes Univer s mg tablet 6-24 ity of 00:00: [place] 00 Medical Branch zolpidem 10 2021- No Unive rs mg tablet 6-24 08- ity of 00:00: 00:00 [place] 00 :00 Medical Branch zolpidem 10 2021-0 2022- No Unive rs mg tablet 04-03- ity of 00:00: 00:00 [place] 00 :00 Medical Branch venlafaxine 2020-0 Yes 300mg 300 mg. Un cesar XR 150 mg 6-20 ity of 24 hr 00:00: [place] capsule 00 Medical Branch venlafaxine 2020-0 Yes 300mg 300 mg. Un cesar XR 150 mg 6-20 ity of 24 hr 00:00: [place] capsule Medical Branch venlafaxine 2020-0 Yes 300mg 300 mg. Un cesar XR 150 mg 6-20 ity of 24 hr 00:00: [place] capsule 00 Medical Branch venlafaxine 2020-0 Yes 300mg 300 mg. Un cesar XR 150 mg 6-20 ity of 24 hr 00:00: [place] capsule Medical Branch venlafaxine 2020-0 Yes 300mg 300 mg. Un cesar XR 150 mg 6-20 ity of 24 hr 00:00: [place] capsule Medical Branch venlafaxine 2020-0 Yes 300mg 300 mg. Un cesar XR 150 mg 6-20 ity of 24 hr 00:00: [place] capsule 00 Medical Branch venlafaxine 2020-0 Yes 300mg 300 mg. Un cesar XR 150 mg 6-20 ity of 24 hr 00:00: [place] capsule Medical Branch venlafaxine 2020-0 Yes 300mg 300 mg. Un cesar XR 150 mg 6-20 ity of 24 hr 00:00: [place] capsule 00 Medical Branch venlafaxine 2020-0 Yes 300mg 300 mg. Un cesar XR 150 mg 6-20 ity of 24 hr 00:00: [place] capsule 00 Medical Branch venlafaxine 2020-0 Yes 300mg 300 mg. Un cesar XR 150 mg 6-20 ity of 24 hr 00:00: [place] capsule 00 Medical Branch venlafaxine 2020-0 Yes 300mg 300 mg. Un cesar XR 150 mg 6-20 ity of 24 hr 00:00: [place] capsule 00 Medical Branch venlafaxine 2020-0 Yes 300mg 300 mg. Un cesar XR 150 mg 6-20 ity of 24 hr 00:00: [place] capsule 00 Medical Branch venlafaxine 2020-0 Yes 300mg 300 mg. Un cesar XR 150 mg 6-20 ity of 24 hr 00:00: [place] capsule Medical Branch venlafaxine 1-0 Yes 300mg 300 mg. Un cesar XR 150 mg 6-20 ity of 24 hr 00:00: [place] capsule 00 Medical Branch venlafaxine 2020-0 Yes 300mg 300 mg. Un cesar XR 150 mg 6-20 ity of 24 hr 00:00: [place] capsule Medical Branch venlafaxine 2020-0 Yes 300mg 300 mg. Un cesar XR 150 mg 6-20 ity of 24 hr 00:00: [place] capsule Medical Branch venlafaxine 2020-0 Yes 300mg 300 mg. Un cesar XR 150 mg 6-20 ity of 24 hr 00:00: [place] capsule Medical Branch venlafaxine 2020-0 Yes 300mg 300 mg. Un cesar XR 150 mg 6-20 ity of 24 hr 00:00: [place] capsule Medical Branch venlafaxine 2020-0 Yes 300mg 300 mg. Un cesar XR 150 mg 6-20 ity of 24 hr 00:00: [place] capsule Medical Branch venlafaxine 2020-0 Yes 300mg 300 mg. Un cesar XR 150 mg 6-20 ity of 24 hr 00:00: [place] capsule Medical Branch venlafaxine 2020-0 Yes 300mg 300 mg. Un cesar XR 150 mg 6-20 ity of 24 hr 00:00: [place] capsule Medical Branch venlafaxine 2020-0 Yes 300mg 300 mg. Un cesar XR 150 mg 6-20 ity of 24 hr 00:00: [place] capsule Medical Branch venlafaxine 2020-0 Yes 300mg 300 mg. Un cesar XR 150 mg 6-20 ity of 24 hr 00:00: [place] capsule Medical Branch venlafaxine 1-0 Yes 300mg 300 mg. Un cesar XR 150 mg 6-20 ity of 24 hr 00:00: [place] capsule 00 Medical Branch venlafaxine 1-0 Yes 300mg 300 mg. Un cesar XR 150 mg 6-20 ity of 24 hr 00:00: [place] capsule 00 Medical Branch venlafaxine 2020-0 Yes 300mg 300 mg. Un cesar XR 150 mg 6-20 ity of 24 hr 00:00: [place] capsule Medical Branch venlafaxine 2021-0 Yes 300mg 300 mg. Un cesar XR 150 mg 6-20 ity of 24 hr 00:00: [place] capsule 00 Medical Branch venlafaxine 1-0 Yes 300mg 300 mg. Un cesar XR 150 mg 6-20 ity of 24 hr 00:00: [place] capsule 00 Medical Branch venlafaxine 2021-0 Yes 300mg 300 mg. Un cesar XR 150 mg 6-20 ity of 24 hr 00:00: [place] capsule 00 Medical Branch venlafaxine 2021-0 Yes 300mg 300 mg. Un cesar XR 150 mg 6-20 ity of 24 hr 00:00: [place] capsule 00 Medical Branch venlafaxine 1-0 Yes 300mg 300 mg. Un cesar XR 150 mg 6-20 ity of 24 hr 00:00: [place] capsule 00 Medical Branch ALPRAZolam 2020-0 Yes .5mg Take 0.5 Uni vers 0.5 mg 6-11 mg by ity of tablet 00:00: mouth at [place] bedtime as Medical needed. Branch ALPRAZolam 2020-0 Yes .5mg Take 0.5 Uni vers 0.5 mg 6-11 mg by ity of tablet 00:00: mouth at [place] bedtime as Medical needed. Branch ALPRAZolam 2020-0 Yes .5mg Take 0.5 Uni vers 0.5 mg 6-11 mg by ity of tablet 00:00: mouth at [place] bedtime as Medical needed. Branch ALPRAZolam 2020-0 Yes .5mg Take 0.5 Uni vers 0.5 mg 6-11 mg by ity of tablet 00:00: mouth at [place] bedtime as Medical needed. Branch ALPRAZolam 2020-0 Yes .5mg Take 0.5 Uni vers 0.5 mg 6-11 mg by ity of tablet 00:00: mouth at [place] bedtime as Medical needed. Branch ALPRAZolam 1-0 Yes .5mg Take 0.5 Uni vers 0.5 mg 6-11 mg by ity of tablet 00:00: mouth at [place] bedtime as Medical needed. Branch ALPRAZolam 2020-0 Yes .5mg Take 0.5 Uni vers 0.5 mg 6-11 mg by ity of tablet 00:00: mouth at [place] [id number] bedtime as Medical needed. Branch ALPRAZolam Yes .5mg Take 0.5 Uni vers 0.5 mg 6-11 mg by ity of tablet 00:00: mouth at [place] 00 bedtime as Medical needed. Branch ALPRAZolam Yes .5mg Take 0.5 Uni vers 0.5 mg 6-11 mg by ity of tablet 00:00: mouth at [place] 00 bedtime as Medical needed. Branch ALPRAZolam 2021- No .5mg Take 0.5 Un cesar 0.5 mg 6-11 11-11 mg by ity of tablet 00:00: 00:00 mouth at [place] 00 :00 bedtime as Medical needed. Branch ALPRAZolam 2021- No .5mg Take 0.5 Un cesar 0.5 mg 6-11 11-11 mg by ity of tablet 00:00: 00:00 mouth at [place] 00 :00 bedtime as Medical needed. Branch ALPRAZolam 2021- No .5mg Take 0.5 Un cesar 0.5 mg 6-11 11-11 mg by ity of tablet 00:00: 00:00 mouth at [place] 00 :00 bedtime as Medical needed. Branch ALPRAZolam 2021- No .5mg Take 0.5 Un cesar 0.5 mg 6-11 11-11 mg by ity of tablet 00:00: 00:00 mouth at [place] 00 :00 bedtime as Medical needed. Branch Vital Signs Vital Name Observation Time Observation Value Comments Source Systolic blood 2022-09-16 17:03:00 134 mm[Hg] Univer sity of pressure [facility] Diastolic blood 2022-09-16 17:03:00 87 mm[Hg] [facility] pressure [facility] Heart rate 2022-09-16 17:02:00 89 /min [facility] Body temperature 2022-09-16 17:02:00 36.44 Natalie [facility] Respiratory rate 2022-09-16 17:02:00 18 /min [facility] Body height 2022-09-16 17:02:00 162.6 cm [facility] Body weight 2022-09-16 17:02:00 116.302 kg [facility] BMI 2022-09-16 17:02:00 44.01 kg/m2 [facility] [place] [facility] Systolic blood 2022-09-02 17:15:00 135 mm[Hg] Univer sity of pressure [place] [facility] Diastolic blood 2022-09-02 17:15:00 82 mm[Hg] Unive rsity of pressure [facility] Heart rate 2022-09-02 17:15:00 79 /min Universi ty of [facility] [place] [facility] Body temperature 2022-09-02 17:15:00 36.61 Natalie Univ ersity of [facility] [place] [facility] Branch Respiratory rate 2022-09-02 17:15:00 19 /min Univ ersity of [facility] Body height 2022-09-02 17:15:00 162.6 cm Universi ty of [facility] Body weight 2022-09-02 17:15:00 118.389 kg [facility] [place] [facility] [place] BMI 2022-09-02 17:15:00 44.80 kg/m2 [facility]i [facility] [place] [facility] Systolic blood 2022-08-21 20:55:00 125 mm[Hg] Univer sity of pressure [place] [facility] Diastolic blood 2022-08-21 20:55:00 84 mm[Hg] Unive rsity of pressure [facility] [place] [facility] Branch Heart rate 2022-08-21 20:55:00 98 /min [facility] [place] [facility] [place] Body height 2022-08-21 20:55:00 162.6 cm [facility] [place] [facility] [place] Body weight 2022-08-21 20:55:00 113.172 kg [facility]i [facility] [place] [facility] BMI 2022-08-21 20:55:00 42.83 kg/m2 [facility]i [facility] [place] [facility] Oxygen saturation in 2022-08-21 20:55:00 95 /min University Arterial blood by [facility] Pulse oximetry Branch Systolic blood 2022-08-19 20:17:00 135 mm[Hg] Univer sity of pressure [facility] [place] [facility] Branch Diastolic blood 2022-08-19 20:17:00 83 mm[Hg] Unive rsity of pressure [facility] Heart rate 2022-08-19 20:17:00 97 /min Universi ty of [facility] Body temperature 2022-08-19 20:17:00 36.78 Natalie Univ ersity of [facility] Respiratory rate 2022-08-19 20:17:00 18 /min Univ ersity of [facility] Body height 2022-08-19 20:17:00 162.6 cm Universi ty of [facility] Body weight 2022-08-19 20:17:00 112.674 kg Universi ty of [facility] BMI 2022-08-19 20:17:00 42.64 kg/m2 Universi ty of [facility] Systolic blood 2022-06-05 21:30:00 124 mm[Hg] Univer sity of pressure [facility] Diastolic blood 2022-06-05 21:30:00 81 mm[Hg] Unive rsity of pressure [facility] Heart rate 2022-06-05 21:30:00 98 /min Universi ty of [facility] Body weight 2022-06-05 21:30:00 106.731 kg Universi ty of [facility] BMI 2022-06-05 21:30:00 40.39 kg/m2 Universi ty [facility] Oxygen saturation in 2022-06-05 21:30:00 100 /min University of Arterial blood by [facility] Pulse oximetry Branch Systolic blood 2022-05-20 18:32:00 112 mm[Hg] Univer sity of pressure [facility] Diastolic blood 2022-05-20 18:32:00 77 mm[Hg] Unive rsity of [facility] Heart rate 2022-05-20 18:32:00 89 /min Universi ty of [facility] Body weight 2022-05-20 18:32:00 106.55 kg Universi ty of [facility] BMI 2022-05-20 18:32:00 40.32 kg/m2 Universi ty of [facility] Oxygen saturation in 2022-05-20 18:32:00 98 /min University of Arterial blood by [facility] Pulse oximetry Branch Procedures Procedure Date / Time Performing Clinician Source Performed POCT URINALYSIS W/O 2022-09-16 17:04:00 Alexey Guzmán [facility] ty [facility] SPECIFIC GRAVITY [facility] DIABETES TESTING REPORTS 2022-09-02 06:01:00 Doctor Unassigned, No [facility] OB TRANSVAGINAL 2022-08-19 22:44:31 Alexey Guzmán [facility] y [facility] URINE DRUG (IMMUNOASSAY) 2022-08-19 21:19:00 Alexey Guzmán [facility] SCREEN PAP SMEAR-LIQUID 2022-08-19 21:19:00 Alexey Guzmán [facility] GC & CHLAMYDIA AMPLIFIED 2022-08-19 21:19:00 [facility] 2022-08-19 21:19:00 [facility] ULTRASOUND 2022-08-19 06:01:00 Doctor Unassigned, No [facility] POCT TEST 2022-08-19 00:00:00 Alexey Guzmán [facility] POCT URINALYSIS W/O 2022-08-19 00:00:00 Alexey Guzm[address] [facility] POCT HEMOGLOBIN A1C TEST 2022-06-05 21:38:00 Theron Peterson [facility] Encounters Start End Encounter Admission Attending Care Care Encounter Source Date/Time Date/Time Type Type Clinicians Facility Department ID 2022-07-23 [id number] Univers 01:14:04 [facility] 2022-05-04 Outpatient Nicholas BOLTON [facility] SOR [id number] Univers 16:04:09 [facility] 2022-05-01 Outpatient Nicholas BOLTON [facility] SOR [id number] Univers 07:50:05 [facility] 2022-10-14 2022-10-14 Outpatient R ROXANNE [facility] [id number] Univers 10:15:00 10:15:00 LIBORIO [facility] 2022-10-07 2022-10-07 Outpatient R [facility] [id number] Univers 09:45:00 09:45:00 [facility] 2022-09-16 2022-09-16 Outpatient R ALEXEY GUZMÁN [facility] [id number] Univers 10:45:00 11:46:01 [facility] 2022-09-16 2022-09-16 Routine Alexey Guzmán [facility] [id number] Univers 10:45:00 11:46:01 Cam MATT 350.1.13.10 ity of [place] [id number] Ok dical NAL [address] [facility] 2022-09-02 2022-09-02 Outpatient R ALEXEY GUZMÁN [facility] [id number] Univers 11:00:00 12:07:08 ity of [facility] 2022-09-02 2022-09-02 Routine Ramirez [facility] [id number] Univers 11:00:00 12:07:08 Cam MATT 350.1.13.10 ity of [place] [id number] Ok dical NAL [address] [facility] 2022-09-02 2022-09-02 Orders Doctor VAMSI [id number] Univers 00:00:00 00:00:00 Only Unassigned, LUIS CARLOS 350.1.13.10 ity of [place] [facility] 4.2.7.2.686 Dandre as [id number] [facility] 009 Branch 2022-08-28 2022-08-28 Patient Alvino [facility] [id number] [id number] Univers 00:00:00 00:00:00 Secure Msg Rosalba MULTISPEC 350.1.13.10 ity of [place]2.[place] [id number] [facility] AND GATICA 220 Branch DIABETES CLINIC 2022-08-26 2022-08-26 Fuel 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2.7.2.686 Dandre as ANGELA?BLEA [id number] [address] OFFICE [facility] 2022-08-26 2022-08-26 Telephone Parisa Rubio [facility] [id number] Univers 00:00:00 00:00:00 PRIMARY 350.1.13.10 it y [place]2.[place] [id number] [address] 2022-08-26 2022-08-26 Telephone Alexey Guzmán [facility] 1.2.840.114 [id number] Univers 00:00:00 00:00:00 Cam [place] 350.1.13.10 i ty [place] [id number] [address] 2022-08-25 2022-08-25 Telephone Alvino [facility] [id number] Univers 00:00:00 00:00:00 [place] HEALTH 350.1.13.10 it [facility] 4.2.7.2.686 Dandre as ANGELA?BLEA [id number] [address] OFFICE [facility] 2022-08-25 2022-08-25 Patient Parisa Rubio [facility] [id number] [id number] Univers 00:00:00 00:00:00 Secure Msg PRIMARY 350.1.13.10 ity [place] [id number] [address] 2022-08-25 2022-08-25 Patient Alvino [facility] [id number] [id number] Univers 00:00:00 00:00:00 Secure Msg [place] HEALTH 350.1.13.10 ity of [place] 4.2.7.2.686 Dandre as ANGELA?BLEA [id number] Ok dical KNEY [address] [facility] OFFICE [facility] 2022-08-24 2022-08-24 Telephone Alexey Guzmán [facility] 1.2.840.114 [id number] Univers 00:00:00 00:00:00 Cam [place] 350.1.13.10 i ty of [place] [id number] Ok dical NAL [address] [facility] 2022-08-21 2022-08-21 Fuel System Maintenance Supervisor Lab, Ang [facility] 1.2.840.1 [id number] Univers 15:45:00 16:00:00 Visit [facility] 350.1.13.10 ity of [place] 4.2.7.2.686 Dandre as ANGELA?BLEA [id number] [facility] GALI [address] [facility] OFFICE [facility] 2022-08-21 2022-08-21 Outpatient R ALVINO [facility] [id number] Univers 15:00:00 15:47:19 ROSALBA ity of [facility] 2022-08-21 2022-08-21 Office [facility] 1.2.840.114 [id number] Univers 15:00:00 15:47:19 Visit [facility] 350.1.13.10 it [facility] 4.2.7.2.686 Dandre as ANGELA?BLEA [id number] [facility] [address] [facility] OFFICE [facility] 2022-08-21 2022-08-21 Telephone Alexey Guzmán [facility] 1.2.840.114 [id number] Univers 00:00:00 00:00:00 Cam [place] 350.1.13.10 i ty [facility] 4.2.7.2.[place] [id number] Ok dical NAL [address] [facility] 2022-08-20 2022-08-20 Telephone Moises [facility] [id number] Univers 00:00:00 00:00:00 [facility] 350.1.13.10 it y of [place] 4.2.7.2.686 Dandre as ANGELA?BLEA [id number] Ok dical KNEY [address] [place] [facility] OFFICE [facility] 2022-08-19 2022-08-19 Outpatient R RAMIREZ ALEXEY [facility] [id number] Univers 14:00:00 15:35:09 ity of [facility] 2022-08-19 2022-08-19 Initial [place]ey Guzmán [place] [facility] 1.2.231.239 [id number] Univers 14:00:00 15:35:09 Cam ANGLEJEFFREY 350.1.13.10 ity of [facility] [place].2.[place] [phone] Ok humble [facility] [address] [facility] 2022-08-19 2022-08-19 Orders Doctor VAMSI 1.2.840.114 [id number] Univers 00:00:00 00:00:00 Only Unassigned, LUIS CARLOS 350.1.13.10 ity of [place] [facility] 4.2.7.2.686 Dandre as [phone] [facility] [address] 2022-06-29 2022-06-29 Telephone Hoang [facility] 1.2.840.114 [id number] Univers 00:00:00 00:00:00 Jl Camara HEALTH 350.1.13.10 it y of [place] 4.2.7.2.686 Dandre as ANGELA?BLEA [phone] Ok humble OLIVO [address] MEDICAL OFFICE [facility] 2022-06-27 2022-06-27 Refill Doctor [facility] 1.2.840.114 [id number] Univers 00:00:00 00:00:00 Unassigned, HEALTH 350.1.13.10 ity of [place] SPECIALTY [place].2.686 [place] [facility] - [phone] [facility] [address] 2022-06-05 2022-06-05 Outpatient R KRISTEN [facility] [id number] Univers 16:30:00 17:04:15 THERON chen of [facility] 2022-06-05 2022-06-05 Office [facility] 1.2.208.891 [id number] Univers 16:30:00 17:04:15 Visit Theron Be HEALTH 350.1.13.10 it y of [facility] 4.2.7.2.686 Dandre as ANGELA?BLEA [phone] Me humble OLIVO [address] MEDICAL OFFICE [facility] 2022-05-20 2022-05-20 Outpatient [facility] [id number] Univers 13:35:00 23:59:00 JL imelda [facility] 2022-05-20 2022-05-20 Office [facility] 1.2.086.924 [id number] Univers 13:30:00 14:10:[address] [facility] 350.1.13.10 it y of [facility] 4.2.7.2.686 Dandre as ANGELA?BLEA [phone] Ok humble OLIVO [address] [facility] OFFICE [facility] 2022-05-20 2022-05-20 Outpatient R [facility] [id number] Univers 13:30:00 14:10:47 [facility] 2022-05-20 2022-05-20 Outpatient R [facility] [id number] Univers 13:30:00 13:30:00 [facility] 2022-05-19 2022-05-19 Outpatient R MOISES [facility] [id number] Univers 11:30:00 11:30:00 JERI [facility] 2022-05-11 2022-05-11 Outpatient R PARISA RUBIO [facility] [id number] Univers 16:00:00 16:00:00 PARISA RUBIO [facility] 2022-05-06 2022-05-06 Telephone [facility] 1.2.840.114 [id number] Univers 00:00:00 00:00:00 Jl Paladion 350.1.13.10 it y of [facility] 4.2.7.2.686 Dandre as ANGELA?BLEA [phone] Ok humble OLIVO [address] MEDICAL OFFICE [facility] 2022-05-06 2022-05-06 Orders Doctor AGUSTIN 1.2.840.114 [id number] Univers 00:00:00 00:00:00 Only Unassigned, LUIS CARLOS 350.1.13.10 ity of [place] [facility] 4.2.7.2.686 Dandre as [phone] [address] 2022-05-04 2022-05-04 Surgery [facility] 1.2.362.658 [id number] Univers 11:50:00 13:00:00 Jl Jax GUTIERREZ 350.1.13.10 i ty of [place].2.7.2.[place] SURGICAL [id number] [facility] [address] 2022-05-04 2022-05-04 Outpatient R [facility] SOR [id number] Univers 09:17:00 12:15:00 JL imelda [facility] 2022-05-04 2022-05-04 Outpatient R [facility] S[facility] [id number] Univers 09:17:00 12:15:00 [facility] 2022-05-04 2022-05-04 Hospital [facility] 1.2.840.114 [id number] Univers 09:17:00 12:15:00 Encounter Jl Jax GUTIERREZ 350.1.13.10 ity of [place].2.7.2.[place] SURGICAL [id number] [facility] [address] 2022-05-04 2022-05-04 Orders Doctor VAMSI 1.2.840.114 [id number] Univers 00:00:00 00:00:00 Only Unassigned, LUIS CARLOS 350.1.13.10 ity of [place] [facility] 4.2.7.2.686 Dandre as [phone] [address] 2022-05-01 2022-05-01 Fuel 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 114 [id number] Univers 11:45:00 12:00:00 Only lJ Bolton [facility] 350.1.13.10 ity of [place] 4.2.7.2.686 [place] [facility] [phone] [address] 2022-05-01 2022-05-01 Outpatient R HOANG [facility] [id number] Univers 11:45:00 11:45:00 JL chen [facility] 2022-05-01 2022-05-01 Prep For Hoang [facility] 1.2.840.114 [id number] Univers 00:00:00 00:00:00 Surgery Jl Camara HEALTH 350.1.13.10 it y of [place] 4.2.7.2.686 Dandre as ANGELA?BLEA [phone] Ok humble OLIVO [address] [place] [address] OFFICE [facility] 2022-05-01 2022-05-01 Telephone Hoang [facility] 1.2.840.114 [id number] Univers 00:00:00 00:00:00 Jl CARSON 350.1.13.10 it y of [facility] 4.2.7.2.686 Dandre as ANGELA?BLEA [phone] Ok humble OLIVO [address] [facility] OFFICE [facility] 2022-04-30 2022-04-30 Telephone Hoang [facility] 1.2.840.114 [id number] Univers 00:00:00 00:00:00 Jl CARSON 350.1.13.10 it y of [place] 4.2.7.2.686 Dandre as ANGELA?BLEA [phone] Ok humble OLIVO [address] [place] [address] OFFICE [facility] 2022-04-27 2022-04-27 Outpatient R HOANG [facility] [id number] Univers 14:58:57 23:59:00 JL chen [facility] 2022-04-27 2022-04-27 Outpatient R HOANG [facility] [id number] Univers 14:45:00 15:32:57 JL chen [facility] 2022-04-27 2022-04-27 Telephone Hoang [facility] 1.2.840.114 [id number] Univers 00:00:00 00:00:00 Jl L HEALTH 350.1.13.10 it y of [place] 4.2.7.2.686 Dandre as ANGELA?BLEA [phone] Ok humble OLIVO [address] MEDICAL OFFICE BUILDING 2022-03-23 2022-03-23 Telephone Parisa Rubio [facility] 1.2.763.070 [id number] Univers 00:00:00 00:00:00 HEALTH 350.1.13.10 it y of [place] 4.2.7.2.686 Dandre as ANGELA?BLEA [phone] Ok humble TALBERT [address] MEDICAL OFFICE [facility]ILDING 2022-03-23 2022-03-23 Telephone Joanne, [facility] 1.2.168.548 [id number] Univers 00:00:00 00:00:00 HEALTH 350.1.13.10 it y of [place] 4.2.7.2.686 Dandre as ANGELA?BLEA [phone] Ok humble OLIVO [address] MEDICAL OFFICE [facility] 2022-03-18 2022-03-18 Telephone Joanne [facility] 1.2.117.492 [id number] Univers 00:00:00 00:00:00 HEALTH 350.1.13.10 it y of [place] 4.2.7.2.686 Dandre as ANGELA?BLEA [id number] [facility] OL[facility]O [address] MEDICAL OFFICE [facility] 2022-03-17 2022-03-17 Telephone Joanne [facility] 1.2.820.828 [id number] Univers 00:00:00 00:00:00 HEALTH 350.1.13.10 it y of [place] 4.2.7.2.686 Dandre as ANGELA?BLEA [phone] [facility] OLIVO [address] [facility] OFFICE BUILDING 2022-03-11 2022-03-11 Outpatient R PARISA RUBIO [facility] [id number] Univers 15:30:00 16:32:33 PARISA RUBIO [facility] 2022-03-11 2022-03-11 Office Joanne [facility] 1.2.840.114 [id number] Univers 15:30:00 16:32:33 Visit HEALTH 350.1.13.10 it y of [place] 4.2.7.2.686 Dandre as ANGELA?BLEA [id number] Ok humble [facility] [address] MEDICAL OFFICE [facility] 2022-03-11 2022-03-11 Outpatient R PARISA RUBIO [facility] [id number] Univers 15:30:00 16:32:33 PARISA RUBIO [facility] 2022-03-11 2022-03-11 Outpatient R PARISA RUBIO [facility] [id number] Univers 15:30:00 15:30:00 PARISA RUBIO [facility] 2022-02-24 2022-02-24 Telephone [facility] 1.2.444.820 [id number] Univers 00:00:00 00:00:00 [facility] 350.1.13.10 ity of [facility] 4.2.7.2.686 [facility] [phone] [address] 2022-02-23 2022-02-23 Outpatient R JOANNEPARISA Sinha [facility] [id number] Univers 16:00:00 16:00:00 PARISA RUBIO [facility] 2022-02-12 2022-02-12 Outpatient Nicholas [facility] [id number] Univers 10:40:00 23:59:00 [facility] 2022-02-12 2022-02-12 Outpatient Nicholas [facility] [id number] Univers 10:40:00 23:59:00 [facility] 2022-02-12 2022-02-12 Office [facility] 1.2.840.114 [id number] Univers 10:30:00 11:00:00 Visit [facility] 350.1.13.10 it y of [place] 4.2.7.2.686 Dandre as ANGELA?BLEA [id number] [facility] [address] MEDICAL OFFICE [facility] 2022-02-12 2022-02-12 Outpatient Nicholas [facility] [id number] Univers 10:30:00 10:30:00 [facility] 2022-02-12 2022-02-12 Orders Doctor AGUSTIN 1.2.840.114 [id number] Univers 00:00:00 00:00:00 Only Unassigned, LUIS CARLOS 350.1.13.10 ity of [place] [facility] 4.2.7.2.686 Dandre as [phone] [address] 2021-12-12 2021-12-12 Outpatient R BARBRA [facility] [id number] Univers 10:30:00 10:30:00 PORTILLO ity o [facility] 2021-12-12 2021-12-12 Outpatient R [facility] [id number] Univers 10:30:00 10:30:00 PORTILLO ity o [facility] 2021-08-12 2021-08-12 Telephone [facility] 1.2.831.135 [id number] Univers 00:00:00 00:00:00 Portillo A HEALTH 350.1.13.10 ity of [place].2.[place] CARE - [id number] [address] 2021-08-08 2021-08-08 Office [facility] 1.2.840.114 [id number] Univers 09:49:20 10:19:20 Visit Portillo A HEALTH 350.1.13.10 ity of [place].2.[place] CARE - [phone] [address] 2021-08-08 2021-08-08 Outpatient R BARBRA [facility] [id number] Univers 10:00:00 10:00:00 PORTILLO ity o [facility] 2021-08-08 2021-08-08 Outpatient R [facility] [id number] Univers 10:00:00 10:00:00 PORTILLO ity o f [facility] 2021-07-30 2021-07-30 Refill [facility] 1.2.840.114 [id number] Univers 00:00:00 00:00:00 Portillo A Health 350.1.13.10 ity of [place].2.[place] Care - [id number] [address] 2021-04-182021-04-18 Telephone [facility] 1.2.082.120 [id number] Univers 00:00:00 00:00:00 Portillo A Health 350.1.13.10 ity of [place].2.[place] [id number] [address] Office Building 2021-04-18 2021-04-18 Telephone [facility] 1.2.654.142 [id number] 00:00:00 00:00:00 Portillo A Health 350.1.13.10 [place] 4.2.7.2.686 Hernandez [id number] [place] [address] Office Building 2021-04-08 2021-04-08 Office [facility] 1.2.840.114 [id number] Univers 11:35:21 12:05:21 Visit Portillo A Health 350.1.13.10 ity of [place]2.7.2.686 [place] Hernandez [id number] [address] Office Building 2021-04-08 2021-04-08 Office [facility] 1.2.840.114 [id number] 11:35:21 12:05:21 Visit Portillo A Health 350.1.13.10 [place] 4.2.7.2.686 Hernandez [id number] [place] [address] Office Building 2021-04-08 2021-04-08 Outpatient R BARBRA [facility] [id number] Univers 12:00:00 12:00:00 PORTILLO ity o f [facility] 2021-04-05 2021-04-05 Refill [facility] 1.2.840.114 [id number] Univers 00:00:00 00:00:00 Portillo A Health 350.1.13.10 [place]2.[place] [id number] [address] Office Building 2021-03-14 2021-03-14 Outpatient R BARBRA [facility] [id number] Univers 09:30:00 09:30:00 PORTILLO ity o f [facility] 2020-12-31 2020-12-31 Patient Fuentes [facility] 1.2.840.114 [id number] Univers 00:00:00 00:00:00 Outreach [place] PRIMARY 350.1.13.10 i ty of [facility] 4.2.7.2.686 [place] PAV[place]ION [id number] Ok dical [address] 2020-12-13 2020-12-13 Office [facility] 1.2.840.114 [id number] Univers 09:17:36 09:47:36 Visit Bandar Kapoor [facility] 350.1.13.10 ity of [place].7.2.686 [place] [id number] [address] Office Building 2020-12-13 2020-12-13 Outpatient R BARBRA [facility] [id number] Univers 09:30:00 09:30:00 BANDAR itimelda o 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 2020-08-16 2020-08-16 Office [facility] 1.2.840.114 [id number] Univers 09:01:09 10:03:16 Visit Bandar Kap[facility] 350.1.13.10 ity of [place].2.[place] [id number] [address] Office Building 2020-08-16 2020-08-16 Outpatient R BARBRA [facility] [id number] Univers 09:30:00 09:30:00 PORTILLO ity o [facility] 2020-06-18 2020-06-18 Telephone [facility] 1.2.731.924 [id number] Univers 00:00:00 00:00:00 Portillo Emelia Health 350.1.13.10 [place]y [place].2.[place] [id number] [address] Office Building 2020-06-14 2020-06-14 Office Barbra [facility] 1.2.840.114 [id number] Univers 08:28:47 09:23:42 Visit Bandar Kapoor [facility] 350.1.13.10 ity of [place].2.686 [place] [id number] [address] Office Building 2020-06-14 2020-06-14 Outpatient R BARBRA [facility] [id number] Univers 08:30:00 08:30:00 PORTILLO ity o f [facility] 2020-06-14 2020-06-14 Orders Doctor VAMSI 1.2.840.114 [id number] Univers 00:00:00 00:00:00 Only Unassigned, LUIS CARLOS 350.1.13.10 ity of [place] [facility] 4.2.7.2.686 Dandre as [phone] [address] Results Test Description Test Time Test Comments Results Result Comments Source POCT URINALYSIS W/O SPECIFIC GRAVITY 2022-09-16 17:04:00 Test Item Value Reference Range Interpretation Comme nts POCT PH U (test code = 3254) n/a 5-8 POCT U LEUK EST (test code = 3263) n/a Negative - Negative POCT U NIT (test code = 3262) n/a Negative - Negative POCT U PROT (test code = 3259) Negative - Negative POCT U GLU (test code = 3256) negative Negative - Negative POCT U KETONE (test code = 3258) n/a Negative - Negative POCT U BLD (test code = 3257) n/a Negative - Negative [facility] [id number] 20:22:00 Test Item Value Reference Range Interpretation Comments POCT PH U (test code = 3254) n/a 5-8 POCT U LEUK EST (test code = n/a Negative - Negative 3263) POCT U NIT (test code = 3262) n/a Negative - Negative POCT U PROT (test code = 3259) negative Negative - Negative POCT U GLU (test code = 3256) negative Negative - Negative POCT U KETONE (test code = 3258) n/a Negative - Negative POCT U BLD (test code = 3257) n/a Negative - Negative [facility] URINALYSIS W/O SPECIFIC [id number] 20:22:00 Test Item Value Reference Range Interpretation Comments POCT PH U (test code = 3254) n/a 5-8 POCT U LEUK EST (test code = n/a Negative - Negative 3263) POCT U NIT (test code = 3262) n/a Negative - Negative POCT U PROT (test code = 3259) negative Negative - Negative POCT U GLU (test code = 3256) negative Negative - Negative POCT U KETONE (test code = 3258) n/a Negative - Negative POCT U BLD (test code = 3257) n/a Negative - Negative [facility] URINALYSIS W/O SPECIFIC [id number] 20:22:00 Test Item Value Reference Range Interpretation Comments POCT PH U (test code = 3254) n/a 5-8 POCT U LEUK EST (test code = n/a Negative - Negative 3263) POCT U NIT (test code = 3262) n/a Negative - Negative POCT U PROT (test code = 3259) negative Negative - Negative POCT U GLU (test code = 3256) negative Negative - Negative POCT U KETONE (test code = 3258) n/a Negative - Negative POCT U BLD (test code = 3257) n/a Negative - [facility] [id number] 20:22:00 Test Item Value Reference Range Interpretation Comments POCT PH U (test code = 3254) n/a 5-8 POCT U LEUK EST (test code = n/a Negative - Negative 3263) POCT U NIT (test code = 3262) n/a Negative - Negative POCT U PROT (test code = 3259) negative Negative - Negative POCT U GLU (test code = 3256) negative Negative - Negative POCT U KETONE (test code = 3258) n/a Negative - Negative POCT U BLD (test code = 3257) n/a Negative - Negative [facility] [id number] 20:21:00 Test Item Value Reference Range Interpretation Comments POCT PREG (test code = 1605) Positive On board controls acceptable with C Yes Line (test code = 3574) POCT PREG LOT # (test code = 3575) POCT PREG TEST DATE (test code = 3576) [facility] [id number] 20:21:00 Test Item Value Reference Range Interpretation Comments POCT PREG (test code = 1605) Positive On board controls acceptable with C Yes Line (test code = 3574) POCT PREG LOT # (test code = 3575) POCT PREG TEST DATE (test code = 3576) [facility] [id number] 20:21:00 Test Item Value Reference Range Interpretation Comments POCT PREG (test code = 1605) Positive On board controls acceptable with C Yes Line (test code = 3574) POCT PREG LOT # (test code = 3575) POCT PREG TEST DATE (test code = 3576) [facility] [id number] 20:21:00 Test Item Value Reference Range Interpretation Comments POCT PREG (test code = 1605) Positive On board controls acceptable with C Yes Line (test code = 3574) POCT PREG LOT # (test code = 3575) POCT PREG TEST DATE (test code = 3576) [facility] HEMOGLOBIN A1C [id number] 21:41:00 Test Item Value Reference Range Interpretation Comments POCT HBA1C (test code = 4548-4) 5.6 % 4-6 [facility] HEMOGLOBIN A1C [id number] 21:41:00 Test Item Value Reference Range Interpretation Comments POCT HBA1C (test code = 4548-4) 5.6 % 4-6 [facility] [id number] 11:10:28 Test Item Value Reference Range Interpretation Comments Glucose POC (test 319 mg/dL 70-115 H Notify RN or MDIf you code = Glucose POC) consider your patient critically ill, the Samuel-Accu Chec k Infrom II meter should not be used for Glucos e determination. Draw a venous Glucose and send to the main Lab for analysis. POC [id number] 06:09:00 Test Item Value Reference Range Interpretation Comments Glucose POC (test 232 mg/dL 70-115 H Notify RN or MDIf you code = Glucose POC) consider your patient critically ill, the Samuel-Accu Chec k Infrom II meter should not be used for Glucos e determination. Draw a venous Glucose and send to the main Lab for analysis. POC [id number] 19:18:31 Test Item Value Reference Range Interpretation Comments Glucose POC (test 320 mg/dL 70-115 H Notify RN or MDIf you code = Glucose POC) consider your patient critically ill, the Samuel-Accu Chec k Infrom II meter should not be used for Glucos e determination. Draw a venous Glucose and send to the main Lab for analysis. RPR [id number] 18:40:55 Test Item Value Reference Range Interpretation Comments RPR Qual (test code = RPR Qual) Non-Reactive Non-Reactive Reactive Control (test code = Reactive Reactive Control) Weak Reactive Control (test Weak Reactive code = Weak Reactive Control) Non-Reactive Control (test code Non-Reactive = Non-Reactive Control) Lot # (test code = Lot #) [id number] N Expiration Dt (test code = 08-10-2020 N Expiration Dt) POC [id number] 15:20:26 Test Item Value Reference Range Interpretation Comments Glucose POC (test 240 mg/dL 70-115 H Notify RN or MDIf you code = Glucose POC) consider your patient critically ill, the Samuel-Accu Chec k Infrom II meter should not be used for Glucos e determination. Draw a venous Glucose and send to the main Lab for analysis. Thyroid Stimulating [id number] 11:14:05 Test Item Value Reference Range Interpretation Comments TSH (test code = TSH) 1.850 mIU/mL 0.270-4.200 Dike [id number] 11:08:52 Test Item Value Reference Range Interpretation Comments Dike Level (test code = 0.10 mmol/L 0.60-1.20 L Dike Level) Lipid [id number] 11:08:51 Test Item Value Reference Range Interpretation Comments Cholesterol Total 244 mg/dL 0-200 H RISK OF HE ART (test code = DISEASEPublishe d by Cholesterol Total) [employer] Karely lyte Optimal Borderl ine Increased RiskC HOL <200 200-239 >240TRI G <150 150-199 >200HDL Male >60 <40HDL Fema le >60 <50LDL <100 130 -159 >160LDL Near op timal is 100-129 Triglycerides (test 339 mg/dL 9-200 [...] is LDL/HDL Ratio=L DL Calc/HDL Chol POC [id number] 10:58:53 Test Item Value Reference Range Interpretation Comments Glucose POC (test 335 mg/dL 70-115 H Notify RN or MDIf you code = Glucose POC) consider your patient critically ill, the Samuel-Accu Chec k Infrom II meter should not be used for Glucos e determination. Draw a venous Glucose and send to the main Lab for analysis. POC [id number] 06:47:23 Test Item Value Reference Range Interpretation Comments Glucose POC (test 192 mg/dL 70-115 H Notify RN or MDIf you code = Glucose POC) consider your patient critically ill, the Samuel-Accu Chec k Infrom II meter should not be used for Glucos e determination. Draw a venous Glucose and send to the main Lab for analysis. POC [id number] 02:48:53 Test Item Value Reference Range Interpretation Comments Glucose POC (test 331 mg/dL 70-115 H If you con belling machine operator your code = Glucose POC) patient critically ill, the Samuel-Accu Check Infrom II meter should not be used for Glucose determination. Draw a venous Glucose and send to the main Lab for analysis. POC [id number] 23:39:23 Test Item Value Reference Range Interpretation Comments Glucose POC (test 287 mg/dL 70-115 H If you con belling machine operator your code = Glucose POC) patient critically ill, the Samuel-Accu Check Infrom II meter should not be used for Glucose determination. Draw a venous Glucose and send to the main Lab for analysis. Comprehensive Metabolic [id number] 23:38:05 Test Item Value Reference Range Interpretation [...] A/G 1.5 ratio N Ratio) Comprehensive Metabolic [id number] 23:38:05 Test Item Value Reference Range Interpretation [...] the [employer], http://nkdep.ni h.gov Alcohol [id number] 23:38:05 Test Item Value Reference Range Interpretation Comments Ethanol Level (test <0.00 g/dL 0.00-0.01 Intoxica louis 0.080 g/dL code = Ethanol or more Level) Ethanol Inst (test <0 N code = Ethanol Inst) Comprehensive Metabolic [id number] 23:38:05 Test Item Value Reference Range Interpretation [...] ag e have not been validated by [facility] MDRD study and should be [...] ag e have not been validated by [facility] MDRD study and should be interpreted wit h caution. eGFR R esult Interpretation: eGFR > or = 60 is in the Normal RangeeGF R < 60 may mean kid maile diseaseeGFR < 1 5 may mean kidney failure Rang es recommended by the [employer], http://nkdep.ni h.gov Urinalysis [id number] 22:19:51 Test Item Value Reference Range Interpretation Comments UA WBC (test code = UA WBC) 0-5 0-5 UA RBC (test code = UA RBC) 0-5 0-5 UA Bacteria (test code = UA None Seen Bacteria) UA Squam Epithelial (test code = UA 11-19 A Squam Epithelial) Urinalysis with Microscopic if [id number] 22:08:25 Test Item Value Reference Range Interpretation [...] Micro Ind?) rule [id number] _IND Urine Drug [id number] 21:54:51 Test Item Value Reference Range Interpretation [...] matory test if desired . HCG Qualitative [id number] 21:53:40 Test Item Value Reference Range Interpretation Comments hCG Ur (test code = Negative If the r esult is hCG Ur) "Negative" in p atients suspected to be , recom mend retest with a s ample obtained 48 to 72 hours later, or by ordering a quantitative as say. If the result is "Borderline" te sting should be repea [place] in 48 to 72 hours. Lot # (test code = [id number] Lot #) Expiration Dt (test 2020-10-10 N code = Expiration Dt) Neg Control (test Negative code = Neg Control) Pos Control (test Positive code = Pos Control) Internal QC (test Acceptable code = Internal QC) Automated [id number] 21:37:20 Test Item Value Reference Range Interpretation Comments Neutro Auto (test code = Neutro 68.2 % 36.0-70.0 Auto) Lymph Auto (test code = Lymph Auto) 25.3 % 12.0-44.0 [place] Auto (test code = [place] Auto) 5.2 % 0.0-11.0 Eos, Auto (test code = Eos, Auto) 0.8 % 0.0-7.0 Basophil Auto (test code = Basophil 0.2 % 0.0-2.0 Auto) Neutro Absolute (test code = Neutro 10.0 x10 1.6-7.4 H Absolute) Lymph Absolute (test code = Lymph 3.70 x10 .50-4.60 Absolute) [place] Absolute (test code = [place] .76 x10 .00-1.20 Absolute) Eos Absolute (test code = Eos 0.12 x10 0.00-0.74 Absolute) Baso Absolute (test code = Baso 0.03 x10 0.00-0.21 Absolute) IG [id number] 21:37:20 Test Item Value Reference Range Interpretation Comments IG (test code = IG) 0.3 % 0.0-5.0 IG Abs (test code = IG Abs) 0 x10 N Complete Blood Count with [id number] 21:37:19 Test Item Value Reference Range Interpretation [...]
--- NOTE | 2022-10-05 16:44 | ER ---
Nurse's Notes [facility] Name: Monique Mendez Age: 22 yrs Sex: Female : 2000 Arrival Date: 10/05/2022 Time: 16:03 Bed Waiting Private MD: Diagnosis: ED Course: 10/05 16:03 Patient arrived in ED. rg4 16:07 Ruma Rose FNP-C is [facility]. mandi 16:07 Km Mcdonald MD is Attending Physician. kb Administered Medications: No medications were administered Outcome: 16:44 Patient left the ED. ld1 Signatures: Ruma Rose FNP-C FNP-Ckb Garcia, Rubi rg4 Jessica Stone, RN RN ld1
== END 2022-10-05 16:44 | disposition left against medical advice (07) ==
LOC: ER 15:57
DX: Z02.9 Encounter for administrative examinations, unspecified (principal)

== ENCOUNTER 2024-07-25 23:40 | Emergency (ER) | payer OTHER ==
[2024-07-26 01:15] LABS: Specific Gravity > 1.030 (1.005-1.030); Urine Bilirubin NEGATIVE (Negative); Urine Blood Negative (Negative); Urine Clarity Clear (Clear); Urine Color Light-Yellow (Yellow); Urine Glucose 4+ (Over) (Negative); Urine Ketones NEGATIVE (Negative); Urine Microscopic Reflex YN NO UMIC; Urine Nitrite NEGATIVE (Negative); Urine Protein NEGATIVE (Negative); Urine Urobilinogen Normal (Normal)
[2024-07-26] MEDS ORDERED: DIAZEPAM 5 MG TABLET ONE (01:18)
--- NOTE | 2024-07-26 04:08 | EDPHYS ---
Physician Documentation [facility] Name: Monique Mendez Age: 24 yrs Sex: Female : 2000 Arrival Date: 07/25/2024 Time: 23:40 Bed 13 Private MD: ED Physician Neil Mora HPI: 07/25 23:51 This 24 yrs old Female presents to ER via Unassigned with complaints of sp4 Feeling unwell. 07/26 03:01 24-year-old female presents with feeling unwell and emotional upset.. Patient states sp4 for the past few days she has abused methamphetamines and marijuana. Patient reports that she is not having any suicidal thoughts at this time and does not have suicide plan. Patient has arrived with EMS reporting that she is just unsettled and feeling unwell. Patient has past medical history of anxiety, depression, multiple personality disorder, diabetes, polycystic ovarian syndrome. Historical: - Allergies: 00:52 No Known Allergies; jb4 - PMHx: 00:52 Anxiety; Depression; multiple personality disorder; Diabetes - IDDM; polycystic ovarian jb4 disease; Schizophrenia; Suicide Attempts; Bipolar disorder; - PSHx: 00:52 ; jb4 - Immunization history:: Adult Immunizations up to date. - Infectious Disease History:: Denies. - Social history:: Smoking status: Patient reports the use of cigarette tobacco products, smokes one pack cigarettes per day. Patient uses street drugs, Methamphetamine (Meth). - Family history:: not pertinent. ROS: 03:01 Constitutional: Negative for fever, chills, and weight loss, positive for anxiety, sp4 feeling of generalized discontent, positive for not feeling well 03:01 All other systems are negative, Exam: 02:46 ECG was reviewed by the Attending Physician. EKG at 0050 normal sinus rhythm at sp4 the rate of 76 02:47 Constitutional: This is a well developed, well nourished patient who is awake, alert, sp4 and in no acute distress. Patient is angry and irritable, emotionally upset Head/Face: Normocephalic, atraumatic. Eyes: Pupils equal round and reactive to light, extra-ocular motions intact. Lids and lashes normal. Conjunctiva and sclera are not injected. Cornea within normal limits. Periorbital areas with no swelling, redness, or edema. ENT: Nares patent. No nasal discharge, no septal abnormalities noted. Tympanic membranes are normal and external auditory canals are clear. Oropharynx with no redness, swelling, or masses, exudates, or evidence of obstruction, uvula midline. Mucous membranes moist. Neck: Trachea midline, no thyromegaly or masses palpated, and no cervical lymphadenopathy. Supple, full range of motion without nuchal rigidity, or vertebral point tenderness. Chest/axilla: Normal chest wall appearance and motion. Nontender with no deformity. No lesions are appreciated. Cardiovascular: Regular rate and rhythm with a normal S1 and S2. No gallops, murmurs, or rubs. Normal PMI, no JVD. No pulse deficits. Respiratory: Lungs have equal breath sounds bilaterally, clear to auscultation and percussion. No rales, rhonchi or wheezes noted. No increased work of breathing, no retractions or nasal flaring. Abdomen/GI: Soft, with normal bowel sounds. No distension or tympany. No guarding or rebound. No evidence of tenderness throughout. Back: No spinal tenderness. No costovertebral tenderness. Skin: Warm, dry with normal turgor. Normal color with no rashes, no lesions, and no evidence of cellulitis. MS/ Extremity: Pulses equal, no cyanosis. Neurovascular intact. Full, normal range of motion. Neuro: Awake and alert, GCS 15, oriented to person, place, time, and situation. Cranial nerves II-XII grossly intact. Motor strength 5/5 in all extremities. Sensory grossly intact. Psych: Awake, alert, with orientation to person, place and time. Patient became very angry and irritable. Requested discharge home. Denies active suicidal ideation or plan. Vital Signs: 00:39 BP 131 / 91; Pulse 87; Resp 16; Pulse Ox 99% on R/A; Weight 99.79 kg (R); Height 5 ft. jb4 4 in. (R); Pain 0/10; 00:39 Body Mass Index 37.76 (99.79 kg, 162.56 cm) jb4 00:39 Pain Scale: Adult jb4 Jarek Coma Score: 02:46 Eye Response: spontaneous(4). Motor Response: obeys commands(6). Verbal Response: sp4 oriented(5). Total: 15. MDM: 07/25 23:52 Medical Screening Exam initiated 4 07/26 03:01 Differential diagnosis: drug withdrawal. acute psychotic break, depression, psychosis sp4 secondary to non-compliance. Data reviewed: vital signs, nurses notes, EMS record, lab test result(s), EKG. ED course: Patient became more upset after p.o. Valium and requested being discharged from the emergency room /We will oblige and discharge patient. This time patient has no sign of acute medical emergency and no sign of acute psychiatric emergency.. 07/25 23:52 Order name: Acetaminophen 4 07/25 23:52 Order name: Basic Metabolic Panel 4 07/25 23:52 Order name: CBC with Diff 4 07/25 23:52 Order name: ETOH Level 4 07/25 23:52 Order name: Hepatic Function 4 07/25 23:52 Order name: PT-INR 4 07/25 23:52 Order name: Test, Urine 4 07/25 23:52 Order name: Ptt, Activated 4 07/25 23:52 Order name: Salicylate 4 07/25 23:52 Order name: Urinalysis w/ reflexes sp4 07/25 23:52 Order name: Urine Drug Screen 4 07/25 23:52 Order name: TSH 4 07/25 23:52 Order name: T4 Free 4 07/25 23:52 Order name: EKG; Complete Time: 23:53 4 07/25 23:52 Order name: EKG - Nurse/Tech; Complete Time: 00:54 4 07/25 23:52 Order name: IV Saline Lock; Complete Time: 01:11 4 07/25 23:52 Order name: Labs collected and sent; Complete Time: 01:11 sp4 07/25 23:52 Order name: Suicide Screening ([place]); Complete Time: 01:11 sp4 EC:46 Rate is 76 beats/min. Rhythm is regular, Normal Sinus Rhythm. QRS [place] is Normal. [place] sp4 interval is normal. QRS interval is normal. QT interval is normal. No Q waves. T waves are Normal. No ST changes noted. Clinical impression: Normal ECG. Interpreted by me. Reviewed by me. Administered Medications: 01:23 Drug: Diazepam PO 10 mg PO once Route: PO; jb4 02:57 Follow up: Response: No adverse reaction jb4 Disposition Summary: 07/26/24 02:49 Discharge Ordered Notes: Location: Home sp4 Problem: new sp4 Symptoms: have improved sp4 Condition: Stable sp4 Diagnosis - Amphetamine abuse, emotional upset, cannabis abuse sp4 Followup: sp4 - With: Private Physician - When: 7 - 10 days - Reason: Recheck today's complaints Discharge Instructions: - Discharge Summary Sheet sp4 - Managing Anger, Adult sp4 Forms: - Patient Portal Instructions sp4 Signatures: Dispatcher [employer] Fermin Choe RN RN jb4 Neil Mora MD MD sp4 Corrections: (The following items were deleted from the chart) 07/25 23:53 23:53 ACETAMINOPHEN+C.LAB.BRZ ordered. EDMS EDMS 23:53 23:53 BASIC METABOLIC PANEL+C.LAB.BRZ ordered. EDMS EDMS 23:53 23:53 CBC+H.LAB.BRZ ordered. EDMS EDMS 23:53 23:53 ETHANOL+C.LAB.BRZ ordered. EDMS EDMS 23:53 23:53 HEPATIC FUNCTION+C.LAB.BRZ ordered. EDMS EDMS 23:53 23:53 PROTIME (+INR)+COAG.LAB.BRZ ordered. EDMS EDMS 23:53 23:53 Test, Urine+UC.LAB.BRZ ordered. EDMS EDMS 23:53 23:53 PTT, ACTIVATED+COAG.LAB.BRZ ordered. EDMS EDMS 23:53 23:53 SALICYLATE+C.LAB.BRZ ordered. EDMS EDMS 23:53 23:53 Urinalysis+U.LAB.BRZ ordered. EDMS EDMS 23:53 23:53 URINE DRUG SCREEN+UC.LAB.BRZ ordered. EDMS EDMS 07/26 00:53 00:52 PSHx: None; jb4 jb4
--- NOTE | 2024-07-26 04:08 | ER ---
Nurse's Notes [facility] Name: Monique Mendez Age: 24 yrs Sex: Female : 2000 Arrival Date: 07/25/2024 Time: 23:40 Bed 13 Private MD: Diagnosis: Amphetamine abuse, emotional upset, cannabis abuse Presentation: 07/26 00:39 Chief complaint: Patient states: I am wanting mental help. I need something to help me jb4 calm down. I took meth 2 days ago. I just need something to help me calm down I do not want to get to the point where I am having SI or HI. Coronavirus screen: At this time, the client does not indicate any symptoms associated with coronavirus-19. Ebola Screen: No symptoms or risks identified at this time. Initial Sepsis Screen: Does the patient meet any 2 criteria? No. Patient's initial sepsis screen is negative. Does the patient have a suspected source of infection? No. Patient's initial sepsis screen is negative. Risk Assessment: Do you want to hurt yourself or someone else? Patient reports no desire to harm self or others. Onset of symptoms was July 26, 2024. Transition of care: patient was not received from another setting of care. 00:39 Acuity: ROXANNE 3 jb4 00:39 Method Of Arrival: EMS: [facility] jb4 Triage Assessment: 00:52 General: Appears in no apparent distress. comfortable, Behavior is calm, cooperative, jb4 appropriate for age. Pain: Denies pain. Neuro: Level of Consciousness is awake, alert, obeys commands, Oriented to person, place, time, situation. Cardiovascular: Patient's skin is warm and dry. Respiratory: Airway is patent Respiratory effort is even, unlabored, Respiratory pattern is regular, symmetrical. GI: No signs and/or symptoms were reported involving the gastrointestinal system. : No signs and/or symptoms were reported regarding the genitourinary system. Derm: Skin is intact, Skin is pink, warm \\T\\ dry. Musculoskeletal: Circulation, motion, and sensation intact. Range of motion: intact in all extremities. Historical: - Allergies: 00:52 No Known Allergies; jb4 - PMHx: 00:52 Anxiety; Depression; multiple personality disorder; Diabetes - IDDM; polycystic ovarian jb4 disease; Schizophrenia; Suicide Attempts; Bipolar disorder; - PSHx: 00:52 ; jb4 - Immunization history:: Adult Immunizations up to date. - Infectious Disease History:: Denies. - Social history:: Smoking status: Patient reports the use of cigarette tobacco products, smokes one pack cigarettes per day. Patient uses street drugs, Methamphetamine (Meth). - Family history:: not pertinent. Screenin:54 [facility] ED Fall Risk Assessment (Adult) History of falling in the last 3 months, jb4 including since admission No falls in past 3 months (0 pts) Confusion or Disorientation No (0 pts) Intoxicated or Sedated No (0 pts) Impaired Gait No (0 pts) Mobility Assist Device Used No (0 pt) Altered Elimination No (0 pt) Score/Fall Risk Level 0 - 2 = Low Risk Oriented to surroundings, Maintained a safe environment. Abuse screen: Denies threats or abuse. Nutritional screening: No deficits noted. Tuberculosis screening: No symptoms or risk factors identified. Assessment: 00:54 Reassessment: see triage note. jb4 01:30 Reassessment: Patient appears in no apparent distress at this time. Patient and/or jb4 family updated on plan of care and expected duration. Pain level reassessed. Patient is alert, oriented x 3, equal unlabored respirations, skin warm/dry/pink. 02:34 Reassessment: Patient appears in no apparent distress at this time. Patient and/or jb4 family updated on plan of care and expected duration. Pain level reassessed. Patient is alert, oriented x 3, equal unlabored respirations, skin warm/dry/pink. Pt is laying in bed, reports being unable to get a ride home and that her friend is walking here. 02:49 Reassessment: Provider at the bedside explaining results to the pt. Pt states " Fuck jb4 you guys. You didn't do shit for me." Provider explaining plan of care and why it was done. Pt yelled " No fuck you. nothing was done for me I want to go home. Fuck all of you.". 02:56 Reassessment: Pt given a sandwich per request. Is now more calm. Was instructed that jb4 she needed a ride home due to the Valium administration. Pt d/c pending ride home. 03:06 Reassessment: Pt given a blanket to rest while she waits for ride home. Report given to maxwell Kiser RN and SLOAN Allred. 03:31 General: Patient came out of the room yelling at her family member stating "They don't kd3 fucking care, I will leave and get better myself. Give me my fucking paper work so I can leave". Client signed paper work and left without her copies. . Neuro: Level of Consciousness is awake, alert, obeys commands, Oriented to person, place, time, situation. Cardiovascular: Patient's skin is warm and dry. Respiratory: Airway is patent Trachea midline Respiratory effort is even, unlabored, Respiratory pattern is regular, symmetrical. Vital Signs: 00:39 BP 131 / 91; Pulse 87; Resp 16; Pulse Ox 99% on R/A; Weight 99.79 kg (R); Height 5 ft. jb4 4 in. (R); Pain 0/10; 00:39 Body Mass Index 37.76 (99.79 kg, 162.56 cm) jb4 00:39 Pain Scale: Adult jb4 Jarek Coma Score: 02:46 Eye Response: spontaneous(4). Motor Response: obeys commands(6). Verbal Response: sp4 oriented(5). Total: 15. ED Course: 07/25 23:44 Patient arrived in ED. kmf 23:51 Neil Mora MD is Attending Physician. sp4 07/26 00:51 Triage completed. jb4 00:52 EKG done, by ED staff, reviewed by Neil Mora MD. oe 00:52 Arm band placed on right wrist. jb4 00:54 No provider procedures requiring assistance completed. jb4 00:54 Patient has correct armband on for positive identification. Bed in low position. Call [facility] light in reach. Side rails up X 1. Provided Education on: plan of care. 00:56 Fermin Gunn, SLOAN is Primary Nurse. jb4 01:11 Acetaminophen Sent. jb4 01:12 Basic Metabolic Panel Sent. jb4 01:12 CBC with Diff Sent. jb4 01:12 ETOH Level Sent. jb4 01:12 Hepatic Function Sent. jb4 01:12 PT-INR Sent. jb4 01:12 Test, Urine Sent. jb4 01:12 Ptt, Activated Sent. jb4 01:12 Salicylate Sent. jb4 01:12 Urinalysis w/ reflexes Sent. jb4 01:12 Urine Drug Screen Sent. jb4 03:33 IV discontinued, intact, bleeding controlled, No redness/swelling at site. Pressure kd3 dressing applied. Administered Medications: 01:23 Drug: Diazepam PO 10 mg PO once Route: PO; jb4 02:57 Follow up: Response: No adverse reaction jb4 Medication: 00:54 VIS not applicable for this client. jb4 Outcome: 02:49 Discharge ordered by . sp4 03:33 Discharged to home with family, kd3 03:33 Condition: stable 03:33 Discharge instructions given to patient, Instructed on discharge instructions, Demonstrated understanding of instructions, 03:34 Patient left the ED. kd3 Signatures: Fermin Gunn, RN RN jb4 Eros Flores Kyli RN RN kd3 Neil Mora MD MD sp4 Johanne Muñoz [facility] Corrections: (The following items were deleted from the chart) 00:53 00:52 PSHx: None; jb4 jb4 03:07 00:39 Method Of Arrival: Ambulatory jb4 jb4
[2024-07-26 04:14] LABS: ALT/SGPT 22 U/L (13-56); AST/SGOT < 10 U/L (15-37); Albumin 3.4 g/dL (3.4-5.0); Albumin/Globulin Ratio 0.8 (1.1-1.8); Alkaline Phosphatase 79 U/L (45-117); Anion Gap 9.5 mEq/L (5.0-15.0); BUN Blood Urea Nitrogen 10 mg/dL (7-18); Bicarbonate 25 mEq/L (21-32); Bilirubin Direct < 0.2 mg/dL (0-0.2); Bilirubin Total 0.2 mg/dL (0.2-1.0); Globulin 4.1 g/dL (2.3-3.5); Glomerular Filtration Rate 102 ml/min (=/>90); Glucose Level 296 mg/dL (74-106); PT Prothrombin Time 9.9 SECONDS (9.4-12.5); PTT, Activated Partial Thromb 28.3 SECONDS (24.3-36.9); Potassium 3.5 mEq/L (3.5-5.1); Protein, Total 7.5 g/dL (6.4-8.2); Protime INR 0.88; Sodium Level 134 mEq/L (136-145)
[2024-07-26 04:14] LABS: Barbiturates NEGATIVE (NEGATIVE); Benzodiazepines POSITIVE (NEGATIVE); Cocaine NEGATIVE (NEGATIVE); METHAMPHETAM POSITIVE (NEGATIVE); Methadone NEGATIVE (NEGATIVE); Opiates NEGATIVE (NEGATIVE); Phencyclidine NEGATIVE (NEGATIVE); THC Cannibis POSITIVE (NEGATIVE)
[2024-07-26 04:15] LABS: Absolute Eosinophils 0.1 K/uL (0-0.5); Absolute Lymphocytes (CBC) 3.6 K/uL (0.7-4.9); Absolute Monocytes 0.5 K/uL (0.1-1.3); Absolute Neutrophil 6.6 K/uL (1.8-8.0); Basophils % 0.2 % (0-1.3); Eosinophils % 1.4 % (0-4.4); Hematocrit 41.8 % (36.0-45.0); Hemoglobin 14.1 g/dL (12.0-15.0); Lymphocytes % 33.2 % (15.3-44.8); MCH 29.1 pg (27.0-35.0); MCHC 33.7 g/dL (32.0-36.0); MCV 86.4 fL (80-100); MPV 8.3 fL (7.6-11.3); Monocytes % 4.8 % (3.3-12.3); Neutrophils % 60.4 % (41.7-73.7); Nucleated Red Blood Cells % 0.1 % (0-0); Platelets 391 thou/uL (152-406); RBC Red Blood Cell Count 4.83 M/uL (3.86-4.86); Red Cell Distribution Width 12.8 % (12.1-15.2)
[2024-07-26 08:03] VITALS: BP 131/91; O2SAT 99
--- NOTE | 2024-07-27 11:54 | EKG ---
Test Date: 2024-07-26 Test Time: 00:50:50 Speaker Wirer: VANDANA MEASUREMENT RESULTS: Intervals: Rate: 76 WI: 142 QRSD: 84 QT: 382 QTc: 429 [place]: P: 40 WI: 142 QRS: 75 T: 46 INTERPRETIVE STATEMENTS: Normal sinus rhythm Normal ECG Compared to ECG 02/18/2019 00:26:04 No significant changes Electronically Signed On 07-27-24 11:51:34 CDT by Chintan Kramer
== END 2024-07-26 03:34 | disposition home or self-care (01) ==
LOC: ER 23:40
DX: R45.7 State of emotional shock and stress, unspecified (principal); F15.10 Other stimulant abuse, uncomplicated; F12.10 Cannabis abuse, uncomplicated; F20.9 Schizophrenia, unspecified; F17.210 Nicotine dependence, cigarettes, uncomplicated
CPT/HCPCS: 36415; 80048; 80076; 80143; 80179; 80307; 81003; 81025; 82077; 84439; 84443; 85025; 85610; 85730; 93005; 99284